=== PATIENT | male | born 1940 | race Caucasian/White ===

== ENCOUNTER → 2018-06-27 07:18 | Outpatient (CLI) | payer MEDICARE, SELFPAY ==
[2018-06-27 08:49] LABS: BUN 37 mg/dL (7-18); Creatinine, Serum 1.78 mg/dL (0.70-1.30); EST Glomerular Filtration Rate 40 mL/min (>60); Est Glom Filt Rate - Afr Amer 48 mL/min (>60)
== END ==
PROVIDERS: Family Provider Nurse Practitioner; PCP Nurse Practitioner
DX: I73.9 Peripheral vascular disease, unspecified (principal)
CPT/HCPCS: 36415; 82565; 84520

== ENCOUNTER 2018-07-30 04:35 | Emergency (ER) | payer MEDICARE, SELFPAY ==
[2018-07-30 04:36] VITALS: BP 176/106; PULSE 85; RESP 16; TEMP 36.4; O2SAT 95; BMI 19.3
--- NOTE | 2018-07-30 04:52 | ED.DCSUM_ITS ---
- ER Visit Summary Date of Service: 07/30/18 Chief Complaint: Allergic reaction History of Present Illness: The patient is a 78 M sudden left-sided tongue swelling 30 minutes prior to arrival. No dyspnea, no throat swelling. History of peanut allergy past 15 years similar presentation. States second time his tongue is swelling. States he ate Fritos 8 hours ago. Concerns there may have been peanut oil use. No chest tightness, no rash, no pruritus. Took 3 Benadryl tabs prior to arrival. Review patient's medication list bedside, he is on Enalapril. He states he is taking this for years. Physical Examination: General: Alert and oriented ?3, no acute distress, grumpy HEENT: Normocephalic, atraumatic. Moist mucosa membranes. Mild left-sided tongue swelling, no obstruction. Airway patent. Neck: supple, nontender. Cardiovascular: Regular rate and rhythm, no murmurs Respiratory: Normal breath sounds, symmetric, no distress Abdomen: Soft, nontender, nondistended Extremities: Nontender, no edema, pulses intact ?4 Neuro: no focal neurological deficits. Test Results: [] Emergency Department Course and Treatment: Patient presenting with slight angioedema of the tongue on left side. Due to his concerns of food allergy to peanuts and possible exposure, he was given Pepcid and Solu-Medrol. He took 3 Benadryl's prior to arrival. Monitor, 2 hours, states there is no progression, on reevaluation, there is slight improvement of swelling the left side of the tongue. There is no progression. Discussed with patient significant other, concerned this is likely JOSE ALBERTO induced angioedema. He will need to stop his Enalapril because PCP tomorrow for transition to another medication. He states he is been on 2 other medicines which cause side effects. All questions were answered. Treatment Plan: [] Disposition: Discharge Impression: Angioedema This note was generated with [employer] dictation software. It may contain incorrect words, spelling, and punctuation that were not noted in review of the chart prior to signing ED Disposition - Plan for ED Patient: Disposition: Home or Assisted Living Chief Complaint: Allergic Reaction Diagnosis: Angioedema Instructions: ED Angioedema Referrals: Rona Barnett [Primary Care Provider] - 1 Day Additional Instructions: Stop your enalapril. Call your physician to start a different blood pressure medication.
[2018-07-30] MEDS: MethylPREDNISolone 125 MG/2 ML Vial IV (04:53)
== END 2018-07-30 07:03 | disposition home or self-care (01) ==
PROVIDERS: Emergency Provider Emergency Medicine; Family Provider Nurse Practitioner; PCP Nurse Practitioner
DX: T78.3XXA Angioneurotic edema, initial encounter (principal); I49.3 Ventricular premature depolarization; I10 Essential (primary) hypertension; E78.00 Pure hypercholesterolemia, unspecified; Z79.82 Long term (current) use of aspirin; Z79.01 Long term (current) use of anticoagulants; Z79.899 Other long term (current) drug therapy; Z72.0 Tobacco use
CPT/HCPCS: 96374; 96375; 99284; A4216; J3490

== ENCOUNTER 2020-12-17 08:16 | Outpatient (RCR) | payer MEDICARE, SELFPAY | END 2020-12-17 23:59 | LOC: IMMUN 08:16 | PROVIDERS: PCP Nurse Practitioner; Visit Provider Family Medicine | DX: Z23 Encounter for immunization (principal) | CPT/HCPCS: 0011A; 0012A ==

== ENCOUNTER 2021-09-27 15:23 | Inpatient (IN) | payer MEDICARE, SELFPAY ==
[2021-09-27] VITALS (13 sets, daily range): BP systolic 120–153; BP diastolic 57–94; PULSE 63–88; RESP 16–19; TEMP 36.6–37.1; O2SAT 97–100; BMI 18.7; BMI 16.2
--- NOTE | 2021-09-27 15:43 | CT_ITS ---
STUDY: CT BRAIN WITHOUT CONTRAST REASON FOR EXAM: Male, 81 years old. Vertigo RADIATION DOSAGE (If Supplied By Facility): CTDIvol = ( 44.99 ) mGy, DLP = ( 812.98 ) mGycm TECHNIQUE: Transaxial CT imaging of the brain was performed without administration of intravenous contrast material. Individualized dose optimization techniques were used for this CT. COMPARISON: No relevant priors. FINDINGS: Normal soft tissue structures. Normal calvarium. Prominent ventricles and extra-axial spaces with atrophy. Normal white matter tracts of the cerebral hemispheres. Normal basal ganglia and thalami. Normal brainstem. Normal cerebellum. There is no intracranial hemorrhage. There are no findings of an acute ischemic infarction. Normal visualized paranasal sinuses. CT/Brain/Head without Contrast IMPRESSION: Normal unenhanced CT scan of the brain. Electronically Signed: Nick Roman DO at 16:50 EST Tel [phone], Service support ,
--- NOTE | 2021-09-27 15:43 | EKG12_ITS ---
Test Reason : Blood Pressure : / mmHG Vent. Rate : 077 BPM Atrial Rate : 077 BPM P-R Int : 140 ms QRS Dur : 150 ms QT Int : 428 ms P-R-T Axes : 000 -44 020 degrees QTc Int : 484 ms Normal sinus rhythm Left axis deviation Right bundle branch block Abnormal ECG Confirmed by FRANC EGAN, RAMESH ([id number]), terrazzo tile setter MILY AGUILAR ([id number]) on 09/29/2021 9:17:42 AM Referred By: EMILY Confirmed By:RAMESH BRUNER MD
--- NOTE | 2021-09-27 15:45 | EX.ED.DYSGE1 ---
HPI History of Present Illness Chief Complaint: Weakness Informant: patient and spouse/S.O. Onset/Context/Timing Onset: Weeks Narrative Narrative: Patient reports dizziness that he describes as things moving on and off over the past week. He also feels weak and gets sweaty when he ambulates a short distance. He thought this coincided with getting his flu shot and COVID-19 booster, but his symptoms have persisted. His outpatient primary care provider sent him for some testing which has not been completed yet. They were concerned about his kidney function and the dizziness. Nothing else seems to bring this on. Nothing else seems to make it worse. No other associated symptoms. [facility] Medical History (Updated 09/27/21 @ 16:[address] Benny Arroyo MD) HTN (hypertension) Hyperlipidemia Skin cancer Home Medications aspirin 81 mg PO DAILY 07/30/18 [History Last Taken Unknown] clopidogrel 75 mg PO DAILY 07/30/18 [History Last Taken Unknown] enalapril maleate [Vasotec] 20 mg PO BID 07/30/18 [History Last Taken Unknown] hydrochlorothiazide 25 mg PO DAILY 07/30/18 [History Last Taken Unknown] metoprolol tartrate 25 mg PO DAILY 07/30/18 [History Last Taken Unknown] multivitamin with folic acid [Thera] 1 tab PO DAILY 07/30/18 [History Last Taken Unknown] naproxen sodium [Aleve] 220 mg PO Q8H PRN PRN 07/30/18 [History Last Taken Unknown] niacinamide [Niacin] 1,000 mg PO DAILY 07/30/18 [History Last Taken Unknown] omega 6-cbh-aal-fish oil 2 tab PO DAILY 07/30/18 [History Last Taken Unknown] pravastatin 80 mg PO DAILY 07/30/18 [History Last Taken Unknown] amlodipine 10 mg PO DAILY 09/27/21 [History Last Taken Unknown] meloxicam 7.5 mg PO DAILY 09/27/21 [History Last Taken Unknown] Allergy/AdvReac Type Severity Reaction Status Date / Time enalapril Allergy Angioedema Verified 09/27/21 15:31 peanut Allergy Swelling Verified 09/27/21 15:31 Surgical History (Updated 09/27/21 @ 15:56 by Kimberley Palacio) History of prostatectomy Social History Smoking Status: Former smoker ROS ROS ED Constitutional Constitutional ED: Denies chills or fever(s) Eyes Eyes: Denies blurry vision or change in vision ENT ENT ED: Denies ear pain, rhinorrhea or sore throat Cardiovascular Cardiovascular: Denies chest pain, palpitations or racing heartbeat Respiratory/Chest Respiratory/Chest: Reports cough, dyspnea, dyspnea on exertion and sputum Gastrointestinal Gastrointestinal: Reports constipation; Denies abdominal pain, diarrhea, melena, nausea or vomiting Genitourinary Genitourinary ED: Denies dysuria or hematuria Musculoskeletal Musculoskeletal: Denies arthralgias or myalgias Integumentary Denies rash Neurologic Neurologic: Reports other Details: Vertigo ; Denies headache(s), paresthesias or weakness Psychiatric Psychiatric: Denies anxiety or depression Endocrine Endocrinology: Denies polydipsia or polyuria Allergic/Immunologic Allergic/Immunologic ED: Denies mouth swelling or urticaria EXAM Physical Exam Const Vital Signs: 09/27/21 15:23 09/27/21 15:54 09/27/21 16:02 Temperature 97.8 F Temperature Source Temporal Pulse Rate 84 Pulse Rate [Lying] 83 Pulse Rate [Sitting] 82 Pulse Rate [Standing] 88 Respiratory Rate 16 Respiratory Effort Normal Non-Labored Blood Pressure 127/94 H Blood Pressure [Lying] 145/57 H Blood Pressure [Sitting] 120/66 Blood Pressure [Standing] 127/58 H Blood Pressure Mean 105 Blood Pressure Mean [Lying] 86 Blood Pressure Mean [Sitting] 84 Blood Pressure Mean [Standing] 81 Pulse Ox 98 Oxygen Delivery Method Room Air Positive well nourished and well developed General Appearance ED: well developed HEENT Negative for trauma or tenderness Eyes PERRL and EOMs intact bilaterally Neck supple Chest Wall inspection of chest normal Resp normal respiratory effort and clear to auscultation bilaterally Cardio regular rate and regular rhythm GI normal to inspection, nondistended, normoactive bowel sounds, non-tender and non-distended Palpation: soft Extremity normal to inspection General Extremety ED: Negative for edema or tenderness General Extremity: Negative for edema Neuro oriented x3, CN's II-XII intact bilaterally and no sensory deficits noted Sensorium / Orientation: alert Sensory Exam: No sensory level loss detected Motor Exam: strength 5/5 throughout Psych mental status grossly normal Skin no rashes or lesions noted MDM MDM MDM Narrative Medical decision making narrative: EKG was interpreted by me and showed sinus rhythm at a rate of 77 with a right bundle branch block pattern. No sign of acute ischemia or infarction pattern. This was interpreted directly by me and contributed to the patient's care in the emergency department. Chest x-ray was unremarkable. This was interpreted by me and the radiologist. CT brain was unremarkable. White count 7.1. BUN and creatinine are elevated. Troponin is 16. Patient had a hemoglobin from about 3 years ago which was 14. I suspect he is having a GI bleed which is causing his vertigo and shortness of breath on exertion. Orthostatics were borderline he dropped about 20 points systolic. I added on Hemoccult test. His stool was completely black. He was treated with Protonix. Will check coags. Will type and screen and cross 1 unit red blood cells for transfusion. Patient is currently stable. He was discussed with the hospitalist and will be admitted to the PCU for further care. Impression #1 GI bleed Impression #2 anemia Impression #3 acute kidney injury Critical care time 35 minutes for GI bleed, review of results, consultation with other physicians, discussion with family. Lab Data Attestation: I reviewed the patient's lab results. Labs: Laboratory Results - last 24 hr 09/27/21 09/27/21 14:00 14:00 WBC 12.3 H RBC 1.96 L Hgb 7.1 L Hct 20.8 L MCV 106.1 H MCH 36.2 H MCHC 34.1 RDW Std Deviation 53.2 H RDW Coeff of Marya 14.4 Plt Count 232 MPV 9.6 Immature Gran % (Auto) 0.500 Neut % (Auto) 72.0 H Lymph % (Auto) 20.2 Haakon % (Auto) 6.7 Eos % (Auto) 0.3 Baso % (Auto) 0.3 Absolute Neuts (auto) 8.8 H Absolute Lymphs (auto) 2.48 Nucleated RBC % 0.2 Sodium 136 Potassium 3.3 L Chloride 98 Carbon Dioxide 26.0 Anion Gap 12 BUN 68 H Creatinine 1.96 H Estim Creat Clear Calc 23.72 Est GFR (MDRD) Af Amer 43 L Est GFR (MDRD) Non-Af 35 L BUN/Creatinine Ratio 34.7 H Glucose 120 H Calcium 9.4 Troponin I High Sens 16 Radiography Diagnostic Testing: Clinical Impression(s) from Imaging Studies Brain CT 09/27/21 15:43 IMPRESSION: Normal unenhanced CT scan of the brain. Electronically Signed: Nick Roman DO at 16:50 EST Tel [phone], Service support , Chest X-Ray 09/27/21 16:15 IMPRESSION: Normal x-ray examination of the chest. Electronically Signed: Nick Roman DO at 16:43 EST Tel [phone], Service support , Discharge Plan Triage Chief Complaint: Weakness ED Provider: Benny Arroyo Dx/Rx/DC Orders Prescriptions: No Action clopidogrel 75 MG tablet 75 mg PO DAILY RF: 0 pravastatin 80 MG tablet 80 mg PO DAILY RF: 0 metoprolol tartrate 25 MG tablet 25 mg PO DAILY RF: 0 enalapril maleate [Vasotec] 20 MG tablet 20 mg PO BID RF: 0 hydrochlorothiazide 25 MG tablet 25 mg PO DAILY RF: 0 niacinamide [Niacin (niacinamide)] 500 MG tablet 1,000 mg PO DAILY RF: 0 aspirin 81 MG tablet,chewable 81 mg PO DAILY RF: 0 multivitamin with folic acid [Thera] 1 TABLET tablet 1 tab PO DAILY RF: 0 omega 2-erq-hoc-fish oil 1 EACH capsule 2 tab PO DAILY RF: 0 naproxen sodium [Aleve] 220 MG tablet 220 mg PO Q8H PRN PRN (Reason: Pain) RF: 0 meloxicam 7.5 mg Tablet 7.5 mg PO DAILY RF: 0 amlodipine 10 mg tablet 10 mg PO DAILY RF: 0 Primary Care Provider: Rona Barnett NP Referrals: Rona Barnett NP, [employer] [Primary Care Provider] -
[2021-09-27 16:10] LABS: Absolute Lymphocyte Count 2.48 X10^3/uL (0.83-4.51); Absolute Neutrophil Count 8.8 X10^3/uL (2.0-7.7); Basophil# 0.04 X10^3/uL; Basophil% 0.3 % (0-1); Eosinophil# 0.04 X10^3/uL; Eosinophils% 0.3 % (0-5); Hematocrit 20.8 % (40-54); Hemoglobin 7.1 g/dL (13.0-16.5); Lymphocyte # 2.48 X10^3/ul (0.83-4.51); Lymphocyte % 20.2 % (19-41); Mean Corp Hgb Conc 34.1 g/dL (32-36); Mean Corpuscular Hgb 36.2 pg (27.0-32.0); Mean Corpuscular Volume 106.1 fL (80-94); Mean Platelet Vol. 9.6 fl (6.2-12.0); Monocyte# 0.82 X10^3/uL; Monocyte% 6.7 % (0-10); NRBC Flagged by Analyzer 0.2 % (0-5); Neutrophil # 8.84 X10^3/uL (2.7-7.7); Platelet Count 232 K/mm3 (150-450); RBC Distribution Width CV 14.4 % (11.6-14.6); RBC Distribution Width SD 53.2 fl (35.1-43.9); Red Blood Count 1.96 M/mm3 (4.6-6.2); White Blood Count 12.3 K/mm3 (4.4-11.0)
--- NOTE | 2021-09-27 16:15 | RAD_ITS ---
STUDY: X-RAY CHEST REASON FOR EXAM: Male, 81 years old. Dizzy TECHNIQUE: Frontal view COMPARISON: 02/10/2021. FINDINGS: The lungs are clear and expanded. There is no demonstrated pleural abnormality. Normal size heart. Normal mediastinum and cheli. Normal visualized pulmonary arteries. Calcified aortic arch and descending thoracic aorta. Degenerative changes of the thoracic spine. Normal visualized ribs, clavicles, and shoulders. There is no demonstrated abnormality of the visualized soft tissue structures of the upper abdomen. RAD/Chest 1 View (Portable) IMPRESSION: Normal x-ray examination of the chest. Electronically Signed: Nick Roman DO at 16:43 EST Tel [phone], Service support ,
[2021-09-27 16:45] LABS: Anion Gap 12 (5-15); BUN 68 mg/dL (7-18); BUN/Creat Ratio 34.7 RATIO (10-20); Calcium,Total 9.4 mg/dL (8.5-10.1); Chloride 98 mmol/L (98-107); Creatinine, Serum 1.96 mg/dL (0.70-1.30); EST Glomerular Filtration Rate 35 mL/min (>60); Est Glom Filt Rate - Afr Amer 43 mL/min (>60); Estimated Creatinine Clearance 23.72 ml/min; Glucose 120 mg/dL (74-106); Potassium 3.3 mmol/L (3.5-5.1); Sodium Level 136 mmol/L (136-145); Troponin-I HS 16 pg/mL (3.0-78.0)
--- NOTE | 2021-09-27 17:26 | HP.PCM.HOS_ITS ---
Documented by User: Pramod BLEVINS 09/27/21 17:53 HPI - General General Date of Admission: 09/27/21 HPI Narrative INCA PANTOJA is an 81-year-old male who presents to the ED at [facility] on 09/27/2021 with a chief complaint of progressively worsening shortness of breath. Patient reports that for the past 6 days he has been getting progressively shortness of breath with exertion. Patient reports that the shortness of breath does improve with rest. Patient also reports today that he did have 1 dark brown bowel movement. Patient denies seeing any blood in the toilet or blood on the toilet paper. Patient denies hematemesis, hematochezia, abdominal pain or N/V/D. Denies chest pain, palpitations, hemoptysis, sputum production, fever, chills. Vital signs obtained in the ED are temperature of 97.8 ?F, HR of 84, BP of 127/94, RR of 16 and patient is currently satting 98% on room air. CBC shows WBCs at 12.3, hemoglobin of 7.1 and platelets at 232. BMP demonstrates low potassium at 3.3 and an elevated creatinine at 1.96. Brain CT demonstrates normal and head CT of the brain. Chest x-ray does not show any acute cardiopulmonary pathology. Rapid Covid is negative. Hemoccult test was ordered in the ED as well as a type and cross for preparation for trans fusion of PRBCs. Patient also transfused IV PPI in the ED. Patient will be admitted for acute blood loss anemia in the setting of shortness of breath. [facility] Medical History (Updated 09/27/21 @ 17:40 by Pramod BLEVINS) HTN (hypertension) Hyperlipidemia Peripheral vascular disease Skin cancer Home Medications aspirin 81 mg PO DAILY 07/30/18 [History Last Taken Unknown] clopidogrel 75 mg PO DAILY 07/30/18 [History Last Taken Unknown] enalapril maleate [Vasotec] 20 mg PO BID 07/30/18 [History Last Taken Unknown] hydrochlorothiazide 25 mg PO DAILY 07/30/18 [History Last Taken Unknown] metoprolol tartrate 25 mg PO DAILY 07/30/18 [History Last Taken Unknown] multivitamin with folic acid [Thera] 1 tab PO DAILY 07/30/18 [History Last Taken Unknown] naproxen sodium [Aleve] 220 mg PO Q8H PRN PRN 07/30/18 [History Last Taken Unknown] niacinamide [Niacin] 1,000 mg PO DAILY 07/30/18 [History Last Taken Unknown] omega 1-rsa-uam-fish oil 2 tab PO DAILY 07/30/18 [History Last Taken Unknown] pravastatin 80 mg PO DAILY 07/30/18 [History Last Taken Unknown] amlodipine 10 mg PO DAILY 09/27/21 [History Last Taken Unknown] meloxicam 7.5 mg PO DAILY 09/27/21 [History Last Taken Unknown] Allergy/AdvReac Type Severity Reaction Status Date / Time enalapril Allergy Angioedema Verified 09/27/21 15:31 peanut Allergy Swelling Verified 09/27/21 15:31 Family History (Updated 09/27/21 @ 17:35 by Pramod BLEVINS) Father CVA (cerebral vascular accident) Hypertension Surgical History (Updated 09/27/21 @ 17:36 by Pramod BLEVINS) H/O radical prostatectomy H/O: knee surgery History of carpal tunnel surgery of left wrist History of prostatectomy Hx of vascular surgery Social History (Updated 09/27/21 @ 17:37 by Pramod BLEVINS) Smoking Status: Former smoker Tobacco: How many years used: 50 alcohol intake: former ROS Constitutional Constitutional: Denies anorexia, change in weight, chills, fatigue, fever(s), malaise, night sweats, weakness or other Eyes Eyes: Denies blurry vision, change in eye color, change in vision, discharge from eye(s), double vision, erythema, eye pain, loss of vision or other ENT HEENT: Denies abnormal hearing, dysphagia, ear pain, epistaxis, headache(s), hearing loss, nasal congestion, nasal discharge, post nasal drip, sinus pressure, sore throat or other Cardiovascular Cardiovascular: Reports dyspnea on exertion and lightheadedness; Denies chest pain, claudication, edema, orthopnea, palpitations, paroxysmal nocturnal dyspnea, rapid heart rate, syncope or other Respiratory/Chest Respiratory/Chest: Reports dyspnea and shortness of breath with exertion; Denies cough, excessive phlegm production, hemoptysis, productive cough, shortness of breath at rest, wheezing or other Gastrointestinal Gastrointestinal: Reports other Details: Melanotic stool ; Denies abdominal pain, coffee ground emesis, constipation, diarrhea, dyspepsia, hematemesis, hematochezia, loose stools, melena, nausea or vomiting Genitourinary Genitourinary: Denies burning urination, difficulty urinating, dysuria, hematuria, nocturia, urinary frequency, urinary hesitancy, urinary incontinence, urinary urgency or other Musculoskeletal Musculoskeletal: Denies arthralgias, back pain, joint pain, joint stiffness, joint swelling, myalgias, neck pain or other Neurologic Neurologic: Denies abnormal gait, abnormal speech, confusion, disequilibrium, dizziness, focal weakness, headache(s), numbness, paresthesias, seizure-like activity, seizures, syncope, tingling, tremor(s) or other Psychiatric Psychiatric: Denies anxiety, depression, homicidal ideation, suicidal ideation or other Endocrine Endocrinology: Denies change in body appearance, cold intolerance, excessive sweating, heat intolerance, polydipsia, polyuria or other Hematologic/Lymphatic Hematologic/Lymphatic: Denies anemia, easy bleeding, easy bruising, lymphadenopathy or other Allergic/Immunologic Allergic/Immunologic: Denies rhinitis, hives, eczemia, asthma or other Vital Signs Vital Signs Vital Signs: 09/27/21 15:23 09/27/21 15:54 09/27/21 16:02 Temperature 97.8 F Temperature Source Temporal Pulse Rate 84 Pulse Rate [Lying] 83 Pulse Rate [Sitting] 82 Pulse Rate [Standing] 88 Respiratory Rate 16 Respiratory Effort Normal Non-Labored Blood Pressure 127/94 H Blood Pressure [Lying] 145/57 H Blood Pressure [Sitting] 120/66 Blood Pressure [Standing] 127/58 H Blood Pressure Mean 105 Blood Pressure Mean [Lying] 86 Blood Pressure Mean [Sitting] 84 Blood Pressure Mean [Standing] 81 Pulse Ox 98 Oxygen Delivery Method Room Air 09/27/21 17:09 Temperature 98.7 F Temperature Source Oral Pulse Rate 76 Pulse Rate [Lying] Pulse Rate [Sitting] Pulse Rate [Standing] Respiratory Rate 19 H Respiratory Effort Blood Pressure 130/66 H Blood Pressure [Lying] Blood Pressure [Sitting] Blood Pressure [Standing] Blood Pressure Mean 87 Blood Pressure Mean [Lying] Blood Pressure Mean [Sitting] Blood Pressure Mean [Standing] Pulse Ox 99 Oxygen Delivery Method Nasal Cannula Weight Weight: 123 lb Body Mass Index (BMI) 18.7 Physical Exam Const alert and oriented x3 General Appearance: cooperative HEENT normocephalic, head/scalp atraumatic and hearing grossly normal bilaterally Eyes PERRL, EOMs intact bilaterally and conjunctivae normal Neck no lymphadenopathy, supple and no JVD Resp normal respiratory effort, no retractions, no use of accessory muscles and clear to auscultation bilaterally Cardio regular rate, regular rhythm, no murmurs and no JVD GI normal to inspection, nondistended, normoactive bowel sounds, soft to palpation and non-tender Extremity normal to inspection, full ROM and no clubbing, cyanosis or edema Peripheral Pulses: Yes pulses 2+ throughout Skin no rashes or lesions noted, no wounds, skin turgor normal and no jaundice Neuro CN's II-XII intact bilaterally Psych affect normal Results Lab / Micro Data Result Diagrams: 09/27/21 14:00 09/27/21 14:00 Labs: Laboratory Results - last 24 hr 09/27/21 14:00: WBC 12.3 H, RBC 1.96 L, Hgb 7.1 L, Hct 20.8 L, MCV 106.1 H, MCH 36.2 H, MCHC 34.1, RDW Std Deviation 53.2 H, RDW Coeff of Marya 14.4, Plt Count 232, MPV 9.6, Immature Gran % (Auto) 0.500, Neut % (Auto) 72.0 H, Lymph % (Auto) 20.2, [place] % (Auto) 6.7, Eos % (Auto) 0.3, Baso % (Auto) 0.3, Absolute Neuts (auto) 8.8 H, Absolute Lymphs (auto) 2.48, Nucleated RBC % 0.2 09/27/21 14:00: Sodium 136, Potassium 3.3 L, Chloride 98, Carbon Dioxide 26.0, Anion Gap 12, BUN 68 H, Creatinine 1.96 H, Estim Creat Clear Calc 23.72, Est GFR (MDRD) Af Amer 43 L, Est GFR (MDRD) Non-Af 35 L, BUN/Creatinine Ratio 34.7 H, Glucose 120 H, Calcium 9.4, Troponin I High Sens 16 09/27/21 16:00: Crossmatch See Detail Micro: Microbiology 09/27/21 14:00 Nasal Secretion SARS-CoV-2 Antigen (Rapid) - Final Radiology Impression Brain CT 09/27/21 15:43 IMPRESSION: Normal unenhanced CT scan of the brain. Electronically Signed: Nick Roman, DO at 16:50 EST Tel [phone], Service support , Chest X-Ray 09/27/21 16:15 IMPRESSION: Normal x-ray examination of the chest. Electronically Signed: Nick Roman, DO at 16:43 EST Tel [phone], Service support , Assessment & Plan Assessment/Plan (1) GI bleed: (2) Acute blood loss anemia: PLAN: Patient is an 81-year-old male who presents to the ED at [facility] on 09/27/2021 with a chief complaint of progressively worsening shortness of breath and passage of melanotic stool. Patient will be admitted for management and evaluation of lower GI bleed. 1) acute blood loss anemia secondary to suspected lower GI bleed Patient presents with a 6-day history of progressively worsening shortness of breath and the passage of melanotic stool today. Patient also endorses weakness and fatigue. Patient denies any bright red blood per rectum, blood on the toilet paper, hematemesis, hematochezia, abdominal pain or N/V/D. CBC obtained in the ED demonstrated a hemoglobin of 7.1. Hemoccult stool ordered/pending. Patient was initiated on IV PPI in the ED and was ordered 1 unit of PRBCs which is to be transfused. Plan; admit to [facility], CBC and BMP in a.m., continue to transfuse 1 unit of PRBCs, GI consult ordered, clear liquid diet ordered, hold home meloxicam and naproxen 2) hypokalemia Potassium currently 3.3. Continue to monitor BMP. 3) GOMEZ on CKD stage IIIb Creatinine currently 1.96, no baseline to compare to. Likely secondary to dehydration, will continue to monitor. 4) history of peripheral vascular disease Patient reports prior history of peripheral vascular disease and history of surgery with a vascular surgeon in [place]. Hold home aspirin and Plavix regimen. 5) HTN Stable, hold home amlodipine, Elanapril, hydrochlorothiazide and metoprolol. 6) hyperlipidemia Continue statin, hold home niacin. CODE STATUS: Full code Advance care planning: Patient's is patient's healthcare power of trademark attorney and is to make decisions for patient in the event that he cannot do so himself. DVT prophylaxis - SCDs Patient seen by Pramod De Los Santos PA-C, under the supervision of Dr. Fitzpatrick. Documented by User: Dr. Marv Fitzpatrick MD 09/27/21 18:15 [facility] - General General Date of Admission: 09/27/21 [facility] Medical History (Updated 09/27/21 @ 17:40 by Pramod BLEVINS) HTN (hypertension) Hyperlipidemia Peripheral vascular disease Skin cancer Home Medications aspirin 81 mg PO DAILY 07/30/18 [History Last Taken Unknown] clopidogrel 75 mg PO DAILY 07/30/18 [History Last Taken Unknown] enalapril maleate [Vasotec] 20 mg PO BID 07/30/18 [History Last Taken Unknown] hydrochlorothiazide 25 mg PO DAILY 07/30/18 [History Last Taken Unknown] metoprolol tartrate 25 mg PO DAILY 07/30/18 [History Last Taken Unknown] multivitamin with folic acid [Thera] 1 tab PO DAILY 07/30/18 [History Last Taken Unknown] naproxen sodium [Aleve] 220 mg PO Q8H PRN PRN 07/30/18 [History Last Taken Unknown] niacinamide [Niacin] 1,000 mg PO DAILY 07/30/18 [History Last Taken Unknown] omega 7-pwo-qdd-fish oil 2 tab PO DAILY 07/30/18 [History Last Taken Unknown] pravastatin 80 mg PO DAILY 07/30/18 [History Last Taken Unknown] amlodipine 10 mg PO DAILY 09/27/21 [History Last Taken Unknown] meloxicam 7.5 mg PO DAILY 09/27/21 [History Last Taken Unknown] Allergy/AdvReac Type Severity Reaction Status Date / Time enalapril Allergy Angioedema Verified 09/27/21 15:31 peanut Allergy Swelling Verified 09/27/21 15:31 Family History (Updated 09/27/21 @ 17:35 by Pramod BLEVINS) Father CVA (cerebral vascular accident) Hypertension Surgical History (Updated 09/27/21 @ 17:36 by Pramod BLEVINS) H/O radical prostatectomy H/O: knee surgery History of carpal tunnel surgery of left wrist History of prostatectomy Hx of vascular surgery Social History (Updated 09/27/21 @ 17:37 by Pramod BLEVINS) Smoking Status: Former smoker Tobacco: How many years used: 50 alcohol intake: former Results Lab / Micro Data Result Diagrams: 09/27/21 14:00 09/27/21 14:00 Charges/Coding Addendum Addendum: Dr. Fitzpatrick: I personally reviewed the chart and examined the patient, and agree with the above findings. 81-year-old male presents to the hospital with weakness as well as fatigue. He states that he has been feeling a little bit fatigued for the last several weeks, but has not noticed any dark stools until today. According to the he has not had a bowel movement in 3 to 4 days. Has never had a GI bleed before but his hemoglobin is down to 7.1. 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 We will transfuse him 1 unit and plan for either gastroenterology or general surgery to see him in the morning. We will can continue with the PPI and pravastatin. We will hold his blood pressure medications secondary to his bleeding, will also place him on a clear liquid diet in anticipation of scope tomorrow. Visit Charges Inpatient E&M: 00951 Init Hosp L3
[2021-09-27 17:30] LABS: International Normalized Ratio 1.1; Prothrombin Time (Protime)PT. 13.3 SECONDS (11.7-14.9)
--- NOTE | 2021-09-27 19:37 | NURSING ---
oxygen applied. Pt c/o sob. Ist unit of blood started
[2021-09-27 20:26] LABS: Bacteria 0 SEEN /hpf (None Seen); Mucous, Urine 0 SEEN /hpf (<or=2+); Red Blood Cells-Urine 0 SEEN /hpf (0-5); Squamous Epithelial Cells - UA 0 SEEN /hpf (0-5); White Blood Cells 0 SEEN /hpf (0-5)
[2021-09-27 20:29] LABS: Color, Urine Yellow (Yellow); Glucose, Dipstick Normal (Normal); Ketone-Dipstick Negative (Negative); Leukocyte Esterase-Dipstick Negative /ul (Negative); Nitrite-Dipstick Negative (Negative); Occult Blood-Urine Negative /ul (Negative); Protein-Dipstick Negative (Negative); Specific Gravity, Urine 1.015 (1.002-1.030); Urine Bilirubin Dipstick Negative (Negative); Urine Clarity Clear (Clear); Urine Urobilinogen Normal (Normal)
[2021-09-27] MEDS: Pravastatin 80 MG Tablet PO (22:11)
[2021-09-28] VITALS (12 sets, daily range): BP systolic 112–161; BP diastolic 53–64; PULSE 72–83; RESP 16–18; TEMP 36.4–37.7; O2SAT 92–96
[2021-09-28 07:02] LABS: Absolute Lymphocyte Count 1.89 X10^3/uL (0.83-4.51); Absolute Neutrophil Count 10.1 X10^3/uL (2.0-7.7); Basophil# 0.05 X10^3/uL; Basophil% 0.4 % (0-1); Eosinophil# 0.13 X10^3/uL; Lymphocyte # 1.89 X10^3/ul (0.83-4.51); Lymphocyte % 14.5 % (19-41); Mean Corpuscular Hgb 33.3 pg (27.0-32.0); Mean Corpuscular Volume 95.2 fL (80-94); Mean Platelet Vol. 9.9 fl (6.2-12.0); Monocyte# 0.77 X10^3/uL; Monocyte% 5.9 % (0-10); NRBC Flagged by Analyzer 0.2 % (0-5); Neutrophil # 10.11 X10^3/uL (2.7-7.7); Neutrophil % 77.7 % (47-70); POSITIVE MORPHOLOGY YES; Platelet Count 185 K/mm3 (150-450); RBC Distribution Width CV 21.7 % (11.6-14.6); RBC Distribution Width SD 70.5 fl (35.1-43.9)
[2021-09-28 07:04] LABS: Differential Indicated SCAN CRITERIA MET
[2021-09-28 07:26] LABS: Anion Gap 7 (5-15); BUN 52 mg/dL (7-18); BUN/Creat Ratio 40.3 RATIO (10-20); Calcium,Total 8.4 mg/dL (8.5-10.1); Chloride 102 mmol/L (98-107); Creatinine, Serum 1.29 mg/dL (0.70-1.30); EST Glomerular Filtration Rate 57 mL/min (>60); Est Glom Filt Rate - Afr Amer 69 mL/min (>60); Estimated Creatinine Clearance 30.47 ml/min; Glucose 93 mg/dL (74-106); Sodium Level 137 mmol/L (136-145)
[2021-09-28 07:56] LABS: Anisocytosis 2+; Differential Comment SCANNED; Polychromasia 1+
[2021-09-28] MEDS: 0.9% Saline Lock 10 ML Syringe IV ×2 (10:35→21:42)
--- NOTE | 2021-09-28 11:05 | CASEMGMT ---
ARASELI PLASCENCIA assessment: Face to Face with patient for initial transition planning/care coordination assessment. ARASELI PLASCENCIA introduced self and role at [facility], pt voices understanding and consents to assessment. Pt is sitting up in bed in no distress on room air. Pt is A/Ox4 and answers all questions appropriately. Pt's is at bedside during assessment. Care providers, pharmacy, and demographics verified. Presentation: Pt c/o weakness, dizziness, SOB, dark stools- Admitting dx: GI bleed PCP: [facility] Specialists: Pt states no current specialists [facility]erred [facility]acy: [facility] Insurance: [employer] Prescription Benefit: [employer] Living Will/HPOA: Pt has LW/HPOA and is aware that they are not on file at [facility]. Pt states his , Larissa Shea, is HPOA. LNOK: Larissa Shea, Living Arrangements: Pt states lives with in 2 story home and states no concerns at home. Pt is independent with ADL's. Transportation: Pt states drives self and states no transportation concerns. DME/HHC: Pt states no current DME or need for any DME. Pt states no hx of HHC or SNF in the past. Pt states no concerns with going home at time of discharge. Pt is retired. Pt states does not smoke cigarettes or drink ETOH. Pt states no further concerns/needs. CM to follow for any further discharge planning/needs. Advised pt to ask for CM if any further questions/concerns/needs arise, voices understanding. Pt Goal: Home Plan[place] ARASELI PLASCENCIA
--- NOTE | 2021-09-28 12:15 | CON.PCM.SX_ITS ---
Assessment & Plan Assessment/Plan (1) Acute blood loss anemia: PLAN: This is an 81-year-old male presenting with symptomatic anemia. He was transfused 1 unit PRBCs without an increase in his hemoglobin. Possible subjective complaint of melena yesterday. Patient is at risk for erosive disease given routine use of multiple NSAID medications and concurrent Plavix therapy for lower extremity stents. Additionally, he and his state that he routinely received screening colonoscopies in the last procedure was approxi mately 5 years ago notable for polyps only. I have discussed with patient and his spouse my recommendations for proceeding with a EGD today and a colonoscopy later on if needed. We also discussed the limitations of these exams being unable to visualize any processes within the majority of the small bowel. Lastly I did review with him the need to limit use of NSAID medications. Plan: ?N.p.o. for now ?EGD later today ?Agree with Protonix 40 mg IV twice daily ?Serial H&H ?Hold Plavix and NSAIDs HPI Consult Data Date of Consult: 09/28/21 HPI Narrative HPI Narrative: NICA PANTOJA, is a 81 M who tented to [facility] ER yesterday with primary complaints of shortness of breath x1 week. His shortness of breath was associated with some dizziness. The symptoms are, admittedly, intermittent and Mr. Pantoja states he had a good couple of days before Thanksgiving when symptoms became more intense. He denies any associated abdominal pain or weight loss. 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 He works part- time delivering parts for [employer] and relies on this medication to maintain his mobility. According to both him and his , he has been on this regimen for several years. He also takes Plavix for history of lower extremity stents. He experienced some constipation over the last week but then had a rather dark bowel movement yesterday. There was no tomasz blood but the stool was darker brown than usual. On intake through the ER patient was noted to be anemic with a hemoglobin of 7.1 mg/dL. He was transfused 1 unit PRBCs yesterday and repeat hemoglobin this morning was 7.0 mg/dL. A second unit is currently running with a third ordered. There was occult blood in the patient's stool sample. [facility] Medical History (Updated 09/27/21 @ 17:40 by Pramod BLEVINS) HTN (hypertension) Hyperlipidemia Peripheral vascular disease Skin cancer Home Medications aspirin 81 mg PO DAILY 07/30/18 [History Last Taken Unknown] clopidogrel 75 mg PO DAILY 07/30/18 [History Last Taken Unknown] enalapril maleate [Vasotec] 20 mg PO BID 07/30/18 [History Last Taken Unknown] hydrochlorothiazide 25 mg PO DAILY 07/30/18 [History Last Taken Unknown] metoprolol tartrate 25 mg PO DAILY 07/30/18 [History Last Taken Unknown] multivitamin with folic acid [Thera] 1 tab PO DAILY 07/30/18 [History Last Taken Unknown] naproxen sodium [Aleve] 220 mg PO Q8H PRN PRN 07/30/18 [History Last Taken Unknown] niacinamide [Niacin] 1,000 mg PO DAILY 07/30/18 [History Last Taken Unknown] omega 7-rxk-rch-fish oil 2 tab PO DAILY 07/30/18 [History Last Taken Unknown] pravastatin 80 mg PO DAILY 07/30/18 [History Last Taken Unknown] amlodipine 10 mg PO DAILY 09/27/21 [History Last Taken Unknown] meloxicam 7.5 mg PO DAILY 09/27/21 [History Last Taken Unknown] Allergy/AdvReac Type Severity Reaction Status Date / Time enalapril Allergy Angioedema Verified 09/27/21 15:31 peanut Allergy Swelling Verified 09/27/21 15:31 Family History (Updated 09/27/21 @ 17:35 by Pramod BLEVINS) Father CVA (cerebral vascular accident) Hypertension Surgical History (Updated 09/27/21 @ 17:36 by Pramod BLEVINS) H/O radical prostatectomy H/O: knee surgery History of carpal tunnel surgery of left wrist History of prostatectomy Hx of vascular surgery Social History (Updated 09/27/21 @ 17:37 by Pramod BLEVINS) Smoking Status: Former smoker Tobacco: How many years used: 50 alcohol intake: former Physical Exam Const alert, oriented x3 and no apparent distress Constitutional Narrative: Somewhat agitated but cooperative General Appearance: cooperative Resp normal respiratory effort Resp Narrative: Nasal cannula in place GI GI Narrative: Small supraumbilical incision now well-healed. Abdomen is nondistended. Soft, nontender to palpation x4 quadrants. However, with truncal flexion there is evidence of a incisional hernia (at patient's after mentioned incision site) that is freely reducible. Lab / Micro Data Result Diagrams: 09/28/21 06:36 09/28/21 06:36 Labs: Laboratory Results - last 24 hr 09/27/21 14:00: WBC 12.3 H, RBC 1.96 L, Hgb 7.1 L, Hct 20.8 L, MCV 106.1 H, MCH 36.2 H, MCHC 34.1, RDW Std Deviation 53.2 H, RDW Coeff of Marya 14.4, Plt Count 232, MPV 9.6, Immature Gran % (Auto) 0.500, Neut % (Auto) 72.0 H, Lymph % (Auto) 20.2, [place] % (Auto) 6.7, Eos % (Auto) 0.3, Baso % (Auto) 0.3, Absolute Neuts (auto) 8.8 H, Absolute Lymphs (auto) 2.48, Nucleated RBC % 0.2 09/27/21 14:00: Sodium 136, Potassium 3.3 L, Chloride 98, Carbon Dioxide 26.0, Anion Gap 12, BUN 68 H, Creatinine 1.96 H, Estim Creat Clear Calc 23.72, Est GFR (MDRD) Af Amer 43 L, Est GFR (MDRD) Non-Af 35 L, BUN/Creatinine Ratio 34.7 H, Glucose 120 H, Calcium 9.4, Troponin I High Sens 16 09/27/21 14:00: PT 13.3, INR 1.1, APTT 26.0 09/27/21 16:00: Blood Type AB NEGATIVE, Antibody Screen NEGATIVE, Crossmatch See Detail 09/27/21 16:00: Crossmatch See Detail 09/27/21 20:19: Urine Color Yellow, Urine Clarity Clear, Urine pH 5.0, Ur Specific Whitman 1.015, Urine Protein Negative, Urine Glucose (UA) Normal, Urine Ketones Negative, Urine Occult Blood Negative, Urine Nitrite Negative, Urine Bilirubin Negative, Urine Urobilinogen Normal, Ur Leukocyte Esterase Negative, Urine RBC 0 SEEN, Urine WBC 0 SEEN, Ur Squamous Epith Cells 0 SEEN, Urine Bacteria 0 SEEN, Urine Mucus 0 SEEN 09/28/21 06:36: WBC 13.0 H, RBC 2.10 L, Hgb 7.0 L, Hct 20.0 L, MCV 95.2 H D, MCH 33.3 H, MCHC 35.0, RDW Std Deviation 70.5 H, RDW Coeff of Marya 21.7 H, Plt Count 185, MPV 9.9, Immature Gran % (Auto) 0.500, Neut % (Auto) 77.7 H, Lymph % (Auto) 14.5 L, [place] % (Auto) 5.9, Eos % (Auto) 1.0, Baso % (Auto) 0.4, Absolute Neuts (auto) 10.1 H, Absolute Lymphs (auto) 1.89, Nucleated RBC % 0.2, Differential Comment SCANNED, Polychromasia 1+, Anisocytosis 2+ 09/28/21 06:36: Sodium 137, Potassium 3.0 L, Chloride 102, Carbon Dioxide 28.0, Anion Gap 7, BUN 52 H, Creatinine 1.29, Estim Creat Clear Calc 30.47, Est GFR (MDRD) Af Amer 69, Est GFR (MDRD) Non-Af 57 L, BUN/Creatinine Ratio 40.3 H, Glucose 93, Calcium 8.4 L Micro: Microbiology 09/27/21 17:27 Stool Stool Occult Blood (ASHLIE) - Final Occult Blood Positive 09/27/21 14:00 Nasal Secretion SARS-CoV-2 Antigen (Rapid) - Final Radiology Impression Brain CT 09/27/21 15:43 IMPRESSION: Normal unenhanced CT scan of the brain. Electronically Signed: Nick Roman DO at 16:50 EST Tel [phone], Service support , Chest X-Ray 09/27/21 16:15 IMPRESSION: Normal x-ray examination of the chest. Electronically Signed: Nick Roman DO at 16:43 EST Tel [phone], Service support , Charges/Coding Visit Charges Inpatient E&M: 35184 Init Hosp L2
--- NOTE | 2021-09-28 12:33 | PN.HOSP_ITS ---
Documented by User: Pramod BLEVINS 09/28/21 12:54 Subjective Subjective Patient is an 81-year-old male comfortably resting in bed, alert and orient x3. Patient denies development of any new symptoms overnight and does not appear in acute distress. Objective Data Objective Data Vital Signs: Vital Signs Temp Pulse Resp BP Pulse Ox 98.0 F 72 16 143/64 H 95 09/28/21 08:00 09/28/21 08:00 09/28/21 08:00 09/28/21 08:00 09/28/21 08:12 Oxygen Flow Rate (L/min) 3 Oxygen Delivery Method Nasal Cannula Weight: 104 lb Body Mass Index (BMI) 16.2 Intake & Output: Intake and Output for Last 24 Hours 09/26/21 09/27/21 09/28/21 23:59 23:59 23:59 Intake Total 975 / 975 230 / 230 Output Total 600 / 600 700 / 700 Balance 375 / 375 -470 / -470 Lab / Micro Data Result Diagrams: 09/28/21 16:50 09/28/21 06:36 Labs: Laboratory Results - last 24 hr 09/27/21 14:00: WBC 12.3 H, RBC 1.96 L, Hgb 7.1 L, Hct 20.8 L, MCV 106.1 H, MCH 36.2 H, MCHC 34.1, RDW Std Deviation 53.2 H, RDW Coeff of Marya 14.4, Plt Count 232, MPV 9.6, Immature Gran % (Auto) 0.500, Neut % (Auto) 72.0 H, Lymph % (Auto) 20.2, Carson % (Auto) 6.7, Eos % (Auto) 0.3, Baso % (Auto) 0.3, Absolute Neuts (auto) 8.8 H, Absolute Lymphs (auto) 2.48, Nucleated RBC % 0.2 09/27/21 14:00: Sodium 136, Potassium 3.3 L, Chloride 98, Carbon Dioxide 26.0, Anion Gap 12, BUN 68 H, Creatinine 1.96 H, Estim Creat Clear Calc 23.72, Est GFR (MDRD) Af Amer 43 L, Est GFR (MDRD) Non-Af 35 L, BUN/Creatinine Ratio 34.7 H, Glucose 120 H, Calcium 9.4, Troponin I High Sens 16 09/27/21 14:00: PT 13.3, INR 1.1, APTT 26.0 09/27/21 16:00: Blood Type AB NEGATIVE, Antibody Screen NEGATIVE, Crossmatch See Detail 09/27/21 16:00: Crossmatch See Detail 09/27/21 20:19: Urine Color Yellow, Urine Clarity Clear, Urine pH 5.0, Ur Specific [place] 1.015, Urine Protein Negative, Urine Glucose (UA) Normal, Urine Ketones Negative, Urine Occult Blood Negative, Urine Nitrite Negative, Urine Bilirubin Negative, Urine Urobilinogen Normal, Ur Leukocyte Esterase Negative, Urine RBC 0 SEEN, Urine WBC 0 SEEN, Ur Squamous Epith Cells 0 SEEN, Urine Bacteria 0 SEEN, Urine Mucus 0 SEEN 09/28/21 06:36: WBC 13.0 H, RBC 2.10 L, Hgb 7.0 L, Hct 20.0 L, MCV 95.2 H D, MCH 33.3 H, MCHC 35.0, RDW Std Deviation 70.5 H, RDW Coeff of Marya 21.7 H, Plt Count 185, MPV 9.9, Immature Gran % (Auto) 0.500, Neut % (Auto) 77.7 H, Lymph % (Auto) 14.5 L, Carson % (Auto) 5.9, Eos % (Auto) 1.0, Baso % (Auto) 0.4, Absolute Neuts (auto) 10.1 H, Absolute Lymphs (auto) 1.89, Nucleated RBC % 0.2, Differential Comment SCANNED, Polychromasia 1+, Anisocytosis 2+ 09/28/21 06:36: Sodium 137, Potassium 3.0 L, Chloride 102, Carbon Dioxide 28.0, Anion Gap 7, BUN 52 H, Creatinine 1.29, Estim Creat Clear Calc 30.47, Est GFR (MDRD) Af Amer 69, Est GFR (MDRD) Non-Af 57 L, BUN/Creatinine Ratio 40.3 H, Glucose 93, Calcium 8.4 L Micro: Microbiology 09/27/21 17:27 Stool Stool Occult Blood (ASHLIE) - Final Occult Blood Positive 09/27/21 14:00 Nasal Secretion SARS-CoV-2 Antigen (Rapid) - Final Radiography Diagnostic Testing: Radiology Impression Brain CT 09/27/21 15:43 IMPRESSION: Normal unenhanced CT scan of the brain. Electronically Signed: Nick Roman DO at 16:50 EST Tel [phone], Service support , Chest X-Ray 09/27/21 16:15 IMPRESSION: Normal x-ray examination of the chest. Electronically Signed: Nick Roman DO at 16:43 EST Tel [phone], Service support , Physical Exam Const alert, oriented x3 and no apparent distress HEENT head/scalp atraumatic and moist oral mucous membranes Head and Scalp: normocephalic Eyes PERRL, EOMs intact bilaterally and conjunctivae normal Neck no lymphadenopathy, supple and no JVD Resp normal respiratory effort, no retractions, no use of accessory muscles and clear to auscultation bilaterally Cardio regular rate, regular rhythm, no murmurs and no JVD GI normal to inspection, nondistended, normoactive bowel sounds, soft to palpation and non-tender Extremity normal to inspection, full ROM and no clubbing, cyanosis or edema Skin no rashes or lesions noted, no wounds and skin turgor normal Neuro CN's II-XII intact bilaterally Psych affect normal Assessment & Plan Assessment/Plan (1) Acute blood loss anemia: (2) GI bleed: PLAN: Day 1 Discharge planning: Current plan is for patient to discharge home, PT/OT eval ordered to assess for any therapy needs. 1) acute blood loss anemia secondary to suspected upper GI bleed Patient presented to the ED with a 6-day history of progressively worsening shortness of breath and passage of melanotic stool on day of admission. Hemoglobin from a.m. was 7.0 despite transfusion of 1 unit of PRBCs. Stool is Hemoccult positive. Plan is to continue IV PPI, transfuse 2 units of PRBCs, trend H&H, obtain general surgery consult for possible endoscopy, continue to hold home meloxicam and naproxen. 2) hypokalemia Potassium currently 3.0., IV repletion ordered, continue to monitor BMP. 3) GOMEZ on CKD stage IIIb Resolved, creatinine currently 1.29, continue to monitor. 4) history of peripheral vascular disease Patient reports prior history of peripheral vascular disease and history of surgery with a vascular surgeon in [place]. Hold home aspirin and Plavix regimen. 5) HTN Stable, hold home amlodipine, Elanapril, hydrochlorothiazide and metoprolol. 6) hyperlipidemia Continue statin, hold home niacin. DVT prophylaxis - SCDs Patient seen by Pramod De Los Santos PA-C, under the supervision of Dr. Og. Documented by User: Dr. Sandoval Og DO 09/28/21 21:10 Objective Data Lab / Micro Data Result Diagrams: 09/28/21 16:50 09/28/21 06:36 Charges/Coding Addendum Addendum: Patient was seen and examined today independently of Pramod De Los Santos, I received a phone call from general surgery (Dr. Viveros) and he stated patient had a large duodenal ulcer, he wanted the patient to remain n.p.o. at this time and receive Carafate 4 times daily as well as a PPI. On examination he appeared in good health and spirits. Vital signs as documented. Skin warm and dry and without overt rashes. Neck without JVD, neck was supple, trachea midline, thyroid was normal. Lungs clear bilaterally, normal air movement was noted. Heart exam notable for regular rhythm, normal sounds and absence of murmurs, rubs or gallops. Abdomen unremarkable and without evidence of organomegaly, masses, or abdominal aortic enlargement. Bowel sounds are present, abdomen is not distended. Extremities nonedematous, no cyanosis was noted, no clubbing was noted. Neuro: Cranial nerves II through XII are grossly intact, no focal motor deficits were noted, sensation to light touch and pinprick intact, motor exam 5/5 throughout. Psych: Patient is alert and oriented x3, he does not appear anxious or depressed, he does not appear agitated. Patient appears stable at this time, I have reviewed Pramod De Los Santos's progress note including his medical assessment and plan of care and with the above additions endorse it. Visit Charges Inpatient E&M: 28086 Subs Hosp L2
[2021-09-28] MEDS: Potassium Chloride 10mEq/100mL 10 MEQ/100 ML IV.SOLN. 100 MEQ IV BOLUS (14:16)
--- NOTE | 2021-09-28 14:50 | EGD_PTH ---
PATIENT: NICA PANTOJA LOC: [facility] U#:[id number] AGE/SX: 81/M ROOM: [facility] RE09/27/[address]: Dr. Sandoval Og DO : 1940 BED: 1 DIS: 09/30/2021 SPEC #: [id number] RECD: 09/28/21 16:49 STATUS: PATSY SWAN #: [id number] ANGIE: 09/28/21 14:[address]: Jorge Viveros DEPT: SURGICAL PATHOLOGY RECD BY: Latia Ambrose ENTERED: 09/29/21 09:52 SP TYPE: EGD BIOPSY OTHR DR: MD Dr. Sandoval Conrad DO Dr. Nicholas F Kotsonis, MD Mary Ciesa COLOR BUFFER-C Tissues: Duodenum, NOS Procedures: Surgery Specimen Level IV Comments: @ Ordering doctor for SUIV edited from to @ linda DODGE at 09/29/21 1413 @ Submitting doctor edited from to @ by ECHO at 09/29/21 1413 HEADER OPERATION: EGD ([facility] [place] PRE-OP DIAGNOSIS: Acute blood loss anemia TISSUE SUBMITTED: Duodenal ulcer biopsy MICROSCOPIC DIAGNOSIS Duodenal ulcer, biopsy: A fragment of duodenal mucosa with focal mild congestion and hemorrhage. TEDDY:makenna 09/30/2021 MICROSCOPIC DESCRIPTION Slides are reviewed. GROSS DESCRIPTION Received in fixative is one container labeled with the patient's name and designated duodenal ulcer biopsy. The specimen consists of one irregular fragment of light garcia soft tissue that measures 0.4 x 0.3 x 0.1 cm. The specimen is totally submitted in one cassette. / TEDDY:makenna 09/29/2021 TC:5 [facility]: [id number]
--- NOTE | 2021-09-28 16:53 | OP.EGD_ITS ---
Patient Name: Seferino Shea Procedure Date: 09/28/2021 4:07 PM Date of : 1940 Age: 81 Procedure: Upper GI endoscopy Indications: Acute post hemorrhagic anemia, Occult blood in stool, Suspected upper gastrointestinal bleeding Providers: Jorge Viveros MD Medicines: See the Anesthesia note for documentation of the administered medications, Monitored Anesthesia Care Patient Profile: Refer to note in patient chart for documentation of history and physical. Complications: No immediate complications. Estimated blood loss: Minimal. Procedure: Pre-Anesthesia Assessment: - The heart rate, respiratory rate, oxygen saturations, blood pressure, adequacy of pulmonary ventilation, and response to care were monitored throughout the procedure. - The anesthesia plan was to use moderate sedation/analgesia (conscious sedation). After obtaining informed consent, the endoscope was passed under direct vision. Throughout the procedure, the patient's blood pressure, pulse, and oxygen saturations were monitored continuously. The Endoscope was introduced through the mouth, and advanced to the second part of duodenum. The upper GI endoscopy was somewhat difficult due to narrowing. Successful completion of the procedure was aided by performing the maneuvers documented (below) in this report. The patient tolerated the procedure fairly well. Scope In: 4:17:46 PM Scope Out: 4:36:22 PM Total Procedure Duration Time 0 hours 18 minutes 36 seconds Findings: A single localized erosion without bleeding was found in the first portion of the duodenum. Biopsies were taken with a cold forceps for histology. Coagulation for hemostasis of bleeding caused by the procedure using bipolar probe was successful. Estimated blood loss was minimal. Localized moderate inflammation characterized by erythema was found in the gastric antrum. No biopsies or other specimens were collected for this exam. The Z-line was regular and was found 38 cm from the incisors. No biopsies or other specimens were collected for this exam. The [Site] was normal. A large Hill 4 hiatal hernia was present. Impression: - Duodenal erosion without bleeding. Biopsied. Treated with bipolar cautery. - Gastritis. No specimens collected. - Z-line regular, 38 cm from the incisors. No specimens collected. - Normal [Location]. - Large Hill 4 hiatal hernia. Recommendation: - Return [facility] care. - NPO today. - Use sucralfate suspension 1 gram PO QID today. - Await pathology results. - Repeat upper endoscopy in 4 weeks for surveillance based on pathology results. - Resume Plavix (clopidogrel) at prior dose in 2 days. Refer to referring physician for further adjustment of therapy. Procedure Code(s): --- Professional --- 35780, Esophagogastroduodenoscopy, flexible, transoral; with biopsy, single or multiple Diagnosis Code(s): --- Professional --- K26.9, Duodenal ulcer, unspecified as acute or chronic, without hemorrhage or perforation K29.70, Gastritis, unspecified, without bleeding K44.9, Diaphragmatic hernia without obstruction or gangrene D62, Acute posthemorrhagic anemia R19.5, Other fecal abnormalities CPT copyright 2017 [employer]. All rights reserved. The codes documented in this report are preliminary and upon as400 analyst review may be revised to meet current compliance requirements. Jorge Viveros MD 09/28/2021 4:52:34 PM This report has been signed electronically. Number of Addenda: 0 Note Initiated On: 09/28/2021 4:07 PM
--- NOTE | 2021-09-28 16:54 | OP.CCLET_ITS ---
09/28/2021 Rona Barnett, VICTORINO [address] [place] [place] [address] Re : Upper GI endoscopy procedure for Seferino Shea Dear Ms. Barnett This procedure was performed on Tuesday, September 28, 2021. My impressions and recommendations are as follows: Impressions : - Duodenal erosion without bleeding. Biopsied. Treated with bipolar cautery. - Gastritis. No specimens collected. - Z-line regular, 38 cm from the incisors. No specimens collected. - Normal [Location]. - Large Hill 4 hiatal hernia. Recommendations : - [facility] care. - NPO today. - Use sucralfate suspension 1 gram PO QID today. - Await pathology results. - Repeat upper endoscopy in 4 weeks for surveillance based on pathology results. - Resume Plavix (clopidogrel) at prior dose in 2 days. Refer to referring physician for further adjustment of therapy. My findings are described in the full procedure note, which is enclosed. If I can be of further assistance, please feel free to contact me at Doctor phone number(s): , Work: . Sincerely, Jorge Viveros MD 09/28/2021 4:52:34 PM This report has been signed electronically.
[2021-09-28 16:57] LABS: Hematocrit 24.7 % (40-54); Hemoglobin 8.4 g/dL (13.0-16.5)
[2021-09-28] MEDS: Potassium Chloride 10mEq/100mL 10 MEQ/100 ML IV.SOLN. 75 MEQ IV BOLUS (18:15)
[2021-09-28] MEDS: Acetaminophen 325 MG Tablet 650 MG PO (18:25)
[2021-09-28] MEDS: Sucralfate 1 GM Tablet PO (19:30)
[2021-09-28] MEDS: Pravastatin 80 MG Tablet PO (19:30)
[2021-09-28] MEDS: MELATONIN 3 MG TABLET PO (21:41)
[2021-09-28] MEDS: MELATONIN 10 MG TABLET 5 MG PO (23:05)
[2021-09-28] MEDS: traMADol 50 MG Tablet PO (23:29)
[2021-09-29] VITALS (7 sets, daily range): BP systolic 101–159; BP diastolic 45–91; PULSE 62–73; RESP 16–18; TEMP 36.5–37; O2SAT 93–96
[2021-09-29] MEDS: Acetaminophen 325 MG Tablet 650 MG PO ×2 (02:04→09:11)
[2021-09-29] MEDS: Sucralfate 1 GM Tablet PO ×3 (06:14→21:06)
[2021-09-29] MEDS: traMADol 50 MG Tablet PO (06:14)
[2021-09-29 07:04] LABS: Absolute Lymphocyte Count 1.38 X10^3/uL (0.83-4.51); Absolute Neutrophil Count 8.1 X10^3/uL (2.0-7.7); Basophil# 0.04 X10^3/uL; Basophil% 0.4 % (0-1); Eosinophil# 0.04 X10^3/uL; Eosinophils% 0.4 % (0-5); Hematocrit 26.6 % (40-54); Hemoglobin 9.3 g/dL (13.0-16.5); Lymphocyte # 1.38 X10^3/ul (0.83-4.51); Lymphocyte % 13.1 % (19-41); Mean Corpuscular Hgb 33.1 pg (27.0-32.0); Mean Corpuscular Volume 94.7 fL (80-94); Mean Platelet Vol. 9.3 fl (6.2-12.0); Monocyte# 0.92 X10^3/uL; Monocyte% 8.7 % (0-10); NRBC Flagged by Analyzer 0 % (0-5); Neutrophil # 8.14 X10^3/uL (2.7-7.7); Neutrophil % 77.1 % (47-70); POSITIVE MORPHOLOGY YES; Platelet Count 177 K/mm3 (150-450); RBC Distribution Width CV 20.5 % (11.6-14.6); RBC Distribution Width SD 66.5 fl (35.1-43.9); Red Blood Count 2.81 M/mm3 (4.6-6.2); White Blood Count 10.6 K/mm3 (4.4-11.0)
[2021-09-29 07:30] LABS: Differential Indicated SCAN CRITERIA MET
[2021-09-29 07:37] LABS: Anisocytosis 2+; Polychromasia RARE
[2021-09-29 07:43] LABS: Anion Gap 6 (5-15); BUN 31 mg/dL (7-18); BUN/Creat Ratio 30.7 RATIO (10-20); Calcium,Total 8.4 mg/dL (8.5-10.1); Chloride 105 mmol/L (98-107); Creatinine, Serum 1.01 mg/dL (0.70-1.30); EST Glomerular Filtration Rate 76 mL/min (>60); Est Glom Filt Rate - Afr Amer 91 mL/min (>60); Estimated Creatinine Clearance 46.03 ml/min; Glucose 93 mg/dL (74-106); Potassium 3.2 mmol/L (3.5-5.1); Sodium Level 139 mmol/L (136-145)
--- NOTE | 2021-09-29 08:06 | PCM.PN.SRG ---
Subjective Subjective Patient was seen and examined during am rounds. He is found sitting upright in bed complaining of knee pains. He expresses a strong thirst, but denies any abdominal pains. He has not experienced any bowel movements overnight. Objective Data Objective Data Vital Signs: Vital Signs Temp Pulse Resp BP Pulse Ox 98.6 F 73 17 159/61 H 93 09/29/21 02:07 09/29/21 02:07 09/29/21 02:07 09/29/21 02:07 09/29/21 02:07 Oxygen Flow Rate (L/min) 2 Oxygen Delivery Method Nasal Cannula Weight: 123 lb 0.005 oz Body Mass Index (BMI) 16.2 Intake & Output: Intake and Output for Last 24 Hours 09/27/21 09/28/21 09/29/21 23:59 23:59 23:59 Intake Total 975 / 975 1040 / 1040 Output Total 600 / 600 1150 / 1150 Balance 375 / 375 -110 / -110 Lab / Micro Data Result Diagrams: 09/29/21 06:46 09/29/21 06:46 Labs: Laboratory Results - last 24 hr 09/27/21 16:00: Crossmatch See Detail 09/27/21 16:00: Crossmatch See Detail 09/28/21 16:50: Hgb 8.4 L, Hct 24.7 L 09/29/21 06:46: WBC 10.6, RBC 2.81 L, Hgb 9.3 L, Hct 26.6 L, MCV 94.7 H, MCH 33.1 H, MCHC 35.0, RDW Std Deviation 66.5 H, RDW Coeff of Marya 20.5 H, Plt Count 177, MPV 9.3, Immature Gran % (Auto) 0.300, Neut % (Auto) 77.1 H, Lymph % (Auto) 13.1 L, [place] % (Auto) 8.7, Eos % (Auto) 0.4, Baso % (Auto) 0.4, Absolute Neuts (auto) 8.1 H, Absolute Lymphs (auto) 1.38, Nucleated RBC % 0, Polychromasia RARE, Anisocytosis 2+ 09/29/21 06:46: Sodium 139, Potassium 3.2 L, Chloride 105, Carbon Dioxide 28.0, Anion Gap 6, BUN 31 H, Creatinine 1.01, Estim Creat Clear Calc 46.03, Est GFR (MDRD) Af Amer 91, Est GFR (MDRD) Non-Af 76, BUN/Creatinine Ratio 30.7 H, Glucose 93, Calcium 8.4 L Micro: Microbiology 09/27/21 17:27 Stool Stool Occult Blood (ASHLIE) - Final Occult Blood Positive 09/27/21 14:00 Nasal Secretion SARS-CoV-2 Antigen (Rapid) - Final Physical Exam Const Constitutional Narrative: Mild distress due to knee pains GI GI Narrative: nondistended, soft, nontender to palpation Assessment & Plan Assessment/Plan (1) Duodenal ulcer due to nonsteroidal anti-inflammatory drug (NSAID): PLAN: Pt has a large ulcer in the first portion of the duodenum per EGD yesterday. Biopsy was obtained at ulcer edge but there were was no active bleeding aside from this biopsy site. Carafate started yesterday. Patient denies any ab discomfort or melena overnight. (2) GI bleed: PLAN: Pt w duodenal ulcer noted on EGD as above. Appropriate response to transfusion X2 PRBCs with Hgb> 9 this AM. Okay to begin diet with clears today. Continue BID PPI and carafate. Continue holding Plavix and NSAIDs. Continue serial H/H. Charges/Coding Visit Charges Inpatient E&M: 88072 Subs Hosp L2
[2021-09-29] MEDS: 0.9% Saline Lock 10 ML Syringe IV ×2 (09:11→21:10)
[2021-09-29] MEDS: amLODIPine 10 MG Tablet PO (09:13)
[2021-09-29] MEDS: Metoprolol Tartrate 25 MG Tablet PO (09:13)
[2021-09-29] MEDS: HYDROcodone Bitartrate/Apap 5/325 Tablet PO ×2 (10:20→18:22)
[2021-09-29 13:05] LABS: Hematocrit 26.7 % (40-54); Hemoglobin 9.2 g/dL (13.0-16.5)
--- NOTE | 2021-09-29 15:14 | CT_ITS ---
STUDY: CTA CHEST REASON FOR EXAM: Male, 81 years old. Hypoxia RADIATION DOSAGE (If Supplied By Facility): CTDIvol = ( 6.96 ) mGy, DLP = ( 175.22 ) mGycm TECHNIQUE: The examination was performed with the intravenous administration of IV 75mL Isovue-370. Post-processing of the angiographic images was performed, with multiplanar reformation and 3D reconstruction. Individualized dose optimization techniques were used for this CT. COMPARISON: None. FINDINGS: Normal enhancement of the main pulmonary artery and right and left pulmonary arteries. Normal enhancement of the bilateral peripheral pulmonary arteries. There is no demonstrated pulmonary embolism. There is atherosclerotic calcification of the aortic arch with tortuosity. There is no demonstrated aortic dissection. Normal heart and pericardium. There are calcifications of the coronary arteries. Normal mediastinum. Normal hilar regions. There is peribronchial thickening. The lungs are hyper expanded, with flattening of the hemidiaphragms. There are central emphysematous blebs in the bilateral lungs. Peribronchial consolidation of the right lower lobe. No cavitating process. Trace right pleural fluid. Normal chest wall structures. There are degenerative changes of thoracic spine. Normal visualized upper abdomen. CT/CTA Chest W/WO Contrast IMPRESSION: 1. No central or segmental pulmonary embolism. 2. Right lower lobe peribronchial pneumonia and/or atelectasis. 3. Trace right pleural fluid Electronically Signed: Jae Arreguin MD ([place]) at 16:03 EST , Service support ,
--- NOTE | 2021-09-29 15:54 | PCM.PN.HOSP ---
Documented by User: Pramod BLEVINS 09/29/21 16:02 Subjective Subjective Patient is an 81-year-old male resting in bed after EGD, alert and orient x3. Denies development of any symptoms overnight and reports improvement in his dizziness and weakness. Does not appear in acute distress. Objective Data Objective Data Vital Signs: Vital Signs Temp Pulse Resp BP Pulse Ox 98.1 F 62 18 101/45 L 96 09/29/21 14:03 09/29/21 14:03 09/29/21 14:03 09/29/21 14:03 09/29/21 14:03 Oxygen Flow Rate (L/min) 91 Oxygen Delivery Method Room Air Weight: 123 lb 0.005 oz Body Mass Index (BMI) 16.2 Intake & Output: Intake and Output for Last 24 Hours 09/27/21 09/28/21 09/29/21 23:59 23:59 23:59 Intake Total 975 / 975 1040 / 1040 110 / 110 Output Total 600 / 600 1150 / 1150 Balance 375 / 375 -110 / -110 110 / 110 Lab / Micro Data Result Diagrams: 09/29/21 12:55 09/29/21 06:46 Labs: Laboratory Results - last 24 hr 09/27/21 16:00: Crossmatch See Detail 09/28/21 16:50: Hgb 8.4 L, Hct 24.7 L 09/29/21 06:46: WBC 10.6, RBC 2.81 L, Hgb 9.3 L, Hct 26.6 L, MCV 94.7 H, MCH 33.1 H, MCHC 35.0, RDW Std Deviation 66.5 H, RDW Coeff of Marya 20.5 H, Plt Count 177, MPV 9.3, Immature Gran % (Auto) 0.300, Neut % (Auto) 77.1 H, Lymph % (Auto) 13.1 L, [place] % (Auto) 8.7, Eos % (Auto) 0.4, Baso % (Auto) 0.4, Absolute Neuts (auto) 8.1 H, Absolute Lymphs (auto) 1.38, Nucleated RBC % 0, Polychromasia RARE, Anisocytosis 2+ 09/29/21 06:46: Sodium 139, Potassium 3.2 L, Chloride 105, Carbon Dioxide 28.0, Anion Gap 6, BUN 31 H, Creatinine 1.01, Estim Creat Clear Calc 46.03, Est GFR (MDRD) Af Amer 91, Est GFR (MDRD) Non-Af 76, BUN/Creatinine Ratio 30.7 H, Glucose 93, Calcium 8.4 L 09/29/21 12:55: Hgb 9.2 L, Hct 26.7 L Micro: Microbiology 09/27/21 17:27 Stool Stool Occult Blood (ASHLIE) - Final Occult Blood Positive 09/27/21 14:00 Nasal Secretion SARS-CoV-2 Antigen (Rapid) - Final Physical Exam Const alert, oriented x3 and no apparent distress HEENT head/scalp atraumatic and moist oral mucous membranes Head and Scalp: normocephalic Eyes PERRL, EOMs intact bilaterally and conjunctivae normal Neck no lymphadenopathy, supple and no JVD Resp normal respiratory effort, no retractions, no use of accessory muscles and clear to auscultation bilaterally Resp Narrative: Variable oxygen saturations between 80% on room air and 95% on 2 L. Cardio regular rate, regular rhythm, no murmurs and no JVD GI normal to inspection, nondistended, normoactive bowel sounds, soft to palpation and non-tender Extremity normal to inspection, full ROM and no clubbing, cyanosis or edema Skin no rashes or lesions noted, no wounds and skin turgor normal Neuro CN's II-XII intact bilaterally Psych affect normal Assessment & Plan Assessment/Plan (1) GI bleed: (2) Acute blood loss anemia: PLAN: Day 2 Discharge planning: Current plan is for patient to discharge home, PT/OT eval ordered to assess for any therapy needs. 1) acute blood loss anemia secondary to duodenal ulcer Patient underwent EGD yesterday which revealed a large duodenal ulcer, biopsy was obtained although there is no active bleeding observed from site. Patient initiated on Carafate per GI. Patient's hemoglobin has maintained stable at 9 after transfusion of 2 units yesterday and 1 unit on admission. Continue PPI and Carafate, continue to hold Plavix and NSAIDs. Continue to trend CBC. 2) hypoxia Unclear etiology as patient is without any symptoms but his oxygen saturations remain variable between 80% on room air and 95% on 2 L. Patient is reluctant to wear oxygen as instructed and reports he does not want to return home on oxygen. Chest x-ray on admission was unremarkable for acute findings, review of chest x-ray from January showed interstitial fibrosis. CAT scan ordered to assess for PE, BMP ordered as well. 3) hypokalemia Potassium currently 3.2, 4) GOMEZ on CKD stage IIIb Resolved, creatinine currently 1.29, continue to monitor. 5) history of peripheral vascular disease Patient reports prior history of peripheral vascular disease and history of surgery with a vascular surgeon in [place]. Hold home aspirin and Plavix regimen. 6) HTN Stable, hold home amlodipine, Elanapril, hydrochlorothiazide and metoprolol. 7) hyperlipidemia Continue statin, hold home niacin. DVT prophylaxis - SCDs Patient seen by Pramod De Los Santos PA-C, under the supervision of Dr. Og. Documented by User: Dr. Sandoval Og, 09/29/21 20:30 Objective Data Lab / Micro Data Result Diagrams: 09/29/21 12:55 09/29/21 06:46 Charges/Coding Addendum Addendum: Patient was seen and examined independently of Pramod De Los Santos today, his hemoglobin today remains stable, CBC was repeated this afternoon and the hemoglobin remained stable from this morning. Patient however was hypoxic and required oxygen at 2 L even though he had no complaints of dyspnea. CTA of the chest was obtained which showed evidence of right lower lobe peribronchial pneumonia and/or atelectasis. It is my opinion that the patient shows no signs of pneumonia at this time and I believe this may be atelectasis. I placed the patient on Proventil aerosol treatments and will reevaluate the patient's need for oxygen tomorrow. On examination he appeared in good health and spirits. Vital signs as documented. Skin warm and dry and without overt rashes. Neck without JVD, neck was supple, trachea midline, thyroid was normal. Lungs clear bilaterally, normal air movement was noted. Heart exam notable for regular rhythm, normal sounds and absence of murmurs, rubs or gallops. Abdomen unremarkable and without evidence of organomegaly, masses, or abdominal aortic enlargement. Bowel sounds are present, abdomen is not distended. Extremities nonedematous, no cyanosis was noted, no clubbing was noted. Neuro: Cranial nerves II through XII are grossly intact, no focal motor deficits were noted, sensation to light touch and pinprick intact, motor exam 5/5 throughout. Psych: Patient is alert and oriented x3, he does not appear anxious or depressed, he does not appear agitated. I have reviewed Pramod De Los Santos's progress note including his medical assessment and plan of care and with the above additions endorse it. Visit Charges Inpatient E&M: 54418 Subs Hosp L2
[2021-09-29 16:31] LABS: BNP,B-Type NATRIURETIC PEPTIDE 243.1 pg/mL (0-100)
[2021-09-29] MEDS: Pravastatin 80 MG Tablet PO (21:06)
[2021-09-30] MEDS: HYDROcodone Bitartrate/Apap 5/325 Tablet PO ×3 (00:38→13:23)
[2021-09-30 03:05] VITALS: BP 136/62; PULSE 66; RESP 16; TEMP 36.6; O2SAT 94
[2021-09-30] MEDS: Sucralfate 1 GM Tablet PO ×2 (06:20→11:08)
[2021-09-30 07:17] VITALS: PULSE 78; RESP 18; O2SAT 95
[2021-09-30] MEDS: Albuterol 2.5 MG/3 ML VIAL.NEB. INHALATION ×2 (07:17→12:58)
[2021-09-30 07:27] LABS: Absolute Neutrophil Count 8.9 X10^3/uL (2.0-7.7); Basophil# 0.04 X10^3/uL; Basophil% 0.3 % (0-1); Eosinophil# 0.18 X10^3/uL; Eosinophils% 1.6 % (0-5); Hematocrit 27.4 % (40-54); Hemoglobin 9.3 g/dL (13.0-16.5); Mean Corp Hgb Conc 33.9 g/dL (32-36); Mean Corpuscular Hgb 32.7 pg (27.0-32.0); Mean Corpuscular Volume 96.5 fL (80-94); Mean Platelet Vol. 9.7 fl (6.2-12.0); Monocyte# 0.89 X10^3/uL; Monocyte% 7.7 % (0-10); NRBC Flagged by Analyzer 0 % (0-5); Neutrophil # 8.88 X10^3/uL (2.7-7.7); Neutrophil % 77.1 % (47-70); POSITIVE MORPHOLOGY YES; Platelet Count 203 K/mm3 (150-450); RBC Distribution Width CV 19.7 % (11.6-14.6); RBC Distribution Width SD 66.5 fl (35.1-43.9); Red Blood Count 2.84 M/mm3 (4.6-6.2); White Blood Count 11.5 K/mm3 (4.4-11.0)
[2021-09-30 07:36] LABS: Differential Indicated SCAN CRITERIA MET
[2021-09-30 07:47] LABS: Anion Gap 7 (5-15); BUN 21 mg/dL (7-18); BUN/Creat Ratio 22.2 RATIO (10-20); Calcium,Total 8.5 mg/dL (8.5-10.1); Chloride 101 mmol/L (98-107); Creatinine, Serum 0.94 mg/dL (0.70-1.30); EST Glomerular Filtration Rate 82 mL/min (>60); Est Glom Filt Rate - Afr Amer 99 mL/min (>60); Estimated Creatinine Clearance 49.46 ml/min; Glucose 86 mg/dL (74-106); Potassium 3.2 mmol/L (3.5-5.1); Sodium Level 136 mmol/L (136-145)
--- NOTE | 2021-09-30 07:56 | PN.SURG_ITS ---
Subjective Subjective Seen and examined during AM rounds. He is resting in bed and states that overall his pain control in his knee is improved, but states that the regimen he tried this morning was the best. He denies any abdominal pain whatsoever. He denies any difficulty with tolerating a diet advancement yesterday. He denies any bowel movements overnight. Objective Data Objective Data Vital Signs: Vital Signs Temp Pulse Resp BP Pulse Ox 97.9 F 66 16 136/62 H 94 09/30/21 03:05 09/30/21 03:05 09/30/21 03:05 09/30/21 03:05 09/30/21 03:05 Oxygen Flow Rate (L/min) 2 Oxygen Delivery Method Nasal Cannula Weight: 123 lb 0.005 oz Body Mass Index (BMI) 16.2 Intake & Output: Intake and Output for Last 24 Hours 09/28/21 09/29/21 09/30/21 23:59 23:59 23:59 Intake Total 1040 / 1040 220 / 280 60 / 60 Output Total 1150 / 1150 500 / 500 Balance -110 / -110 220 / 230 -440 / -440 Lab / Micro Data Result Diagrams: 09/30/21 06:48 09/30/21 06:48 Labs: Laboratory Results - last 24 hr 09/29/21 12:55: Hgb 9.2 L, Hct 26.7 L 09/29/21 12:55: B-Natriuretic Peptide 243.1 H 09/30/21 06:48: WBC 11.5 H, RBC 2.84 L, Hgb 9.3 L, Hct 27.4 L, MCV 96.5 H, MCH 32.7 H, MCHC 33.9, RDW Std Deviation 66.5 H, RDW Coeff of Marya 19.7 H, Plt Count 203, MPV 9.7, Immature Gran % (Auto) 0.300, Neut % (Auto) 77.1 H, Lymph % (Auto) 13.0 L, [place] % (Auto) 7.7, Eos % (Auto) 1.6, Baso % (Auto) 0.3, Absolute Neuts (auto) 8.9 H, Absolute Lymphs (auto) 1.50, Nucleated RBC % 0 09/30/21 06:48: Sodium 136, Potassium 3.2 L, Chloride 101, Carbon Dioxide 28.0, Anion Gap 7, BUN 21 H, Creatinine 0.94, Estim Creat Clear Calc 49.46, Est GFR (MDRD) Af Amer 99, Est GFR (MDRD) Non-Af 82, BUN/Creatinine Ratio 22.2 H, Glucose 86, Calcium 8.5 Micro: Microbiology 09/27/21 17:27 Stool Stool Occult Blood (ASHLIE) - Final Occult Blood Positive 09/27/21 14:00 Nasal Secretion SARS-CoV-2 Antigen (Rapid) - Final Radiography Diagnostic Testing: Radiology Impression Chest CTA 09/29/21 15:14 IMPRESSION: 1. No central or segmental pulmonary embolism. 2. Right lower lobe peribronchial pneumonia and/or atelectasis. 3. Trace right pleural fluid Electronically Signed: Jae Arreguin MD ([place]) at 16:03 EST , Service support , Physical Exam Const no apparent distress Resp normal respiratory effort Resp Narrative: a cannula remains in place GI GI Narrative: Nondistended, soft, nontender to palpation x4 quadrants Assessment & Plan Assessment/Plan (1) Duodenal ulcer due to nonsteroidal anti-inflammatory drug (NSAID): PLAN: Pt has a large ulcer in the first portion of the duodenum per EGD 09/28/2021. Biopsy was obtained at ulcer edge but there were was no active bleeding aside from this biopsy site. No path results yet. Carafate started. Patient, again, denies any ab discomfort or melena overnight. (2) GI bleed: PLAN: Pt w duodenal ulcer noted on EGD as above. Appropriate response to transfusion X2 PRBCs with Hgb> 9 and remains stable this AM. Tolerating regular diet without issue. -Reasonable to transition to p.o. PPI and continue carafate ?Continue holding Plavix and NSAIDs?could resume Plavix tomorrow 10/01/2021. ?Hospitalist service currently working on patient's bout of hypoxia, but from a surgical standpoint he could be eligible for discharge today. If he does discharge home, I would request outpatient follow-up in 3 weeks so that we could then schedule a repeat EGD to evaluate ulcer healing Charges/Coding Visit Charges Inpatient E&M: 53348 Subs Hosp L2
[2021-09-30 09:08] LABS: Anisocytosis 1+
[2021-09-30 09:10] VITALS: BP 134/60; PULSE 73; RESP 18; TEMP 36.3; O2SAT 96
[2021-09-30 09:15] VITALS: PULSE 78
[2021-09-30] MEDS: amLODIPine 10 MG Tablet PO (09:15)
[2021-09-30] MEDS: Metoprolol Tartrate 25 MG Tablet PO (09:15)
[2021-09-30] MEDS: Potassium Chloride Oral Tablet 20 MEQ 40 MEQ PO (09:16)
[2021-09-30 10:37] VITALS: O2SAT 86; O2SAT 96
--- NOTE | 2021-09-30 10:41 | CASEMGMT ---
Per Dr. Vila, pt with emphysematous changes on CT scan and has had hypoxia while admitted. Pt tested for home oxygen and qualifies for 2L continuous home oxygen. Pt states would like [facility] [place] for home oxygen per Dr. Vila and pt also requests [facility] at discharge. Referral faxed to [facility] [place] and call to [place] to notify of referral, voices understanding. Pt/ voice no further questions/concerns/needs. Mariela MARX CM
--- NOTE | 2021-09-30 11:36 | DCINST_ITS ---
Discharge Instructions Diet Discharge Diet: No restrictions Activity Discharge Activity: Return to Normal Activity Weight Bearing Status: Weight bearing as tolerated Dressing / Incision Call your doctor if you observe: Fever of 101 or Higher, Numbness or Tingling, Shortness of breath, Dizziness, Chest pain, Increased palpitations (irregular heartbeat) and Calf discomfort Follow Up Care Please Follow Up With: Primary care provider When: Within the next two weeks. Test Results: Test results from this visit will be discussed in further detail at your follow-up appointment, if applicable. Discharge Plan Admission Admit Date/Time: 09/27/21 17:02 Primary Reason for Your Visit: Shortness of breath w/ Anemia Attending Provider: Sandoval Og Primary Care Provider: Rona Barnett NP Consulting Providers: Jorge Viveros Discharge Orders/Prescriptions Prescriptions: New hydrocodone-acetaminophen [Vicodin HP] 10-300 mg tablet 1 tab PO Q6H PRN (Reason: pain) 7 Days Qty: 28 RF: 0 sucralfate [Carafate] 1 gram tablet 1 g PO BID Qty: 60 RF: 0 pantoprazole [Protonix] 40 mg tablet,delayed release (DR/EC) 40 mg PO DAILY Qty: 30 RF: 0 naloxone 4 mg/actuation spray,non-aerosol 4 mg intranasal Q3M PRN (Reason: opioid overdose) Qty: 2 RF: 0 Continued pravastatin 80 MG tablet 80 mg PO DAILY RF: 0 metoprolol tartrate 25 MG tablet 25 mg PO DAILY RF: 0 enalapril maleate [Vasotec] 20 MG tablet 20 mg PO BID RF: 0 hydrochlorothiazide 25 MG tablet 25 mg PO DAILY RF: 0 niacinamide [Niacin (niacinamide)] 500 MG tablet 1,000 mg PO DAILY RF: 0 multivitamin with folic acid [Thera] 1 TABLET tablet 1 tab PO DAILY RF: 0 omega 7-zny-wik-fish oil 1 EACH capsule 2 tab PO DAILY RF: 0 amlodipine 10 mg tablet 10 mg PO DAILY RF: 0 Held clopidogrel 75 MG tablet 75 mg PO DAILY RF: 0 Hold Instructions: Resume on 10/01/21. aspirin 81 MG tablet,chewable 81 mg PO DAILY RF: 0 Hold Instructions: Resume on 10/01/21. Discontinued naproxen sodium [Aleve] 220 MG tablet 220 mg PO Q8H PRN PRN (Reason: Pain) RF: 0 meloxicam 7.5 mg Tablet 7.5 mg PO DAILY RF: 0 Referrals / Follow Up: Jorge Viveros MD [STAFF PHYSICIAN] - Within 2 Weeks Rona Barnett NP, CERAMICS INSTRUCTOR-C [Primary Care Provider] - Within 2 Weeks Disposition Disposition (needs filled in before D/C Order can be placed): Home, Self Care
[2021-09-30 12:53] VITALS: PULSE 80; RESP 18
--- NOTE | 2021-09-30 14:40 | PCM.DC.SUM ---
Documented by User: Pramod BLEVINS 09/30/21 14:48 Providers Date of Admission: 09/27/21 Primary Care Physician: SHEILA Rivera Consultations 09/28/21 09:14 Consult: General Surgery Routine Consulting Provider: Jorge Viveros Reason for Consult: Suspected upper GI Bleed w/ significant anemia EMERGENT Consult: No MD Notified: Yes Date Notified: 09/28/21 Time Notified: 09:41 Method of Notification: Text Reason For Visit: GI BLEED Diagnosis Discharge Diagnosis (1) Duodenal ulcer due to nonsteroidal anti-inflammatory drug (NSAID): Status: Acute Code(s): K26.9 - Duodenal ulcer, unspecified as acute or chronic, without hemorrhage or perforation; T39.395A - Adverse effect of other nonsteroidal anti-inflammatory drugs [NSAID], initial encounter (2) GI bleed: Status: Acute Code(s): K92.2 - Gastrointestinal hemorrhage, unspecified Medications at Discharge Home Medications aspirin 81 mg PO DAILY 07/30/18 clopidogrel 75 mg PO DAILY 07/30/18 enalapril maleate [Vasotec] 20 mg PO BID 07/30/18 hydrochlorothiazide 25 mg PO DAILY 07/30/18 metoprolol tartrate 25 mg PO DAILY 07/30/18 multivitamin with folic acid [Thera] 1 tab PO DAILY 07/30/18 niacinamide [Niacin (niacinamide)] 1,000 mg PO DAILY 07/30/18 omega 1-wxn-sih-fish oil 2 tab PO DAILY 07/30/18 pravastatin 80 mg PO DAILY 07/30/18 amlodipine 10 mg PO DAILY 09/27/21 hydrocodone-acetaminophen 1 tab PO Q6H PRN 7 Days #28 tab 09/30/21 naloxone 4 mg INTRANASAL Q3M PRN #2 ea 09/30/21 pantoprazole [Protonix] 40 mg PO DAILY #30 tab 09/30/21 sucralfate [Carafate] 1 g PO BID #60 tab 09/30/21 Hospital Course Procedures EGD Summary of Care Provided Minutes Spent on Discharge: 35 Hospital Course: Patient is an 81-year-old male who was admitted to the hospital on 09/27/2021 with a chief complaint of progressively worsening shortness of breath secondary to acute blood loss anemia. Patient was seen by Dr. Viveros of general surgery who completed an EEG which revealed a large nonbleeding duodenal ulcer. Biopsy results were obtained and patient was sent back to the unit for initiation of Carafate and IV PPI. On admission, patient's hemoglobin was noted to be 7.0. Patient was ultimately transfused 3 units of PRBCs, after 1 unit was insufficient to raise patient's hemoglobin. After EEG and appropriate transfusion patient's hemoglobin was stable and symptoms significantly improved. Throughout course of admission, patient was noted to have hypoxia of unclear etiology. CAT scan was obtained did not demonstrate PE, but did demonstrate some possible atelectasis in the right lower lobe with trace right pleural fluid. Outside of shortness of breath on admission, which resolved, patient was without any respiratory symptoms throughout admission and was afebrile. Patient was not initiated on antibiotics, although he did qualify for home oxygen. Patient discharged on home oxygen, Carafate and pantoprazole. Patient is to follow-up with primary care provider and Dr. Viveros within the next 2 weeks. Patient seen by Pramod De Los Santos PA-C, under the supervision of Dr. Og. Physical Exam Narrative Patient is an 81-year-old male comfortably resting in bed, alert and orient x3. Patient reports improvement in his fatigue and shortness of breath from admission. Denies development of any new symptoms overnight. Does not appear in acute distress. Const alert, oriented x3 and no apparent distress HEENT normocephalic, head/scalp atraumatic and hearing grossly normal bilaterally Eyes PERRL, EOMs intact bilaterally and conjunctivae normal Neck no lymphadenopathy, supple and no JVD Resp normal respiratory effort, no retractions, no use of accessory muscles and clear to auscultation bilaterally Cardio regular rate, regular rhythm, no murmurs and no JVD GI normal to inspection, nondistended, normoactive bowel sounds, soft to palpation and non-tender Extremity normal to inspection, full ROM and no clubbing, cyanosis or edema Skin no rashes or lesions noted, no wounds and skin turgor normal Neuro CN's II-XII intact bilaterally Psych affect normal Weight / BMI Weight Weight: 123 lb 0.005 oz Body Mass Index (BMI) 16.2 ABG / Lab / Microbiology Data Result Diagrams: 09/30/21 06:48 09/30/21 06:48 Laboratory: Laboratory Results - last 24 hr 09/29/21 12:55: B-Natriuretic Peptide 243.1 H 09/30/21 06:48: WBC 11.5 H, RBC 2.84 L, Hgb 9.3 L, Hct 27.4 L, MCV 96.5 H, MCH 32.7 H, MCHC 33.9, RDW Std Deviation 66.5 H, RDW Coeff of Marya 19.7 H, Plt Count 203, MPV 9.7, Immature Gran % (Auto) 0.300, Neut % (Auto) 77.1 H, Lymph % (Auto) 13.0 L, [place] % (Auto) 7.7, Eos % (Auto) 1.6, Baso % (Auto) 0.3, Absolute Neuts (auto) 8.9 H, Absolute Lymphs (auto) 1.50, Nucleated RBC % 0, Anisocytosis 1+ 09/30/21 06:48: Sodium 136, Potassium 3.2 L, Chloride 101, Carbon Dioxide 28.0, Anion Gap 7, BUN 21 H, Creatinine 0.94, Estim Creat Clear Calc 49.46, Est GFR (MDRD) Af Amer 99, Est GFR (MDRD) Non-Af 82, BUN/Creatinine Ratio 22.2 H, Glucose 86, Calcium 8.5 Microbiology: Microbiology 09/27/21 17:27 Stool Stool Occult Blood (ASHLIE) - Final Occult Blood Positive 09/27/21 14:00 Nasal Secretion SARS-CoV-2 Antigen (Rapid) - Final Radiography Diagnostic Testing: Radiology Impression Chest CTA 09/29/21 15:14 IMPRESSION: 1. No central or segmental pulmonary embolism. 2. Right lower lobe peribronchial pneumonia and/or atelectasis. 3. Trace right pleural fluid Electronically Signed: Jae Arreguin MD (Brooks) at 16:03 EST , Service support , D/C Instructions Discharge Diet: No restrictions Weight Bearing Status: Weight bearing as tolerated Call your doctor if you observe: Fever of 101 or Higher, Numbness or Tingling, Shortness of breath, Dizziness, Chest pain, Increased palpitations (irregular heartbeat) and Calf discomfort Please Follow Up With: Primary care provider When: Within the next two weeks. Meaningful Use Info Meaningful Use Diagnoses (Choose all that apply): None applicable Discharge Plan Admission Admit Date/Time: 09/27/21 17:02 Primary Reason for Your Visit: Shortness of breath w/ Anemia Attending Provider: Sandoval Og Primary Care Provider: Rona Barnett NP Consulting Providers: Jorge Viveros Discharge Orders/Prescriptions Prescriptions: New sucralfate [Carafate] 1 gram tablet 1 g PO BID Qty: 60 RF: 0 pantoprazole [Protonix] 40 mg tablet,delayed release (DR/EC) 40 mg PO DAILY Qty: 30 RF: 0 naloxone 4 mg/actuation spray,non-aerosol 4 mg intranasal Q3M PRN (Reason: opioid overdose) Qty: 2 RF: 0 hydrocodone-acetaminophen 10-325 mg tablet 1 tab PO Q6H PRN (Reason: pain) 7 Days Qty: 28 RF: 0 Continued pravastatin 80 MG tablet 80 mg PO DAILY RF: 0 metoprolol tartrate 25 MG tablet 25 mg PO DAILY RF: 0 enalapril maleate [Vasotec] 20 MG tablet 20 mg PO BID RF: 0 hydrochlorothiazide 25 MG tablet 25 mg PO DAILY RF: 0 niacinamide [Niacin (niacinamide)] 500 MG tablet 1,000 mg PO DAILY RF: 0 multivitamin with folic acid [Thera] 1 TABLET tablet 1 tab PO DAILY RF: 0 omega 3-ywb-bkb-fish oil 1 EACH capsule 2 tab PO DAILY RF: 0 amlodipine 10 mg tablet 10 mg PO DAILY RF: 0 Held clopidogrel 75 MG tablet 75 mg PO DAILY RF: 0 Hold Instructions: Resume on 10/01/21. aspirin 81 MG tablet,chewable 81 mg PO DAILY RF: 0 Hold Instructions: Resume on 10/01/21. Discontinued naproxen sodium [Aleve] 220 MG tablet 220 mg PO Q8H PRN PRN (Reason: Pain) RF: 0 meloxicam 7.5 mg Tablet 7.5 mg PO DAILY RF: 0 Referrals / Follow Up: Jorge Viveros MD [STAFF PHYSICIAN] - 10/14/21 12:45 pm Rona Barnett NP, VICTORINO-C [Primary Care Provider] - Within 2 Weeks Disposition Disposition (needs filled in before D/C Order can be placed): Home, Self Care Documented by User: Dr. Sandoval gO DO 10/03/21 17:22 Providers Date of Admission: 09/27/21 Date of Discharge: 09/30/21 Reason For Visit: GI BLEED Medications at Discharge Home Medications aspirin 81 mg PO DAILY 07/30/18 clopidogrel 75 mg PO DAILY 07/30/18 enalapril maleate [Vasotec] 20 mg PO BID 07/30/18 hydrochlorothiazide 25 mg PO DAILY 07/30/18 metoprolol tartrate 25 mg PO DAILY 07/30/18 multivitamin with folic acid [Thera] 1 tab PO DAILY 07/30/18 niacinamide [Niacin (niacinamide)] 1,000 mg PO DAILY 07/30/18 omega 2-npi-usr-fish oil 2 tab PO DAILY 07/30/18 pravastatin 80 mg PO DAILY 07/30/18 amlodipine 10 mg PO DAILY 09/27/21 hydrocodone-acetaminophen 1 tab PO Q6H PRN 7 Days #28 tab 09/30/21 naloxone 4 mg INTRANASAL Q3M PRN #2 ea 09/30/21 pantoprazole [Protonix] 40 mg PO DAILY #30 tab 09/30/21 sucralfate [Carafate] 1 g PO BID #60 tab 09/30/21 ABG / Lab / Microbiology Data Result Diagrams: 09/30/21 06:48 09/30/21 06:48 Discharge Plan Admission Admit Date/Time: 09/27/21 17:02 Primary Reason for Your Visit: Shortness of breath w/ Anemia Attending Provider: Sandoval Og Primary Care Provider: Rona Barnett NP Consulting Providers: Jorge Viveros Discharge Orders/Prescriptions Prescriptions: New sucralfate [Carafate] 1 gram tablet 1 g PO BID Qty: 60 RF: 0 pantoprazole [Protonix] 40 mg tablet,delayed release (DR/EC) 40 mg PO DAILY Qty: 30 RF: 0 naloxone 4 mg/actuation spray,non-aerosol 4 mg intranasal Q3M PRN (Reason: opioid overdose) Qty: 2 RF: 0 hydrocodone-acetaminophen 10-325 mg tablet 1 tab PO Q6H PRN (Reason: pain) 7 Days Qty: 28 RF: 0 Continued pravastatin 80 MG tablet 80 mg PO DAILY RF: 0 metoprolol tartrate 25 MG tablet 25 mg PO DAILY RF: 0 enalapril maleate [Vasotec] 20 MG tablet 20 mg PO BID RF: 0 hydrochlorothiazide 25 MG tablet 25 mg PO DAILY RF: 0 niacinamide [Niacin (niacinamide)] 500 MG tablet 1,000 mg PO DAILY RF: 0 multivitamin with folic acid [Thera] 1 TABLET tablet 1 tab PO DAILY RF: 0 omega 1-xjd-aje-fish oil 1 EACH capsule 2 tab PO DAILY RF: 0 amlodipine 10 mg tablet 10 mg PO DAILY RF: 0 Held clopidogrel 75 MG tablet 75 mg PO DAILY RF: 0 Hold Instructions: Resume on 10/01/21. aspirin 81 MG tablet,chewable 81 mg PO DAILY RF: 0 Hold Instructions: Resume on 10/01/21. Discontinued naproxen sodium [Aleve] 220 MG tablet 220 mg PO Q8H PRN PRN (Reason: Pain) RF: 0 meloxicam 7.5 mg Tablet 7.5 mg PO DAILY RF: 0 Referrals / Follow Up: Jorge Viveros MD [STAFF PHYSICIAN] - 10/14/21 12:45 pm Rona Barnett NP, CYBER CR[employer] INVESTIGATOR-C [Primary Care Provider] - Within 2 Weeks Disposition Disposition (needs filled in before D/C Order can be placed): Home, Self Care Charges/Coding Addendum Addendum: Patient was seen and examined today independently of Pramod De Los Santos, his hemoglobin today was 9.3 which is stable. On examination he appeared in good health and spirits. Vital signs as documented. Skin warm and dry and without overt rashes. Neck without JVD, neck was supple, trachea midline, thyroid was normal. Lungs clear bilaterally, normal air movement was noted. Heart exam notable for regular rhythm, normal sounds and absence of murmurs, rubs or gallops. Abdomen unremarkable and without evidence of organomegaly, masses, or abdominal aortic enlargement. Bowel sounds are present, abdomen is not distended. Extremities nonedematous, no cyanosis was noted, no clubbing was noted. Neuro: Cranial nerves II through XII are grossly intact, no focal motor deficits were noted, sensation to light touch and pinprick intact, motor exam 5/5 throughout. Psych: Patient is alert and oriented x3, he does not appear anxious or depressed, he does not appear agitated. Patient appears stable for discharge at this time, he has been warned not to use any nonsteroidal anti-inflammatory agents such as ibuprofen, Aleve, or meloxicam. We have provided him some narcotics to use for his severe arthritis of his knees, I contacted his primary care provider Rona Barnett, she will follow up with the patient concerning his severe knee osteoarthritis, I also contacted radiation our who works with Dr. Emmanuel, Dr. Emmanuel will see the patient in his office within a week.
== END 2021-09-30 13:44 | disposition home or self-care (01) | DRG 378 ==
LOC: ED 17:07 → PCU 17:12
PROVIDERS: Physician Assistant; Surgery; Admitting Provider Family Medicine; Emergency Provider Emergency Medicine; PCP Nurse Practitioner; Visit Provider Internal Medicine
PROC: 0DJ08ZZ Inspection of Upper Intestinal Tract, Via Natural or Artificial Opening Endoscopic (ICD-10-PCS; CPT 43235; principal; 2021-09-28 14:45)
DX: K26.0 Acute duodenal ulcer with hemorrhage (principal); N17.9 Acute kidney failure, unspecified; D62 Acute posthemorrhagic anemia; T39.395A Adverse effect of other nonsteroidal anti-inflammatory drugs [NSAID], initial encounter; K29.70 Gastritis, unspecified, without bleeding; K44.9 Diaphragmatic hernia without obstruction or gangrene; I10 Essential (primary) hypertension; E78.5 Hyperlipidemia, unspecified; I73.9 Peripheral vascular disease, unspecified; E87.6 Hypokalemia; E86.0 Dehydration; I12.9 Hypertensive chronic kidney disease with stage 1 through stage 4 chronic kidney disease, or unspecified chronic kidney disease; N18.32 Chronic kidney disease, stage 3b; R09.02 Hypoxemia; M17.0 Bilateral primary osteoarthritis of knee; Z87.891 Personal history of nicotine dependence; Z79.899 Other long term (current) drug therapy; Z79.02 Long term (current) use of antithrombotics/antiplatelets; Z79.82 Long term (current) use of aspirin
CPT/HCPCS: 36415; 70450; 71045; 71275; 80048; 81001; 82274; 83880; 84484; 85014; 85018; 85025; 85610; 85730; 86850; 86900; 86901; 86920; 86922; 87426; 88305; 93005; 94640; 97162; 97166; 99285; 99406; J7040; J7050; P9016; Q9967; A4216; J3490

== ENCOUNTER → 2021-10-07 | Outpatient (CLI) | payer MEDICARE, SELFPAY ==
[2021-10-07 10:28] LABS: Hematocrit 30.9 % (40-54); Hemoglobin 9.7 g/dL (13.0-16.5); Mean Corp Hgb Conc 31.4 g/dL (32-36); Mean Corpuscular Hgb 31.3 pg (27.0-32.0); Mean Corpuscular Volume 99.7 fL (80-94); Mean Platelet Vol. 9.9 fl (6.2-12.0); Platelet Count 313 K/mm3 (150-450); RBC Distribution Width CV 16.7 % (11.6-14.6); RBC Distribution Width SD 61.1 fl (35.1-43.9); White Blood Count 9.7 K/mm3 (4.4-11.0)
[2021-10-07 10:48] LABS: ALB/GLOB Ratio 0.6 RATIO (0.9-2.4); AST(SGOT) 18 U/L (15-37); Alanine Aminotransfer ALT/SGPT 23 U/L (16-61); Albumin, Serum 2.5 g/dL (3.2-5.0); Alkaline Phosphatase 90 U/L (45-117); Anion Gap 10 (5-15); BUN 27 mg/dL (7-18); BUN/Creat Ratio 20.1 RATIO (10-20); Calcium,Total 9.4 mg/dL (8.5-10.1); Chloride 97 mmol/L (98-107); Creatinine, Serum 1.34 mg/dL (0.70-1.30); EST Glomerular Filtration Rate 55 mL/min (>60); Est Glom Filt Rate - Afr Amer 66 mL/min (>60); Globulin 4.2 g/dL (2.2-4.2); Glucose 88 mg/dL (74-106); Potassium 3.8 mmol/L (3.5-5.1); Protein, Total 6.7 g/dL (6.4-8.2); Sodium Level 140 mmol/L (136-145); Thyroid Stim Hormone (TSH) 1.07 uIU/mL (0.358-3.74)
== END | disposition home or self-care (01) ==
LOC: LABSPEC 10:12
PROVIDERS: PCP Nurse Practitioner; Visit Provider Nurse Practitioner
DX: I49.9 Cardiac arrhythmia, unspecified (principal); R94.4 Abnormal results of kidney function studies; D64.9 Anemia, unspecified
CPT/HCPCS: 80053; 84443; 85027

== ENCOUNTER → 2021-10-19 13:06 | Outpatient (CLI) | payer MEDICARE, SELFPAY ==
--- NOTE | 2021-10-19 13:07 | ECHOD_ITS ---
Reason For Study: dyspnea/SOB Procedure This was a 2D Doppler, Color Flow transthoracic echocardiogram. The study was technically difficult. Due to respiratory interference. Exam performed in department. Left Ventricle Normal LV size. Left ventricular systolic function is normal. The estimated ejection fraction is 55 %. Stage 1 diastolic dysfunction. No regional wall motion abnormalities noted. Right Ventricle Normal RV size. Normal systolic function. Atria Normal left atrium. Normal right atrium. Mitral Valve Normal mitral valve. Tricuspid Valve Normal tricuspid valve. Aortic Valve Trisinus/trileaflet aortic valve. Pulmonic Valve Normal pulmonic valve. Great Vessels Normal aortic root. The pulmonary artery is normal size. Normal inferior vena cava. Pericardium/Pleural No pericardial effusion. MMode/2D Measurements & Calculations LVIDd: 5.1 cm IVSd: 0.89 cm Ao root diam: 3.5 cm LVIDs: 2.9 cm LVPWd: 0.90 cm RVDd: 3.1 cm FS: 43.0 % LAV(MOD-bp): 42.6 ml LA A4 area: 16.0 cm2 LA dimension(2D): 3.0 cm LAV(MOD-bp) Indexed: 25.8 ml/m2 LAV(MOD-sp2): 39.3 ml LAV(MOD-sp4): 39.1 ml RA A4 area: 15.8 cm2 Time Measurements MV dec time: 0.28 sec Doppler Measurements & Calculations MV E max dennis: 69.7 cm/sec Lat Peak E' Dennis: 6.3 cm/sec Med Peak E' Dennis: 5.3 cm/sec MV A max dennis: 106.5 cm/sec E/E' lat: 11.0 E/E' med: 13.2 MV E/A: 0.65 Ao V2 max: 159.5 cm/sec LV V1 max: 92.1 cm/sec PA V2 max: 74.3 cm/sec Ao max P.2 mmHg LV V1 max P.4 mmHg ECHO/Echo Complete Interpretation Summary Normal LV size. Left ventricular systolic function is normal. The estimated ejection fraction is 55 %. Stage 1 diastolic dysfunction. Ordering Physician: Kyle Hoffmann Referring Physician: Rona Barnett Performed By: Isabel Gonzalez, AQUILESCS, RVT
== END ==
PROVIDERS: PCP Nurse Practitioner; Referring Provider Internal Medicine Cardiovascular Disease; Visit Provider Internal Medicine Cardiovascular Disease
DX: Z01.810 Encounter for preprocedural cardiovascular examination (principal)
CPT/HCPCS: 93306

== ENCOUNTER 2021-11-12 06:30 | Day surgery (SDC) | payer MEDICARE, SELFPAY ==
[2021-11-12] VITALS (7 sets, daily range): BP systolic 141–158; BP diastolic 66–83; PULSE 53–62; RESP 18; TEMP 35.8–36.9; O2SAT 95–99; BMI 19.6
--- NOTE | 2021-11-12 07:19 | PCM.HP.BLA ---
History and Physical Date of Admission: 11/12/21 Date of Service: 10/15/21 MR#:[id number]:[id number]: NICA PANTOJA [facility] #:[id number]:[id number] Provider:Jo Ann Conrad/Sex: 81/M [facility] Int[facility] Intake Visit Reasons: POST OP EGD 09/28 Chief Complaint: dizzyness , weakness Allergies enalapril Allergy (Verified 10/15/21 13:53) Angioedema peanut Allergy (Verified 10/15/21 13:53) Swelling Medications aspirin 81 mg PO DAILY 07/30/18 [History Confirmed 10/15/21] clopidogrel 75 mg PO DAILY 07/30/18 [History Confirmed 10/15/21] enalapril maleate [Vasotec] 20 mg PO BID 07/30/18 [History Confirmed 10/15/21] metoprolol tartrate 25 mg PO DAILY 07/30/18 [History Confirmed 10/15/21] multivitamin with folic acid [Thera] 1 tab PO DAILY 07/30/18 [History Confirmed 10/15/21] niacinamide [Niacin (niacinamide)] 1,000 mg PO DAILY 07/30/18 [History Confirmed 10/15/21] omega 0-hvt-ehd-fish oil 2 tab PO DAILY 07/30/18 [History Confirmed 10/15/21] pravastatin 80 mg PO DAILY 07/30/18 [History Confirmed 10/15/21] amlodipine 10 mg PO DAILY 09/27/21 [History Confirmed 10/15/21] hydrocodone-acetaminophen 1 tab PO Q6H PRN 7 Days #28 tab 09/30/21 [Rx Confirmed 10/15/21] naloxone 4 mg INTRANASAL Q3M PRN #2 ea 09/30/21 [Rx Confirmed 10/15/21] pantoprazole [Protonix] 40 mg PO DAILY #30 tab 09/30/21 [Rx Confirmed 10/15/21] sucralfate [Carafate] 1 g PO BID #60 tab 09/30/21 [Rx Confirmed 10/15/21] furosemide 40 mg tablet 40 mg PO DAILY #90 tab 10/07/21 [Rx Confirmed 10/15/21] Subjective Details: Mr. Pantoja is an 81-year-old male who presents for his first post hospital visit following a admission for GI bleed. On 09/28/2021 he underwent EGD with finding of a large duodenal ulcer in the duodenal bulb. Since that time he reports that he is experienced no further dark stools. He states that they are now medium/light brown. He denies any abdominal pain. He confirms that he is still taking the prescribed Carafate and Protonix. He had laboratories drawn on 10/07/2021 which showed stability in his hemoglobin at a value of 9.7 mg/dL. He does state that he still feels fatigue but his symptoms of dizziness have cleared to an estimated 75 to 80% of the way. Is now taking Tylenol alone for his knee pain and confirms that he has remained off the NSAIDs as directed. He is currently under work-up for possible knee replacement but without with cardiology and is due for an echocardiogram after they stated he was not optimized for surgery given a new oxygen requirement. Objective Details: General: Patient in no acute distress but wearing nasal cannula Abdomen: Nondistended, slender, epigastric hernia palpable but freely reducible. Soft and nontender to palpation in all 4 quadrants. Coding Level of Care Code Off vis,est,level 3 Diagnoses Duodenal ulcer K26.9 GI bleed due to NSAIDs K92.2; T39.395A Time Spent (min) 30 PFSH Medical History Arthritis Duodenal ulcer due to nonsteroidal anti-inflammatory drug (NSAID) (09/28/21) Essential hypertension Hyperlipidemia Multiple premature ventricular complexes Peripheral vascular disease Peripheral vascular occlusive disease Prostate cancer Right bundle branch block (RBBB) Skin cancer Tobacco abuse Surgical History H/O radical prostatectomy H/O: knee surgery History of carpal tunnel surgery of left wrist Hx of vascular surgery (2018) Family History Father CVA (cerebral vascular accident) Hypertension Social History Smoking Status: Former smoker Tobacco: How many years used: 50 alcohol intake: former Assessment and Plan (No Qualifiers) Assessment and Plan (1) Duodenal ulcer: Status: Acute Comment: 81-year-old male diagnosed with a large duodenal ulcer in the duodenal bulb on 09/28/2021 during EGD. Patient denies any further evidence of melena. Hemoglobin stable since admission. Confirms compliance with request to abstain from any NSAID medications. Still taking prescribed Carafate and Protonix. Will need to repeat endoscopy to follow-up evolution of the ulcer. Plan - Dr. Jorge Viveros MD: ?Plan for repeat EGD under local MAC as an outpatient mid October (2) GI bleed due to NSAIDs: Status: Acute Comment: Patient with recent hospitalization for GI bleed and acute blood loss anemia. Hemoglobin now stable. Patient abstaining from NSAID pain medications. Due for evaluation for possible injections during preoperative work-up for possible knee replacement. He is advised to continue Carafate and PPI as we await repeat endoscopy. Plan - Dr. Jorge Viveros MD: ?Continue avoidance of NSAID pain medications ?Continue PPI and Carafate ?Plan for repeat EGD under local MAC mid October I have re-examined the patient. There are no clinical changes since date of exam. Patient confirms that he has not had relapse of the dizziness that he experienced just prior to his admission. He states that he will still sometimes become woozy but not to the degree that he presented. Never in the course of his upper GI bleed did he experience abdominal pain and he denies any at present. Plan to proceed with repeat upper endoscopy to avail patient's known duodenal ulcer.
--- NOTE | 2021-11-12 07:30 | EGD_PTH ---
PATIENT: NICA PANTOJA LOC: [facility] U#:[id number] AGE/SX: 81/M ROOM: RE11/12/[address]: Dr. Jorge Viveros MD : 1940 BED: DIS: 11/12/2021 SPEC #: [id number] RECD: 11/12/21 09:14 STATUS: PATSY BENY #: [id number] ANGIE: 11/12/21 07:[address]: Jorge Viveros DEPT: SURGICAL PATHOLOGY RECD BY: Latia Ambrose ENTERED: 11/12/21 09:59 SP TYPE: EGD BIOPSY OT DR: Rona Barnett, STAND GRINDER-C Tissues: A - Duodenum, NOS B - Gastric mucous membrane Procedures: Surgery Specimen Level IV HEADER OPERATION: EGD ([facility] [place]) PRE-OP DIAGNOSIS: Duodenal ulcer, GI bleed due to NSAIDs TISSUE SUBMITTED: A ? Duodenum biopsy, B ? Antrum biopsy for H. pylori and histology MICROSCOPIC DIAGNOSIS A. Duodenum, biopsy: No pathologic change. B. Gastric antrum, biopsy: Mild chronic gastritis. See comment. TEDDY:makenna 11/13/2021 COMMENT B. The results of immunohistochemistry for Helicobacter pylori will be reported separately ([id number]). MICROSCOPIC DESCRIPTION Slides are reviewed. GROSS DESCRIPTION A - Received in fixative is one container labeled with the patient's name and designated duodenum biopsy. The specimen consists of multiple irregular fragments of light garcia soft tissue that in aggregate measure 0.5 x 0.3 x <0.1 cm. The specimen is totally submitted in one cassette. B - Received in fixative is one container labeled with the patient's name and designated antrum biopsy. The specimen consists of one irregular fragment of light garcia soft tissue that measures 0.3 x 0.2 x 0.1 cm. The specimen is totally submitted in one cassette. / AM:makenna 11/12/2021 TC:3 CPT: 58201 x2
--- NOTE | 2021-11-12 07:30 | IMM_PTH ---
PATIENT: NICA PANTOJA LOC: [facility] U#:[id number] AGE/SX: 81/M ROOM: RE11/12/[address]: Dr. Jorge Viveros MD : 1940 BED: DIS: 11/12/2021 SPEC #: [id number] RECD: 11/13/21 09:22 STATUS: PATSY BENY #: [id number] ANGIE: 11/12/21 07:[address]: Jorge Viveros DEPT: IMMUNOHISTOCHEMISTRY RECD BY: Zoey Mcpherson ENTERED: 11/13/21 09:23 SP TYPE: IMMUNO OTHR DR: Rona Barnett, AUXILIARY POWER EQUIPMENT OPERATOR-Hector Tissues: B - Stomach, NOS Procedures: H Pylori (initial) PHYSICIAN & INSTITUTION [place] [id number] SPECIMEN INFORMATION: Tissue Source: B ? Antrum biopsy Clinical Info: Duodenal ulcer, GI bleed due to NSAIDs Specimen Number: [id number] CPT code: 28787 METHODOLOGY: Deparaffinized sections of prefer/formalin-fixed tissue or PAP/DQ stained slides are incubated with monoclonal/polyclonal antibodies/oligonucleotide probes. Localization is made via biotin free immunoperoxidase method. Appropriate controls are performed and reacted as expected. Results on target cell population are indicated in the following table: RESULTS: ANTIBODY / CLONE RESULT Block B H Pylori (polyclonal) negative These tests were developed and their performance characteristics determined by [facility]. They may not have been cleared or approved by the U.S. Food and Drug Administration. The FDA has determined that such clearance or approval is not necessary. INTERPRETATION: B. Antrum biopsy: Negative for Helicobacter pylori organisms. AM:makenna 11/13/2021
--- NOTE | 2021-11-12 08:00 | OP.EGD_ITS ---
Patient Name: Seferino Shea Procedure Date: 11/12/2021 7:16 AM Date of : 1940 Age: 81 Procedure: Upper GI endoscopy Indications: Recent gastrointestinal bleeding, Acute duodenal ulcer Providers: Jorge Viveros MD Medicines: Monitored Anesthesia Care Patient Profile: Refer to note in patient chart for documentation of history and physical. Complications: No immediate complications. Estimated blood loss: Minimal. Procedure: Pre-Anesthesia Assessment: - The heart rate, respiratory rate, oxygen saturations, blood pressure, adequacy of pulmonary ventilation, and response to care were monitored throughout the procedure. After obtaining informed consent, the endoscope was passed under direct vision. Throughout the procedure, the patient's blood pressure, pulse, and oxygen saturations were monitored continuously. The gastroscope was introduced through the mouth, and advanced to the second part of duodenum. The upper GI endoscopy was accomplished without difficulty. The patient tolerated the procedure well. Scope In: 7:37:11 AM Scope Out: 7:50:01 AM Total Procedure Duration Time 0 hours 12 minutes 50 seconds Findings: Localized mild inflammation characterized by erythema was found in the first portion of the duodenum. Biopsies were taken with a cold forceps for histology. Localized mild inflammation characterized by erythema was found in the gastric antrum. Biopsies were taken with a cold forceps for histology. Biopsies were taken with a cold forceps for Helicobacter pylori testing. Estimated blood loss was minimal. The Z-line was regular and was found 35 cm from the incisors. No biopsies or other specimens were collected for this exam. Impression: - Duodenitis. Biopsied. - Gastritis. Biopsied. - Z-line regular, 35 cm from the incisors. No specimens collected. Recommendation: - Discharge patient to home (via wheelchair). - Resume previous diet today. - Use Protonix (pantoprazole) 40 mg PO daily today. - Continue present medications. Procedure Code(s): --- Professional --- 70195, Esophagogastroduodenoscopy, flexible, transoral; with biopsy, single or multiple Diagnosis Code(s): --- Professional --- K29.80, Duodenitis without bleeding K29.70, Gastritis, unspecified, without bleeding K92.2, Gastrointestinal hemorrhage, unspecified K26.3, Acute duodenal ulcer without hemorrhage or perforation CPT copyright 2017 [employer]. All rights reserved. The codes documented in this report are preliminary and upon clinical coder review may be revised to meet current compliance requirements. Jorge Viveros MD 11/12/2021 8:00:29 AM This report has been signed electronically. Number of Addenda: 0 Note Initiated On: 11/12/2021 7:16 AM
--- NOTE | 2021-11-12 08:01 | OP.CCLET_ITS ---
11/12/2021 Rona Barnett, VICTORINO [address] [place] [address] Re : Upper GI endoscopy procedure for Seferino Shea Dear Ms. Barnett This procedure was performed on October. My impressions and recommendations are as follows: Impressions : - Duodenitis. Biopsied. - Gastritis. Biopsied. - Z-line regular, 35 cm from the incisors. No specimens collected. Recommendations : - Discharge patient to home (via wheelchair). - Resume previous diet today. - Use Protonix (pantoprazole) 40 mg PO daily today. - Continue present medications. My findings are described in the full procedure note, which is enclosed. If I can be of further assistance, please feel free to contact me at Doctor phone number(s): , Work: . Sincerely, Jorge Viveros MD 11/12/2021 8:00:29 AM This report has been signed electronically.
== END 2021-11-12 23:59 | disposition home or self-care (01) ==
LOC: EN 06:32 → AC 06:34
PROVIDERS: PCP Nurse Practitioner; Referring Provider Nurse Practitioner; Visit Provider Surgery
PROC: 0DJ08ZZ Inspection of Upper Intestinal Tract, Via Natural or Artificial Opening Endoscopic (ICD-10-PCS; CPT 43235; principal; 2021-11-12 07:25)
DX: K26.3 Acute duodenal ulcer without hemorrhage or perforation (principal); I73.9 Peripheral vascular disease, unspecified; K29.70 Gastritis, unspecified, without bleeding; E78.5 Hyperlipidemia, unspecified; Z87.891 Personal history of nicotine dependence; K29.80 Duodenitis without bleeding; I10 Essential (primary) hypertension; M19.90 Unspecified osteoarthritis, unspecified site; Z85.828 Personal history of other malignant neoplasm of skin; Z85.46 Personal history of malignant neoplasm of prostate; Z79.899 Other long term (current) drug therapy; E78.00 Pure hypercholesterolemia, unspecified
CPT/HCPCS: 43239; 88305; 88342; J7120; J2405

== ENCOUNTER 2021-12-07 06:16 | Outpatient (CLI) | payer MEDICARE, SELFPAY ==
--- NOTE | 2021-12-07 10:03 | STRESSREP ---
Stress Test Report Pharmacologic myocardial perfusion stress test. 81-year-old man with a history of hypertension abnormal EKG for preop cardiac evaluation. Stress protocol: Resting EKG demonstrates normal sinus rhythm with premature ventricular complexes in a pattern of ventricular bigeminy. Heart rate of 73 bpm blood pressure is 158/64 mmHg. 0.4 mg of regadenoson was infused per usual protocol followed by rapid intravenous saline flush injection continuous EKG monitoring was performed. The maximum heart rate attained was 83 bpm which was 59% of max impact at heart rate the maximum workload was 1 metabolic equivalent. At rest there were no ST or T wave changes noted to suggest abnormal flow reserve occasional premature ventricular complexes were noted. The peak blood pressure was 158/64 mmHg. Myocardial perfusion protocol. 11.2 mCi of technetium 99m sestamibi was injected at rest. 0.4 mg of regadenoson was infused per usual protocol. At peak infusion 33.7 mCi of technetium 99m sestamibi was injected stress images were obtained stress and rest images were reconstructed and compared in the short axis vertical long and horizontal long axis. Gated images were also obtained. Perfusion SPECT analysis: Review of the stress images demonstrate normal uptake of tracer noted in all areas of the myocardium. The resting images similarly demonstrate normal uptake of tracer noted in all areas of the myocardium. No areas of reversibility are noted to suggest ischemia and no previous infarct is noted. Gated SPECT analysis: The gated ejection fraction is 57%. Conclusion: Normal pharmacologic myocardial perfusion stress test. Preserved ejection fraction.
== END 2021-12-07 23:59 | disposition home or self-care (01) ==
PROVIDERS: PCP Nurse Practitioner; Referring Provider Physician Assistant Medical; Visit Provider Physician Assistant Medical
DX: Z01.810 Encounter for preprocedural cardiovascular examination (principal)
CPT/HCPCS: 78452; 93017; A9500; A4216; J2785

== ENCOUNTER 2022-01-05 16:10 | Outpatient (CLI) | payer MEDICARE, SELFPAY ==
--- NOTE | 2022-01-05 16:26 | CT_ITS ---
STUDY: CT RIGHT LOWER EXTREMITY WITHOUT CONTRAST REASON FOR EXAM: Right knee osteoarthritis, right knee deformity, surgical planning. TECHNIQUE: Transaxial CT imaging of the lower extremity was performed. Coronal and sagittal images were reformatted. Individualized dose optimization techniques were used for this CT. COMPARISON: None. FINDINGS: Knee: There are small marginal osteophytes and a subchondral cyst of the posterior aspect of the medial tibial plateau (coronal reconstruction 31) with preservation of joint space of the medial femorotibial compartment. There are marginal osteophytes, joint space narrowing of the lateral femorotibial compartment with pressure erosion of the lateral tibial plateau (coronal reconstruction 24) and a prominent subchondral cyst of the posterior aspect of the lateral tibial plateau (coronal reconstruction 31). There are marginal osteophytes of the patellofemoral compartment without significant joint space narrowing. There is a small joint effusion. There is vascular calcification. Hip: There is preservation of joint space of the right hip. There is a small soft tissue calcification adjacent to the right greater trochanter (coronal reconstruction 51). Ankle: There is a small osteochondral lesion of the medial talar dome (coronal reconstructions 19). Normal posterior subtalar articulation. CT/Extremity Lower without Contra IMPRESSION: Right knee osteoarthritis. Electronically Signed: Josiah Berg MD at 14:52 EST ,
== END 2022-01-05 23:59 | disposition home or self-care (01) ==
LOC: CT 16:11
PROVIDERS: PCP Nurse Practitioner; Visit Provider Specialist
DX: M21.061 Valgus deformity, not elsewhere classified, right knee (principal)
CPT/HCPCS: 73700

== ENCOUNTER 2022-01-13 06:49 | Observation (INO) | payer MEDICARE, SELFPAY ==
--- NOTE | 2022-01-07 10:51 | EKG12_ITS ---
Test Reason : PRE OP Blood Pressure : / mmHG Vent. Rate : 071 BPM Atrial Rate : 071 BPM P-R Int : 144 ms QRS Dur : 146 ms QT Int : 428 ms P-R-T Axes : 025 -62 031 degrees QTc Int : 465 ms Sinus rhythm with occasional Premature ventricular complexes Left axis deviation Right bundle branch block Abnormal ECG Confirmed by FRANC EGAN, RAMESH ([id number]), social media editor MILY AGUILAR ([id number]) on 01/08/2022 7:53:08 AM Referred By: Ramirez Emmanuel Confirmed By:RAMESH BRUNER MD
[2022-01-07 11:37] LABS: Absolute Lymphocyte Count 1.74 X10^3/uL (0.83-4.51); Absolute Neutrophil Count 4.8 X10^3/uL (2.0-7.7); Basophil# 0.06 X10^3/uL; Basophil% 0.8 % (0-1); Eosinophil# 0.22 X10^3/uL; Eosinophils% 2.9 % (0-5); Hematocrit 43.2 % (40-54); Hemoglobin 14.1 g/dL (13.0-16.5); Lymphocyte # 1.74 X10^3/ul (0.83-4.51); Lymphocyte % 23.2 % (19-41); Mean Corp Hgb Conc 32.6 g/dL (32-36); Mean Corpuscular Hgb 32.9 pg (27.0-32.0); Mean Corpuscular Volume 100.9 fL (80-94); Mean Platelet Vol. 10.4 fl (6.2-12.0); Monocyte# 0.65 X10^3/uL; Monocyte% 8.7 % (0-10); NRBC Flagged by Analyzer 0 % (0-5); Neutrophil # 4.81 X10^3/uL (2.7-7.7); Neutrophil % 64.1 % (47-70); Platelet Count 205 K/mm3 (150-450); RBC Distribution Width CV 17.1 % (11.6-14.6); Red Blood Count 4.28 M/mm3 (4.6-6.2); White Blood Count 7.5 K/mm3 (4.4-11.0)
[2022-01-07 12:10] LABS: Albumin, Serum 3.7 g/dL (3.2-5.0); Anion Gap 5 (5-15); BUN 31 mg/dL (7-18); BUN/Creat Ratio 21.1 RATIO (10-20); Chloride 98 mmol/L (98-107); Creatinine, Serum 1.47 mg/dL (0.70-1.30); EST Glomerular Filtration Rate 49 mL/min (>60); Est Glom Filt Rate - Afr Amer 59 mL/min (>60); Glucose 112 mg/dL (74-106); Magnesium 2.1 mg/dL (1.6-2.6); Potassium 3.4 mmol/L (3.5-5.1); Sodium Level 135 mmol/L (136-145)
[2022-01-13] VITALS (13 sets, daily range): BP systolic 139–185; BP diastolic 61–99; PULSE 64–87; RESP 15–18; TEMP 36.6–37.3; O2SAT 79–99; BMI 20.1
--- NOTE | 2022-01-13 06:50 | RAD_ITS ---
STUDY: X-RAY - RIGHT KNEE REASON FOR EXAM: Male, 81 years old. New total knee arthroplasty. TECHNIQUE: 2 view(s) of the knee. COMPARISON: CT of the lower extremity dated 01/05/2022. FINDINGS: There is a 3 component total knee arthroplasty in anatomic position. There are expected post-operative findings. There are no complications. No other significant abnormality is identified. RAD/Knee 1 or 2 Views IMPRESSION: Total knee arthroplasty in anatomic alignment without complications. Electronically Signed: Juan Souza MD at 11:35 EDT ,
--- NOTE | 2022-01-13 06:59 | PCM.OPRPT ---
Report of Operation Date of Procedure: 01/13/22 Pre-Operative Diagnosis: Right knee primary osteoarthritis Post-Operative Diagnosis: Right knee primary osteoarthritis Surgery/Procedure Performed:: Right minimally invasive robotic total knee replacement Description of Surgical Findings:: Stable knee with good patella tracking Surgeon: Ramirez Emmanuel gambling box person: Krunal Cobb Type of Anesthesia: Spinal Anesthesiologist: Malik Bernard Special Medications: 2 g Ancef, 1 g TXA at incision, 1 g TXA closure, 10 mg Decadron, joint cocktail (5 mg Duramorph, 30 mL of 0.5% Ropivicaine, 1000 units of epinephrine, 30 mg of Toradol) Specimen's removed: Bony cuts Estimated Blood Loss (mL): 30 Fluids Replaced: 1000 ml Description of Procedure: Implants used: 1. [place] size 4 triathlon cruciate retaining distal femoral press-fit component 2. [place] size 4 press-fit tritanium tibial baseplate 3. Isabella X3 9 mm CS polyethylene 4. Isabella X3 32 mm asymmetric patella Brief history operative indications: 81-year-old m with history of right knee osteoarthritis with radiographic findings with loss of joint space, osteophyte formation and subchondral sclerosis. Failed conservative measures as mentioned in the H&P. Discussion of total knee arthroplasty as well as risk and benefits were discussed the patient including but not limited to blood loss, DVTs, PEs, neurovascular damage, general risk of anesthesia including loss of life, and stiffness or instability were discussed with patient. Patient demonstrated understanding and was able to sign informed consent. Procedure: On the date of procedure patient's right lower extremity was marked in the preoperative area. The patient was then taken back to the operating room where the patient was placed on the table in the supine position. All bony prominences were identified a well-padded. Anesthesia assumed control of the C-spine and airway and remained controlled throughout the remainder of the procedure. A tourniquet was placed on the right upper thigh and the leg was prepped in a sterile fashion. The surgeon then scrubbed at this time .Upon reentering the room right lower extremity was draped in a standard orthopedic fashion. A timeout was then called and everyone agreed upon the side, the site, the procedure to be performed, patient's identity and antibiotics given. Esmarch bandage was used to exsanguinate the extremity and the tourniquet was placed up to 250 mmHg with the knee in flexion. A midline skin incision was made and sharp dissection was taken down through skin subcutaneous tissue and fat. The standard medial parapatellar incision was made and the patella was subluxed laterally. An Appropriate deep MCL release was done and the fat pad was resected. Our attention was then directed to the patella. The patella was everted and a flat resection was made. The knee was then flexed up in 2 femoral pins were placed inside the incision and 2 tibial pins were placed outside the incision in the medial tibia bicortically. Once this was completed the 2 checkpoints in the femur and tibia were placed. Knee was then flexed up and the bony landmarks were registered. Once this was completed knee was taken through range of motion and manually stressed allowing us to a plan for an appropriate tibial cut. The robotic arm was brought into the field sterilely and checkpoint and saw were registered. Based on the patient's deformity the tibial cut was made neutral to the tibial axis. At this time the tensioner was then placed in the joint and ligament tension was checked at 90 degrees and full extension. Based on the patient's ligamentous tension appropriate adjustments were made to the operative plan and ligament releases were done. Once we were happy with our operative plan with balanced flexion and extension gaps our attention was directed to the femur. The robot was brought into the field sterilely and registered. Posterior condylar cuts, anterior chamfer cuts and anterior cuts were appropriately made for a size 4 femur. When these were completed the saws were switched out in the distal femoral and posterior chamfer cuts were made. Protecting the soft tissue throughout this time. A size 4 tibial base plate was selected. the knee was flexed to 90 degrees and the soft tissues and posterior osteophytes were removed from the joint. 40 cc of the periarticular injection was injected into the posterior medial corner of the joint. The appropriate trials were then placed on the femur and tibia. A trial polyethylene was trialed to ensure proper balancing and stability of the knee. The appropriate tibial internal rotation was then marked with a bovie. Our attention was then directed to the patella. The lug holes were drilled and the patella trial was placed. Patellar tracking was checked and deemed appropriate. Once we were happy lug holes were drilled for the femur and trial components were removed. the tibia was subluxed and pinned into place and the keel was punched and drilled appropriately. Final components were verified and opened, and cement was mixed in a vacuum. ponUp Simplex cement was used. The wound was copiously irrigated with normal saline. When the cement was ready the components were impacted into place starting with the tibia, femur and finally cementing the patella. The trial poly component was placed and the knee was placed in full extension. All excess cement was removed in the process. Once the cement had cured the tracking, alignment and balance were verified and a size 9 mm CS polyethylene component was placed. Once the final components were placed a 3-minute dilute Betadine lavage was performed followed by an Irrisept lavage was performed and the wound was copiously irrigated with normal saline solution and the periarticular injection was given. The wound was closed in a layer pedroza fashion using #1 vicryl interrupted sutures for the arthrotomy, 2-0 interrupted Vicryl suture for the subcuticular layer and bruce for final skin closure. A sterile compressive dressing was then placed. The patient was then awakened from anesthesia, transferred to the rdexter and transferred to the PACU for recovery. Post op plan DVT ppx: Xarelto for DVT prophylaxis as patient has contraindication to NSAIDs and aspirin due to previous stomach ulcerations patient is aware that we will Xarelto is less likely to cause stomach ulcerations it will still cause bleeding complications if he begins to bleed from his stomach, thigh high compression stockings Follow up: in office in 2 weeks for wound check PT: to start POD #0 at hospital, outpatient PT should be arranged. My physician research program assistant was a vital part of this case. He was important in appropriate retraction during the case, and protection of soft tissues during bony cuts. His intimate knowledge of the case and my steps aided in safe and expedient completion of the procedure as well as appropriate position of the leg during the case. He was also vital in assisting with closure under my direct supervision. Due to the complexity of this case robotic arm was used to assist in the surgery to improve accuracy and clinical outcomes. Complications No intraoperative complications Admit VTE Documentation VTE Present on Admission: No VTE Mechan Device Prophylaxis: SCD's and Thigh High GIBSON Hose VTE Pharm Prophylaxis ordered?: Yes
[2022-01-13] MEDS: Lactated Ringers 1,000 ML 125 ML IV ×2 (07:20→15:22)
[2022-01-13] MEDS: Acetaminophen 500 MG Tablet 1000 MG PO ×3 (07:21→21:27)
[2022-01-13] MEDS: Celecoxib 200 MG Capsule 400 MG PO (07:21)
[2022-01-13] MEDS: Gabapentin 600 MG Tablet PO (07:22)
[2022-01-13 07:41] LABS: Bedside Glucose 168 mg/dL (74-106)
[2022-01-13] MEDS: Cefazolin 2 GM in 0.9% Normal Saline 100 ML IV (08:45)
[2022-01-13] MEDS: TXA 1000mg in NS100 100ml (IVPB at Incision) 660 MG IV (08:55)
[2022-01-13] MEDS: TXA 1000mg in NS100 100ml (IVPB at Closure) 660 MG IV (09:55)
[2022-01-13] MEDS: Lactated Ringers 1,000 ML 999 ML IV (11:36)
[2022-01-13] MEDS: oxyCODONE 5 MG Tablet PO ×2 (13:49→17:53)
--- NOTE | 2022-01-13 16:40 | PCM.PN.HOSP ---
Documented by User: Jayla Mcdaniel NP, AIR INTERCEPT CONTROLLER SUPERVISOR-C 01/13/22 16:54 Subjective Subjective Patient seen and examined. Underwent right total knee replacement. Denies significant pain. Denies shortness of breath. Denies other symptoms or complaints. Hospitalist services consulted for medical management. Objective Data Objective Data Vital Signs: Vital Signs Temp Pulse Resp BP Pulse Ox 98.3 F 70 18 142/62 H 95 01/13/22 14:57 01/13/22 14:57 01/13/22 14:57 01/13/22 14:57 01/13/22 14:57 Oxygen Flow Rate (L/min) 4 Oxygen Delivery Method Nasal Cannula Weight: 132 lb 4.438 oz Body Mass Index (BMI) 20.1 Intake & Output: Intake and Output for Last 24 Hours 01/11/22 01/12/22 01/13/22 23:59 23:59 23:59 Intake Total 2191.83 / 2191.83 Balance 2191.83 / 2191.83 Lab / Micro Data Result Diagrams: 01/07/22 10:39 01/07/22 10:39 Labs: Laboratory Results - last 24 hr 01/13/22 06:54: POC Glucose 168 H Micro: Microbiology 01/07/22 10:39 Interface Orders Nasal Screen MRSA/MSSA - Final Radiography Diagnostic Testing: Radiology Impression Knee X-Ray 01/13/22 06:50 IMPRESSION: Total knee arthroplasty in anatomic alignment without complications. Electronically Signed: Juan Souza MD at 11:35 EDT Reading Location ID and State: [address] [place] [address] , Service support , Physical Exam Const alert, oriented x3 and no apparent distress Orientation / Consciousness: awake, oriented to person, oriented to place and oriented to time HEENT normocephalic and moist oral mucous membranes Eyes PERRL, EOMs intact bilaterally and conjunctivae normal Neck no lymphadenopathy Resp clear to auscultation bilaterally Auscultation: diminished lung sounds Cardio regular rate, regular rhythm and no murmurs Peripheral Pulses: pulses 2+ throughout GI normal to inspection, nondistended, normoactive bowel sounds, non-tender and non-distended Extremity normal to inspection Skin no rashes or lesions noted Lesions: no lesions Rashes: no rashes Trauma: no lacerations or abrasions Neuro CN's II-XII intact bilaterally, no focal motor deficits, no sensory deficits noted and deep tendon reflexes 2+ bilaterally Psych mental status grossly normal and affect normal Assessment & Plan Assessment/Plan (1) Arthritis: PLAN: 1. Right knee primary osteoarthritis status post right minimally invasive robotic total knee replacement- Management per orthopedic medicine. PT/OT. As needed pain regimen. 2. Chronic heart failure with preserved ejection fraction-No acute failure. Echocardiogram September 2021 with EF 55%, stage I diastolic dysfunction. 3. Hypertension-Continue amlodipine, HCTZ, metoprolol. 4. Hyperlipidemia-Continue statin. 5. Right bundle branch block- follows with cardiology. 6. History of prostate cancer 7. Chronic hypoxic respiratory failure secondary to COPD-Continue supplement oxygen to maintain O2 above 90%. As needed albuterol aerosol. 8. Chronic kidney disease stage IIIa- trend BMP. Recent labs at baseline. 9. Peripheral vascular disease- Follows with vascular surgery. Does not appear to be on antiplatelet. Continue statin. DVT prophylaxis- Xarelto This patient was seen by Jayla Mcdaniel NP-Hector under the supervision of Dr. Og. Time spent examining patient, reviewing data and subsequent management of care: 13 Minutes Documented by User: Dr. Sandoval Og DO 01/13/22 20:36 Objective Data Lab / Micro Data Result Diagrams: 01/07/22 10:39 01/07/22 10:39 Charges/Coding Addendum Addendum: Patient was seen and examined today independently of Jayla Mcdaniel, he underwent a right total knee replacement today due to osteoarthritis.Patient's medical problems include essential hypertension, history of congestive heart failure with preserved ejection fraction and hyperlipidemia. On examination he appeared in good health and spirits. Vital signs as documented. Skin warm and dry and without overt rashes. Neck without JVD, neck was supple, trachea midline, thyroid was normal. Lungs clear bilaterally, normal air movement was noted. Heart exam notable for regular rhythm, normal sounds and absence of murmurs, rubs or gallops. Abdomen unremarkable and without evidence of organomegaly, masses, or abdominal aortic enlargement. Bowel sounds are present, abdomen is not distended. Extremities nonedematous, no cyanosis was noted, no clubbing was noted. Neuro: Cranial nerves II through XII are grossly intact, no focal motor deficits were noted, sensation to light touch and pinprick intact, motor exam 5/5 throughout. Psych: Patient is alert and oriented x3, he does not appear anxious or depressed, he does not appear agitated. Impression: #1 essential hypertension-Patient is to remain on hydrochlorothiazide, amlodipine, and metoprolol 2.Chronic diastolic congestive heart failure-this appears stable at this time, Continue with metoprolol 3. Hyperlipidemia-patient is currently on a statin 4. History of cardiac [id number] is stable at this time, he is on metoprolol 5.Right knee osteoarthritis-postop day 0 right minimally invasive robotic total knee replacement, patient will be seen by PT and OT I have reviewed Jayla Mcdaniel's progress note including her medical assessment and plan of care and with the above additions endorse it. Total clinical time spent by myselfAddressing the patient's medical issues, reviewing the patient's medical record, and discussing his care with caregivers: 25 minutes Visit Charges Inpatient E&M: 23215 [facility] Hosp L3
[2022-01-13] MEDS: Cefazolin 1 GM/50 ML BAG IV (16:56)
[2022-01-13] MEDS: Ensure Surgery 237 ML LIQUID PO (16:57)
[2022-01-13 18:14] LABS: Hemoglobin A1c 5.4 % (3.8-5.6)
[2022-01-13] MEDS: Pravastatin 80 MG Tablet PO (21:27)
[2022-01-14] VITALS (10 sets, daily range): BP systolic 142–151; BP diastolic 57–69; PULSE 62–90; RESP 18; TEMP 36.7–37.1; O2SAT 86–98
[2022-01-14] MEDS: oxyCODONE 5 MG Tablet PO ×3 (01:16→16:04)
[2022-01-14] MEDS: Cefazolin 1 GM/50 ML BAG IV (01:17)
[2022-01-14] MEDS: Rivaroxaban 10 MG Tablet PO (06:24)
[2022-01-14] MEDS: Acetaminophen 500 MG Tablet 1000 MG PO ×2 (06:24→14:08)
[2022-01-14 06:34] LABS: Hematocrit 32.9 % (40-54); Hemoglobin 11.4 g/dL (13.0-16.5); Mean Corp Hgb Conc 34.7 g/dL (32-36); Mean Corpuscular Hgb 34.2 pg (27.0-32.0); Mean Corpuscular Volume 98.8 fL (80-94); Mean Platelet Vol. 9.6 fl (6.2-12.0); Platelet Count 153 K/mm3 (150-450); RBC Distribution Width CV 16.6 % (11.6-14.6); RBC Distribution Width SD 60.1 fl (35.1-43.9); Red Blood Count 3.33 M/mm3 (4.6-6.2)
[2022-01-14 06:59] LABS: Anion Gap 3 (5-15); BUN 31 mg/dL (7-18); BUN/Creat Ratio 27.4 RATIO (10-20); Calcium,Total 8.7 mg/dL (8.5-10.1); Chloride 103 mmol/L (98-107); Creatinine, Serum 1.13 mg/dL (0.70-1.30); EST Glomerular Filtration Rate 66 mL/min (>60); Est Glom Filt Rate - Afr Amer 80 mL/min (>60); Estimated Creatinine Clearance 44.25 ml/min; Glucose 99 mg/dL (74-106); Potassium 3.6 mmol/L (3.5-5.1); Sodium Level 138 mmol/L (136-145)
--- NOTE | 2022-01-14 07:44 | PCM.PN.HOSP ---
Subjective Subjective Follow-up on hypoxia/status post total right knee replacement: Patient was seen and examined. He is usually on 2 L of oxygen; was up on 6 L of oxygen last night. Patient attributes it to the nasal prongs maintained inversely and up against his nostril. Oxygen has been weaned down to 4 L at the time of being seen. He denied any new complaints. Objective Data Objective Data Vital Signs: Vital Signs Temp Pulse Resp BP Pulse Ox 98.8 F 62 18 151/69 H 94 01/14/22 05:40 01/14/22 05:40 01/14/22 05:40 01/14/22 05:40 01/14/22 05:40 Oxygen Flow Rate (L/min) 4 Oxygen Delivery Method Nasal Cannula Weight: 60 kg Body Mass Index (BMI) 20.1 Intake & Output: Intake and Output for Last 24 Hours 01/12/22 01/13/22 01/14/22 23:59 23:59 23:59 Intake Total 3361.00 / 3361.00 570.83 / 570.83 Output Total 900 / 900 Balance 3361.00 / 2961.00 -329.17 / -329.17 Lab / Micro Data Result Diagrams: 01/14/22 06:29 01/14/22 06:29 Labs: Laboratory Results - last 24 hr 01/07/22 10:39: Hemoglobin A1c 5.4 01/14/22 06:29: WBC 8.0, RBC 3.33 L, Hgb 11.4 L, Hct 32.9 L, MCV 98.8 H, MCH 34.2 H, MCHC 34.7, RDW Std Deviation 60.1 H, RDW Coeff of Marya 16.6 H, Plt Count 153, MPV 9.6 01/14/22 06:29: Sodium 138, Potassium 3.6, Chloride 103, Carbon Dioxide 32.0, Anion Gap 3 L, BUN 31 H, Creatinine 1.13, Estim Creat Clear Calc 44.25, Est GFR (MDRD) Af Amer 80, Est GFR (MDRD) Non-Af 66, BUN/Creatinine Ratio 27.4 H, Glucose 99, Calcium 8.7 Micro: Microbiology 01/07/22 10:39 Interface Orders Nasal Screen MRSA/MSSA - Final Radiography Diagnostic Testing: Radiology Impression Knee X-Ray 01/13/22 06:50 IMPRESSION: Total knee arthroplasty in anatomic alignment without complications. Electronically Signed: Juan Souza MD at 11:35 EDT Reading Location ID and State: [facility] / [place] , Service support , Physical Exam Narrative Physical exam: General: Alert, Oriented x3, Cooperative, No apparent distress, appears frail, on 4 L of oxygen HEENT: Atraumatic Oral: Moist Mucosa Neck: Supple Lungs: Diminished to auscultation especially at the bases Cardiovascular: HS I+II, regular, no murmurs Abdomen: Bowel Sounds Present, Soft, Non Tender Extremities: No edema,: Over the right knee, in bilateral GIBSON hoses Assessment & Plan Assessment/Plan (1) Arthritis: PLAN: 1. POD #1, right minimally invasive robotic total knee replacement for right knee primary osteoarthritis Pain is fairly controlled, continue scheduled Tylenol, oxycodone as needed Follow-up on orthopedics recommendations 2. Hypoxia, likely related to atelectasis, patient with chronic hypoxic respiratory failure from COPD Worsened from patient's previous baseline of 2 L of oxygen, currently on 4 L Encourage use of incentive spirometer, check oxygen on ambulation 3.Chronic heart failure with preserved ejection fraction, not in acute exacerbation Echocardiogram September 2021 shows EF 55%, stage I diastolic dysfunction. 4. Hypertension, controlled, amlodipine, HCTZ, metoprolol. 5. Rest of chronic medical conditions including Hyperlipidemia/history of prostate CA/CKD stage IIIa/PAD/GERD Continue on statin, Xarelto 6. DVT PPx- Xarelto Charges/Coding Visit Charges Inpatient E&M: 08418 Subs Hosp L2
[2022-01-14] MEDS: Famotidine 20 MG Tablet PO (09:13)
[2022-01-14] MEDS: Senna/Docusate Sodium 1 Tablet 2 TABLET PO (09:13)
[2022-01-14] MEDS: Ensure Surgery 237 ML LIQUID PO ×2 (09:13→11:53)
[2022-01-14] MEDS: hydroCHLOROthiazide 25 MG Tablet PO (09:13)
[2022-01-14] MEDS: Metoprolol Tartrate 25 MG Tablet PO (09:14)
[2022-01-14] MEDS: amLODIPine 10 MG Tablet PO (09:14)
[2022-01-14] MEDS: Cholecalciferol (VIT D3) 25 MCG TABLET (1,000 UNITS) PO (09:14)
[2022-01-14] MEDS: Pantoprazole Sodium 20 MG Tablet PO (09:14)
--- NOTE | 2022-01-14 09:44 | PN.ORTHO_ITS ---
Subjective Subjective The patient was sitting in bedside chair upon examination. Patient just finished physical therapy. States overall he did well. They did need to increase his oxygen to 6.5 L as he had a drop in O2 saturation. Patient denies any chest pain, shortness of breath, dizziness, lightheadedness, nausea or vomiting, or calf pain. Pain is controlled on medications. No adverse overnight events. Patient does require home oxygen in which he states he uses 2 L. He is followed by vehicle fuel systems converter but is unable to give me his name. Patient also has histories of bleeding ulcers. He has no longer allowed to take nonsteroidal anti-inflammatories. He has no previous history of DVT. We are utilizing Xarelto which we will use for 2 weeks postoperatively for DVT prophylaxis. Patient states he wishes to try to go home today. Overall he feels he is doing well. Objective Data Objective Data Vital Signs: Vital Signs Temp Pulse Resp BP Pulse Ox 98.1 F 90 18 142/66 H 93 01/14/22 09:08 01/14/22 09:14 01/14/22 09:08 01/14/22 09:14 01/14/22 09:08 Oxygen Flow Rate (L/min) 4 Oxygen Delivery Method Nasal Cannula Weight: 60 kg Body Mass Index (BMI) 20.1 Intake & Output: Intake and Output for Last 24 Hours 01/12/22 01/13/22 01/14/22 23:59 23:59 23:59 Intake Total 3361.00 / 3361.00 570.83 / 570.83 Output Total 900 / 900 Balance 3361.00 / 2961.00 -329.17 / -329.17 Lab / Micro Data Result Diagrams: 01/14/22 06:29 01/14/22 06:29 Labs: Laboratory Results - last 24 hr 01/07/22 10:39: Hemoglobin A1c 5.4 01/14/22 06:29: WBC 8.0, RBC 3.33 L, Hgb 11.4 L, Hct 32.9 L, MCV 98.8 H, MCH 34.2 H, MCHC 34.7, RDW Std Deviation 60.1 H, RDW Coeff of Marya 16.6 H, Plt Count 153, MPV 9.6 01/14/22 06:29: Sodium 138, Potassium 3.6, Chloride 103, Carbon Dioxide 32.0, Anion Gap 3 L, BUN 31 H, Creatinine 1.13, Estim Creat Clear Calc 44.25, Est GFR (MDRD) Af Amer 80, Est GFR (MDRD) Non-Af 66, BUN/Creatinine Ratio 27.4 H, Glucose 99, Calcium 8.7 Micro: Microbiology 01/07/22 10:39 Interface Orders Nasal Screen MRSA/MSSA - Final Radiography Diagnostic Testing: Radiology Impression Knee X-Ray 01/13/22 06:50 IMPRESSION: Total knee arthroplasty in anatomic alignment without complications. Electronically Signed: Juan Souza MD at 11:35 EDT , Physical Exam Narrative Vital signs stable and afebrile. Patient is able to plantarflex and dorsiflex actively. Sensation is intact to light touch to saphenous, sural, superficial and deep peroneal, and tibial distribution. Patient has trace drainage off the middle one third of the main dressing. Remaining dressing is clean dry and intact. There is some minimal drainage over the distal pin site. No drainage over proximal pin site. Laterally patient did have a skin tear with minimal drainage. Patient has GIBSON hose on bilateral legs but no SCDs as he just finished physical therapy. Negative Homans bilaterally, negative signs and symptoms of DVT. Const alert, oriented x3 and no apparent distress Assessment & Plan Assessment/Plan (1) Status post total right knee replacement: PLAN: 1. S/P right total knee arthroplasty POD #1 2. Continue Pain Medications: Tylenol and oxycodone 3. DVT Prophylaxis: Patient will require Xarelto for 2 weeks postoperatively for DVT prophylaxis. Patient denies any previous history of DVT. 4. PT/OT: Weightbearing as tolerated with walker 5. H & H: 11.4/32.9, asymptomatic. Postoperative anemia secondary to acute blood loss from surgery without any intra operative complications. 6. Encouraged Incentive Spirometry 7. Continue postoperative medical management per medicine: Patient has history of O2 use at home in which he uses 2 L. Patient is followed by vehicle fuel systems converter Dr. Garcia. I did discuss case with medicine and at this time chest x-ray will be ordered. Patient may need to have O2 modified for discharge but they are trying to wean him down postoperatively. He is currently on 4 L. Patient denies any chest pain or shortness of breath. 7. Disposition: Plan will be for possible discharge home as long as patient is medically cleared. Medicine is currently getting chest x-ray and will evaluate patient. Patient states overall his knee is doing well. Pain is been controlled on medications. I would recommend patient follow-up with vehicle fuel systems converter in 1 to 2 weeks postoperatively. Patient will follow-up per pos top instructions. He does have outpatient physical therapy to begin on January 18, 2022. Prescriptions will be E scribed to [facility] pharmacy. I will check with medicine later this afternoon with regards to patient's status on possible discharge today. I have reviewed the [place] Automated Rx Reporting System (OARRS) report for this patient for refill pattern and other prescriber involvement as part of the appropriate surveillance for the provision of acute and chronic controlled medications. The report was requested and reviewed on the date of this entry and was considered in the prescribing process.
--- NOTE | 2022-01-14 09:51 | RAD_ITS ---
STUDY: X-RAY CHEST REASON FOR EXAM: Male, 81 years old. SOb TECHNIQUE: AP COMPARISON: 09/27/2021 FINDINGS: Elevation of the right hemidiaphragm is new since 2020. No airspace consolidation. There is no demonstrated pleural abnormality. Normal size heart. Normal mediastinum and cheli. Normal visualized pulmonary arteries. There is atherosclerotic calcification of the aortic arch with tortuosity. There are diffuse degenerative changes of the visualized thoracic spine. Degenerative changes of the right shoulder. There is no demonstrated abnormality of the visualized soft tissue structures of the upper abdomen. RAD/Chest 1 View (Portable) IMPRESSION: 1. Elevated right hemidiaphragm, new. 2. No airspace consolidation. Electronically Signed: Jae Arreguin MD ([place]) at 10:21 EDT ,
--- NOTE | 2022-01-14 10:03 | DCINST_ITS ---
Discharge Instructions Diet Discharge Diet: No restrictions Activity Discharge Activity: May Not Drive (No driving for 6 weeks postoperatively and while taking narcotic pain medications.) May shower in (days): 1 (Please turn dressing away from water. Okay to get wet as long as dressing is intact to skin.) Ice area for (Minutes): 20 (Every 1-2 hours while awake. Please place barrier between the skin and ice pack.) Weight Bearing Status: Weight bearing as tolerated Keep extremity elevated above heart level: Operative Extremity Dressing / Incision Call your doctor if your incision/area has: Continuous Slow Oozing, Sudden Increased Bleeding, Increased Pain/ Swelling, Increased Redness and Foul Smelling Discharge Call your doctor if you observe: Fever of 101 or Higher, Coldness, Increased Pain, Numbness or Tingling, Change in Color, Shortness of breath, Chest pain, Calf discomfort and Uncontrolled pain Remove Dressing in: 4 days (Okay to remove dressing on January 18, 2022) Additional Dressing/Incision Instructions:: Follow [facility] Post-op Instructions. Once postoperative dressing has been removed only use gentle soap and water over the incision. Do not use any ointments, Neosporin, salves, alcohol pads over the incision for 6 weeks postoperatively. Do not submerge underwater for 6 weeks postoperatively. Continue with GIBSON hose/elastic stockings for 2 weeks postoperatively. May remove at nighttime but needs to be placed back on the leg during the day. Do NOT use alcohol with narcotic pain medication. Do NOT make important decisions while taking narcotic medication. If you have problems with taking your medication (rash, itching, nausea, etc.) call the office at once. Follow Up Care Test Results: Test results from this visit will be discussed in further detail at your follow-up appointment, if applicable. Discharge Plan Admission Admit Date/Time: 01/13/22 06:49 Attending Provider: Mireya Murillo Primary Care Provider: Rona Barnett NP Consulting Providers: Sandoval Og Discharge Orders/Prescriptions Prescriptions: New oxycodone 5 mg Tablet 5 - 10 mg PO Q4H PRN PRN (Reason: Pain Score 4-10) 5 Days Qty: 60 RF: 0 Xarelto 10 mg Tablet 10 mg PO DAILY@0600 11 Days Qty: 11 RF: 0 sennosides-docusate sodium [Stool Softener-Stimulant Laxat] 8.6-50 mg Tablet 2 tab PO BID Qty: 20 RF: 0 Continued pravastatin 80 MG tablet 80 mg PO DAILY RF: 0 metoprolol tartrate 25 MG tablet 25 mg PO DAILY RF: 0 niacinamide [Niacin (niacinamide)] 500 MG tablet 1,000 mg PO DAILY RF: 0 multivitamin with folic acid [Thera] 1 TABLET tablet 1 tab PO DAILY RF: 0 amlodipine 10 mg tablet 10 mg PO DAILY RF: 0 hydrochlorothiazide 25 mg Tablet 25 mg PO DAILY RF: 0 acetaminophen 650 mg Tablet 650 mg PO TID RF: 0 ergocalciferol (vitamin D2) 1,000 unit Capsule 1,000 unit PO DAILY RF: 0 pantoprazole [Protonix] 40 mg tablet,delayed release (DR/EC) 20 mg PO DAILY RF: 0 Other Ambulatory Orders: 12 Lead EKG (Routine) Location: None Selected Ordered By: Dr. Home Michelle Referrals / Follow Up: Jamel Garcia MD [STAFF PHYSICIAN] - (follow up 1-2 weeks post-op) Rona Barnett NP, MECHANICAL ENGINEERING INTERN-C [Primary Care Provider] - Krunal Cobb PA-C [PHYSICIAN FOOD OPERATIONS MANAGER] - 01/28/22 1:30 pm Disposition Disposition (needs filled in before D/C Order can be placed): Home, Self Care
--- NOTE | 2022-01-14 11:31 | CASEMGMT ---
ARASELI PLASCENCIA assessment: RN CM to room to meet with patient and who is at bedside for initial transition planning/care coordination assessment. ARASELI PLASCENCIA introduced self and role at [facility], pt voices understanding and consents to assessment. Pt is sitting up in chair in no distress on room air. Pt is A/Ox4 and answers all questions appropriately. Care providers, pharmacy, and demographics verified. PCP: Rona Barnett COLD STORAGE SUPERVISOR Specialists: Dr Emmanuel- ortho, Dr Garcia--pulmonology, Dr Hoffmann-cardiology Preferred Pharmacy: [facility] Retail Insurance: [employer] Prescription Benefit: [employer] Living Will/HPOA: Pt has LW/HPOA. , Larissa Shea, is HPOA. LNOK: Larissa Shea, Living Arrangements: Pt lives with in 2 story home w/2 steps to enter. Pt is independent with ADL's. assists w/washing feet. Pt's bedroom and full bath on 2nd floor. 1/2 bath on ground floor. Pt states plans to sleep on ground floor for a couple of days after returning home. does home mgmt tasks. Transportation: Pt states drives self and states no transportation concerns. also drives DME: Shower chair, RTS, walker, rollator, pulse ox, O2 @ 2l/m continuously through [employer]. Pt has portable tank in room to go home on @ d/c. Pt denies further DME needs. Pt and made aware amb pulse ox to be completed @ d/c to check to see if he is requiring more O2 than 2l/m. Pt currently on 4l/m O2. Pt states his nose is dry and feels like it's getting clogged and therefore O2 not as effective. Opal MARX, made aware. SNF/HHC: No hx of either. Plan is for OP therapy @ [facility]. Pt has 1st therapy appt scheduled for 01/18 @ 1:30 PM. Pt and aware. Pt/ state no concerns with going home at time of discharge. Pt is retired. Pt states does not smoke cigarettes or drink ETOH. Pt and state no further concerns/needs. CM to follow for any further discharge planning/needs. D/C plan: Home w/OP therapy @ [facility] LEES form explained re: Observation status for treatment of Rt total knee w/DEACON. Explained hospitalization will be paid per his insurance policy for Outpatient billing and condition will continue to be evaluated for Inpt necessity. Also let pt know that [facility] sends paper in the billing packet with their phone number if questions arise. Discussed Pharmacy section of LEES form and self administered medication guideline. Pt and verbalize understanding and do not have further questions. Form signed, copy made and placed in chart, and original given to pt and . Bao MESSINAN RN CM
[2022-01-14] MEDS: Furosemide 40 MG/4 ML Vial IV (16:04)
[2022-01-14] MEDS: 0.9% Saline Lock 10 ML Syringe IV (16:04)
--- NOTE | 2022-01-14 16:13 | CASEMGMT ---
Pt oxygen requirements have increased, script completed and faxed to [facility]. Spoke with hospitalist who would like an appt set up with pulm. TC to Dr. Garcia's office, pt has a breathing test on the and physician appt on the . Hospitalist ok with this timeframe, asking that pt is aware to come to ER or notify Dr. Garcia if pox <90%. RN CM in to pt room, spoke with pt and . He is aware of all of the above. He denies further questions. Pt has a pulse ox at home already.
== END 2022-01-14 17:27 | disposition home or self-care (01) ==
LOC: SDC 09:42 → MS3 09:42
PROVIDERS: Nurse Practitioner Family; Admitting Provider Specialist; PCP Nurse Practitioner; Referring Provider Specialist; Visit Provider Internal Medicine
PROC: 0SRC0JZ Replacement of Right Knee Joint with Synthetic Substitute, Open Approach (ICD-10-PCS; CPT 27447; principal; 2022-01-13 08:15)
DX: M17.11 Unilateral primary osteoarthritis, right knee (principal); J44.9 Chronic obstructive pulmonary disease, unspecified; I13.0 Hypertensive heart and chronic kidney disease with heart failure and stage 1 through stage 4 chronic kidney disease, or unspecified chronic kidney disease; I50.32 Chronic diastolic (congestive) heart failure; J96.11 Chronic respiratory failure with hypoxia; N18.31 Chronic kidney disease, stage 3a; R09.02 Hypoxemia; E78.5 Hyperlipidemia, unspecified; Z99.81 Dependence on supplemental oxygen; Z79.899 Other long term (current) drug therapy; Z87.891 Personal history of nicotine dependence
CPT/HCPCS: 27447; S2900; 01402; 64447; 36415; 71045; 73560; 80048; 82040; 82962; 83036; 83735; 85025; 85027; 87081; 93005; 96361; 96365; 96366; 96375; 97110; 97162; 97166; 97530; 97535; 99218; 99251; 99406; C1776; J7120; A4216; G0378; G0463; J1940; J2405; J3475

== ENCOUNTER 2022-01-21 12:10 | Inpatient (IN) | payer MEDICARE, SELFPAY ==
[2022-01-21] VITALS (14 sets, daily range): BP systolic 139–169; BP diastolic 6–73; PULSE 79–85; RESP 16–25; TEMP 36.7–37.7; O2SAT 88–96; BMI 19.6; BMI 21.4
--- NOTE | 2022-01-21 12:55 | EKG12_ITS ---
Test Reason : SOB Blood Pressure : / mmHG Vent. Rate : 080 BPM Atrial Rate : 080 BPM P-R Int : 142 ms QRS Dur : 156 ms QT Int : 434 ms P-R-T Axes : 000 -55 010 degrees QTc Int : 500 ms Normal sinus rhythm Left axis deviation Right bundle branch block Abnormal ECG Confirmed by FRANC EGAN, RAMESH ([id number]), features editor MILY AGUILAR ([id number]) on 01/25/2022 10:31:52 AM Referred By: ZINA Confirmed By:RAMESH BRUNER MD
[2022-01-21 13:08] LABS: Absolute Lymphocyte Count 0.77 X10^3/uL (0.83-4.51); Absolute Neutrophil Count 10.7 X10^3/uL (2.0-7.7); Basophil# 0.04 X10^3/uL; Basophil% 0.3 % (0-1); Hematocrit 27.6 % (40-54); Lymphocyte # 0.77 X10^3/ul (0.83-4.51); Lymphocyte % 5.9 % (19-41); Mean Corp Hgb Conc 36.2 g/dL (32-36); Mean Corpuscular Hgb 34.1 pg (27.0-32.0); Mean Corpuscular Volume 94.2 fL (80-94); Mean Platelet Vol. 9.6 fl (6.2-12.0); Monocyte# 1.37 X10^3/uL; Monocyte% 10.5 % (0-10); NRBC Flagged by Analyzer 0 % (0-5); Neutrophil # 10.71 X10^3/uL (2.7-7.7); Neutrophil % 82.5 % (47-70); Platelet Count 261 K/mm3 (150-450); RBC Distribution Width CV 15.1 % (11.6-14.6); RBC Distribution Width SD 51.9 fl (35.1-43.9); Red Blood Count 2.93 M/mm3 (4.6-6.2)
--- NOTE | 2022-01-21 13:12 | RAD_ITS ---
STUDY: X-RAY CHEST REASON FOR EXAM: Male, 81 years old. Chest pain TECHNIQUE: Single AP portable view of the chest. COMPARISON: Comparison is made with prior study dated 01/14/2022. FINDINGS: EKG electrodes are seen. There is elevation of the right hemidiaphragm with increased markings at the right lung base suggestive of atelectasis and/or early infiltrate. There is no demonstrated pleural abnormality. Normal size heart. Normal mediastinum and cheli. Normal visualized pulmonary arteries. There is atherosclerotic calcification of the aortic arch with tortuosity. There are diffuse degenerative changes of the visualized thoracic spine. There is degenerative osteoarthritis of the bilateral shoulders. There is no demonstrated abnormality of the visualized soft tissue structures of the upper abdomen. RAD/Chest 1 View (Portable) IMPRESSION: Elevation of the right hemidiaphragm with increased markings at the right lung base suggestive of right basilar atelectasis. Electronically Signed: Dandre Snell MD at 13:40 EDT ,
--- NOTE | 2022-01-21 13:12 | ED.VIS.DYS ---
HPI History of Present Illness Chief Complaint: Shortness of Breath Informant: patient, spouse/S.O. and family Onset/Context/Timing Onset: Days Timing: Intermittent Current Severity: Mild Maximum Severity: Mild Worsened by: Exertion Relieved by: Nothing Associated Symptoms Negative for cough, white sputum, yellow sputum or green sputum Chest Pain: Positive for None Narrative Narrative: 81-year-old male who presents primarily for generalized weakness. He also is having some worsening shortness of breath. Patient has a history of COPD is on 3 L of oxygen at home. 1 to 2 weeks ago had a right knee replacement. And has been on doxycycline for a wound infection. states he just more weak. Today reportedly he was at the orthopedic physician's office had a pulse ox in the 80s on 3 L of the same in the emergency department. Waisted had a fever today of 102. He denies any new cough. He denies any dysuria. He has been constipated since the surgery. He is currently on Xarelto postoperatively. He does have a history of anemia, skin cancer and peripheral vascular disease also. PE Risk Factors: Positive for Recent immobilization and Recent surgery; Negative for Cancer, OCP + Smoking + > 35, Prior DVT or PE and Recent travel Prior similar symptoms: Yes Recent Illness/Hospitalization: Yes [facility] Medical History Anemia Arthritis Cancer Cardiology follow-up encounter COPD (chronic obstructive pulmonary disease) Duodenal ulcer due to nonsteroidal anti-inflammatory drug (NSAID) (09/28/21) Easy bruising Essential hypertension High cholesterol History of echocardiogram History of GI bleed History of pain when walking History of ulceration Hx of basal cell carcinoma Hyperlipidemia Multiple premature ventricular complexes On home oxygen therapy On home oxygen therapy Peripheral vascular disease Peripheral vascular occlusive disease Prostate cancer Right bundle branch block (RBBB) Shortness of breath on exertion Skin cancer Syncope Tobacco abuse Walker as ambulation aid Wears dentures Home Medications metoprolol tartrate 25 mg PO DAILY 07/30/18 [History Last Taken 01/13/22 05:30] multivitamin with folic acid [Thera] 1 tab PO DAILY 07/30/18 [History Last Taken 01/12/22] niacinamide [Niacin (niacinamide)] 1,000 mg PO DAILY 07/30/18 [History Last Taken 01/12/22] pravastatin 80 mg PO DAILY 07/30/18 [History Last Taken Unknown] amlodipine 10 mg PO DAILY 09/27/21 [History Last Taken 01/13/22 05:30] hydrochlorothiazide 25 mg PO DAILY 11/09/21 [History Last Taken 01/12/22] acetaminophen 650 mg PO TID 01/06/22 [History Last Taken 01/12/22] ergocalciferol (vitamin D2) 1,000 unit PO DAILY 01/06/22 [History Last Taken 01/12/22] pantoprazole [Protonix] 20 mg PO DAILY 01/06/22 [History Last Taken 01/13/22 05:30] oxycodone 5 - 10 mg PO Q4H PRN PRN 5 Days #60 tab 01/14/22 [Rx Last Taken Unknown] rivaroxaban [Xarelto] 10 mg PO DAILY@0600 11 Days #11 tab 01/14/22 [Rx Last Taken Unknown] sennosides-docusate sodium [Stool Softener-Stimulant Laxat] 2 tab PO BID #20 tab 01/14/22 [Rx Last Taken Unknown] doxycycline monohydrate 100 mg PO BID 01/21/22 [History Last Taken Unknown] furosemide 01/21/22 [History Last Taken Unknown] morphine 15 mg PO BID PRN 01/21/22 [History Last Taken Unknown] potassium chloride meq 01/21/22 [History Last Taken Unknown] Allergy/AdvReac Type Severity Reaction Status Date / Time enalapril Allergy Angioedema Verified 01/21/22 12:11 peanut Allergy Swelling Verified 01/21/22 12:11 Family History Father CVA (cerebral vascular accident) Hypertension Surgical History H/O radical prostatectomy H/O: knee surgery History of carpal tunnel surgery of left wrist History of esophagogastroduodenoscopy (EGD) Hx of vascular surgery (2018) Social History Smoking Status: Former smoker Tobacco: How many years used: 50 alcohol intake: former ROS ROS ED ROS Narrative Fever. Generalized weakness. Review of Systems ROS Unobtainable: Denies due to encephalopathy Constitutional Constitutional ED: Reports fever(s) Eyes Eyes: Denies change in vision ENT ENT ED: Denies ear pain Cardiovascular Cardiovascular: Denies chest pain Respiratory/Chest Respiratory/Chest: Reports dyspnea Gastrointestinal Gastrointestinal: Reports constipation; Denies abdominal pain, diarrhea, nausea or vomiting Genitourinary Genitourinary ED: Denies dysuria Musculoskeletal Musculoskeletal: Denies myalgias Integumentary Denies rash Neurologic Neurologic: Denies headache(s) Psychiatric Psychiatric: Denies depression Endocrine Endocrinology: Denies polyuria Hematologic/Lymphatic Hematologic/Lymphatic: Denies easy bruising Allergic/Immunologic Allergic/Immunologic ED: Denies urticaria EXAM Physical Exam Narrative Exam Narrative: 81-year-old male no acute distress vital signs on room air the pulse ox is 88 on 4 L is 93%. Obviously hypoxic without oxygen. H EENT exam mild jammies memories. Is a large prior scalp surgery for skin cancer. Neck nontender no JVD no lymphadenopathy. Lungs coarse breath sounds bilaterally. No rales rhonchi. Only a few scattered wheezes. Heart regular rhythm rate about 80 no murmur. Abdomen soft nontender. Patient moving all 4 extremities. He is bandage on his right knee. Calves are nontender without edema or cords. Dorsi plantarflexion intact. Normal track helper strength. Neurologically is awake and alert with no focal motor deficits. Const Vital Signs: 01/21/22 12:11 01/21/22 12:47 01/21/22 12:48 Temperature 98.2 F 98.0 F Temperature Source Temporal Temporal Pulse Rate 85 81 Respiratory Rate 16 25 H Respiratory Effort Normal Respiratory Depth Normal Respiratory Pattern Irregular Blood Pressure 139/59 H 156/73 H Blood Pressure Mean 85 100 Pulse Ox 88 93 Oxygen Delivery Method Room Air Nasal Cannula Oxygen Flow Rate (L/min) 4 01/21/22 13:01 01/21/22 13:20 01/21/22 13:24 Temperature 98.2 F Temperature Source Oral Pulse Rate 81 81 Respiratory Rate 21 H 20 H Respiratory Effort Respiratory Depth Respiratory Pattern Blood Pressure 144/69 H Blood Pressure Mean 94 Pulse Ox 94 91 Oxygen Delivery Method Nasal Cannula Nasal Cannula Oxygen Flow Rate (L/min) 4 4 01/21/22 14:00 01/21/22 15:00 01/21/22 16:00 Temperature 98.8 F 99.9 F H 98.9 F Temperature Source Oral Oral Oral Pulse Rate 82 80 80 Respiratory Rate 16 23 H 17 Respiratory Effort Respiratory Depth Respiratory Pattern Blood Pressure 157/66 H 156/62 H 164/67 H Blood Pressure Mean 96 93 99 Pulse Ox 92 92 94 Oxygen Delivery Method Nasal Cannula Nasal Cannula Nasal Cannula Oxygen Flow Rate (L/min) 4 4 Positive well nourished and well developed; Negative for obese, cachectic, contractures or unkempt General Appearance ED: well developed and NAD; Negative for unkempt, cachectic or contractures Nutritional Appearance: Negative for cachectic or obese HEENT Reports dry mucous membranes; Denies moist mucous membranes Negative for atraumatic Mouth ED: Yes dry mucous membranes Mouth: dry mucous membranes Eyes PERRL and EOMs intact bilaterally General Eye ED: Negative for pale conjunctiva or scleral icterus Neck no lymphadenopathy, supple, no meningeal signs and no JVD General: Negative for tenderness Resp normal respiratory effort and No clear to auscultation bilaterally Auscultation: wheezes; Negative for rales or rhonchi Cardio regular rate, regular rhythm and no murmurs; Negative for S1 normal heart sound or S2 normal heart sound GI non-tender, non-distended and no masses Auscultation: normoactive bowel sounds Palpation: soft; Negative for tender, guarding or rebound tenderness present Back/Spine no CVA tenderness and normal to inspection General Back: Negative for CVA tenderness Extremity normal to inspection Extremity Narrative: Status post right knee surgery. Dressing on wound. Evaluated by orthopedics today. Currently on antibiotics for a wound infection. General Extremety ED: Negative for edema or tenderness General Extremity: Negative for edema Neuro oriented x3 Sensorium / Orientation: alert, oriented to person, oriented to place and oriented to time; Negative for orientation impaired, confused, lethargic or stuporous Psych mental status grossly normal Appearance: Negative for unkempt Attitude: No agitated Mood & Affect: Negative for depressed or tearful Thought Process: normal thought process Skin no wounds Lesions: no lesions Rashes: no rashes MDM MDM MDM Narrative Medical decision making narrative: 81-year-old male generalized weakness post knee surgery a week ago. History of COPD. Also fever. Through a work-up for generalized weakness and fever. Received a DuoNeb for some wheezing. He may need to be admitted for failure to thrive. Repeat exam unchanged patient doing fine at 4:40 PM. I went over all test results with him and family. He will need to be admitted for failure to thrive, dehydration, hypokalemia and fever of uncertain etiology. Disorders both oral and IV potassium. He was treated with a liter of normal saline. Lab Data Attestation: I reviewed the patient's lab results. Lab results narrative: CBC shows a white count of 13. H&H were 10 and 27.6. Electrolytes are sodium 129 potassium 2.8. Gap of 10. BUN of 51 creatinine 1.78. Lactic acid 1.5. Troponin is normal at 21. Urinalysis is negative. Labs: Laboratory Results - last 24 hr 01/21/22 01/21/22 01/21/22 12:55 12:55 12:55 WBC 13.0 H RBC 2.93 L Hgb 10.0 L Hct 27.6 L MCV 94.2 H MCH 34.1 H MCHC 36.2 H RDW Std Deviation 51.9 H RDW Coeff of Marya 15.1 H Plt Count 261 MPV 9.6 Immature Gran % (Auto) 0.800 Neut % (Auto) 82.5 H Lymph % (Auto) 5.9 L [place] % (Auto) 10.5 H Eos % (Auto) 0.0 Baso % (Auto) 0.3 Absolute Neuts (auto) 10.7 H Absolute Lymphs (auto) 0.77 L Nucleated RBC % 0 Sodium 129 L Potassium 2.8 L Chloride 86 L Carbon Dioxide 33.0 H Anion Gap 10 BUN 51 H Creatinine 1.78 H Estim Creat Clear Calc 28.24 Est GFR (MDRD) Af Amer 47 L Est GFR (MDRD) Non-Af 39 L BUN/Creatinine Ratio 28.7 H Glucose 119 H Lactic Acid 1.5 Calcium 10.1 Troponin I High Sens 21 Urine Color Urine Clarity Urine pH Ur Specific [place] Urine Protein Urine Glucose (UA) Urine Ketones Urine Occult Blood Urine Nitrite Urine Bilirubin Urine Urobilinogen Ur Leukocyte Esterase Urine RBC Urine WBC Ur Squamous Epith Cells Ur Transition Epith Cell Urine Bacteria Urine Mucus 01/21/22 15:50 WBC RBC Hgb Hct MCV MCH MCHC RDW Std Deviation RDW Coeff of Marya Plt Count MPV Immature Gran % (Auto) Neut % (Auto) Lymph % (Auto) [place] % (Auto) Eos % (Auto) Baso % (Auto) Absolute Neuts (auto) Absolute Lymphs (auto) Nucleated RBC % Sodium Potassium Chloride Carbon Dioxide Anion Gap BUN Creatinine Estim Creat Clear Calc Est GFR (MDRD) Af Amer Est GFR (MDRD) Non-Af BUN/Creatinine Ratio Glucose Lactic Acid Calcium Troponin I High Sens Urine Color Yellow Urine Clarity Sl. Cloudy Urine pH 6.0 Ur Specific [place] 1.010 Urine Protein 30 H Urine Glucose (UA) Normal Urine Ketones Negative Urine Occult Blood 25 H Urine Nitrite Negative Urine Bilirubin Negative Urine Urobilinogen Normal Ur Leukocyte Esterase Negative Urine RBC 0 SEEN Urine WBC 0 SEEN Ur Squamous Epith Cells 0-5 SEEN Ur Transition Epith Cell 0-5 SEEN Urine Bacteria 0 SEEN Urine Mucus 0 SEEN Chest x-ray, portable, single view interpreted by myself the radiologist shows chronic changes. Elevated right hemidiaphragm. Otherwise unremarkable. Radiography Diagnostic Testing: Clinical Impression(s) from Imaging Studies Chest X-Ray 01/21/22 13:12 IMPRESSION: Elevation of the right hemidiaphragm with increased markings at the right lung base suggestive of right basilar atelectasis. Electronically Signed: Dandre Snell MD at 13:40 EDT , Rhythm Strip Rhythm Strip: Sinus Rhythm Rate: 80 Ectopy: None EKG Initial EKG: Attestation: I personally reviewed and interpreted this EKG as follows: Interpretation: Sinus Rhythm and No Acute Injury Pattern Comments: Normal sinus rhythm rate 80 no acute signs of [place] or ischemia. Right bundle branch block. Discharge Plan Dx/Rx/DC Orders Clinical Impression: Adult failure to thrive syndrome, Acute dehydration, Acute kidney injury, Acute hypokalemia, Weakness Disposition Disposition: Acute Care Hospital [facility]
[2022-01-21 13:23] LABS: Anion Gap 10 (5-15); BUN 51 mg/dL (7-18); BUN/Creat Ratio 28.7 RATIO (10-20); Calcium,Total 10.1 mg/dL (8.5-10.1); Chloride 86 mmol/L (98-107); Creatinine, Serum 1.78 mg/dL (0.70-1.30); EST Glomerular Filtration Rate 39 mL/min (>60); Est Glom Filt Rate - Afr Amer 47 mL/min (>60); Estimated Creatinine Clearance 28.24 ml/min; Glucose 119 mg/dL (74-106); Potassium 2.8 mmol/L (3.5-5.1); Sodium Level 129 mmol/L (136-145); Troponin-I HS 21 pg/mL (3.0-78.0)
[2022-01-21] MEDS: Ipratropium/Albuterol Sulfate 3 ML AMPUL.NEB INHALATION (13:24)
[2022-01-21] MEDS: 0.9% Normal Saline 1,000 ML 999 ML IV (13:31)
[2022-01-21 13:55] LABS: Lactic Acid 1.5 mmol/L (0.4-1.9)
[2022-01-21] MEDS: oxyCODONE 5 MG Tablet PO (15:38)
[2022-01-21 15:57] LABS: Bacteria 0 SEEN /hpf (None Seen); Mucous, Urine 0 SEEN /hpf (<or=2+); Red Blood Cells-Urine 0 SEEN /hpf (0-5); White Blood Cells 0 SEEN /hpf (0-5)
[2022-01-21 16:05] LABS: Color, Urine Yellow (Yellow); Glucose, Dipstick Normal (Normal); Ketone-Dipstick Negative (Negative); Leukocyte Esterase-Dipstick Negative /ul (Negative); Nitrite-Dipstick Negative (Negative); Occult Blood-Urine 25 /ul (Negative); Protein-Dipstick 30 mg/dl (Negative); Urine Bilirubin Dipstick Negative (Negative); Urine Clarity Sl. Cloudy (Clear); Urine Urobilinogen Normal (Normal)
[2022-01-21 16:10] LABS: Squamous Epithelial Cells - UA 0-5 SEEN /hpf (0-5); Transitional Epithelial - Ur 0-5 SEEN /hpf (0-5)
[2022-01-21] MEDS: Potassium Chloride Oral Tablet 20 MEQ 40 MEQ PO ×2 (16:56→20:46)
--- NOTE | 2022-01-21 17:48 | CM.ED ---
RN CM Assessment Introduced role of RN CM to patient, patient Larissa and patient son Hunter at bedside.? Patient is alert, oriented and able?to participate in RN CM Assessment. ?Care providers, pharmacy, and demographics verified. Admit Dx: IP for hyponatremia, Tachycardia, and FTT Re-Admit: No Barriers/Issues: None PCP: PALEONTOLOGY TEACHER- Rona Barnett Specialists: Pulm- Estellailia, Cardio- Shun, Ortho- Lien Preferred Pharmacy: [facility], if closed then DDM, Chris Insurance: [facility] Rx Benefit:?Yes LNOK: Larissa Falb LW/HPOA: States has both and HPOA Larissa Falb. Aware not on file at [facility]. Living Arrangements:?Lives with in a 2SH, bedroom on 2nd fl with 14 steps. 2-3 steps to enter the home. ADL?s: Patient normally is independent with ambulation however was starting to need to use a walker d/t weakness and now having difficulty with walking at all. Baseline was Independent with ADLs Transportation: Both patient and drive but Larissa has been doing more of the driving lately. DME: 2WW, Rollator, Home O2 3lpm continuous, concentrator and portable tanks-full with [employer]. HHC: None SNF: None Goal: Would like to DC to TCU if in network with [facility] prior to returning home. DC PLAN: SNF, SW and RNCM to continue to follow for DC coordination needs. JOSE RAMON Greco
--- NOTE | 2022-01-21 17:53 | HP.PCM.HOS_ITS ---
Documented by User: Dr. Keely Pelletier MD 01/22/22 17:14 [facility] - General General Date of Admission: 01/21/22 [facility] Medical History Anemia Arthritis Cancer Cardiology follow-up encounter COPD (chronic obstructive pulmonary disease) Duodenal ulcer due to nonsteroidal anti-inflammatory drug (NSAID) (09/28/21) Easy bruising Essential hypertension High cholesterol History of echocardiogram History of GI bleed History of pain when walking History of ulceration Hx of basal cell carcinoma Hyperlipidemia Multiple premature ventricular complexes On home oxygen therapy On home oxygen therapy Peripheral vascular disease Peripheral vascular occlusive disease Prostate cancer Right bundle branch block (RBBB) Shortness of breath on exertion Skin cancer Syncope Tobacco abuse Walker as ambulation aid Wears dentures Home Medications metoprolol tartrate 25 mg PO DAILY 07/30/18 [History Last Taken 01/21/22] multivitamin with folic acid [Thera] 1 tab PO DAILY 07/30/18 [History Last Taken 01/20/22] niacinamide [Niacin (niacinamide)] 1,000 mg PO DAILY 07/30/18 [History Last Taken 01/20/22] pravastatin 80 mg PO DAILY 07/30/18 [History Last Taken 01/21/22] amlodipine 10 mg PO DAILY 09/27/21 [History Last Taken 01/21/22] hydrochlorothiazide 25 mg PO DAILY 11/09/21 [History Last Taken 01/21/22] acetaminophen 650 mg PO TID PRN PRN 01/06/22 [History Last Taken 01/12/22] ergocalciferol (vitamin D2) 1,000 unit PO DAILY 01/06/22 [History Last Taken 01/12/22] pantoprazole [Protonix] 20 mg PO DAILY 01/06/22 [History Last Taken 01/21/22] oxycodone 5 - 10 mg PO Q4H PRN PRN 5 Days #60 tab 01/14/22 [Rx Last Taken 01/21/22] rivaroxaban [Xarelto] 10 mg PO DAILY@0600 11 Days #11 tab 01/14/22 [Rx Last Taken 01/21/22] doxycycline monohydrate 100 mg PO BID 01/21/22 [History Last Taken 01/21/22] furosemide 20 mg PO DAILY 01/21/22 [History Last Taken 01/21/22] morphine 15 mg PO BID PRN 01/21/22 [History Last Taken Unknown] potassium chloride 10 meq PO DAILY 01/21/22 [History Last Taken 01/21/22] sennosides-docusate sodium [Stool Softener-Stimulant Laxat] 2 tab PO BID 01/21/22 [History Last Taken Unknown] umeclidinium-vilanterol [Anoro Ellipta] 1 inh INHALATION DAILY 01/21/22 [History Last Taken Unknown] Allergy/AdvReac Type Severity Reaction Status Date / Time enalapril Allergy Angioedema Verified 01/21/22 12:11 peanut Allergy Swelling Verified 01/21/22 12:11 Family History Father CVA (cerebral vascular accident) Hypertension Surgical History H/O radical prostatectomy H/O: knee surgery History of carpal tunnel surgery of left wrist History of esophagogastroduodenoscopy (EGD) Hx of vascular surgery (2018) Social History Smoking Status: Former smoker Tobacco: How many years used: 50 alcohol intake: former Results Lab / Micro Data Result Diagrams: 01/22/22 04:50 01/22/22 04:50 Charges/Coding Addendum Addendum: Patient seen by Jayla SOSA under my supervision Patient is an 81-year-old male with a past medical history as outlined was admitted through the ED on 01/21/2022 with a complaint of weakness. Patient had right knee replacement about a week ago and was discharged home. According to his and son, patient has been going downhill since then and has not been eating or drinking well. He has become progressively weaker and could barely move around. He went to see his orthopedic surgeon today for follow up and was referred to the ED o/a of failure to thrive. He had no active complaints and denied any fever, chills, chest pain, shortness of breath, nausea or vomiting. Review of systems was otherwise negative. Vitals in the ED were BP of 164/67, TN of 80, RR of 17 and temp of 98.9F with saturation of 94% on room air. CBC showed hemoglobin of 10 with WBC of 13 and platelets of 261. Chemistry showed sodium of 129 with potassium of 2.8 and bicarb of 33. Creatinine was 1.78 with a baseline of around 1.13 from 01/14/2022. Urinalysis was negative for any evidence of UTI. He has been admitted to be managed for debility and failure to thrive as well as hyponatremia and hypokalemia due to decreased intake. O/E: Const alert, oriented x3 and no apparent distress, frail General Appearance: cooperative HEENT normocephalic, head/scalp atraumatic, hearing grossly normal bilaterally and moist oral mucous membranes Eyes PERRL, EOMs intact bilaterally and conjunctivae normal Neck no lymphadenopathy, supple and no JVD Resp normal respiratory effort and clear to auscultation bilaterally Cardio regular rate, regular rhythm, S1 normal heart sound, S2 normal heart sound and no murmurs GI normal to inspection, nondistended, normoactive bowel sounds and soft to palpati on GI Narrative: abdominal dressing over surgical site Extremity right knee wrapped in SAMI bandage. in compression stockings Skin no rashes or lesions noted Neuro oriented x3, CN's II-XII intact bilaterally and moves all extremities Sensorium / Orientation: awake and alert Psych affect normal Assessment and plan #Acute hyponatremia * due to decreased intake. * likely a hypotonic hyponatremia * hydrate with IVF. Trend sodium * if sodium doesnt improve with hydration, then check serum osmolality and urine osmolality as well as urine sodium * #Hypokalemia: K is 2.8. Will replace and trend. #Debility due to adult failure to thrive * consult PT/OT * fall precautions * consult nutrition as patient is also frail and malnourished * #Recent right knee replacement * stable * PT/OT consult * fall precautions * on xarelto for dVT prophylaxis * #Hypertension: on metoprolol. hold HCTZ. #Hyperlipidemia: on statin #Chronic hypoxic respiratory failure due to COPD * on his baseline oxygen * breathing treatment with bronchodilators * titrate oxygen to maintain sats>90% * DVT prophylaxis: not indicated as he is on xarelto for DVT prophylaxis for right knee replacement Code status: full code * Patient counseled extensively about different types of CODE STATUS including full code, DNR CCA and DNR CCA. Patient elects to be full code for now, though he says if he isnt improving, he would like his family to revise his code status as needed. * Total twye-nc-hgvh time 17 minutes. Rest as per Jayla Mcdaniel TRANSPORTATION ANALYST-C's note which I have reviewed and reconciled. TOtal time i spent on the care of the patient:30 mins, with Jayla Mcdaniel TRANSPORTATION ANALYST- C spending 16 mins making a total of 46 mins Visit Charges Inpatient E&M: 43687 Init Hosp L3 Procedures Hospitalists Procedures: 53136 Advncd Care Plan 30 Min Documented by User: Jayla Mcdaniel NP, TRANSPORTATION ANALYST-C 01/21/22 18:10 HPI - General General Date of Admission: 01/21/22 HPI Narrative NICA PANTOJA, is a 81 M who presents to the emergency room due to progressive weakness. Patient underwent right total knee replacement 01/13/2022 due to right knee primary osteoarthritis. Son at bedside states he took patient to physical therapy on Tuesday and he did fairly well however over the past few days has significantly declined. Patient reports poor oral intake, generalized weakness and significant knee pain causing difficulty ambulation. He denies fever, chills. He does note a wound with redness and swelling of his right lateral knee. He denies shortness of breath. Denies chest pain. Denies other symptoms or complaints. He has a past medical history of chronic heart failure with preserved ejection fraction, hypertension, hyperlipidemia, right bundle branch block, history of prostate cancer, chronic approximate respiratory failure secondary to COPD, chronic kidney disease stage IIIa, peripheral vascular disease. [facility] Medical History Anemia Arthritis Cancer Cardiology follow-up encounter COPD (chronic obstructive pulmonary disease) Duodenal ulcer due to nonsteroidal anti-inflammatory drug (NSAID) (09/28/21) Easy bruising Essential hypertension High cholesterol History of echocardiogram History of GI bleed History of pain when walking History of ulceration Hx of basal cell carcinoma Hyperlipidemia Multiple premature ventricular complexes On home oxygen therapy On home oxygen therapy Peripheral vascular disease Peripheral vascular occlusive disease Prostate cancer Right bundle branch block (RBBB) Shortness of breath on exertion Skin cancer Syncope Tobacco abuse Walker as ambulation aid Wears dentures Home Medications metoprolol tartrate 25 mg PO DAILY 07/30/18 [History Last Taken 01/21/22] multivitamin with folic acid [Thera] 1 tab PO DAILY 07/30/18 [History Last Taken 01/20/22] niacinamide [Niacin (niacinamide)] 1,000 mg PO DAILY 07/30/18 [History Last Taken 01/20/22] pravastatin 80 mg PO DAILY 07/30/18 [History Last Taken 01/21/22] amlodipine 10 mg PO DAILY 09/27/21 [History Last Taken 01/21/22] hydrochlorothiazide 25 mg PO DAILY 11/09/21 [History Last Taken 01/21/22] acetaminophen 650 mg PO TID PRN PRN 01/06/22 [History Last Taken 01/12/22] ergocalciferol (vitamin D2) 1,000 unit PO DAILY 01/06/22 [History Last Taken 01/12/22] pantoprazole [Protonix] 20 mg PO DAILY 01/06/22 [History Last Taken 01/21/22] oxycodone 5 - 10 mg PO Q4H PRN PRN 5 Days #60 tab 01/14/22 [Rx Last Taken 01/21/22] rivaroxaban [Xarelto] 10 mg PO DAILY@0600 11 Days #11 tab 01/14/22 [Rx Last Taken 01/21/22] doxycycline monohydrate 100 mg PO BID 01/21/22 [History Last Taken 01/21/22] furosemide 20 mg PO DAILY 01/21/22 [History Last Taken 01/21/22] morphine 15 mg PO BID PRN 01/21/22 [History Last Taken Unknown] potassium chloride 10 meq PO DAILY 01/21/22 [History Last Taken 01/21/22] sennosides-docusate sodium [Stool Softener-Stimulant Laxat] 2 tab PO BID [History Last Taken Unknown] umeclidinium-vilanterol [Anoro Ellipta] 1 inh INHALATION DAILY 01/21/22 [History Last Taken Unknown] Allergy/AdvReac Type Severity Reaction Status Date / Time enalapril Allergy Angioedema Verified 01/21/22 12:11 peanut Allergy Swelling Verified 01/21/22 12:11 Family History Father CVA (cerebral vascular accident) Hypertension Surgical History H/O radical prostatectomy H/O: knee surgery History of carpal tunnel surgery of left wrist History of esophagogastroduodenoscopy (EGD) Hx of vascular surgery (2018) Social History Smoking Status: Former smoker Tobacco: How many years used: 50 alcohol intake: former ROS Constitutional Constitutional: Reports fatigue, weakness and other Details: Poor oral intake ; Denies change in weight, chills or fever(s) Cardiovascular Cardiovascular: Denies chest pain, edema, lightheadedness, palpitations or syncope Respiratory/Chest Respiratory/Chest: Denies cough, dyspnea, productive cough, shortness of breath at rest, shortness of breath with exertion or wheezing Gastrointestinal Gastrointestinal: Denies abdominal pain, constipation, diarrhea, nausea or vomiting Genitourinary Genitourinary: Denies burning urination, difficulty urinating, dysuria, hematuria, urinary frequency, urinary incontinence or urinary urgency Musculoskeletal Musculoskeletal: Reports other Details: Right knee pain ; Denies back pain, joint pain or muscle weakness Integumentary Integumentary: Reports other Details: Right knee postoperative wound ; Denies erythema, lesions, rash or wounds Neurologic Neurologic: Denies abnormal speech, confusion, dizziness, focal weakness, numbness, paresthesias, seizure-like activity or syncope Psychiatric Psychiatric: Denies anxiety or depression Hematologic/Lymphatic Hematologic/Lymphatic: Denies anemia, easy bleeding or easy bruising Allergic/Immunologic Allergic/Immunologic: Denies hives or asthma Vital Signs Vital Signs Vital Signs: 01/21/22 12:11 01/21/22 12:47 01/21/22 12:48 Temperature 98.2 F 98.0 F Temperature Source Temporal Temporal Pulse Rate 85 81 Respiratory Rate 16 25 H Respiratory Effort Normal Respiratory Depth Normal Respiratory Pattern Irregular Blood Pressure 139/59 H 156/73 H Blood Pressure Mean 85 100 Pulse Ox 88 93 Oxygen Delivery Method Room Air Nasal Cannula Oxygen Flow Rate (L/min) 4 01/21/22 13:01 01/21/22 13:20 01/21/22 13:24 Temperature 98.2 F Temperature Source Oral Pulse Rate 81 81 Respiratory Rate 21 H 20 H Respiratory Effort Respiratory Depth Respiratory Pattern Blood Pressure 144/69 H Blood Pressure Mean 94 Pulse Ox 94 91 Oxygen Delivery Method Nasal Cannula Nasal Cannula Oxygen Flow Rate (L/min) 4 4 01/21/22 14:00 01/21/22 15:00 01/21/22 16:00 Temperature 98.8 F 99.9 F H 98.9 F Temperature Source Oral Oral Oral Pulse Rate 82 80 80 Respiratory Rate 16 23 H 17 Respiratory Effort Respiratory Depth Respiratory Pattern Blood Pressure 157/66 H 156/62 H 164/67 H Blood Pressure Mean 96 93 99 Pulse Ox 92 92 94 Oxygen Delivery Method Nasal Cannula Nasal Cannula Nasal Cannula Oxygen Flow Rate (L/min) 4 4 Weight Weight: 133 lb Body Mass Index (BMI) 19.6 Physical Exam Const alert, oriented x3 and no apparent distress Orientation / Consciousness: awake, oriented to person, oriented to place and oriented to time HEENT normocephalic Mouth: dry mucous membranes Eyes PERRL, EOMs intact bilaterally and conjunctivae normal Neck no lymphadenopathy Resp Auscultation: wheezes and diminished lung sounds Cardio regular rate, regular rhythm and no murmurs Peripheral Pulses: pulses 2+ throughout GI normal to inspection, nondistended, normoactive bowel sounds, non-tender and non-distended Extremity normal to inspection Extremity Narrative: Right knee swelling compared to left. Right knee dressing intact and covered with Sami bandage and GIBSON hose. Not visualized at this time. Reported postoperative wound on the lateral aspect. Skin no rashes or lesions noted Lesions: no lesions Rashes: no rashes Trauma: no lacerations or abrasions Neuro CN's II-XII intact bilaterally, no focal motor deficits, no sensory deficits noted and deep tendon reflexes 2+ bilaterally Psych mental status grossly normal and affect normal Results Lab / Micro Data Result Diagrams: 01/22/22 04:50 01/22/22 04:50 Labs: Laboratory Results - last 24 hr 01/21/22 12:55: WBC 13.0 H, RBC 2.93 L, Hgb 10.0 L, Hct 27.6 L, MCV 94.2 H, MCH 34.1 H, MCHC 36.2 H, RDW Std Deviation 51.9 H, RDW Coeff of Marya 15.1 H, Plt Count 261, MPV 9.6, Immature Gran % (Auto) 0.800, Neut % (Auto) 82.5 H, Lymph % (Auto) 5.9 L, [place] % (Auto) 10.5 H, Eos % (Auto) 0.0, Baso % (Auto) 0.3, Absolute Neuts (auto) 10.7 H, Absolute Lymphs (auto) 0.77 L, Nucleated RBC % 0 01/21/22 12:55: Sodium 129 L, Potassium 2.8 L, Chloride 86 L, Carbon Dioxide 33.0 H, Anion Gap 10, BUN 51 H, Creatinine 1.78 H, Estim Creat Clear Calc 28.24, Est GFR (MDRD) Af Amer 47 L, Est GFR (MDRD) Non-Af 39 L, BUN/Creatinine Ratio 28.7 H, Glucose 119 H, Calcium 10.1, Troponin I High Sens 21 01/21/22 12:55: Lactic Acid 1.5 01/21/22 15:50: Urine Color Yellow, Urine Clarity Sl. Cloudy, Urine pH 6.0, Ur Specific Amo 1.010, Urine Protein 30 H, Urine Glucose (UA) Normal, Urine Ketones Negative, Urine Occult Blood 25 H, Urine Nitrite Negative, Urine Bilirubin Negative, Urine Urobilinogen Normal, Ur Leukocyte Esterase Negative, Urine RBC 0 SEEN, Urine WBC 0 SEEN, Ur Squamous Epith Cells 0-5 SEEN, Ur Transition Epith Cell 0-5 SEEN, Urine Bacteria 0 SEEN, Urine Mucus 0 SEEN Rhythm Strip Rhythm Strip: Sinus Rhythm Rate: 80 Ectopy: None Radiology Impression Chest X-Ray 01/21/22 13:12 IMPRESSION: Elevation of the right hemidiaphragm with increased markings at the right lung base suggestive of right basilar atelectasis. Electronically Signed: Dandre Snell MD at 13:40 EDT , Assessment & Plan Assessment/Plan (1) Acute kidney injury: (2) Acute hypokalemia: (3) Adult failure to thrive syndrome: PLAN: 1. Acute kidney injury on chronic kidney disease stage IIIa-IV fluids, hold diuretic regimen. Trend BMP. Clinically appears dehydrated. If no improvement with IV fluids, will obtain urine studies/renal ultrasound, etc. 2. Acute hypokalemia-replace per protocol, trend BMP. 3. Low-grade fever/leukocytosis-unclear etiology. Urinalysis and chest x-ray unremarkable. Blood cultures pending. Son states patient has had some drainage from right knee. Will obtain culture and complete wound assessment. 4. Debility/failure to thrive-recent right total knee replacement 01/13/22. PT/OT. As needed pain regimen. Case management consult for discharge planning. Will likely need rehab at discharge. 5. Chronic heart failure with preserved ejection fraction-No acute failure. Echocardiogram September 2021 with EF 55%, stage I diastolic dysfunction. Hold HCTZ. 6. Hypertension-Continue amlodipine, metoprolol. HCTZ held. 7. Hyperlipidemia-Continue statin. 8. Right bundle branch block- follows with cardiology. 9. History of prostate cancer 10. Chronic hypoxic respiratory failure secondary to COPD-Continue supplement oxygen to maintain O2 above 90%. As needed albuterol aerosol. 11. Peripheral vascular disease- Follows with vascular surgery. Does not appear to be on antiplatelet. Continue statin. DVT prophylaxis- Xarelto This patient was seen by SHEILA Kumari under the supervision of Dr. Pelletier. Time spent examining patient, reviewing data and subsequent management of care: 16 Minutes
[2022-01-21] MEDS: 0.9% Normal Saline 1,000 ML 100 ML IV (19:07)
[2022-01-21] MEDS: Acetaminophen 325 MG Tablet 650 MG PO (20:43)
[2022-01-21] MEDS: Doxycycline 100 MG CAPSULE PO (20:47)
[2022-01-22] VITALS (11 sets, daily range): BP systolic 145–155; BP diastolic 59–73; PULSE 70–86; RESP 16–18; TEMP 36.7–37.2; O2SAT 90–97
[2022-01-22] MEDS: 0.9% Normal Saline 1,000 ML 100 ML IV (04:15)
[2022-01-22 05:01] LABS: Absolute Lymphocyte Count 1.01 X10^3/uL (0.83-4.51); Absolute Neutrophil Count 8.4 X10^3/uL (2.0-7.7); Basophil# 0.03 X10^3/uL; Basophil% 0.3 % (0-1); Eosinophil# 0.03 X10^3/uL; Eosinophils% 0.3 % (0-5); Hematocrit 25.7 % (40-54); Lymphocyte # 1.01 X10^3/ul (0.83-4.51); Lymphocyte % 9.7 % (19-41); Mean Corpuscular Hgb 33.8 pg (27.0-32.0); Mean Corpuscular Volume 96.6 fL (80-94); Mean Platelet Vol. 9.5 fl (6.2-12.0); Monocyte# 0.94 X10^3/uL; NRBC Flagged by Analyzer 0 % (0-5); Neutrophil # 8.38 X10^3/uL (2.7-7.7); Neutrophil % 80.2 % (47-70); Platelet Count 233 K/mm3 (150-450); RBC Distribution Width CV 15.4 % (11.6-14.6); RBC Distribution Width SD 53.9 fl (35.1-43.9); Red Blood Count 2.66 M/mm3 (4.6-6.2); White Blood Count 10.4 K/mm3 (4.4-11.0)
[2022-01-22 05:25] LABS: Anion Gap 5 (5-15); BUN 41 mg/dL (7-18); BUN/Creat Ratio 34.2 RATIO (10-20); Calcium,Total 8.9 mg/dL (8.5-10.1); Chloride 94 mmol/L (98-107); EST Glomerular Filtration Rate 62 mL/min (>60); Est Glom Filt Rate - Afr Amer 75 mL/min (>60); Estimated Creatinine Clearance 45.83 ml/min; Glucose 100 mg/dL (74-106); Potassium 3.1 mmol/L (3.5-5.1); Sodium Level 132 mmol/L (136-145)
[2022-01-22] MEDS: Rivaroxaban 10 MG Tablet PO (06:40)
[2022-01-22] MEDS: Pantoprazole Sodium 20 MG Tablet PO (08:58)
[2022-01-22] MEDS: Pravastatin 80 MG Tablet PO (08:58)
[2022-01-22] MEDS: Metoprolol Tartrate 25 MG Tablet PO (08:58)
[2022-01-22] MEDS: Doxycycline 100 MG CAPSULE PO ×2 (08:58→21:51)
[2022-01-22] MEDS: amLODIPine 10 MG Tablet PO (08:58)
[2022-01-22] MEDS: Cholecalciferol (VIT D3) 25 MCG TABLET (1,000 UNITS) PO (08:58)
[2022-01-22] MEDS: Potassium Chloride Oral Tablet 20 MEQ 60 MEQ PO (09:02)
--- NOTE | 2022-01-22 11:34 | WOUNDNOTE ---
wound photo: right lateral knee
--- NOTE | 2022-01-22 11:35 | WOUNDNOTE ---
wound photo: right knee
--- NOTE | 2022-01-22 11:37 | PN.HOSP_ITS ---
Documented by User: Jayla Mcdaniel NP, OCEAN EXPORT ACCOUNT MANAGER-C 01/22/22 11:43 Subjective Subjective Patient seen and examined. Reports knee pain is better controlled. Denies fever, chills. Reports ongoing generalized weakness. Objective Data Objective Data Vital Signs: Vital Signs Temp Pulse Resp BP Pulse Ox 98.4 F 86 16 155/73 H 97 01/22/22 08:51 01/22/22 08:58 01/22/22 08:51 01/22/22 08:58 01/22/22 08:51 Oxygen Flow Rate (L/min) 2 Oxygen Delivery Method Nasal Cannula Weight: 145 lb 8.081 oz Body Mass Index (BMI) 21.4 Intake & Output: Intake and Output for Last 24 Hours 01/20/22 01/21/22 01/22/22 23:59 23:59 23:59 Intake Total 1480 / 1720 1393.33 / 1393.33 Output Total 300 / 300 Balance 1480 / 1720 1093.33 / 1093.33 Lab / Micro Data Result Diagrams: 01/22/22 04:50 01/22/22 04:50 Labs: Laboratory Results - last 24 hr 01/21/22 12:55: WBC 13.0 H, RBC 2.93 L, Hgb 10.0 L, Hct 27.6 L, MCV 94.2 H, MCH 34.1 H, MCHC 36.2 H, RDW Std Deviation 51.9 H, RDW Coeff of Marya 15.1 H, Plt Count 261, MPV 9.6, Immature Gran % (Auto) 0.800, Neut % (Auto) 82.5 H, Lymph % (Auto) 5.9 L, [place] % (Auto) 10.5 H, Eos % (Auto) 0.0, Baso % (Auto) 0.3, Absolute Neuts (auto) 10.7 H, Absolute Lymphs (auto) 0.77 L, Nucleated RBC % 0 01/21/22 12:55: Sodium 129 L, Potassium 2.8 L, Chloride 86 L, Carbon Dioxide 33.0 H, Anion Gap 10, BUN 51 H, Creatinine 1.78 H, Estim Creat Clear Calc 28.24, Est GFR (MDRD) Af Amer 47 L, Est GFR (MDRD) Non-Af 39 L, BUN/Creatinine Ratio 28.7 H, Glucose 119 H, Calcium 10.1, Troponin I High Sens 21 01/21/22 12:55: Lactic Acid 1.5 01/21/22 15:50: Urine Color Yellow, Urine Clarity Sl. Cloudy, Urine pH 6.0, Ur Specific St[place]ard 1.010, Urine Protein 30 H, Urine Glucose (UA) Normal, Urine Ketones Negative, Urine Occult Blood 25 H, Urine Nitrite Negative, Urine Bilirubin Negative, Urine Urobilinogen Normal, Ur Leukocyte Esterase Negative, Urine RBC 0 SEEN, Urine WBC 0 SEEN, Ur Squamous Epith Cells 0-5 SEEN, Ur Transition Epith Cell 0-5 SEEN, Urine Bacteria 0 SEEN, Urine Mucus 0 SEEN 01/22/22 04:50: WBC 10.4, RBC 2.66 L, Hgb 9.0 L, Hct 25.7 L, MCV 96.6 H, MCH 33.8 H, MCHC 35.0, RDW Std Deviation 53.9 H, RDW Coeff of Marya 15.4 H, Plt Count 233, MPV 9.5, Immature Gran % (Auto) 0.500, Neut % (Auto) 80.2 H, Lymph % (Auto) 9.7 L, [place] % (Auto) 9.0, Eos % (Auto) 0.3, Baso % (Auto) 0.3, Absolute Neuts (auto) 8.4 H, Absolute Lymphs (auto) 1.01, Nucleated RBC % 0 01/22/22 04:50: Sodium 132 L, Potassium 3.1 L, Chloride 94 L, Carbon Dioxide 33.0 H, Anion Gap 5, BUN 41 H, Creatinine 1.20, Estim Creat Clear Calc 45.83, Est GFR (MDRD) Af Amer 75, Est GFR (MDRD) Non-Af 62, BUN/Creatinine Ratio 34.2 H , Glucose 100, Calcium 8.9 Radiography Diagnostic Testing: Radiology Impression Chest X-Ray 01/21/22 13:12 IMPRESSION: Elevation of the right hemidiaphragm with increased markings at the right lung base suggestive of right basilar atelectasis. Electronically Signed: Dandre Snell MD at 13:40 EDT , Rhythm Strip Rhythm Strip: Sinus Rhythm Rate: 80 Ectopy: None Physical Exam Const alert, oriented x3 and no apparent distress Orientation / Consciousness: awake, oriented to person, oriented to place and oriented to time HEENT normocephalic and moist oral mucous membranes Eyes PERRL, EOMs intact bilaterally and conjunctivae normal Neck no lymphadenopathy Resp clear to auscultation bilaterally Auscultation: diminished lung sounds Cardio regular rate, regular rhythm and no murmurs Peripheral Pulses: pulses 2+ throughout GI normal to inspection, nondistended, normoactive bowel sounds, non-tender and non-distended Extremity normal to inspection Skin no rashes or lesions noted Lesions: no lesions Rashes: no rashes Trauma: no lacerations or abrasions Neuro CN's II-XII intact bilaterally, no focal motor deficits, no sensory deficits noted and deep tendon reflexes 2+ bilaterally Psych mental status grossly normal and affect normal Assessment & Plan Assessment/Plan (1) Acute kidney injury: (2) Acute dehydration: (3) Adult failure to thrive syndrome: PLAN: 1. Acute kidney injury on chronic kidney disease stage IIIa-IV fluids, hold diuretic regimen. Acute kidney injury resolved. Trend BMP. 2. Acute hypokalemia-replace per protocol, trend BMP. 3. Low-grade fever/leukocytosis-unclear etiology. Urinalysis and chest x-ray unremarkable. Blood cultures pending. Son states patient has had some drainage from right knee. Wound culture from right knee pending. Fever, leukocytosis resolved. 4. Debility/failure to thrive-recent right total knee replacement 01/13/22. PT/OT. As needed pain regimen. Case management consult for discharge planning. TCU at discharge pending acceptance. 5. Chronic heart failure with preserved ejection fraction-No acute failure. Echocardiogram September 2021 with EF 55%, stage I diastolic dysfunction. Hold HCTZ. 6. Hypertension-Continue amlodipine, metoprolol. HCTZ held. 7. Hyperlipidemia-Continue statin. 8. Right bundle branch block- follows with cardiology. 9. History of prostate cancer 10. Chronic hypoxic respiratory failure secondary to COPD-Continue supplement oxygen to maintain O2 above 90%. As needed albuterol aerosol. 11. Peripheral vascular disease- Follows with vascular surgery. Does not appear to be on antiplatelet. Continue statin. DVT prophylaxis- Xarelto This patient was seen by Jayla Mcdaniel NP-C under the supervision of Dr. Pelletier. Discharge planning: TCU pending acceptance Time spent examining patient, reviewing data and subsequent management of care: 13 Minutes Documented by User: Dr. Keely Pelletier MD 01/22/22 17:06 Objective Data Lab / Micro Data Result Diagrams: 01/22/22 04:50 01/22/22 04:50 Charges/Coding Addendum Addendum: Patient seen by Jayla JOLLYC under my supervision Patient seen and examined. He feels well and had no active complaints. He has got uneventful night and review of systems otherwise negative. His hyponatremia is improving and sodium today is 3.1. O/E: Const alert, oriented x3 and no apparent distress, frail General Appearance: cooperative HEENT normocephalic, head/scalp atraumatic, hearing grossly normal bilaterally and moist oral mucous membranes Eyes PERRL, EOMs intact bilaterally and conjunctivae normal Neck no lymphadenopathy, supple and no JVD Resp normal respiratory effort and clear to auscultation bilaterally Cardio regular rate, regular rhythm, S1 normal heart sound, S2 normal heart sound and no murmurs GI normal to inspection, nondistended, normoactive bowel sounds and soft to palpation GI Narrative: abdominal dressing over surgical site Extremity right knee wrapped in JOSE ALBERTO bandage. in compression stockings Skin no rashes or lesions noted Neuro oriented x3, CN's II-XII intact bilaterally and moves all extremities Sensorium / Orientation: awake and alert Psych affect normal Assessment and plan #Acute hyponatremia * due to decreased intake. * improving. Na today is 131. * continue gentle hydration with fluids and trend. * #Hypokalemia: K is up to 3.1 today. Continue replacing and trend' #Debility due to adult failure to thrive * PT/OT on board. fall precautions * nutrition consulted o/a of hyponatremia * #Recent right knee replacement * stable * PT/OT on board. Fall precautions * on xarelto for DVT prophylaxis #Hypertension: on metoprolol. hold HCTZ. #Hyperlipidemia: on statin #Chronic hypoxic respiratory failure due to COPD * on his baseline oxygen * breathing treatment with bronchodilators * titrate oxygen to maintain sats>90% * DVT prophylaxis: not indicated as he is on xarelto for DVT prophylaxis for right knee replacement Disposition: Awaiting placement. Rest as per Jayla Mcdaniel NP-see notes which I reviewed and endorsed. Total time i spent on patient's care today: 20 mins with Jayla Mcdaniel spending 13 mins, making a total of 33 mins Visit Charges Inpatient E&M: 58547 Subs Hosp L2
[2022-01-22 12:22] LABS: Magnesium 2.2 mg/dL (1.6-2.6)
[2022-01-22] MEDS: Ensure Clear 120 ML Liquid PO (12:28)
--- NOTE | 2022-01-22 12:56 | CASEMGMT ---
Addendum entered by Soila Galloway 01/22/22 15:27: Social Work SW met with pt and to discuss discharge plan. Options discussed and at this time both pt and are agreeable to transfer to TCU. [facility] TCU will have a bed available tomorrow if insurance auth is granted. Plan: TCU, pending insurance preauthorization BALBINA Anderson Original Note: Social Work SW received report that pt and would like placement in TCU. Phone call to [facility] who confirms they can accept pt on Tuesday. SW met with pt, had already left, and introduced self and role of SW. SW spoke with pt regarding TCU. Pt states he has not made a decision about this and needs to talk to his further but would prefer to return home. SW will return when comes back and discuss discharge plan. Isaak MORTENSEN
--- NOTE | 2022-01-22 15:13 | PN_ITS ---
Progress Note Following up on patient Seferino follow-up today he was seen in the office yesterday with redness around his incision felt to be related to underlying h emarthrosis and swelling however he had a wound over the lateral knee. More importantly he was showing signs of failure to thrive and his family was concerned about continuing to keep him at home. In addition he was having increased respiratory demand. He was brought to the emergency department was found to have significant dehydration. He seems to have been well rehydrated overnight his labs have improved across the board. The wound on the lateral knee was reexamined today it does look better however there appears to be an underlying hematoma in this area. Patient should remain on doxycycline. I talked the wound care nurse will continue to follow him. Patient does have plans to be transferred to the transitional care unit as soon as precertification is obtained. We will continue to follow the wound. Pictures will be posted weekly. He should follow-up in the office upon discharge for continued wound follow-up. His knee is moving well without significant pain. The incisional erythema is significantly improved at this time. Cultures were taken today superficially of the wound likely showing skin sissy which the doxycycline should appropriately treat for. Depending on cultures would consider addition of Keflex. SAJI [facility] Office:
--- NOTE | 2022-01-22 16:00 | CHAPLAIN ---
Type of Pastoral Visit _x__ Initial Visit ___ Follow-up Visit ___ On-call Visit ___ General Patient Visit ___ Spiritual Assessment ___ Family Conference ___ Bereavement ___ Rapid Response ___ Code Blue ___ Other (describe below) Pastoral Care Referral From _x__ Patient _x__ Family ___ Nurse ___ Physician ___ Chief Recordist ___ Pharmacists ___ Other (describe below) Sacrament/Intervention _x__ Active listening ___ Anointing ___ Roman Catholic ___ Bereavement ___ Communion _x__ Sagrario exploration ___ ___ Life review _x__ Prayer ___ Reconciliation ___ Sacrament of Sick _x__ Supportive presence ___ Wedding ___ Other (describe below) Pastoral Comments patient and family together in room; pt wants strength and help to make improvements; pt to go to TCU; pt open to receive future visits
--- NOTE | 2022-01-22 16:06 | CASEMGMT ---
Bee from [facility] called and approved patient for TCU. Green sheet will be on patient's chart. Plan: d/c to TCU under skilled level of care. Sherrell LUEVANO
[2022-01-23] VITALS (8 sets, daily range): BP systolic 142–151; BP diastolic 66–87; PULSE 61–95; RESP 16–18; TEMP 36.7–36.8; O2SAT 94–95
[2022-01-23] MEDS: Acetaminophen 325 MG Tablet 650 MG PO (03:23)
[2022-01-23] MEDS: Rivaroxaban 10 MG Tablet PO (06:29)
[2022-01-23 06:37] LABS: Absolute Lymphocyte Count 1.09 X10^3/uL (0.83-4.51); Absolute Neutrophil Count 9.8 X10^3/uL (2.0-7.7); Basophil# 0.03 X10^3/uL; Basophil% 0.3 % (0-1); Eosinophil# 0.03 X10^3/uL; Eosinophils% 0.3 % (0-5); Hematocrit 27.4 % (40-54); Hemoglobin 9.7 g/dL (13.0-16.5); Lymphocyte # 1.09 X10^3/ul (0.83-4.51); Lymphocyte % 9.2 % (19-41); Mean Corp Hgb Conc 35.4 g/dL (32-36); Mean Corpuscular Hgb 34.8 pg (27.0-32.0); Mean Corpuscular Volume 98.2 fL (80-94); Mean Platelet Vol. 10.4 fl (6.2-12.0); Monocyte# 0.85 X10^3/uL; Monocyte% 7.1 % (0-10); NRBC Flagged by Analyzer 0 % (0-5); Neutrophil # 9.81 X10^3/uL (2.7-7.7); Neutrophil % 82.4 % (47-70); Platelet Count 269 K/mm3 (150-450); RBC Distribution Width CV 15.2 % (11.6-14.6); RBC Distribution Width SD 55.4 fl (35.1-43.9); Red Blood Count 2.79 M/mm3 (4.6-6.2); White Blood Count 11.9 K/mm3 (4.4-11.0)
[2022-01-23 07:02] LABS: Anion Gap 7 (5-15); BUN 33 mg/dL (7-18); BUN/Creat Ratio 31.1 RATIO (10-20); Chloride 96 mmol/L (98-107); Creatinine, Serum 1.06 mg/dL (0.70-1.30); EST Glomerular Filtration Rate 71 mL/min (>60); Est Glom Filt Rate - Afr Amer 86 mL/min (>60); Estimated Creatinine Clearance 51.89 ml/min; Glucose 102 mg/dL (74-106); Potassium 3.5 mmol/L (3.5-5.1); Sodium Level 132 mmol/L (136-145)
--- NOTE | 2022-01-23 07:19 | PN.ORTHO_ITS ---
Subjective Subjective The patient was sitting in bedside chair upon examination. Patient denies any chest pain, dizziness, lightheadedness, nausea or vomiting, or calf pain. Pain is controlled on medications. No adverse overnight events. Patient currently is on 3 L of nasal oxygen. He does require daily oxygen needs at home. Patient does feel better from previously when seen earlier this week. We are watching his wound. Patient does have an underlying hematoma here he has been on doxycycline. Wound care nurses involved. Plan is for patient to go to the transitional care unit. Wound culture was obtained laterally which shows gram- positive cocci on Gram stain. Objective Data Objective Data Vital Signs: Vital Signs Temp Pulse Resp BP Pulse Ox 98.3 F 61 18 147/87 H 94 01/23/22 03:45 01/23/22 03:45 01/23/22 03:45 01/23/22 03:45 01/23/22 03:45 Oxygen Flow Rate (L/min) 3 Oxygen Delivery Method Nasal Cannula Weight: 66 kg Body Mass Index (BMI) 21.4 Intake & Output: Intake and Output for Last 24 Hours 01/21/22 01/22/22 01/23/22 23:59 23:59 23:59 Intake Total 1480 / 1720 3283.33 / 3283.33 100 / 100 Output Total 1050 / 1050 600 / 600 Balance 1480 / 1720 2233.33 / 2233.33 -500 / -500 Medical Nutrition Assessment Dietitian: Malnutrition Criteria Met Start: 01/22/22 14:01 Freq: Status: Active Protocol: Document 01/22/22 14:01 (Rec: 01/22/22 14:01 [id number]) Nutrition Malnutrition Evidence of Malnutrition Exists Yes Malnutrition (moderate): Acute Illness/Injury Evidenced By Suboptimal Energy Intake ( Moderate),Physical Changes ( Mild) Clinical Problem Acute Disease or Injury Related Malnutrition Etiology moderate, acute malnutrition r /t inadequate energy intake s/ p recent surgery Signs/Symptoms as evidenced by estimated PO intake meeting<75% of estimated energy needs x 1 week; Mild muscle wasting/fat loss noted per physical exam in upper extremities, clavicle , and temporal region, BMI 21. 5 Status Active Problem Recommendation Dietitian Recommendations/Changes will liberalize diet to regular given malnutrition and adjust ONS from Ensure Enlive to Ensure Clear per pt preference Lab / Micro Data Result Diagrams: 01/23/22 06:00 01/23/22 06:00 Labs: Laboratory Results - last 24 hr 01/22/22 04:50: Magnesium 2.2 01/23/22 06:00: WBC 11.9 H, RBC 2.79 L, Hgb 9.7 L, Hct 27.4 L, MCV 98.2 H, MCH 34.8 H, MCHC 35.4, RDW Std Deviation 55.4 H, RDW Coeff of Marya 15.2 H, Plt Count 269, MPV 10.4, Immature Gran % (Auto) 0.700, Neut % (Auto) 82.4 H, Lymph % (Auto) 9.2 L, [place] % (Auto) 7.1, Eos % (Auto) 0.3, Baso % (Auto) 0.3, Absolute Neuts (auto) 9.8 H, Absolute Lymphs (auto) 1.09, Nucleated RBC % 0 01/23/22 06:00: Sodium 132 L, Potassium 3.5, Chloride 96 L, Carbon Dioxide 29.0, Anion Gap 7, BUN 33 H, Creatinine 1.06, Estim Creat Clear Calc 51.89, Est GFR (MDRD) Af Amer 86, Est GFR (MDRD) Non-Af 71, BUN/Creatinine Ratio 31.1 H, Glucose 102, Calcium 9.0 Micro: Microbiology 01/22/22 10:30 Wound - Knee Gram Stain - Final Rhythm Strip Rhythm Strip: Sinus Rhythm Rate: 80 Ectopy: None Physical Exam Narrative Vital signs stable and afebrile. Patient currently with bandage over the right knee. SCDs and GIBSON hose are in pl navdeep Patient is able to plantarflex and dorsiflex actively. Sensation is intact to light touch to saphenous, sural, superficial and deep peroneal, and tibial distribution. Dressing was removed. Patient has dried blood laterally. No active drainage. Erythema has improved from earlier this week. Negative Homans bilaterally, negative signs and symptoms of DVT. Const alert, oriented x3 and no apparent distress Assessment & Plan Assessment/Plan (1) Adult failure to thrive syndrome: (2) Acute dehydration: (3) Status post total right knee replacement: PLAN: 1. S/P right total knee arthroplasty on January 13, 2022 2. Continue Pain Medications: Tylenol and oxycodone as needed for pain 3. DVT Prophylaxis: Patient will continue with his Xarelto for 2 weeks postoperatively from his total knee arthroplasty. Continue with the Xarelto until January 27, 2022. 4. PT/OT: Weightbearing as tolerated with walker 5. H & H: 9.7/27.4, asymptomatic. Postoperative anemia secondary to acute blood loss from surgery without any intra operative complications. 6. Encouraged Incentive Spirometry 7. Continue with antibiotics: Currently on doxycycline. Patient did have wound culture obtained over the lateral knee. Suspect likely skin sissy. Gram stain did reveal gram-positive cocci. Would continue with the doxycycline at this point. 8. Continue postoperative medical care per medicine 9. Disposition: Patient underwent right total knee arthroplasty on January 13, 2022. Patient was seen in our office in which she was showing signs of failure to thrive and the family was very concerned about continuing to take care of him at home. He was admitted into the hospital for dehydration and failure to thrive. Patient has seen improvements once admitted. Wound care nurses involve d following the right knee. Plan is for patient to be transferred to the transitional care unit once pre-CERT has been obtained. Patient should follow- up with [facility] once discharged. Plan to continue with the Xarelto until January 27, 2022. Anil can be removed on January 27, 2022. Continue with pictures weekly while in the transitional care unit with the wound nurse. We will continue to follow the wound while patient is on the floor. Please contact orthopedics with any concerns or questions.
[2022-01-23] MEDS: oxyCODONE 5 MG Tablet PO ×2 (08:49→16:49)
[2022-01-23] MEDS: Metoprolol Tartrate 25 MG Tablet PO (08:50)
[2022-01-23] MEDS: Doxycycline 100 MG CAPSULE PO (08:50)
[2022-01-23] MEDS: Pantoprazole Sodium 20 MG Tablet PO (08:50)
[2022-01-23] MEDS: Pravastatin 80 MG Tablet PO (08:50)
[2022-01-23] MEDS: Cholecalciferol (VIT D3) 25 MCG TABLET (1,000 UNITS) PO (08:50)
[2022-01-23] MEDS: amLODIPine 10 MG Tablet PO (08:50)
[2022-01-23] MEDS: Ensure Clear 120 ML Liquid PO (08:54)
--- NOTE | 2022-01-23 09:02 | PCM.TXEXTCAR ---
Documented by User: Jayla Mcdaniel NP, MARRIAGE COUNSELOR MINISTER-C 01/23/22 09:26 Diet 01/22/22 14:01 Diet: Regular - General Is pt able to select menu?: Yes Routine Orders/Code Status Enema Type: Fleetz Enema Frequency: Daily PRN Suppository Frequency: Daily PRN O2 Liters per Minute: 2-3 O2 Frequency: Continuous Keep PO Greater than or Equal to (%): 90 Routine Lab Work: - (Repeat CBC, BMP in 3 days then weekly) Code Status: Full Code Wound(s) rt knee: Wound Type: Surgical Incision Dressing Change: Dry Sterile Dressing right lateral knee: Wound Type: small open blister Dressing Change: Adaptic Suggestions for Active Care Change Position every (hours): 2 Times a day to sit in chair: 3 Therapies Weight Bearing: Full weight bearing Extremity Affected:: Right Lower (Total knee replacement 01/13/2022) Physical Therapy: Eval and Treat Occupational Therapy: Eval and Treat Problem/Diagnosis (1) Adult failure to thrive syndrome: Status: Acute (2) Acute dehydration: Status: Acute (3) Status post total right knee replacement: Status: Acute Allergies/Procedures Done in Hospital Allergies enalapril Allergy (Verified 01/21/22 12:11) Angioedema peanut Allergy (Verified 01/21/22 12:11) Swelling Procedures: None Type of Care/Length of Stay Estimated LOS: Convalescent Care Less Than 30 days Type of Care Needed: Skilled Rehab Potential: Fair Prognosis: Fair Additional Orders/Day of Discharge H&P will serve as current which was dated: 01/21/22 Day of Discharge: 01/23/22 Dietary and Speech Recommendations Dietitian Recommendations/Changes: will liberalize diet to regular given malnutrition and adjust ONS from Ensure Enlive to Ensure Clear per pt preference Discharge Plan Admission Admit Date/Time: 01/21/22 16:56 Primary Reason for Your Visit: GOMEZ, weakness Attending Provider: Keely Pelletier Primary Care Provider: Rona Barnett NP Instructions Additional Instructions / Restrictions: Continue Xarelto until January 27, 2022. Consult wound RN to follow at TCU for right lateral knee wound. Gently cleanse small blistered area to the right lateral knee daily with soap and water. pat dry. place Adaptic. place dry dressing over blister and surgical incisions and wrap with kerlix. apply JOSE ALBERTO wrap and GIBSON hose. change daily and prn. [place] can be removed January 27, 2022. Discharge Orders/Prescriptions Prescriptions: New Ensure Clear Liquid 120 ml PO 4X/DAY Qty: 0 RF: 0 Continued pravastatin 80 MG tablet 80 mg PO DAILY RF: 0 metoprolol tartrate 25 MG tablet 25 mg PO DAILY RF: 0 niacinamide [Niacin (niacinamide)] 500 MG tablet 1,000 mg PO DAILY RF: 0 multivitamin with folic acid [Thera] 1 TABLET tablet 1 tab PO DAILY RF: 0 amlodipine 10 mg tablet 10 mg PO DAILY RF: 0 acetaminophen 650 mg Tablet 650 mg PO TID PRN PRN (Reason: Pain) RF: 0 ergocalciferol (vitamin D2) 1,000 unit Capsule 1,000 unit PO DAILY RF: 0 pantoprazole [Protonix] 40 mg tablet,delayed release (DR/EC) 20 mg PO DAILY RF: 0 oxycodone 5 mg Tablet 5 - 10 mg PO Q4H PRN PRN (Reason: Pain Score 4-10) 5 Days Qty: 60 RF: 0 potassium chloride 10 mEq capsule, extended release 10 meq PO DAILY RF: 0 morphine 15 mg tablet extended release 15 mg PO BID PRN (Reason: Pain, Severe) RF: 0 Anoro Ellipta 62.5-25 mcg/actuation blister with device 1 inh INHALATION DAILY RF: 0 sennosides-docusate sodium [Stool Softener-Stimulant Laxat] 8.6-50 mg tablet 2 tab PO BID RF: 0 Xarelto 10 mg Tablet 10 mg PO DAILY@0600 11 Days Qty: 11 RF: 0 doxycycline monohydrate 100 mg capsule 100 mg PO BID Qty: 0 RF: 0 Held furosemide 40 mg tablet 20 mg PO DAILY RF: 0 Hold Instructions: Resume on 02/06/22. Follow up with PCP and repeat BMP prior to resuming. Discontinued hydrochlorothiazide 25 mg Tablet 25 mg PO DAILY RF: 0 Referrals / Follow Up: Ramirez Emmanuel MD [STAFF PHYSICIAN] - Within 2 Weeks Rona Barnett NP, MARRIAGE COUNSELOR MINISTER-C [Primary Care Provider] - In 1 Week Disposition Disposition (needs filled in before D/C Order can be placed): Long-Term Facility Documented by User: Dr. Keely Pelletier MD 01/23/22 16:43 Allergies/Procedures Done in Hospital Allergies enalapril Allergy (Verified 01/21/22 12:11) Angioedema peanut Allergy (Verified 01/21/22 12:11) Swelling Discharge Plan Admission Admit Date/Time: 01/21/22 16:56 Primary Reason for Your Visit: GOMEZ, weakness Attending Provider: Keely Pelletier Primary Care Provider: Rona Barnett NP Instructions Additional Instructions / Restrictions: Continue Xarelto until January 27, 2022. Consult wound RN to follow at TCU for right lateral knee wound. Gently cleanse small blistered area to the right lateral knee daily with soap and water. pat dry. place Adaptic. place dry dressing over blister and surgical incisions and wrap with kerlix. apply JOSE ALBERTO wrap and GIBSON hose. change daily and prn. Anil can be removed January 27, 2022. Discharge Orders/Prescriptions Prescriptions: New Ensure Clear Liquid 120 ml PO 4X/DAY Qty: 0 RF: 0 Continued pravastatin 80 MG tablet 80 mg PO DAILY RF: 0 metoprolol tartrate 25 MG tablet 25 mg PO DAILY RF: 0 niacinamide [Niacin (niacinamide)] 500 MG tablet 1,000 mg PO DAILY RF: 0 multivitamin with folic acid [Thera] 1 TABLET tablet 1 tab PO DAILY RF: 0 amlodipine 10 mg tablet 10 mg PO DAILY RF: 0 acetaminophen 650 mg Tablet 650 mg PO TID PRN PRN (Reason: Pain) RF: 0 ergocalciferol (vitamin D2) 1,000 unit Capsule 1,000 unit PO DAILY RF: 0 pantoprazole [Protonix] 40 mg tablet,delayed release (DR/EC) 20 mg PO DAILY RF: 0 oxycodone 5 mg Tablet 5 - 10 mg PO Q4H PRN PRN (Reason: Pain Score 4-10) 5 Days Qty: 60 RF: 0 potassium chloride 10 mEq capsule, extended release 10 meq PO DAILY RF: 0 morphine 15 mg tablet extended release 15 mg PO BID PRN (Reason: Pain, Severe) RF: 0 Anoro Ellipta 62.5-25 mcg/actuation blister with device 1 inh INHALATION DAILY RF: 0 sennosides-docusate sodium [Stool Softener-Stimulant Laxat] 8.6-50 mg tablet 2 tab PO BID RF: 0 Xarelto 10 mg Tablet 10 mg PO DAILY@0600 11 Days Qty: 11 RF: 0 doxycycline monohydrate 100 mg capsule 100 mg PO BID Qty: 0 RF: 0 Held furosemide 40 mg tablet 20 mg PO DAILY RF: 0 Hold Instructions: Resume on 02/06/22. Follow up with PCP and repeat BMP prior to resuming. Discontinued hydrochlorothiazide 25 mg Tablet 25 mg PO DAILY RF: 0 Referrals / Follow Up: Ramirez Emmanuel MD [STAFF PHYSICIAN] - Within 2 Weeks Rona Barnett NP, MARRIAGE COUNSELOR MINISTER-C [Primary Care Provider] - In 1 Week Disposition Disposition (needs filled in before D/C Order can be placed): Long-Term Facility
--- NOTE | 2022-01-23 09:27 | DS.PCM_ITS ---
Documented by User: Jayla Mcdaniel NP, [employer]ICE SUPERVISOR-C 01/23/22 09:32 Providers Date of Admission: 01/21/22 Date of Discharge: 01/23/22 Primary Care Physician: SHEILA Rivera Consultations 01/21/22 18:42 Consult: Onc/Wound/geographic information systems analyst Routine Comment: Reason for Consult:: right knee post op wound Reason For Visit: HYPONATREMIA,TACHYCARDIA,FAILURE TO THRIVE Diagnosis Discharge Diagnosis (1) Adult failure to thrive syndrome: Status: Acute Code(s): R62.7 - Adult failure to thrive (2) Acute dehydration: Status: Acute Code(s): E86.0 - Dehydration (3) Status post total right knee replacement: Status: Acute Code(s): Z96.651 - Presence of right artificial knee joint Medications at Discharge Home Medications metoprolol tartrate 25 mg PO DAILY 07/30/18 multivitamin with folic acid [Thera] 1 tab PO DAILY 07/30/18 niacinamide [Niacin (niacinamide)] 1,000 mg PO DAILY 07/30/18 pravastatin 80 mg PO DAILY 07/30/18 amlodipine 10 mg PO DAILY 09/27/21 acetaminophen 650 mg PO TID PRN PRN 01/06/22 ergocalciferol (vitamin D2) 1,000 unit PO DAILY 01/06/22 pantoprazole [Protonix] 20 mg PO DAILY 01/06/22 oxycodone 5 - 10 mg PO Q4H PRN PRN 5 Days #60 tab 01/14/22 Anoro Ellipta 1 inh INHALATION DAILY 01/21/22 furosemide 20 mg PO DAILY 01/21/22 morphine 15 mg PO BID PRN 01/21/22 potassium chloride 10 meq PO DAILY 01/21/22 sennosides-docusate sodium [Stool Softener-Stimulant Laxat] 2 tab PO BID 01/21/22 Xarelto 10 mg PO DAILY@0600 11 Days #11 tab 01/23/22 doxycycline monohydrate 100 mg PO BID #0 cap 01/23/22 food supplemt, lactose-reduced [Ensure Clear] 120 ml PO 4X/DAY #0 ml 01/23/22 Hospital Course Operations None Procedures None Summary of Care Provided Hospital Course: Patient is an 81-year-old male admitted 01/21/2022 due to weakness, debility. 1. Acute kidney injury on chronic kidney disease stage IIIa-IV fluids, hold diuretic regimen. Acute kidney injury resolved. Trend BMP at TCU. Lasix and HCTZ held at discharge. May resume Lasix if evidence of volume overload. Patient has normal EF and currently not taking in significant amounts of fluid. Follow-up with PCP in 1 week. 2. Acute hypokalemia-replaced per protocol, trend BMP. 3. Low-grade fever/leukocytosis-unclear etiology. Urinalysis and chest x-ray unremarkable. Blood cultures pending, no growth thus far. Wound culture from right knee with no growth. Fever, leukocytosis resolved. 4. Debility/failure to thrive-recent right total knee replacement 01/13/22. PT/OT. As needed pain regimen. TCU at discharge for rehab. Follow-up with orthopedic medicine in 2 weeks. Xarelto for DVT prophylaxis with stop date . Heth may be removed 01/27/2022 as well. Continue wound care consult at TCU. 5. Chronic heart failure with preserved ejection fraction-No acute failure. Echocardiogram September 2021 with EF 55%, stage I diastolic dysfunction. Continue to hold Lasix for 2 weeks. May resume pending repeat BMP and PCP follow-up. 6. Hypertension-Continue amlodipine, metoprolol. HCTZ discontinued. 7. Hyperlipidemia-Continue statin. 8. Right bundle branch block- follows with cardiology. 9. History of prostate cancer 10. Chronic hypoxic respiratory failure secondary to COPD-Continue supplement o xygen to maintain O2 above 90%. As needed albuterol aerosol. 11. Peripheral vascular disease- Follows with vascular surgery. Does not appear to be on antiplatelet. Continue statin. Physical Exam Const alert, oriented x3 and no apparent distress Orientation / Consciousness: awake, oriented to person, oriented to place and oriented to time HEENT normocephalic and moist oral mucous membranes Eyes PERRL, EOMs intact bilaterally and conjunctivae normal Neck no lymphadenopathy Resp clear to auscultation bilaterally Auscultation: diminished lung sounds Cardio regular rate, regular rhythm and no murmurs Peripheral Pulses: pulses 2+ throughout GI normal to inspection, nondistended, normoactive bowel sounds, non-tender and non-distended Extremity normal to inspection Skin Right lateral knee wound, appears stable. Postoperative bruce intact. Lesions: no lesions Rashes: no rashes Trauma: no lacerations or abrasions Neuro CN's II-XII intact bilaterally, no focal motor deficits, no sensory deficits noted and deep tendon reflexes 2+ bilaterally Psych mental status grossly normal and affect normal Patient seen and examined prior to discharge. Physical assessment as noted above. Patient is stable for discharge with follow up recommendations as noted above. This patient was seen by SHEILA Kumari under the supervision of Dr. Pelletier. Time spent examining patient, reviewing data and subsequent management of care: 16 Minutes Medical Records Data Medical Nutrition Assessment Dietitian: Malnutrition Criteria Met Start: 01/22/22 14:01 Freq: Status: Active Protocol: Document 01/22/22 14:01 (Rec: 01/22/22 14: [id number]) Nutrition Malnutrition Evidence of Malnutrition Exists Yes Malnutrition (moderate): Acute Illness/Injury Evidenced By Suboptimal Energy Intake ( Moderate),Physical Changes ( Mild) Clinical Problem Acute Disease or Injury Related Malnutrition Etiology moderate, acute malnutrition r /t inadequate energy intake s/ p recent surgery Signs/Symptoms as evidenced by estimated PO intake meeting<75% of estimated energy needs x 1 week; Mild muscle wasting/fat loss noted per physical exam in upper extremities, clavicle , and temporal region, BMI 21. 5 Status Active Problem Recommendation Dietitian Recommendations/Changes will liberalize diet to regular given malnutrition and adjust ONS from Ensure Enlive to Ensure Clear per pt preference Weight / BMI Weight Weight: 145 lb 8.081 oz Body Mass Index (BMI) 21.4 ABG / Lab / Microbiology Data Result Diagrams: 01/23/22 06:00 01/23/22 06:00 Laboratory: Laboratory Results - last 24 hr 01/22/22 04:50: Magnesium 2.2 01/23/22 06:00: WBC 11.9 H, RBC 2.79 L, Hgb 9.7 L, Hct 27.4 L, MCV 98.2 H, MCH 34.8 H, MCHC 35.4, RDW Std Deviation 55.4 H, RDW Coeff of Marya 15.2 H, Plt Count 269, MPV 10.4, Immature Gran % (Auto) 0.700, Neut % (Auto) 82.4 H, Lymph % (Auto) 9.2 L, Irion % (Auto) 7.1, Eos % (Auto) 0.3, Baso % (Auto) 0.3, Absolute Neuts (auto) 9.8 H, Absolute Lymphs (auto) 1.09, Nucleated RBC % 0 01/23/22 06:00: Sodium 132 L, Potassium 3.5, Chloride 96 L, Carbon Dioxide 29.0, Anion Gap 7, BUN 33 H, Creatinine 1.06, Estim Creat Clear Calc 51.89, Est GFR (MDRD) Af Amer 86, Est GFR (MDRD) Non-Af 71, BUN/Creatinine Ratio 31.1 H, Glucose 102, Calcium 9.0 Microbiology: Microbiology 01/22/22 10:30 Wound - Knee Gram Stain - Final 01/22/22 10:30 Wound - Knee Wound Culture - Preliminary No growth-Final to follow Meaningful Use Info Meaningful Use Diagnoses (Choose all that apply): None applicable Discharge Plan Admission Admit Date/Time: 01/21/22 16:56 Primary Reason for Your Visit: GOMEZ, weakness Attending Provider: Keely Pelletier Primary Care Provider: Rona Barnett NP Instructions Additional Instructions / Restrictions: Continue Xarelto until January 27, 2022. Consult wound RN to follow at TCU for right lateral knee wound. Gently cleanse small blistered area to the right lateral knee daily with soap and water. pat dry. place Adaptic. place dry dressing over blister and surgical incisions and wrap with kerlix. apply JOSE ALBERTO wrap and GIBSON hose. change daily and prn. Bruce can be removed January 27, 2022. Discharge Orders/Prescriptions Prescriptions: New Ensure Clear Liquid 120 ml PO 4X/DAY Qty: 0 RF: 0 Continued pravastatin 80 MG tablet 80 mg PO DAILY RF: 0 metoprolol tartrate 25 MG tablet 25 mg PO DAILY RF: 0 niacinamide [Niacin (niacinamide)] 500 MG tablet 1,000 mg PO DAILY RF: 0 multivitamin with folic acid [Thera] 1 TABLET tablet 1 tab PO DAILY RF: 0 amlodipine 10 mg tablet 10 mg PO DAILY RF: 0 acetaminophen 650 mg Tablet 650 mg PO TID PRN PRN (Reason: Pain) RF: 0 ergocalciferol (vitamin D2) 1,000 unit Capsule 1,000 unit PO DAILY RF: 0 pantoprazole [Protonix] 40 mg tablet,delayed release (DR/EC) 20 mg PO DAILY RF: 0 oxycodone 5 mg Tablet 5 - 10 mg PO Q4H PRN PRN (Reason: Pain Score 4-10) 5 Days Qty: 60 RF: 0 potassium chloride 10 mEq capsule, extended release 10 meq PO DAILY RF: 0 morphine 15 mg tablet extended release 15 mg PO BID PRN (Reason: Pain, Severe) RF: 0 Anoro Ellipta 62.5-25 mcg/actuation blister with device 1 inh INHALATION DAILY RF: 0 sennosides-docusate sodium [Stool Softener-Stimulant Laxat] 8.6-50 mg tablet 2 tab PO BID RF: 0 Xarelto 10 mg Tablet 10 mg PO DAILY@0600 11 Days Qty: 11 RF: 0 doxycycline monohydrate 100 mg capsule 100 mg PO BID Qty: 0 RF: 0 Held furosemide 40 mg tablet 20 mg PO DAILY RF: 0 Hold Instructions: Resume on 02/06/22. Follow up with PCP and repeat BMP prior to resuming. Discontinued hydrochlorothiazide 25 mg Tablet 25 mg PO DAILY RF: 0 Referrals / Follow Up: Ramirez Emmanuel MD [STAFF PHYSICIAN] - Within 2 Weeks Rona Barnett NP, [employer]ICE SUPERVISOR-C [Primary Care Provider] - In 1 Week Disposition Disposition (needs filled in before D/C Order can be placed): [facility] Facility Documented by User: Dr. Keely Pelletier MD 01/23/22 16:43 Providers Date of Admission: 01/21/22 Reason For Visit: HYPONATREMIA,TACHYCARDIA,FAILURE TO THRIVE Medications at Discharge Home Medications metoprolol tartrate 25 mg PO DAILY 07/30/18 multivitamin with folic acid [Thera] 1 tab PO DAILY 07/30/18 niacinamide [Niacin (niacinamide)] 1,000 mg PO DAILY 07/30/18 pravastatin 80 mg PO DAILY 07/30/18 amlodipine 10 mg PO DAILY 09/27/21 acetaminophen 650 mg PO TID PRN PRN 01/06/22 ergocalciferol (vitamin D2) 1,000 unit PO DAILY 01/06/22 pantoprazole [Protonix] 20 mg PO DAILY 01/06/22 oxycodone 5 - 10 mg PO Q4H PRN PRN 5 Days #60 tab 01/14/22 Anoro Ellipta 1 inh INHALATION DAILY 01/21/22 furosemide 20 mg PO DAILY 01/21/22 morphine 15 mg PO BID PRN 01/21/22 potassium chloride 10 meq PO DAILY 01/21/22 sennosides-docusate sodium [Stool Softener-Stimulant Laxat] 2 tab PO BID 01/21/22 Xarelto 10 mg PO DAILY@0600 11 Days #11 tab 01/23/22 doxycycline monohydrate 100 mg PO BID #0 cap 01/23/22 food supplemt, lactose-reduced [Ensure Clear] 120 ml PO 4X/DAY #0 ml 01/23/22 ABG / Lab / Microbiology Data Result Diagrams: 01/23/22 06:00 01/23/22 06:00 Discharge Plan Admission Admit Date/Time: 01/21/22 16:56 Primary Reason for Your Visit: GOMEZ, weakness Attending Provider: Keely Pelletier Primary Care Provider: Rona Barnett NP Instructions Additional Instructions / Restrictions: Continue Xarelto until January 27, 2022. Consult wound RN to follow at TCU for right lateral knee wound. Gently cleanse small blistered area to the right lateral knee daily with soap and water. pat dry. place Adaptic. place dry dressing over blister and surgical incisions and wrap with kerlix. apply JOSE ALBERTO wrap and GIBSON hose. change daily and prn. Heth can be removed January 27, 2022. Discharge Orders/Prescriptions Prescriptions: New Ensure Clear Liquid 120 ml PO 4X/DAY Qty: 0 RF: 0 Continued pravastatin 80 MG tablet 80 mg PO DAILY RF: 0 metoprolol tartrate 25 MG tablet 25 mg PO DAILY RF: 0 niacinamide [Niacin (niacinamide)] 500 MG tablet 1,000 mg PO DAILY RF: 0 multivitamin with folic acid [Thera] 1 TABLET tablet 1 tab PO DAILY RF: 0 amlodipine 10 mg tablet 10 mg PO DAILY RF: 0 acetaminophen 650 mg Tablet 650 mg PO TID PRN PRN (Reason: Pain) RF: 0 ergocalciferol (vitamin D2) 1,000 unit Capsule 1,000 unit PO DAILY RF: 0 pantoprazole [Protonix] 40 mg tablet,delayed release (DR/EC) 20 mg PO DAILY RF: 0 oxycodone 5 mg Tablet 5 - 10 mg PO Q4H PRN PRN (Reason: Pain Score 4-10) 5 Days Qty: 60 RF: 0 potassium chloride 10 mEq capsule, extended release 10 meq PO DAILY RF: 0 morphine 15 mg tablet extended release 15 mg PO BID PRN (Reason: Pain, Severe) RF: 0 Anoro Ellipta 62.5-25 mcg/actuation blister with device 1 inh INHALATION DAILY RF: 0 sennosides-docusate sodium [Stool Softener-Stimulant Laxat] 8.6-50 mg tablet 2 tab PO BID RF: 0 Xarelto 10 mg Tablet 10 mg PO DAILY@0600 11 Days Qty: 11 RF: 0 doxycycline monohydrate 100 mg capsule 100 mg PO BID Qty: 0 RF: 0 Held furosemide 40 mg tablet 20 mg PO DAILY RF: 0 Hold Instructions: Resume on 02/06/22. Follow up with PCP and repeat BMP prior to resuming. Discontinued hydrochlorothiazide 25 mg Tablet 25 mg PO DAILY RF: 0 Referrals / Follow Up: Ramirez Emmanuel MD [STAFF PHYSICIAN] - Within 2 Weeks Rona Barnett NP [employer] SUPERVISOR-C [Primary Care Provider] - In 1 Week Disposition Disposition (needs filled in before D/C Order can be placed): [facility] Facility Charges/Coding Addendum Addendum: Patient seen by Jayla SOSA under my supervision' Patient is an 81-year-old male with a past medical history as outlined was admitted through the ED on 01/21/2022 with a complaint of weakness. Patient had right knee replacement about a week ago and was discharged home. According to his and son, patient has been going downhill since then and has not been eating or drinking well. He has become progressively weaker and could barely move around. He went to see his orthopedic surgeon today for follow up and was referred to the ED o/a of failure to thrive. He had no active complaints and denied any fever, chills, chest pain, shortness of breath, nausea or vomiting. Review of systems was otherwise negative. Vitals in the ED were BP of 164/67, HI of 80, RR of 17 and temp of 98.9F with saturation of 94% on room air. CBC showed hemoglobin of 10 with WBC of 13 and platelets of 261. Chemistry showed sodium of 129 with potassium of 2.8 and bicarb of 33. Creatinine was 1.78 with a baseline of around 1.13 from 01/14/2022. Urinalysis was negative for any evidence of UTI. He was admitted to be managed for debility and failure to thrive as well as hyponatremia and hypokalemia due to decreased intake. He was hydrated with IV fluids and potassium was replaced. Orthopedics also reviewed patient on account of his recent knee surgery. He remained stable and was amenable to placement. He was discharged to a assisted facility on 01/23/2022. Patient was seen and examined prior to discharge. He had no active complaints and felt well. Review of systems otherwise negative. Labs and vitals reviewed. Medication reviewed and reconciled. O/E: Const alert, oriented x3 and no apparent distress, frail General Appearance: cooperative HEENT normocephalic, head/scalp atraumatic, hearing grossly normal bilaterally and moist oral mucous membranes Eyes PERRL, EOMs intact bilaterally and conjunctivae normal Neck no lymphadenopathy, supple and no JVD Resp normal respiratory effort and clear to auscultation bilaterally Cardio regular rate, regular rhythm, S1 normal heart sound, S2 normal heart sound and no murmurs GI normal to inspection, nondistended, normoactive bowel sounds and soft to palpation GI Narrative: abdominal dressing over surgical site Extremity right knee wrapped in JOSE ALBERTO bandage. in compression stockings Skin no rashes or lesions noted Neuro oriented x3, CN's II-XII intact bilaterally and moves all extremities Sensorium / Orientation: awake and alert Psych affect normal Plan is for discharge to assisted facility today. Rest as per Jayla Mcdaniel [employer] SERVICE SUPERVISOR-C's note, which I have reviewed and endorsed. total time I spent on discharge of the patient is 25 mins, with Jayla Mcdaniel spending 16 mins, making a total of 41mins. Visit Charges OBSV E&M: 28728 Observation care discharge
== END 2022-01-23 17:32 | disposition skilled nursing facility (03) | DRG 641 ==
LOC: ED 16:47 → PCU 17:37
PROVIDERS: Nurse Practitioner Family; Admitting Provider Student in an Organized Health Care Education/Training Program; Emergency Provider Emergency Medicine; PCP Nurse Practitioner; Visit Provider Student in an Organized Health Care Education/Training Program
DX: R62.7 Adult failure to thrive (principal); E46 Unspecified protein-calorie malnutrition; J96.11 Chronic respiratory failure with hypoxia; I13.0 Hypertensive heart and chronic kidney disease with heart failure and stage 1 through stage 4 chronic kidney disease, or unspecified chronic kidney disease; D62 Acute posthemorrhagic anemia; N17.9 Acute kidney failure, unspecified; I50.32 Chronic diastolic (congestive) heart failure; E87.1 Hypo-osmolality and hyponatremia; E86.0 Dehydration; I73.9 Peripheral vascular disease, unspecified; J44.9 Chronic obstructive pulmonary disease, unspecified; N18.31 Chronic kidney disease, stage 3a; E87.6 Hypokalemia; I45.10 Unspecified right bundle-branch block; E78.5 Hyperlipidemia, unspecified; Z87.891 Personal history of nicotine dependence; R53.81 Other malaise; Z79.01 Long term (current) use of anticoagulants; Z68.21 Body mass index [BMI] 21.0-21.9, adult; Z79.899 Other long term (current) drug therapy; Z99.81 Dependence on supplemental oxygen; Z96.651 Presence of right artificial knee joint
CPT/HCPCS: 36415; 71045; 80048; 81001; 83605; 83735; 84484; 85025; 87040; 87070; 87205; 87426; 93005; 94640; 97110; 97162; 97166; 97535; 99282; J7030; A4216

== ENCOUNTER 2022-01-23 19:42 | Inpatient (IN) | payer MEDICARE, SELFPAY ==
--- NOTE | 2022-01-23 19:50 | HP.PCM_ITS ---
HPI - General General Date of Admission: 01/23/22 HPI Narrative 01/21/2022 NICA PANTOJA, is a 81 Male who presents to [facility] Emergency Department with shortness of breath. Generalized weakness, worsening shortness of breath, history of copd (3 liters oxygen per nasal cannula at home). Recent right total knee arthroplasty, on Doxycycline for wound infection. More weak, pulsox 80% on 3 liters oxygen per nasal cannula. Fever 102, constipated since surgery. Duoneb given, normal saline given, potassium given for potassium 2.8. 01/21/2022 Admit Hospital. IV fluids for hyponatremia. PT/OT for debility. Hold HCTZ for hyponatremia, hypokalemia. 01/22/2022 Pain improved. Acute kidney injury resolved. Replete potassium per protocol. Fever, leukocytosis resolved. PT/OT for TCU. 01/22/2022 Dr. Emmanuel recommended continuing Doxycycline. Consider adding Keflex per culture results. 01/23/2022 Trend BMP on TCU. Lasix, HCTZ held. Blood cultures negative to date. Xarelto for DVT prophylaxis thru 01/27/2022. 01/23/2022 Admit to TCU with debility, here for rehabilitation, strengthening, prior to discharge home with . Staple removal 01/27/2022. [facility] Medical History (Updated 01/23/22 @ 19:[address] Yogesh Nance MD) Anemia Arthritis Cancer Cardiology follow-up encounter COPD (chronic obstructive pulmonary disease) Duodenal ulcer due to nonsteroidal anti-inflammatory drug (NSAID) (09/28/21) Easy bruising Essential hypertension High cholesterol History of echocardiogram History of GI bleed History of pain when walking History of ulceration Hx of basal cell carcinoma Hyperlipidemia Multiple premature ventricular complexes On home oxygen therapy On home oxygen therapy Peripheral vascular disease Peripheral vascular occlusive disease Prostate cancer Right bundle branch block (RBBB) Shortness of breath on exertion Skin cancer Syncope Tobacco abuse Walker as ambulation aid Wears dentures Home Medications metoprolol tartrate 25 mg PO DAILY 07/30/18 [History Last Taken 01/21/22] multivitamin with folic acid [Thera] 1 tab PO DAILY 07/30/18 [History Last Taken 01/20/22] niacinamide [Niacin (niacinamide)] 1,000 mg PO DAILY 07/30/18 [History Last Taken 01/20/22] pravastatin 80 mg PO DAILY 07/30/18 [History Last Taken 01/21/22] amlodipine 10 mg PO DAILY 09/27/21 [History Last Taken 01/21/22] acetaminophen 650 mg PO TID PRN PRN 01/06/22 [History Last Taken 01/12/22] ergocalciferol (vitamin D2) 1,000 unit PO DAILY 01/06/22 [History Last Taken 0 01/12/22] pantoprazole [Protonix] 20 mg PO DAILY 01/06/22 [History Last Taken 01/21/22] oxycodone 5 - 10 mg PO Q4H PRN PRN 5 Days #60 tab 01/14/22 [Rx Last Taken 01/21/22] Anoro Ellipta 1 inh INHALATION DAILY 01/21/22 [History Last Taken Unknown] furosemide 20 mg PO DAILY 01/21/22 [History Last Taken 01/21/22] morphine 15 mg PO BID PRN 01/21/22 [History Last Taken Unknown] potassium chloride 10 meq PO DAILY 01/21/22 [History Last Taken 01/21/22] sennosides-docusate sodium [Stool Softener-Stimulant Laxat] 2 tab PO BID 01/21/22 [History Last Taken Unknown] Xarelto 10 mg PO DAILY@0600 11 Days #11 tab 01/23/22 [Rx Last Taken 01/21/22] doxycycline monohydrate 100 mg PO BID #0 cap 01/23/22 [Rx Last Taken 01/21/22] food supplemt, lactose-reduced [Ensure Clear] 120 ml PO 4X/DAY #0 ml 01/23/22 [Rx Last Taken Unknown] Allergy/AdvReac Type Severity Reaction Status Date / Time enalapril Allergy Angioedema Verified 01/21/22 12:11 peanut Allergy Swelling Verified 01/21/22 12:11 Family History Father CVA (cerebral vascular accident) Hypertension Surgical History (Updated 01/23/22 @ 19:[address] Yogesh Nance MD) H/O radical prostatectomy H/O: knee surgery History of carpal tunnel surgery of left wrist History of esophagogastroduodenoscopy (EGD) History of total right knee replacement Hx of vascular surgery (2018) Social History Smoking Status: Former smoker Tobacco: How many years used: 50 alcohol intake: former ROS Constitutional Constitutional: Denies chills, fever(s) or weight gain ENT HEENT: Denies headache(s), nasal congestion or nasal discharge Cardiovascular Cardiovascular: Denies chest pain or palpitations Respiratory/Chest Respiratory/Chest: Denies cough, excessive phlegm production or shortness of breath with exertion Gastrointestinal Gastrointestinal: Denies abdominal pain, nausea or vomiting Genitourinary Genitourinary: Denies dysuria Musculoskeletal Musculoskeletal: Denies joint pain or joint swelling Integumentary Integumentary: Denies rash or wounds Neurologic Neurologic: Denies focal weakness, numbness or tingling Psychiatric Psychiatric: Denies anxiety, auditory hallucinations, depression, homicidal ideation or suicidal ideation Physical Exam Const alert General Appearance: cooperative HEENT normocephalic HEENT Narrative: Right ear missing. Eyes PERRL and EOMs intact bilaterally Neck supple, no JVD and no carotid bruits Resp normal respiratory effort, normal air movement and clear to auscultation bilaterally Cardio regular rate and regular rhythm GI normal to inspection, nondistended, normoactive bowel sounds, non-tender and non-distended Extremity normal capillary refill Extremity Narrative: Right knee dressed. General Extremity: Negative for edema Skin no rashes or lesions noted General Skin Exam: no breakdown Psych affect normal Appearance: appropriate Results Lab / Micro Data Result Diagrams: 01/24/22 07:20 01/24/22 07:20 Assessment & Plan Assessment/Plan (1) Debility: (2) Weakness: (3) Hypokalemia: (4) Hyponatremia: (5) Acute kidney injury: (6) Chronic obstructive pulmonary disease: (7) Anemia: (8) Peripheral vascular disease: (9) Hypertension: (10) Hyperlipidemia: (11) Vitamin D deficiency: (12) Gastroesophageal reflux disease: PLAN: 81 year old male with below past medical history hospitalized for weakness secondary to hyponatremia, hypokalemia, acute kidney injury, wound i nfection, admitted to TCU with debility, here for rehabilitation, strengthening, prior to discharge home with . * Debility - PT/OT. * Pain - Tylenol 1000mg q6h prn pain (1-5), Morphine 15mg bid prn pain (6-10). * Bowel - Miralax 17gm daily, Senna/colace 2 tablets bid, Dulcolax 10mg daliy prn. * Adult immunization - Administer pneumonia vaccine, flu vaccine, covid19 vacine as appropriate. * DVT prophylaxis - Xarelto 10mg daily thru 01/27/2022. * Nutrition - Ensure 120ml 4x/day, MVI daily. * Hyperlipidemia - Pravastatin 80mg qhs, Niacin 500mg daily. * Hypertension - Metoprolol 25mg daily, Amlodipine 10mg daily. * Vitamin D deficiency - D2 1000IU daily. * GERD - Pantoprazole 40mg daily. * Hypokalemia - KCL 10meq daily. * COPD - Anoro 1 puff daily, oxygen 3 liters per nasal cannula. * Right total knee incision infection - Doxycycline 100mg bid thru 01/25/2022.
[2022-01-23 20:37] VITALS: BP 164/73; PULSE 96; RESP 14; TEMP 36.6; O2SAT 92; BMI 20.3
[2022-01-23] MEDS: Pravastatin 80 MG Tablet PO (23:12)
[2022-01-23] MEDS: oxyCODONE 5 MG Tablet PO (23:12)
[2022-01-23] MEDS: Senna/Docusate Sodium 1 Tablet 2 TABLET PO (23:12)
[2022-01-23 23:20] VITALS: O2SAT 92
[2022-01-24] MEDS: oxyCODONE 5 MG Tablet PO ×2 (04:55→22:23)
[2022-01-24 04:56] VITALS: BP 146/58; PULSE 83
[2022-01-24] MEDS: amLODIPine 10 MG Tablet PO (04:56)
[2022-01-24] MEDS: Pantoprazole Sodium 40 MG Tablet PO (04:56)
[2022-01-24] MEDS: Metoprolol Tartrate 25 MG Tablet PO (04:56)
[2022-01-24] MEDS: Doxycycline 100 MG CAPSULE PO ×2 (04:56→18:49)
[2022-01-24] MEDS: Polyethylene Glycol 3350 17 GM PACKET PO (04:57)
[2022-01-24] MEDS: Cholecalciferol (VIT D3) 25 MCG TABLET (1,000 UNITS) PO (04:57)
[2022-01-24] MEDS: Rivaroxaban 10 MG Tablet PO (04:57)
[2022-01-24] MEDS: Senna/Docusate Sodium 1 Tablet 2 TABLET PO ×2 (04:58→18:49)
[2022-01-24] MEDS: Umeclidinium Brm/Vilanterol 62.5-25 mcg Inh 1 PUFF INHALATION (04:58)
[2022-01-24 07:11] VITALS: O2SAT 92
[2022-01-24 07:49] LABS: Absolute Lymphocyte Count 1.42 X10^3/uL (0.83-4.51); Absolute Neutrophil Count 8.4 X10^3/uL (2.0-7.7); Basophil# 0.04 X10^3/uL; Basophil% 0.4 % (0-1); Eosinophil# 0.05 X10^3/uL; Eosinophils% 0.5 % (0-5); Lymphocyte # 1.42 X10^3/ul (0.83-4.51); Lymphocyte % 13.3 % (19-41); Mean Corp Hgb Conc 34.6 g/dL (32-36); Mean Corpuscular Hgb 33.5 pg (27.0-32.0); Mean Corpuscular Volume 96.7 fL (80-94); Mean Platelet Vol. 9.9 fl (6.2-12.0); Monocyte# 0.76 X10^3/uL; Monocyte% 7.1 % (0-10); NRBC Flagged by Analyzer 0 % (0-5); Neutrophil # 8.37 X10^3/uL (2.7-7.7); Neutrophil % 78.2 % (47-70); Platelet Count 279 K/mm3 (150-450); RBC Distribution Width CV 15.3 % (11.6-14.6); Red Blood Count 2.69 M/mm3 (4.6-6.2); White Blood Count 10.7 K/mm3 (4.4-11.0)
[2022-01-24 08:09] LABS: Anion Gap 6 (5-15); BUN 37 mg/dL (7-18); BUN/Creat Ratio 30.6 RATIO (10-20); Calcium,Total 9.1 mg/dL (8.5-10.1); Chloride 98 mmol/L (98-107); Creatinine, Serum 1.21 mg/dL (0.70-1.30); EST Glomerular Filtration Rate 61 mL/min (>60); Est Glom Filt Rate - Afr Amer 74 mL/min (>60); Estimated Creatinine Clearance 40.61 ml/min; Glucose 105 mg/dL (74-106); Potassium 3.5 mmol/L (3.5-5.1); Sodium Level 133 mmol/L (136-145)
--- NOTE | 2022-01-24 08:18 | NURSING ---
Assessment questions not completed per this nurse due to decreased cognition- A&O x 1-2.
[2022-01-24] MEDS: Tuberculin,Purif.prot.deriv. 50 TU/ML Vial 0.1 ML ID (09:20)
--- NOTE | 2022-01-24 09:20 | NURSING ---
During a.m. med pass pt asked this nurse to hand him some clothes to change into. Pt refused help getting dressed at this time stating I do not need your help, I can do it myself.
[2022-01-24] MEDS: Potassium Chloride Oral Tablet 10 MEQ PO (09:21)
[2022-01-24] MEDS: Multivitamins,Ther W-Minerals Tablet 1 TABLET PO (09:21)
[2022-01-24 09:25] VITALS: O2SAT 92
[2022-01-24 11:14] VITALS: O2SAT 92
[2022-01-24 16:00] VITALS: BP 120/62; PULSE 83; RESP 18; TEMP 36.6; O2SAT 95
[2022-01-24] MEDS: Pravastatin 80 MG Tablet PO (22:23)
[2022-01-24 22:30] VITALS: O2SAT 92
[2022-01-25] VITALS (10 sets, daily range): BP systolic 147–156; BP diastolic 64–67; PULSE 70–73; RESP 16; TEMP 36.2; O2SAT 91–96
[2022-01-25] MEDS: Polyethylene Glycol 3350 17 GM PACKET PO (05:07)
[2022-01-25] MEDS: Senna/Docusate Sodium 1 Tablet 2 TABLET PO (05:07)
[2022-01-25] MEDS: Pantoprazole Sodium 40 MG Tablet PO (05:08)
[2022-01-25] MEDS: Doxycycline 100 MG CAPSULE PO ×2 (05:08→17:16)
[2022-01-25] MEDS: Cholecalciferol (VIT D3) 25 MCG TABLET (1,000 UNITS) PO (05:08)
[2022-01-25] MEDS: Umeclidinium Brm/Vilanterol 62.5-25 mcg Inh 1 PUFF INHALATION (05:08)
[2022-01-25] MEDS: Metoprolol Tartrate 25 MG Tablet PO (05:09)
[2022-01-25] MEDS: amLODIPine 10 MG Tablet PO (05:09)
[2022-01-25] MEDS: oxyCODONE 5 MG Tablet PO ×3 (05:13→21:39)
[2022-01-25] MEDS: Rivaroxaban 10 MG Tablet PO (05:13)
--- NOTE | 2022-01-25 05:19 | NURSING ---
Nasal cannula displaced from nostrils. Pt insists the cannula is in the right palce and declines to readjust. SpO2 94%. In no acute distress. Will continue to monitor.
[2022-01-25] MEDS: Potassium Chloride Oral Tablet 10 MEQ PO (08:49)
[2022-01-25] MEDS: Multivitamins,Ther W-Minerals Tablet 1 TABLET PO (08:49)
--- NOTE | 2022-01-25 09:00 | CPS ---
Was called to room d/t increased need of O2. Pt has been wearing 3lpm at home for about 3 months, he was on 10lpm w/nursing getting lower pulse-ox reading for which they increased O2 after pt's shower. Pt is in a chair, w/o SOB, SpO2 currently 96% on 10lpm so I decreased to 8lpm, waited 2 minutes, rechecked and SpO2=96%. Noticed an extra 7' O2 tubing was attached to 21' extension tubing so I took that out which leaves pt with about 26' of tubing which should reach the bathroom. SpO2 now 96% so I decreased O2 to 5lpm and added a humidifier. Pt's heart rhythm is irregular which it sounds like this is normal for him per notes and patients narrative which can make it hard to get an accurate pulse-ox. Talked w/nursing, Merlin, to update her on this patient's current O2 flow and pulse-ox reading.
--- NOTE | 2022-01-25 10:00 | CASEMGMT ---
Addendum entered by Sarah Franco 01/26/22 09:41: Family brought in advanced directives paperwork. HCPOA is then son. Copies placed on chart. Original Note: Social Work Received call from son. Son listed on face sheet as PTN. SW inquired about HCPOA. Son stated is primary, he is secondary. Asked son for to bring in those documents since they are not on file. Son agreed. Son inquired about insurance, LOS, therapy goals, DC goals; explained PLOF. Explained to son [place] [employer] insurance. Therapy evals to be submitted this date, then insurance will provide NRD. Explained updates, progress, dictating DC. Explained POC meeting to be scheduled this week with , himself, and IDT to better provide goals, progress and initial recommendations. Son satisfied with that timeframe. Son explained noticed pt being more confused since hospitalization/transfer to TCU. Pt is [place] and denies to get CABALLERO; is stubborn, and needs explanation when things are being completed and likes to know expectations. SW offered to explain expectations and goals during stay to pt. Son appreciative. Son stated pt was independent with ADLs at PLOF, is petite and cannot physically assist, but goal is to return home. Son expressed appreciation and SW to continue to follow. Sarah Franco, JESSICA BRANCHW
--- NOTE | 2022-01-25 10:47 | CASEMGMT ---
Social Work Met with patient to complete initial assessment. Introduced self and role. Dtr present in room. Pt gave permission to complete assessment with dtr in room. Pt confirms , son and dtr all to remain updated in DC plans. Discussed code status and MOLST form. Pt wishes to be DNR-CCA, no intubation. MOLST communicated to , placed in chart. Notified nursing of code status change. Explained [employer] insurance with NRD 01/25 and continued stay is not guaranteed with each review. Pt states the goal is to return home with at [facility]. He had no problem with stairs prior and was independent with ADLs. SW will continue to follow for DC planning. Sarah Franco, CIVIL ENGINEER RAILROAD CAR CHECKER
--- NOTE | 2022-01-25 11:42 | ST ---
Addendum entered and electronically signed by Nyasia Trejo M.A., [facility]-WATER OPERATOR 01/25/22 11:53: Later, pt's daughter came and found WATER OPERATOR and explained that she doesn't have any concerns for pt's cognition now although admits he was confused when he first arrived to TCU. Original Note: Patient referred to speech therapy with concern for patients decreased cognition. Pt was agitated during ST evaluation attempt yesterday 01/24/22 with plan to re-assess this date. Entered pt's room with pt's daughter present. Introduced self and role of WATER OPERATOR in addition to inquiring about any changes in cognition pt was aware of. Pt raised voice and talked over WATER OPERATOR's education stated I already refused you people yesterday. Who sent you? Educated that order went through Dr. Nance who is the physician for this unit. Pt states I don't know Dr. Nance. He's not my doctor. Explained that pt may not have actually met Goyo Jimenez as he typically doesn't round. Pt then stated I met Dr. Nance this morning but he's not my doctor. I have 5 physicians (with pt holding up four fingers). Attempted further education regarding reasons why someone may benefit from skilled ST intervention. Pt continued to accuse WATER OPERATOR of telling him he has a problem and refused further ST eval/treatment. Daughter who was present, laughed and did not provide WATER OPERATOR with any additional information or concerns.
--- NOTE | 2022-01-25 15:14 | PCM.PN.RX ---
Progress Note - Pharmacy Subjective: TCU ADMISSION Objective: Allergies enalapril Allergy (Verified 01/21/22 12:11) Angioedema peanut Allergy (Verified 01/21/22 12:11) Swelling Current Medications Generic Name Dose Route Start Last Admin Trade Name Freq PRN Reason Stop Dose Admin Acetaminophen 1,000 mg 01/23/22 20:04 Acetaminophen 500 Mg Tablet PO Q6H PRN PRN Pain Score 1-10 Amlodipine Besylate 10 mg 01/24/22 06:00 01/25/22 05:09 Amlodipine 10 Mg Tablet PO 10 mg DAILY ANASTASIYA Administration Bisacodyl 10 mg 01/23/22 20:04 Bisacodyl 5 Mg Tablet PO DAILY PRN CONSTIPATION Cholecalciferol 25 mcg 01/24/22 06:00 01/25/22 05:08 Cholecalciferol (Vit D3) 25 Mcg Tablet (1,000 Units) PO 25 mcg DAILY ANASTASIYA Administration Doxycycline Monohydrate 100 mg 01/24/22 06:00 01/25/22 05:08 Doxycycline 100 Mg Capsule PO 01/25/22 23:59 100 mg BID ANASTASIYA Administration Metoprolol Tartrate 25 mg 01/24/22 06:00 01/25/22 05:09 Metoprolol Tartrate 25 Mg Tablet PO 25 mg DAILY ANASTASIYA Administration Morphine Sulfate 10 mg 01/23/22 21:40 Morphine (Oral Solution) 10mg/0.5ml Syringe PO BID PRN PRN Pain Score 6-10 Multivitamins/Minerals 1 tablet 01/24/22 08:00 01/25/22 08:49 Multivitamins,Ther W-Minerals Tablet PO 1 tablet BREAKFAST ANASTASIYA Administration Niacin 1,000 mg 01/23/22 22:00 01/24/22 22:23 Niacin Sa 1,000 Mg Tablet PO 1,000 mg QHS ANASTASIYA Administration Oxycodone HCl 5 mg 01/23/22 21:29 01/25/22 05:13 Oxycodone 5 Mg Tablet PO 5 mg Q4H PRN PRN Administration Pain Score 4-10 Pantoprazole Sodium 40 mg 01/24/22 06:00 01/25/22 05:08 Pantoprazole Sodium 40 Mg Tablet PO 40 mg DAILY ANASTASIYA Administration Polyethylene Glycol 17 gm 01/24/22 06:00 01/25/22 05:07 Polyethylene Glycol 3350 17 Gm Packet PO 17 gm DAILY ANASTASIYA Administration Potassium Chloride 10 meq 01/24/22 08:00 01/25/22 08:49 Potassium Chloride Oral Tablet 10 Meq PO 10 meq DAILYCM ANASTASIYA Administration Pravastatin Sodium 80 mg 01/23/22 22:00 01/24/22 22:23 Pravastatin 80 Mg Tablet PO 80 mg QHS ANASTASIYA Administration Rivaroxaban 10 mg 01/24/22 06:00 01/25/22 05:13 Rivaroxaban 10 Mg Tablet PO 01/27/22 23:59 10 mg DAILY ANASTASIYA Administration Senna/Docusate Sodium 2 tablet 01/23/22 20:15 01/25/22 05:07 Senna/Docusate Sodium 1 Tablet PO 2 tablet BID ANASTASIYA Administration Sodium Chloride 10 - 40 ml 01/24/22 03:49 0.9% Saline Lock 10 Ml Syringe IV UD PRN SALINE FLUSH Tuberculin PPD 0.1 ml 01/31/22 10:00 Tuberculin,Purif.Prot.Deriv. 50 Tu/Ml Vial ID 01/31/22 10:01 X1 ONE Problem List (Last Reviewed 01/23/22 @ 19:[address] Yogesh Nance MD) Gastroesophageal reflux disease (Acute) Vitamin D deficiency (Acute) Hyperlipidemia (Acute) Hypertension (Chronic) Peripheral vascular disease (Acute) Anemia (Acute) Chronic obstructive pulmonary disease (Chronic) Acute kidney injury (Acute) Hyponatremia (Acute) Hypokalemia (Acute) Weakness (Acute) Debility (Acute) Vital Signs Temp Pulse Resp BP Pulse Ox 97.2 F L 73 16 147/64 H 94 01/25/22 14:29 01/25/22 14:29 01/25/22 14:29 01/25/22 14:29 01/25/22 14:29 Oxygen Flow Rate (L/min) 3 Oxygen Delivery Method Nasal Cannula Weight: 58.967 kg Body Mass Index (BMI) 20.3 Sodium 133 mmol/L (136-145) L 01/24/22 07:20 Potassium 3.5 mmol/L (3.5-5.1) 01/24/22 07:20 Chloride 98 mmol/L (98-107) 01/24/22 07:20 Carbon Dioxide 29.0 mmol/L (21.0-32.0) 01/24/22 07:20 Anion Gap 6 (5-15) 01/24/22 07:20 BUN 37 mg/dL (7-18) H 01/24/22 07:20 Creatinine 1.21 mg/dL (0.70-1.30) 01/24/22 07:20 Est GFR (MDRD) Af Amer 74 mL/min (>60) 01/24/22 07:20 Est GFR (MDRD) Non-Af 61 mL/min (>60) 01/24/22 07:20 BUN/Creatinine Ratio 30.6 RATIO (10-20) H 01/24/22 07:20 Glucose 105 mg/dL (74-106) 01/24/22 07:20 Assessment/Plan: 1. Pain: Tylenol 1000mg PO Q6h PRN Pain 1-10, Oxycodone 5mg PO Q4h PRN Pain 4-5, Roxanol 10mg PO BID PRN Pain 6-10. Please continue to monitor LFT, S/S increased/decreased pain, PRN medication usage, oversedation. - The patient has used 3 doses oxycodone in the past 24hrs, 0 doses of Roxanol, and no doses of PRN Tylenol. 2. Infection of right knee incision: Doxycycline 100mg PO BID thru 01/25/22. Blood cultures from hospitalization did not grow any bacterial species per chart review. Please continue to monitor for resolution of infection, N/V/D. 3. DVT Prophylaxis Post-Op: Xarelto 10mg PO Daily thru 01/27/22. Please continue to monitor for S/S bleeding/bruising, H/H, S/S blood clot formation. 4. HTN: Lopressor 25mg PO Daily, Norvasc 10mg PO Daily. Please continue to monitor BP (last 147/64), pulse (last 94 BPM), S/S dizziness, swelling of the extremities, flushing/sweating. 5. HLD/ Hypertriglyceridemia: Pravastatin 80mg PO QHS, Niacin 500mg PO Daily. Please continue to monitor lipid panel annually or sooner if clinically indicated. Of note, the patient does not have a lipid panel on file per EMR chart review. If appropriate, consider getting baseline lipid panel, thank you. 6. GERD: Protonix 40mg PO Daily. Please continue to monitor for GERD exacerbations. May also encourage non-pharmacologic treatments to help minimize GERD flare-ups. 7. Hypokalemia: KCl 10mEq PO Daily. Please continue to monitor potassium levels (last K 3.5 on 01/24), stomach upset, nausea/vomiting. 8. General Wellness: Cholecalciferol 25mcg PO daily, MVI with minerals 1 tab PO Daily. Please continue to monitor. Psychotropic Medications: None Unnecessary Medications: None Bowel Regimen: Miralax 17g PO daily, Senna/Docusate 2 tab PO BID, Dulcolax 10mg PO Daily PRN. Please continue to monitor for increased/decreased constipation and/or diarrhea. -The patient has taken all scheduled doses and has required 0 PRN medication doses. Date of Note:: 01/25/22
--- NOTE | 2022-01-25 17:01 | CHAPLAIN ---
Type of Pastoral Visit _x__ Initial Visit ___ Follow-up Visit ___ On-call Visit ___ General Patient Visit ___ Spiritual Assessment ___ Family Conference ___ Bereavement ___ Rapid Response ___ Code Blue ___ Other (describe below) Pastoral Care Referral From _x__ Patient _x__ Family ___ Nurse ___ Physician ___ Canned Food Reconditioning Inspector ___ Health Information Administrator ___ Other (describe below) Sacrament/Intervention _x__ Active listening ___ Anointing ___ Restorationist ___ Bereavement ___ Communion ___ Sagrario exploration ___ _x__ Life review _x__ Prayer ___ Reconciliation ___ Sacrament of Sick _x__ Supportive presence ___ Wedding ___ Other (describe below) Pastoral Comments patient and spouse were met when pt was in PCU; pt shows some frustration at being slow to regain strength and to be in rehab situation; but as conversation continues the pt is more open and talkative about his life and 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
[2022-01-25] MEDS: Pravastatin 80 MG Tablet PO (21:31)
[2022-01-25] MEDS: Acetaminophen 500 MG Tablet 1000 MG PO (21:39)
[2022-01-25] MEDS: morphine (oral solution) 10MG/0.5ML Syringe 10 MG PO (23:59)
[2022-01-26] MEDS: amLODIPine 10 MG Tablet PO (06:51)
[2022-01-26] MEDS: Pantoprazole Sodium 40 MG Tablet PO (06:51)
[2022-01-26] MEDS: Umeclidinium Brm/Vilanterol 62.5-25 mcg Inh 1 PUFF INHALATION (06:51)
[2022-01-26] MEDS: Cholecalciferol (VIT D3) 25 MCG TABLET (1,000 UNITS) PO (06:51)
[2022-01-26 06:52] VITALS: BP 137/56; PULSE 75
[2022-01-26] MEDS: Rivaroxaban 10 MG Tablet PO (06:52)
[2022-01-26] MEDS: Senna/Docusate Sodium 1 Tablet 2 TABLET PO (06:52)
[2022-01-26] MEDS: Metoprolol Tartrate 25 MG Tablet PO (06:52)
[2022-01-26] MEDS: Polyethylene Glycol 3350 17 GM PACKET PO (06:52)
[2022-01-26] MEDS: Potassium Chloride Oral Tablet 10 MEQ PO (08:14)
[2022-01-26] MEDS: Multivitamins,Ther W-Minerals Tablet 1 TABLET PO (08:14)
[2022-01-26 09:35] VITALS: PULSE 72; RESP 18; O2SAT 96
--- NOTE | 2022-01-26 10:11 | NURSING ---
PT RIGHT KNEE/SIDE OF KNEE CLEANED AND DRESSING CHANGED TO KNEE / RIGHT SIDE OF KNEE . KNEE HAS REDNESS AND WARM WITH MODERATE DRAINAGE,30 FATOU IN TACK. MAYORGA 4 FATOU IN TACK AND RED LINE,HAD RN LOOK AT IT. ABOVE KNEE 4 FATOU IN TACK. PT TOLERATED WELL.
[2022-01-26 11:32] VITALS: O2SAT 96
[2022-01-26 14:00] VITALS: O2SAT 96
[2022-01-26 14:16] VITALS: BP 165/68; PULSE 64; RESP 18; TEMP 37; O2SAT 96
[2022-01-26] MEDS: Cephalexin 500 MG Capsule PO (18:11)
[2022-01-26] MEDS: Smz/Tmp Ds Tablet 1 TABLET PO (18:11)
[2022-01-26] MEDS: Pravastatin 80 MG Tablet PO (22:42)
[2022-01-27] MEDS: Acetaminophen 500 MG Tablet 1000 MG PO ×3 (00:45→20:10)
[2022-01-27] MEDS: oxyCODONE 5 MG Tablet PO ×2 (00:45→20:09)
[2022-01-27] MEDS: Polyethylene Glycol 3350 17 GM PACKET PO (06:26)
[2022-01-27 06:27] VITALS: BP 129/72; PULSE 74
[2022-01-27] MEDS: amLODIPine 10 MG Tablet PO (06:27)
[2022-01-27] MEDS: Cephalexin 500 MG Capsule PO (06:27)
[2022-01-27] MEDS: Senna/Docusate Sodium 1 Tablet 2 TABLET PO ×2 (06:27→17:37)
[2022-01-27] MEDS: Pantoprazole Sodium 40 MG Tablet PO (06:27)
[2022-01-27] MEDS: Metoprolol Tartrate 25 MG Tablet PO (06:27)
[2022-01-27] MEDS: Cholecalciferol (VIT D3) 25 MCG TABLET (1,000 UNITS) PO (06:28)
[2022-01-27] MEDS: Rivaroxaban 10 MG Tablet PO (06:28)
[2022-01-27] MEDS: Umeclidinium Brm/Vilanterol 62.5-25 mcg Inh 1 PUFF INHALATION (06:30)
[2022-01-27] MEDS: Potassium Chloride Oral Tablet 10 MEQ PO (07:55)
[2022-01-27] MEDS: Multivitamins,Ther W-Minerals Tablet 1 TABLET PO (07:55)
--- NOTE | 2022-01-27 09:33 | PCA ---
Patient did not want to get washed up on 01/26 by AM staff. He said he was waiting for his to do it
--- NOTE | 2022-01-27 09:54 | CASEMGMT ---
Social Work IDT met with patient, , son and dtr for care plan meeting. Discussed patient's progress in PT/OT and nursing. Pt refused ST. Explained [employer] insurance with NRD 01/29 and continued stay is not guaranteed. The goal is for pt to return home with at [facility]. Pt must be independent to return as cannot physically assist. pt also has 14 steps to get to bed/bath with one handrail. SW to continue to follow for DC planning. Sarah Franco, ABSORPTION AND ADSORPTION ENGINEER VISUAL MERCHANDISE MANAGER
--- NOTE | 2022-01-27 10:08 | WOUNDNOTE ---
wound photo: right lateral knee
--- NOTE | 2022-01-27 10:09 | WOUNDNOTE ---
wound photo: right knee
[2022-01-27 15:05] VITALS: O2SAT 96
[2022-01-27 15:29] VITALS: BP 139/70; PULSE 72; RESP 16; TEMP 36.7; O2SAT 97
[2022-01-27] MEDS: Pravastatin 80 MG Tablet PO (20:08)
[2022-01-27] MEDS: morphine (oral solution) 10MG/0.5ML Syringe 10 MG PO (22:28)
[2022-01-28] MEDS: Umeclidinium Brm/Vilanterol 62.5-25 mcg Inh 1 PUFF INHALATION (06:01)
[2022-01-28] MEDS: Polyethylene Glycol 3350 17 GM PACKET PO (06:01)
[2022-01-28 06:02] VITALS: BP 164/77; PULSE 71
[2022-01-28] MEDS: Pantoprazole Sodium 40 MG Tablet PO (06:02)
[2022-01-28] MEDS: amLODIPine 10 MG Tablet PO (06:02)
[2022-01-28] MEDS: Metoprolol Tartrate 25 MG Tablet PO (06:02)
[2022-01-28] MEDS: Cholecalciferol (VIT D3) 25 MCG TABLET (1,000 UNITS) PO (06:02)
[2022-01-28] MEDS: Senna/Docusate Sodium 1 Tablet 2 TABLET PO (06:02)
[2022-01-28 06:46] VITALS: O2SAT 97
[2022-01-28] MEDS: Multivitamins,Ther W-Minerals Tablet 1 TABLET PO (07:51)
[2022-01-28] MEDS: Potassium Chloride Oral Tablet 10 MEQ PO (07:51)
--- NOTE | 2022-01-28 10:57 | NURSING ---
28 bruce removed from right knee today. Pt tolerated well, area is scabbed over, no active drainage and is well approximated.
[2022-01-28 16:00] VITALS: BP 143/71; PULSE 72; RESP 16; TEMP 36.7; O2SAT 95
[2022-01-28] MEDS: Acetaminophen 500 MG Tablet 1000 MG PO (16:46)
--- NOTE | 2022-01-28 16:49 | NURSING ---
Pt and complaining that pt is having diarrhea. Dr. Nance updated and N.O. to decrease senna to 1 tab BID. Stool softners held this evening
[2022-01-28] MEDS: Pravastatin 80 MG Tablet PO (20:47)
[2022-01-28] MEDS: morphine (oral solution) 10MG/0.5ML Syringe 10 MG PO (22:47)
[2022-01-29] MEDS: Umeclidinium Brm/Vilanterol 62.5-25 mcg Inh 1 PUFF INHALATION (06:46)
[2022-01-29] MEDS: amLODIPine 10 MG Tablet PO (06:47)
[2022-01-29] MEDS: Pantoprazole Sodium 40 MG Tablet PO (06:47)
[2022-01-29] MEDS: Cholecalciferol (VIT D3) 25 MCG TABLET (1,000 UNITS) PO (06:47)
[2022-01-29 06:49] VITALS: BP 150/62; PULSE 72
[2022-01-29] MEDS: Metoprolol Tartrate 25 MG Tablet PO (06:49)
[2022-01-29 07:04] VITALS: O2SAT 94
[2022-01-29] MEDS: Multivitamins,Ther W-Minerals Tablet 1 TABLET PO (08:51)
[2022-01-29] MEDS: Potassium Chloride Oral Tablet 10 MEQ PO (08:51)
--- NOTE | 2022-01-29 14:16 | CASEMGMT ---
Social Work BIMS and PHQ-9 completed for MDS assessment. Updated pt insurance NRD 02/05 and may issue DC date. Left message with son updating of NRD 02/05 and may issue DC date; offered therapy family training to ensure pt will be safe to return home, or SW to assist with alternative DC plans. Sarah Franco, PROPERTY ASSISTANT SUPERVISOR BINDERY
--- NOTE | 2022-01-29 14:26 | MDS.RN ---
Completed MDS pain interview for OLEG 01/30/22
[2022-01-29 14:34] VITALS: BP 158/52; PULSE 68; RESP 16; TEMP 37; O2SAT 95
[2022-01-29 19:54] VITALS: PULSE 69; RESP 16; O2SAT 98
[2022-01-29] MEDS: Pravastatin 80 MG Tablet PO (20:22)
[2022-01-29] MEDS: oxyCODONE 5 MG Tablet PO (20:22)
[2022-01-29] MEDS: morphine (oral solution) 10MG/0.5ML Syringe 10 MG PO (22:58)
[2022-01-30 06:21] VITALS: BP 158/64; PULSE 65
[2022-01-30] MEDS: Umeclidinium Brm/Vilanterol 62.5-25 mcg Inh 1 PUFF INHALATION (06:21)
[2022-01-30] MEDS: Metoprolol Tartrate 25 MG Tablet PO (06:21)
[2022-01-30] MEDS: Pantoprazole Sodium 40 MG Tablet PO (06:21)
[2022-01-30] MEDS: Cholecalciferol (VIT D3) 25 MCG TABLET (1,000 UNITS) PO (06:21)
[2022-01-30] MEDS: amLODIPine 10 MG Tablet PO (06:21)
[2022-01-30] MEDS: Potassium Chloride Oral Tablet 10 MEQ PO (08:57)
[2022-01-30] MEDS: Multivitamins,Ther W-Minerals Tablet 1 TABLET PO (08:58)
[2022-01-30 14:12] VITALS: BP 143/56; PULSE 71; RESP 18; TEMP 36.3; O2SAT 97
[2022-01-30] MEDS: oxyCODONE 5 MG Tablet PO (18:13)
[2022-01-30] MEDS: Pravastatin 80 MG Tablet PO (21:24)
[2022-01-30] MEDS: morphine (oral solution) 10MG/0.5ML Syringe 10 MG PO (21:31)
[2022-01-31] MEDS: Cholecalciferol (VIT D3) 25 MCG TABLET (1,000 UNITS) PO (06:18)
[2022-01-31 06:19] VITALS: PULSE 67
[2022-01-31] MEDS: Pantoprazole Sodium 40 MG Tablet PO (06:19)
[2022-01-31] MEDS: amLODIPine 10 MG Tablet PO (06:19)
[2022-01-31] MEDS: Metoprolol Tartrate 25 MG Tablet PO (06:19)
[2022-01-31] MEDS: Umeclidinium Brm/Vilanterol 62.5-25 mcg Inh 1 PUFF INHALATION (06:22)
[2022-01-31 06:47] LABS: Absolute Lymphocyte Count 1.74 X10^3/uL (0.83-4.51); Absolute Neutrophil Count 5.6 X10^3/uL (2.0-7.7); Basophil# 0.04 X10^3/uL; Basophil% 0.5 % (0-1); Eosinophil# 0.15 X10^3/uL; Eosinophils% 1.8 % (0-5); Hemoglobin 8.4 g/dL (13.0-16.5); Lymphocyte # 1.74 X10^3/ul (0.83-4.51); Lymphocyte % 21.1 % (19-41); Mean Corp Hgb Conc 32.3 g/dL (32-36); Mean Corpuscular Hgb 32.8 pg (27.0-32.0); Mean Corpuscular Volume 101.6 fL (80-94); Mean Platelet Vol. 10.3 fl (6.2-12.0); Monocyte# 0.73 X10^3/uL; Monocyte% 8.8 % (0-10); NRBC Flagged by Analyzer 0 % (0-5); Neutrophil # 5.58 X10^3/uL (2.7-7.7); Neutrophil % 67.6 % (47-70); Platelet Count 292 K/mm3 (150-450); RBC Distribution Width CV 15.4 % (11.6-14.6); RBC Distribution Width SD 57.5 fl (35.1-43.9); Red Blood Count 2.56 M/mm3 (4.6-6.2); White Blood Count 8.3 K/mm3 (4.4-11.0)
[2022-01-31 07:14] LABS: Anion Gap 4 (5-15); BUN 21 mg/dL (7-18); BUN/Creat Ratio 20.4 RATIO (10-20); Calcium,Total 8.8 mg/dL (8.5-10.1); Chloride 108 mmol/L (98-107); Creatinine, Serum 1.03 mg/dL (0.70-1.30); EST Glomerular Filtration Rate 74 mL/min (>60); Est Glom Filt Rate - Afr Amer 89 mL/min (>60); Estimated Creatinine Clearance 47.63 ml/min; Glucose 111 mg/dL (74-106); Potassium 3.8 mmol/L (3.5-5.1); Sodium Level 138 mmol/L (136-145)
[2022-01-31] MEDS: Multivitamins,Ther W-Minerals Tablet 1 TABLET PO (08:23)
[2022-01-31] MEDS: Potassium Chloride Oral Tablet 10 MEQ PO (08:23)
[2022-01-31] MEDS: Tuberculin,Purif.prot.deriv. 50 TU/ML Vial 0.1 ML ID (12:36)
[2022-01-31 12:43] VITALS: PULSE 67; RESP 18; O2SAT 93
[2022-01-31] MEDS: oxyCODONE 5 MG Tablet PO (12:54)
[2022-01-31] MEDS: Iron Polysaccharide Complex 150 MG CAPSULE PO (13:02)
[2022-01-31 14:28] VITALS: BP 129/58; PULSE 68; RESP 18; TEMP 36.3; O2SAT 95
[2022-01-31] MEDS: morphine (oral solution) 10MG/0.5ML Syringe 10 MG PO (20:11)
[2022-01-31] MEDS: Pravastatin 80 MG Tablet PO (20:43)
[2022-02-01] MEDS: oxyCODONE 5 MG Tablet PO ×3 (00:35→20:53)
[2022-02-01 05:56] VITALS: PULSE 68
[2022-02-01] MEDS: Metoprolol Tartrate 25 MG Tablet PO (05:56)
[2022-02-01] MEDS: Umeclidinium Brm/Vilanterol 62.5-25 mcg Inh 1 PUFF INHALATION (05:56)
[2022-02-01] MEDS: amLODIPine 10 MG Tablet PO (05:57)
[2022-02-01] MEDS: Pantoprazole Sodium 40 MG Tablet PO (05:57)
[2022-02-01] MEDS: Cholecalciferol (VIT D3) 25 MCG TABLET (1,000 UNITS) PO (05:57)
[2022-02-01] MEDS: Iron Polysaccharide Complex 150 MG CAPSULE PO (09:15)
[2022-02-01] MEDS: Potassium Chloride Oral Tablet 10 MEQ PO (09:15)
[2022-02-01] MEDS: Multivitamins,Ther W-Minerals Tablet 1 TABLET PO (09:15)
[2022-02-01] MEDS: Acetaminophen 500 MG Tablet 1000 MG PO (09:16)
[2022-02-01 15:07] VITALS: BP 140/59; PULSE 63; RESP 16; TEMP 36.3; O2SAT 95
[2022-02-01 20:19] VITALS: PULSE 86; RESP 16; O2SAT 95
[2022-02-01] MEDS: Pravastatin 80 MG Tablet PO (20:53)
[2022-02-01] MEDS: morphine (oral solution) 10MG/0.5ML Syringe 10 MG PO (23:53)
[2022-02-02 06:12] VITALS: BP 148/58; PULSE 71
[2022-02-02] MEDS: Cholecalciferol (VIT D3) 25 MCG TABLET (1,000 UNITS) PO (06:12)
[2022-02-02] MEDS: Pantoprazole Sodium 40 MG Tablet PO (06:12)
[2022-02-02] MEDS: Metoprolol Tartrate 25 MG Tablet PO (06:12)
[2022-02-02] MEDS: Umeclidinium Brm/Vilanterol 62.5-25 mcg Inh 1 PUFF INHALATION (06:12)
[2022-02-02] MEDS: amLODIPine 10 MG Tablet PO (06:12)
[2022-02-02] MEDS: Multivitamins,Ther W-Minerals Tablet 1 TABLET PO (08:21)
[2022-02-02] MEDS: Iron Polysaccharide Complex 150 MG CAPSULE PO (08:21)
[2022-02-02] MEDS: Potassium Chloride Oral Tablet 10 MEQ PO (08:21)
[2022-02-02 09:35] VITALS: O2SAT 95
[2022-02-02 16:00] VITALS: BP 148/62; PULSE 83; RESP 18; TEMP 36.5; O2SAT 96
[2022-02-02] MEDS: oxyCODONE 5 MG Tablet PO (20:38)
[2022-02-02] MEDS: Pravastatin 80 MG Tablet PO (20:38)
[2022-02-02] MEDS: morphine (oral solution) 10MG/0.5ML Syringe 10 MG PO (23:51)
[2022-02-03 06:30] VITALS: BP 150/69; PULSE 75
[2022-02-03] MEDS: amLODIPine 10 MG Tablet PO (06:30)
[2022-02-03] MEDS: Pantoprazole Sodium 40 MG Tablet PO (06:30)
[2022-02-03] MEDS: Cholecalciferol (VIT D3) 25 MCG TABLET (1,000 UNITS) PO (06:30)
[2022-02-03] MEDS: Umeclidinium Brm/Vilanterol 62.5-25 mcg Inh 1 PUFF INHALATION (06:30)
[2022-02-03] MEDS: Metoprolol Tartrate 25 MG Tablet PO (06:30)
[2022-02-03] MEDS: Potassium Chloride Oral Tablet 10 MEQ PO (08:52)
[2022-02-03] MEDS: Iron Polysaccharide Complex 150 MG CAPSULE PO (08:52)
[2022-02-03] MEDS: Multivitamins,Ther W-Minerals Tablet 1 TABLET PO (08:52)
--- NOTE | 2022-02-03 12:06 | CASEMGMT ---
Social Work Met with patient and per request to DC home. IDT agreeable to DC 02/05. Pt and agreeable. Pt requesting outpatient PT at [facility]. can transport. No DME needs. Plan: DC home with 02/05, [facility] PT Sarah Franco, HEAVY EQUIPMENT SUPERVISOR WIRELESS ENGINEER
[2022-02-03] MEDS: oxyCODONE 5 MG Tablet PO ×2 (14:30→22:41)
[2022-02-03 15:43] VITALS: BP 150/75; PULSE 84; RESP 20; TEMP 36; O2SAT 90
[2022-02-03] MEDS: morphine (oral solution) 10MG/0.5ML Syringe 10 MG PO (16:28)
[2022-02-03] MEDS: Pravastatin 80 MG Tablet PO (19:44)
--- NOTE | 2022-02-03 20:46 | PCM.DC.SUM ---
Providers Date of Admission: 01/23/22 Primary Care Physician: SHEILA Rivera Reason For Visit: HYPONTREMIA, TACHACARDYIA, FAILURE TO THRIVE Diagnosis Discharge Diagnosis (1) Debility: Status: Acute Code(s): R53.81 - Other malaise (2) Weakness: Status: Acute Code(s): R53.1 - Weakness (3) Hypokalemia: Status: Acute Code(s): E87.6 - Hypokalemia (4) Hyponatremia: Status: Acute Code(s): E87.1 - Hypo-osmolality and hyponatremia (5) Acute kidney injury: Status: Acute Code(s): N17.9 - Acute kidney failure, unspecified (6) Chronic obstructive pulmonary disease: Status: Chronic Code(s): J44.9 - Chronic obstructive pulmonary disease, unspecified (7) Anemia: Status: Acute Code(s): D64.9 - Anemia, unspecified (8) Peripheral vascular disease: Status: Acute Code(s): I73.9 - Peripheral vascular disease, unspecified (9) Hypertension: Status: Chronic Code(s): I10 - Essential (primary) hypertension (10) Hyperlipidemia: Status: Acute Code(s): E78.5 - Hyperlipidemia, unspecified (11) Vitamin D deficiency: Status: Acute Code(s): E55.9 - Vitamin D deficiency, unspecified (12) Gastroesophageal reflux disease: Status: Acute Code(s): K21.9 - Gastro-esophageal reflux disease without esophagitis Medications at Discharge Home Medications Multivitamins,Ther W-Minerals [Multivitamin With Minerals (BKC)] 1 tab PO BREAKFAST #0 02/03/22 acetaminophen 1,000 mg PO Q6H PRN PRN #0 tab 02/03/22 amlodipine 10 mg PO DAILY #0 tab 02/03/22 cholecalciferol (vitamin D3) 25 mcg PO DAILY #0 tab 02/03/22 metoprolol tartrate 25 mg PO DAILY #0 tab 02/03/22 morphine concentrate 10 mg PO BID PRN PRN #0 ea 02/03/22 niacin 1,000 mg PO QHS #0 tab 02/03/22 oxycodone 5 mg PO Q4H PRN PRN 7 Days #42 tab 02/03/22 pantoprazole 40 mg PO DAILY 30 Days #30 tab 02/03/22 polysaccharide iron complex [Ferrex 150] 150 mg PO DAILYCM 30 Days #30 cap 02/03/22 potassium chloride 10 meq PO DAILYCM #0 tab 02/03/22 pravastatin 80 mg PO QHS #0 tab 02/03/22 umeclidinium-vilanterol [Anoro Ellipta] 1 ea INHALATION DAILY #0 ea 02/03/22 Hospital Course Operations None Procedures None Summary of Care Provided Minutes Spent on Discharge: 35 Hospital Course: 81 year old male with below past medical history hospitalized for weakness secondary to hyponatremia, hypokalemia, acute kidney injury, wound infection, admitted to TCU with debility, here for rehabilitation, strengthening, prior to discharge home with . Discharge home with 02/05/2022, [facility]. Physical Exam Const alert General Appearance: cooperative HEENT normocephalic Eyes PERRL and EOMs intact bilaterally Neck supple, no JVD and no carotid bruits Resp normal respiratory effort, normal air movement and clear to auscultation bilaterally Cardio regular rate and regular rhythm GI normal to inspection, nondistended, normoactive bowel sounds, non-tender and non-distended Extremity normal capillary refill General Extremity: Negative for edema Skin no rashes or lesions noted General Skin Exam: no breakdown Psych affect normal Appearance: appropriate Weight / BMI Weight Weight: 57.323 kg Body Mass Index (BMI) 20.3 ABG / Lab / Microbiology Data Result Diagrams: 01/31/22 06:22 01/31/22 06:22 Microbiology: Microbiology 01/29/22 09:55 Nasal Secretion SARS-CoV-2 Antigen (Rapid) - Final 01/26/22 18:20 Wound - Knee Gram Stain - Final 01/26/22 18:20 Wound - Knee Wound Culture - Final No growth aerobically. 01/24/22 13:30 Nasal Secretion SARS-CoV-2 Antigen (Rapid) - Final D/C Instructions Discharge Diet: No restrictions Discharge Activity: Return to Normal Activity, May Shower and Use Walker Weight Bearing Status: Weight bearing as tolerated Call your doctor if you observe: Fever of 101 or Higher, Inability to urinate, Inability to have a bowel movement, Shortness of breath, Dizziness, Fainting spells, Swelling in the ankles, Chest pain and Uncontrolled pain Additional Instructions: Discharge home with 02/05/2022, [facility] PT. Meaningful Use Info Meaningful Use Diagnoses (Choose all that apply): None applicable Discharge Plan Admission Admit Date/Time: 01/23/22 19:42 Primary Reason for Your Visit: Debility. Attending Provider: Yogesh Nance Chi Primary Care Provider: Rona Barnett NP Instructions Additional Instructions / Restrictions: Discharge home with 02/05/2022, [facility] PT. Discharge Orders/Prescriptions Prescriptions: New acetaminophen 500 mg Tablet 1,000 mg PO Q6H PRN PRN (Reason: Pain Score 1-10) Qty: 0 RF: 0 amlodipine 10 mg Tablet 10 mg PO DAILY Qty: 0 RF: 0 cholecalciferol (vitamin D3) 25 mcg (1,000 unit) Tablet 25 mcg PO DAILY Qty: 0 RF: 0 polysaccharide iron complex [Ferrex 150] 150 mg iron Capsule 150 mg PO DAILYCM 30 Days Qty: 30 RF: 0 metoprolol tartrate 25 mg Tablet 25 mg PO DAILY Qty: 0 RF: 0 morphine concentrate 10 mg/0.5 mL Syringe 10 mg PO BID PRN PRN (Reason: Pain Score 6-10) Qty: 0 RF: 0 niacin 1,000 mg Tablet Extended Release 1,000 mg PO QHS Qty: 0 RF: 0 Multivitamins,Ther W-Minerals [Multivitamin With Minerals (Bkc)] 1 tab PO BREAKFAST Qty: 0 RF: 0 pravastatin 80 mg Tablet 80 mg PO QHS Qty: 0 RF: 0 pantoprazole 40 mg Tablet,Delayed Release (Dr/Ec) 40 mg PO DAILY 30 Days Qty: 30 RF: 0 oxycodone 5 mg Tablet 5 mg PO Q4H PRN PRN (Reason: pain 4-5) 7 Days Qty: 42 RF: 0 potassium chloride 10 mEq Tablet,Er Particles/Crystals 10 meq PO DAILYCM Qty: 0 RF: 0 Anoro Ellipta 62.5-25 mcg/actuation Blister With Device 1 ea inhalation DAILY Qty: 0 RF: 0 Discontinued pravastatin 80 MG tablet 80 mg PO DAILY RF: 0 metoprolol tartrate 25 MG tablet 25 mg PO DAILY RF: 0 niacinamide [Niacin (niacinamide)] 500 MG tablet 1,000 mg PO DAILY RF: 0 multivitamin with folic acid [Thera] 1 TABLET tablet 1 tab PO DAILY RF: 0 amlodipine 10 mg tablet 10 mg PO DAILY RF: 0 acetaminophen 650 mg Tablet 650 mg PO TID PRN PRN (Reason: Pain) RF: 0 ergocalciferol (vitamin D2) 1,000 unit Capsule 1,000 unit PO DAILY RF: 0 pantoprazole [Protonix] 40 mg tablet,delayed release (DR/EC) 20 mg PO DAILY RF: 0 oxycodone 5 mg Tablet 5 - 10 mg PO Q4H PRN PRN (Reason: Pain Score 4-10) 5 Days Qty: 60 RF: 0 furosemide 40 mg tablet 20 mg PO DAILY RF: 0 Hold Instructions: Resume on 02/06/22. Follow up with PCP and repeat BMP prior to resuming. potassium chloride 10 mEq capsule, extended release 10 meq PO DAILY RF: 0 morphine 15 mg tablet extended release 15 mg PO BID PRN (Reason: Pain, Severe) RF: 0 Anoro Ellipta 62.5-25 mcg/actuation blister with device 1 inh INHALATION DAILY RF: 0 sennosides-docusate sodium [Stool Softener-Stimulant Laxat] 8.6-50 mg tablet 2 tab PO BID RF: 0 Ensure Clear Liquid 120 ml PO 4X/DAY Qty: 0 RF: 0 Xarelto 10 mg Tablet 10 mg PO DAILY@0600 11 Days Qty: 11 RF: 0 doxycycline monohydrate 100 mg capsule 100 mg PO BID Qty: 0 RF: 0 Referrals / Follow Up: Yogesh Nance Chi, MD [COURTESY STAFF PHYSICIAN] - Within 1 Week Disposition Disposition (needs filled in before D/C Order can be placed): Home, Self Care
[2022-02-03] MEDS: Acetaminophen 500 MG Tablet 1000 MG PO (22:42)
[2022-02-04 06:25] VITALS: BP 158/64; PULSE 70
[2022-02-04] MEDS: Pantoprazole Sodium 40 MG Tablet PO (06:25)
[2022-02-04] MEDS: Umeclidinium Brm/Vilanterol 62.5-25 mcg Inh 1 PUFF INHALATION (06:25)
[2022-02-04] MEDS: Metoprolol Tartrate 25 MG Tablet PO (06:25)
[2022-02-04] MEDS: amLODIPine 10 MG Tablet PO (06:25)
[2022-02-04] MEDS: Cholecalciferol (VIT D3) 25 MCG TABLET (1,000 UNITS) PO (06:25)
[2022-02-04] MEDS: Polyethylene Glycol 3350 17 GM PACKET PO (06:29)
[2022-02-04 07:02] VITALS: O2SAT 96
[2022-02-04] MEDS: Potassium Chloride Oral Tablet 10 MEQ PO (07:34)
[2022-02-04] MEDS: Iron Polysaccharide Complex 150 MG CAPSULE PO (07:34)
[2022-02-04] MEDS: Multivitamins,Ther W-Minerals Tablet 1 TABLET PO (07:34)
--- NOTE | 2022-02-04 10:36 | CASEMGMT ---
Social Work BIMS and PHQ-9 completed for MDS assessment. Sarah Franco, RAILROAD SIGNAL AND SWITCH OPERATOR OIL LEASE BROKER
[2022-02-04 13:51] VITALS: BP 125/60; PULSE 68; RESP 16; TEMP 36.6; O2SAT 96
--- NOTE | 2022-02-04 15:46 | MDS.RN ---
Information for the mds was obtained from review of the clinical record, interview of resident, staff, and direct observation of resident's care.
--- NOTE | 2022-02-04 15:47 | MDS.RN ---
Pain interview for OLEG 02/05/22 completed.
[2022-02-04] MEDS: Pravastatin 80 MG Tablet PO (20:52)
[2022-02-04] MEDS: oxyCODONE 5 MG Tablet PO (20:53)
[2022-02-04] MEDS: Acetaminophen 500 MG Tablet 1000 MG PO (20:53)
[2022-02-05] MEDS: morphine (oral solution) 10MG/0.5ML Syringe 10 MG PO (01:45)
[2022-02-05] MEDS: Umeclidinium Brm/Vilanterol 62.5-25 mcg Inh 1 PUFF INHALATION (06:40)
[2022-02-05 06:41] VITALS: BP 146/60; PULSE 68
[2022-02-05] MEDS: amLODIPine 10 MG Tablet PO (06:41)
[2022-02-05] MEDS: Polyethylene Glycol 3350 17 GM PACKET PO (06:41)
[2022-02-05] MEDS: Pantoprazole Sodium 40 MG Tablet PO (06:41)
[2022-02-05] MEDS: Metoprolol Tartrate 25 MG Tablet PO (06:41)
[2022-02-05] MEDS: Acetaminophen 500 MG Tablet 1000 MG PO (06:41)
[2022-02-05] MEDS: Cholecalciferol (VIT D3) 25 MCG TABLET (1,000 UNITS) PO (06:41)
[2022-02-05] MEDS: oxyCODONE 5 MG Tablet PO (06:42)
[2022-02-05 07:15] VITALS: O2SAT 93
[2022-02-05] MEDS: Multivitamins,Ther W-Minerals Tablet 1 TABLET PO (08:02)
[2022-02-05] MEDS: Potassium Chloride Oral Tablet 10 MEQ PO (08:03)
[2022-02-05] MEDS: Iron Polysaccharide Complex 150 MG CAPSULE PO (08:03)
[2022-02-05 09:50] VITALS: PULSE 75; RESP 18; O2SAT 96
[2022-02-05 10:07] VITALS: BP 146/90; PULSE 64; RESP 18; TEMP 36.4; O2SAT 96
== END 2022-02-05 11:00 | disposition home or self-care (01) | DRG 949 ==
PROVIDERS: Admitting Provider Family Medicine Geriatric Medicine; PCP Nurse Practitioner; Visit Provider Family Medicine Geriatric Medicine
DX: T84.53XD Infection and inflammatory reaction due to internal right knee prosthesis, subsequent encounter (principal); E87.1 Hypo-osmolality and hyponatremia; Z99.81 Dependence on supplemental oxygen; J44.9 Chronic obstructive pulmonary disease, unspecified; I73.9 Peripheral vascular disease, unspecified; E78.5 Hyperlipidemia, unspecified; E55.9 Vitamin D deficiency, unspecified; I10 Essential (primary) hypertension; K21.9 Gastro-esophageal reflux disease without esophagitis; E87.6 Hypokalemia; Z79.01 Long term (current) use of anticoagulants; Z87.891 Personal history of nicotine dependence; Y83.1 Surgical operation with implant of artificial internal device as the cause of abnormal reaction of the patient, or of later complication, without mention of misadventure at the time of the procedure; Z79.899 Other long term (current) drug therapy
CPT/HCPCS: 36415; 80048; 85025; 87070; 87205; 87426; 87811; 92523; 97110; 97116; 97161; 97166; 97530; 97535; 97802

== ENCOUNTER 2022-02-11 15:22 | Inpatient (IN) | payer MEDICARE, SELFPAY ==
[2022-02-11 15:16] VITALS: BMI 19.3
[2022-02-11 15:37] VITALS: BP 172/64; PULSE 65; RESP 18; TEMP 36.9; O2SAT 100
[2022-02-11] MEDS: Lactated Ringers 1,000 ML 90 ML IV (17:05)
--- NOTE | 2022-02-11 17:14 | PCM.PN.HOSP ---
Subjective Subjective 81-year-old male presents to the hospital with an infected right knee after surgery. He presented to his surgeon's office and he thought that there is a sinus track he developed a blister after removing the tape for the bandage which seems to got infected and created a sinus tract into the joint. Plan for surgery tomorrow. Patient refuses SNF placement at the end of this day Objective Data Objective Data Vital Signs: Vital Signs Temp Pulse Resp BP Pulse Ox 98.4 F 65 18 172/64 H 100 02/11/22 15:37 02/11/22 15:37 02/11/22 15:37 02/11/22 15:37 02/11/22 15:37 Oxygen Flow Rate (L/min) 3 Oxygen Delivery Method Room Air Weight: 123 lb 11.2 oz Body Mass Index (BMI) 19.3 Physical Exam Const alert, oriented x3 and no apparent distress General Appearance: cooperative HEENT normocephalic and moist oral mucous membranes Eyes PERRL, EOMs intact bilaterally and conjunctivae normal Neck supple and no JVD Resp normal respiratory effort, no retractions, no use of accessory muscles and clear to auscultation bilaterally Auscultation: Negative for crackles, rales, rhonchi or wheezes Cardio regular rate, regular rhythm, S1 normal heart sound, S2 normal heart sound and no murmurs GI soft to palpation, non-tender and non-distended; Negative for hepatosplenomegaly Extremity Extremity Narrative: Right knee is currently wrapped slightly tender Skin no rashes or lesions noted Neuro no focal motor deficits and no sensory deficits noted Psych affect normal Appearance: appropriate Assessment & Plan Assessment/Plan (1) Infection of right knee: PLAN: 1. Right knee infection in the setting of recent knee replacement on same side ?Consult ID for antibiotic regimen ?Continue with OR planned for tomorrow for washout and obtain cultures ?Pain management per primary ?PT/OT ?Gentle IV fluid hydration 2. HTN/HLD/chronic diastolic CHF/right bundle branch block/PVD ?Blood pressures are stable ?Continue with his home medications ?Continue with his statin, he does not appear to be on antiplatelet but he does follow with vascular surgery 3. Chronic hypoxic respiratory failure secondary to COPD ?He maintained his oxygen at home on 3 L nasal cannula which we will continue here DVT: SCDs Charges/Coding Visit Charges Inpatient E&M: 74396 Subs Hosp L2
[2022-02-11] MEDS: oxyCODONE 5 MG Tablet PO ×2 (17:52→22:52)
[2022-02-11] MEDS: Acetaminophen 500 MG Tablet 1000 MG PO (17:52)
[2022-02-11 17:53] VITALS: BP 144/73; PULSE 68; RESP 18; TEMP 36.6; O2SAT 95
[2022-02-11] MEDS: Ipratropium/Albuterol Sulfate 3 ML AMPUL.NEB INHALATION (19:03)
[2022-02-11 19:05] VITALS: PULSE 63; RESP 16; O2SAT 98
[2022-02-11] MEDS: morphine (oral solution) 10MG/0.5ML Syringe 10 MG PO (19:05)
[2022-02-11 20:10] VITALS: BP 157/62; PULSE 64; RESP 18; TEMP 36.9; O2SAT 97
[2022-02-11] MEDS: Pravastatin 80 MG Tablet PO (21:30)
[2022-02-11] MEDS: Cefdinir 300 MG Capsule PO (21:30)
[2022-02-12] VITALS (16 sets, daily range): BP systolic 132–172; BP diastolic 52–85; PULSE 60–89; RESP 16–18; TEMP 36.8–37.4; O2SAT 95–100; BMI 19.3
[2022-02-12] MEDS: Acetaminophen 500 MG Tablet 1000 MG PO (02:22)
[2022-02-12] MEDS: Lactated Ringers 1,000 ML 90 ML IV ×2 (04:03→17:20)
[2022-02-12 05:46] LABS: Absolute Lymphocyte Count 2.46 X10^3/uL (0.83-4.51); Absolute Neutrophil Count 4.4 X10^3/uL (2.0-7.7); Basophil# 0.06 X10^3/uL; Basophil% 0.8 % (0-1); Eosinophil# 0.35 X10^3/uL; Eosinophils% 4.5 % (0-5); Hematocrit 28.8 % (40-54); Hemoglobin 9.3 g/dL (13.0-16.5); Lymphocyte # 2.46 X10^3/ul (0.83-4.51); Lymphocyte % 31.3 % (19-41); Mean Corp Hgb Conc 32.3 g/dL (32-36); Mean Corpuscular Hgb 32.9 pg (27.0-32.0); Mean Corpuscular Volume 101.8 fL (80-94); Mean Platelet Vol. 9.2 fl (6.2-12.0); Monocyte# 0.55 X10^3/uL; NRBC Flagged by Analyzer 0 % (0-5); Neutrophil # 4.42 X10^3/uL (2.7-7.7); Neutrophil % 56.1 % (47-70); Platelet Count 264 K/mm3 (150-450); RBC Distribution Width CV 15.9 % (11.6-14.6); RBC Distribution Width SD 59.1 fl (35.1-43.9); Red Blood Count 2.83 M/mm3 (4.6-6.2); White Blood Count 7.9 K/mm3 (4.4-11.0)
[2022-02-12 06:10] LABS: Anion Gap 3 (5-15); BUN 21 mg/dL (7-18); BUN/Creat Ratio 22.3 RATIO (10-20); Calcium,Total 8.7 mg/dL (8.5-10.1); Chloride 105 mmol/L (98-107); Creatinine, Serum 0.94 mg/dL (0.70-1.30); EST Glomerular Filtration Rate 82 mL/min (>60); Est Glom Filt Rate - Afr Amer 99 mL/min (>60); Estimated Creatinine Clearance 49.74 ml/min; Glucose 92 mg/dL (74-106); Potassium 3.6 mmol/L (3.5-5.1); Sodium Level 137 mmol/L (136-145)
[2022-02-12] MEDS: Ipratropium/Albuterol Sulfate 3 ML AMPUL.NEB INHALATION ×4 (06:50→18:57)
[2022-02-12] MEDS: oxyCODONE 5 MG Tablet PO (07:40)
[2022-02-12] MEDS: Cholecalciferol (VIT D3) 25 MCG TABLET (1,000 UNITS) PO (07:41)
[2022-02-12] MEDS: Pantoprazole Sodium 40 MG Tablet PO (07:41)
[2022-02-12] MEDS: Cefdinir 300 MG Capsule PO (07:41)
[2022-02-12] MEDS: Metoprolol Tartrate 25 MG Tablet PO (07:41)
[2022-02-12] MEDS: Iron Polysaccharide Complex 150 MG CAPSULE PO (07:41)
[2022-02-12] MEDS: amLODIPine 10 MG Tablet PO (07:41)
[2022-02-12] MEDS: Multivitamins,Ther W-Minerals Tablet 1 TABLET PO (07:41)
--- NOTE | 2022-02-12 09:50 | PN.HOSP_ITS ---
Subjective Subjective Patient states he is having continued right knee pain despite just having medications for pain. He has no other complaints or concerns at this time. He was told he is going to the OR this afternoon at 230 unless the schedule gets bumped up. Objective Data Objective Data Vital Signs: Vital Signs Temp Pulse Resp BP Pulse Ox 98.7 F 76 16 154/78 H 95 02/12/22 09:07 02/12/22 09:07 02/12/22 09:07 02/12/22 09:07 02/12/22 09:07 Oxygen Flow Rate (L/min) 3 Oxygen Delivery Method Nasal Cannula Weight: 56.109 kg Body Mass Index (BMI) 19.3 Intake & Output: Intake and Output for Last 24 Hours 02/10/22 02/11/22 02/12/22 23:59 23:59 23:59 Intake Total 300 / 300 987 / 987 Balance 300 / 300 987 / 987 Lab / Micro Data Result Diagrams: 02/12/22 05:15 02/12/22 05:15 Labs: Laboratory Results - last 24 hr 02/12/22 05:15: WBC 7.9, RBC 2.83 L, Hgb 9.3 L, Hct 28.8 L, MCV 101.8 H, MCH 32.9 H, MCHC 32.3, RDW Std Deviation 59.1 H, RDW Coeff of Marya 15.9 H, Plt Count 264, MPV 9.2, Immature Gran % (Auto) 0.300, Neut % (Auto) 56.1, Lymph % (Auto) 31.3, Mobile % (Auto) 7.0, Eos % (Auto) 4.5, Baso % (Auto) 0.8, Absolute Neuts (auto) 4.4, Absolute Lymphs (auto) 2.46, Nucleated RBC % 0 02/12/22 05:15: Sodium 137, Potassium 3.6, Chloride 105, Carbon Dioxide 29.0, Anion Gap 3 L, BUN 21 H, Creatinine 0.94, Estim Creat Clear Calc 49.74, Est GFR (MDRD) Af Amer 99, Est GFR (MDRD) Non-Af 82, BUN/Creatinine Ratio 22.3 H, Glucose 92, Calcium 8.7 Physical Exam Const alert, oriented x3 and no apparent distress Constitutional Narrative: Thin older white male lying in bed, appears nontoxic, currently on 3 L of oxygen which is his baseline, appears frustrated Exam Limitations: no limitations Nutritional Appearance: thin HEENT head/scalp atraumatic and moist oral mucous membranes HEENT Narrative: Dentures in place, Mallampati 2, no thrush Head and Scalp: normocephalic Resp normal respiratory effort, no retractions, no use of accessory muscles and clear to auscultation bilaterally Resp Narrative: Diffusely diminished but clear Auscultation: Negative for crackles, rales, rhonchi or wheezes Cardio regular rate, regular rhythm, S1 normal heart sound, S2 normal heart sound, no murmurs, no rub, no gallops, no clicks and no JVD GI normal to inspection, nondistended, normoactive bowel sounds, soft to palpation, non-tender and non-distended GI Narrative: Scaphoid abdomen Extremity no clubbing, cyanosis or edema Extremity Narrative: Right knee with dressing in place, appears somewhat swollen, tenderness to palpation Peripheral Pulses: Yes pulses 2+ throughout Neuro oriented x3, moves all extremities and no focal motor deficits Neuro Narrative: Decreased movement of right lower extremity secondary to pain at the knee joint but no focal deficits Sensorium / Orientation: awake and alert Speech: speech normal Psych Psych Narrative: Patient seems somewhat agitated Assessment & Plan Assessment/Plan (1) Infection of right knee: (2) Anemia: PLAN: Right knee infection status post TKA on 01/13/2022 -Sinus tract developed from superficial wound -OR today for washout and to obtain cultures -ID consulted for antibiotics -Continue Ancef for now -Continue pain medication and management per primary service -Would recommend bowel regimen and will start as needed Dulcolax -Gentle hydration while n.p.o. -PT/OT -Patient is currently refusing placement at discharge and wants to go home Chronic hypoxic respiratory failure secondary to COPD -Patient is on 3 L of nasal cannula at home -Currently remains on 3 L without any signs of respiratory issues -Continue scheduled DuoNebs -Continue home inhalers Anemia -Continue iron -This appears to be acute as his hemoglobin prior to surgery was normal -Current hemoglobin is stable -Continue to monitor -CBC in a.m. GERD -Continue Protonix CKD stage IIIa -Serum creatinine is stable -Continue to monitor Chronic diastolic heart failure-HFpEF -Patient is currently compensated with no signs of decompensation -Echocardiogram done in 2020 that showed an EF of 55% with stage I wells tolic dysfunction -Patient has been on Lasix previously but this has been held since last hospitalization -Continue to monitor Hyperlipidemia -Continue statin Hypertension -Continue metoprolol -Continue amlodipine Chronic right bundle branch block -No current issues -Suspect related to pulmonary disease History of prostate cancer -No acute issues PVD -Continue statin -Patient follows with vascular surgery -Patient is not on any antiplatelet therapy at baseline DVT prophylaxis -Management per primary service Charges/Coding Visit Charges Inpatient E&M: 73975 Subs Hosp L2
--- NOTE | 2022-02-12 11:25 | CASEMGMT ---
ARASELI PLASCENCIA Readmit note: Prior admissions: Admitted 01/13 for rt total knee surgery. Discharged home w/OP therapy @ [facility] on 01/14. Pt returned to [facility] 01/21 and admitted w/hyponatremia, tachycardia, and FTT. Discharged to TCU 01/23. Pt discharged home from TCU on 02/05. Current admission: Admitted from home 02/11 w/right knee draining sinus. Pt to go to OR today for irrigation rt knee. ARASELI PLASCENCIA to room to meet w/pt, , and son who are @ bedside. Anticipate pt will need 6 weeks IV atb's @ discharge. Discussed discharge planning. Pt, , and son all state wish for pt to discharge to TCU @ discharge. Soila MOLINA, made aware. Bao MESSINAN ARASELI CM
--- NOTE | 2022-02-12 11:40 | CASEMGMT ---
Social Work Update from RNCM that pt would like to go to TCU at discharge. SW placed call to Mirta in TCU and referral made. TCU will be able to accept pt. Pt will need precert prior to discharge. Precert cannot be started at this time as surgery is scheduled for later today. TRACY attempted to inform pt and family that TCU can accept, however pt is not out of the room to surgery. Plan: TCU, post surgery and once precert obtained BALBINA Anderson
--- NOTE | 2022-02-12 12:07 | NURSING ---
pt in surgery
--- NOTE | 2022-02-12 12:30 | KNEE_PTH ---
PATIENT: NICA PANTOJA LOC: MS3 U#:[id number] AGE/SX: 81/M ROOM: [facility] RE02/11/[address]: Dr. Ramirez Emmanuel MD : 1940 BED: 1 DIS: 02/15/2022 SPEC #: [id number] RECD: 02/15/22 07:41 STATUS: PATSY REQ #: [id number] ANGIE: 02/12/22 12:[address]: Ramirez Emmanuel DEPT: SURGICAL PATHOLOGY RECD BY: Latia Ambrose ENTERED: 02/15/22 08:56 SP TYPE: TOTAL KNEE OTHR DR: MD Dr. Joanne Rogel MD Dr. David Kittoe, MD Daniel Manz, MD Dr. Eric Jopperi, DO MD Dr. Rafa Lara MD Dr. James Mooney, MD Dr. Justin Morton, MD Dr. Jonathan Vogt, DO Dr. Sandoval Méndez Dr., MD Dr. Marv Kuhn Dr., MD Dr. Prakash Chand, MD Dr. Paul Nielsen, MD Dr. Ryan Burkholder, MD Dr. Robert Leininger, MD Danielle Knoble, VICTORINO-Hector Mcdaniel, SHEILA Barnett, VICTORINO-GEN Hagen PA Tissues: Knee, NOS Procedures: Surgery Specimen Level III HEADER OPERATION: Total knee poly exchange I & D, sinus tract excision PRE-OP DIAGNOSIS: Periprosthetic joint infection TISSUE SUBMITTED: Right knee sinus tract MICROSCOPIC DIAGNOSIS Right knee sinus tract, excision: Focal ulceration, acute and chronic inflammation and reactive changes. Jamie 02/17/2022 MICROSCOPIC DESCRIPTION Slides are reviewed. GROSS DESCRIPTION Received in fixative is one container labeled with the patient's name and designated right knee sinus tract. The specimen consists of a piece of garcia-white skin ellipse with central defect measuring 3 x 1.5 x 0.3 cm. The central defect measures 1.5 x 1 cm. The specimen is serially sectioned and submitted entirely in one cassette. / TEDDY:makenna 02/15/2022 TC:2 CPT: 11066
--- NOTE | 2022-02-12 13:16 | PCM.CONS.GEN ---
Assessment & Plan Assessment/Plan (1) Infection of right knee: PLAN: S/p R TKR 01/13/[address] Emmanuel. Cxs 01/22 were neg but GPR seen on gram stain, 01/26 also neg. Has been on omnicef recently. Going to OR today for I&D. Will cover with vanc and ceftriaxone empirically post op. Will follow, thank you. Covid vaccinated and booster x1. HPI Consult Data Date of Consult: 02/12/22 HPI Narrative HPI Narrative: NICA PANTOJA, is a 81 M who presented with R knee drainage s/p 01/13 total knee replacement by Dr. Emmanuel. Post op course complicated by weakness, failure to thrive, admitted here 01/21 then to TCU. Given doxycycline for wound infection. Continued to have lack of healing, some small amount of pain/swelling. No fever or chills. Saw PCP, given cefdinir which he took for past 4 days. Now admitted and going to OR for I&D. Full ROS performed and neg except as noted above. [facility] Medical History Anemia Arthritis Cancer Cardiology follow-up encounter COPD (chronic obstructive pulmonary disease) Duodenal ulcer due to nonsteroidal anti-inflammatory drug (NSAID) (09/28/21) Easy bruising Essential hypertension High cholesterol History of echocardiogram History of GI bleed History of pain when walking History of ulceration Hx of basal cell carcinoma Hyperlipidemia Multiple premature ventricular complexes On home oxygen therapy On home oxygen therapy Peripheral vascular disease Peripheral vascular occlusive disease Prostate cancer Right bundle branch block (RBBB) Shortness of breath on exertion Skin cancer Syncope Tobacco abuse Walker as ambulation aid Wears dentures Home Medications acetaminophen 1,000 mg PO Q6H PRN PRN #0 tab 02/03/22 [Rx Last Taken 02/11/22] morphine concentrate 10 mg PO BID PRN PRN #0 ea 02/03/22 [Rx Last Taken Unknown] oxycodone 5 mg PO Q4H PRN PRN 7 Days #42 tab 02/03/22 [Rx Last Taken 02/11/22] Multivitamins,Ther W-Minerals [Multivitamin With Minerals (BKC)] 1 tab PO BREAKFAST 02/11/22 [History Last Taken 02/11/22] amlodipine 10 mg PO DAILY 02/11/22 [History Last Taken 02/10/22] cefdinir 300 mg PO BID 02/11/22 [History Last Taken 02/11/22] cholecalciferol (vitamin D3) 25 mcg PO DAILY 02/11/22 [History Last Taken 02/11/22] metoprolol tartrate 25 mg PO DAILY 02/11/22 [History Last Taken 02/11/22] pantoprazole 40 mg PO DAILY 02/11/22 [History Last Taken 02/11/22] polysaccharide iron complex [Ferrex 150] 150 mg PO DAILYCM 02/11/22 [History Last Taken 02/11/22] pravastatin 80 mg PO QHS 02/11/22 [History Last Taken 02/11/22] umeclidinium-vilanterol [Anoro Ellipta] 1 ea INHALATION DAILY 02/11/22 [History Last Taken 02/10/22] Allergy/AdvReac Type Severity Reaction Status Date / Time enalapril Allergy Angioedema Verified 01/21/22 12:11 peanut Allergy Swelling Verified 01/21/22 12:11 Family History Father CVA (cerebral vascular accident) Hypertension Surgical History H/O radical prostatectomy H/O: knee surgery History of carpal tunnel surgery of left wrist History of esophagogastroduodenoscopy (EGD) History of total right knee replacement Hx of vascular surgery (2018) Status post total right knee replacement Social History Smoking Status: Former smoker Tobacco: How many years used: 50 alcohol intake: former Physical Exam Const alert, oriented x3 and no apparent distress General Appearance: cooperative Exam Limitations: no limitations HEENT normocephalic and head/scalp atraumatic Eyes PERRL and EOMs intact bilaterally Neck supple and No nodes Resp clear to auscultation bilaterally Auscultation: diminished lung sounds Cardio regular rate and regular rhythm GI soft to palpation, non-tender and non-distended Extremity General Extremity: edema Skin Skin Narrative: R knee wrapped Neuro CN's II-XII intact bilaterally Lab / Micro Data Result Diagrams: 02/12/22 05:15 02/12/22 05:15 Labs: Laboratory Results - last 24 hr 02/12/22 05:15: WBC 7.9, RBC 2.83 L, Hgb 9.3 L, Hct 28.8 L, MCV 101.8 H, MCH 32.9 H, MCHC 32.3, RDW Std Deviation 59.1 H, RDW Coeff of Marya 15.9 H, Plt Count 264, MPV 9.2, Immature Gran % (Auto) 0.300, Neut % (Auto) 56.1, Lymph % (Auto) 31.3, Parmer % (Auto) 7.0, Eos % (Auto) 4.5, Baso % (Auto) 0.8, Absolute Neuts (auto) 4.4, Absolute Lymphs (auto) 2.46, Nucleated RBC % 0 02/12/22 05:15: Sodium 137, Potassium 3.6, Chloride 105, Carbon Dioxide 29.0, Anion Gap 3 L, BUN 21 H, Creatinine 0.94, Estim Creat Clear Calc 49.74, Est GFR (MDRD) Af Amer 99, Est GFR (MDRD) Non-Af 82, BUN/Creatinine Ratio 22.3 H, Glucose 92, Calcium 8.7
[2022-02-12] MEDS: Cefazolin 2 GM in 0.9% Normal Saline 100 ML IV (14:05)
--- NOTE | 2022-02-12 14:55 | CASEMGMT ---
Social Work Pt in surgery. Phone call to pt and updated that TCU is able to accept pt as long as insurance approves stay. appreciative of information. BALBINA Anderson
--- NOTE | 2022-02-12 14:59 | RAD_ITS ---
EXAM: XR RIGHT KNEE, 1 OR 2 VIEWS : 1940 CLINICAL INDICATION: post op -- AP and Lateral xray of operative knee in PACU TECHNIQUE: Frontal and/or lateral views of the right knee. This report was created using [employer] report generation technology. COMPARISON: 01/13/2022 FINDINGS: BONES/JOINTS: There is a total knee prosthesis in anatomic alignment. No acute fracture. Preservation of the joint space. No sclerotic or destructive changes observed. SOFT TISSUES: See below. TUBES, LINES AND DEVICES: There is a surgical drain in the overlying soft tissues. There is gas in the soft tissues. RAD/Knee 1 or 2 Views IMPRESSION: Total knee prosthesis in anatomic alignment. There is no acute osseous abnormality. at 1614 Reported and signed by: Florencio Shipley MD Electronically Signed: Florencio Shipley MD at 16:13 EDT ,
--- NOTE | 2022-02-12 15:00 | OP.PCM_ITS ---
Report of Operation Date of Procedure: 02/12/22 Surgery/Procedure Performed:: 1. Irrigation debridement of right total knee re placement with polyethylene exchange 2. Complete synovectomy right knee 3. Sinus tract excision 15 mm x 15 mm right lateral knee 4. Complex wound closure of lateral wound and anterior incision anterior incision was 14 cm requiring retention sutures lateral wound was 4 cm x 2 cm requiring dermal allograft Surgeon: Ramirez Emmanuel Estimated Blood Loss (mL): 200 Fluids Replaced: 500 Grafts/Implants Used: Isabella X3 polyethylene 10 mm CS size 4 Admit VTE Documentation VTE Present on Admission: No VTE Mechan Device Prophylaxis: SCD's and Thigh High GIBSON Hose VTE Pharm Prophylaxis ordered?: Yes
[2022-02-12] MEDS: Morphine 2 MG/ML Syringe IV ×3 (16:29→20:42)
[2022-02-12] MEDS: morphine (oral solution) 10MG/0.5ML Syringe 10 MG PO (16:50)
[2022-02-12] MEDS: Ensure Surgery 237 ML LIQUID PO (17:20)
[2022-02-12] MEDS: Ketorolac 15 MG/ML Vial IV (18:00)
--- NOTE | 2022-02-12 19:14 | PCM.RX.CS ---
Consult Pharmacy has been consulted to manage selected antiobiotic: Vancomycin Type of Consult: New start Suspected Infection: Other Labs: Sodium 137 mmol/L (136-145) 02/12/22 05:15 Potassium 3.6 mmol/L (3.5-5.1) 02/12/22 05:15 Chloride 105 mmol/L (98-107) 02/12/22 05:15 Carbon Dioxide 29.0 mmol/L (21.0-32.0) 02/12/22 05:15 Anion Gap 3 (5-15) L 02/12/22 05:15 BUN 21 mg/dL (7-18) H 02/12/22 05:15 Creatinine 0.94 mg/dL (0.70-1.30) 02/12/22 05:15 Est GFR (MDRD) Af Amer 99 mL/min (>60) 02/12/22 05:15 Est GFR (MDRD) Non-Af 82 mL/min (>60) 02/12/22 05:15 BUN/Creatinine Ratio 22.3 RATIO (10-20) H 02/12/22 05:15 Glucose 92 mg/dL (74-106) 02/12/22 05:15 Goal Trough: 15-20 mcg/mL Pharmacy Plan for Drug Dosing: NEW START IV VANCOMYCIN Consulting Physician: Padilla Indication: Infected Joint Goal Trough: 15-20 SrCr: 0.94 CrCl: 50mls/min Comments: pt received a 1500mg loading dose 02/12/22 at 1718 Vancomcyin Dose: based on pts weight and renal function, recommend an intial dose of 500mg q12h to start 02/13/22 at 0600. trough before the 4th total dose Pending Level: 02/14/22 at 0530 Pharmacy Service will continue to monitor and adjust dosing as required. Follow-Up Labs: Trough Vancomycin - 02/14/22 at 0530
[2022-02-12] MEDS: Pravastatin 80 MG Tablet PO (20:50)
[2022-02-12] MEDS: Senna/Docusate Sodium 1 Tablet 2 TABLET PO (20:50)
[2022-02-13] VITALS (8 sets, daily range): BP systolic 153–164; BP diastolic 59–72; PULSE 72–75; RESP 15–18; TEMP 36.6–37.5; O2SAT 93–97
[2022-02-13] MEDS: Acetaminophen 500 MG Tablet 1000 MG PO ×3 (01:02→22:34)
[2022-02-13] MEDS: oxyCODONE 5 MG Tablet PO ×3 (01:02→22:34)
[2022-02-13 05:39] LABS: Absolute Lymphocyte Count 1.26 X10^3/uL (0.83-4.51); Basophil# 0.04 X10^3/uL; Basophil% 0.6 % (0-1); Eosinophil# 0.15 X10^3/uL; Eosinophils% 2.1 % (0-5); Hemoglobin 8.6 g/dL (13.0-16.5); Lymphocyte # 1.26 X10^3/ul (0.83-4.51); Mean Corp Hgb Conc 33.1 g/dL (32-36); Mean Corpuscular Hgb 32.8 pg (27.0-32.0); Mean Corpuscular Volume 99.2 fL (80-94); Mean Platelet Vol. 9.4 fl (6.2-12.0); Monocyte# 0.52 X10^3/uL; Monocyte% 7.4 % (0-10); NRBC Flagged by Analyzer 0 % (0-5); Neutrophil # 5.01 X10^3/uL (2.7-7.7); Neutrophil % 71.5 % (47-70); Platelet Count 237 K/mm3 (150-450); RBC Distribution Width CV 15.9 % (11.6-14.6); RBC Distribution Width SD 57.8 fl (35.1-43.9); Red Blood Count 2.62 M/mm3 (4.6-6.2)
[2022-02-13] MEDS: Vancomycin IV 500 MG/100 ML BAG 100 MG IV ×2 (05:41→17:44)
[2022-02-13] MEDS: Lactated Ringers 1,000 ML 90 ML IV (05:41)
[2022-02-13] MEDS: Rivaroxaban 10 MG Tablet PO (05:53)
[2022-02-13 05:57] LABS: Anion Gap 7 (5-15); BUN 14 mg/dL (7-18); BUN/Creat Ratio 16.1 RATIO (10-20); Calcium,Total 8.5 mg/dL (8.5-10.1); Chloride 103 mmol/L (98-107); Creatinine, Serum 0.87 mg/dL (0.70-1.30); EST Glomerular Filtration Rate 90 mL/min (>60); Est Glom Filt Rate - Afr Amer 108 mL/min (>60); Estimated Creatinine Clearance 53.74 ml/min; Glucose 101 mg/dL (74-106); Potassium 3.5 mmol/L (3.5-5.1); Sodium Level 137 mmol/L (136-145)
[2022-02-13] MEDS: Ipratropium/Albuterol Sulfate 3 ML AMPUL.NEB INHALATION ×3 (06:58→19:05)
--- NOTE | 2022-02-13 08:10 | PN.ORTHO_ITS ---
Subjective Subjective The patient was sitting in bed upon examination. Patient denies any chest pain, shortness of breath, dizziness, lightheadedness, nausea or vomiting, or calf pain. Pain is controlled on medications. No adverse overnight events. Patient states his pain is much better today. Nursing states patient was messing with the Hemovac drain. There has been approximately 110 cc of output from the drain. Infectious disease is currently involved. Patient has been placed on ceftriaxone and vancomycin. He is also utilizing a knee immobilizer and will avoid range of motion protecting patient's skin. Objective Data Objective Data Vital Signs: Vital Signs Temp Pulse Resp BP Pulse Ox 97.8 F 75 16 157/72 H 93 02/13/22 08:06 02/13/22 08:06 02/13/22 08:06 02/13/22 08:06 02/13/22 08:06 Oxygen Flow Rate (L/min) 3 Oxygen Delivery Method Nasal Cannula Weight: 56.1 kg Body Mass Index (BMI) 19.3 Intake & Output: Intake and Output for Last 24 Hours 02/11/22 02/12/22 02/13/22 23:59 23:59 23:59 Intake Total 300 / 300 2733 / 2733 1024.0 / 1024.0 Output Total 1235 / 1235 Balance 300 / 300 2733 / 2163 -211.0 / -211.0 Medical Nutrition Assessment Dietitian: Malnutrition Criteria Met Start: 02/12/22 16: 05 Freq: Status: Active Protocol: Document 02/12/22 16:05 RMA (Rec: 02/12/22 16:05 RMA [id number]) Nutrition Malnutrition Evidence of Malnutrition Exists Yes Malnutrition (severe): Acute Illness/Injury Evidenced By Suboptimal Energy Intake ( Severe),Weight Loss (Severe) Clinical Problem Acute Disease or Injury Related Malnutrition Etiology Severe protein-calorie malnutrition in the context of acute illness related to inadequate oral intake Signs/Symptoms as evidenced by 5-6% wt loss x past 1 month and PO meeting less than 50% estimated nutrition needs x 1 month Status Active Problem Recommendation Dietitian Recommendations/Changes Recommend advance diet post-op as medically able to Regular/ no added salt. Continue ensure surgery as ordered. Will add 240 ml ensure clear BID w/ lunch and dinner; will adjust as diet advanced from clear liquids. Lab / Micro Data Result Diagrams: 02/13/22 05:16 02/13/22 05:16 Labs: Laboratory Results - last 24 hr 02/13/22 05:16: WBC 7.0, RBC 2.62 L, Hgb 8.6 L, Hct 26.0 L, MCV 99.2 H, MCH 32.8 H, MCHC 33.1, RDW Std Deviation 57.8 H, RDW Coeff of Marya 15.9 H, Plt Count 237, MPV 9.4, Immature Gran % (Auto) 0.400, Neut % (Auto) 71.5 H, Lymph % (Auto) 18.0 L, Tompkins % (Auto) 7.4, Eos % (Auto) 2.1, Baso % (Auto) 0.6, Absolute Neuts (auto) 5.0, Absolute Lymphs (auto) 1.26, Nucleated RBC % 0 02/13/22 05:16: Sodium 137, Potassium 3.5, Chloride 103, Carbon Dioxide 27.0, Anion Gap 7, BUN 14, Creatinine 0.87, Estim Creat Clear Calc 53.74, Est GFR (MDRD) Af Amer 108, Est GFR (MDRD) Non-Af 90, BUN/Creatinine Ratio 16.1, Glucose 101, Calcium 8.5 Radiography Diagnostic Testing: Radiology Impression Knee X-Ray 02/12/22 14:59 IMPRESSION: Total knee prosthesis in anatomic alignment. There is no acute osseous abnormality. at 1614 Reported and signed by: Florencio Shipely MD Electronically Signed: Florencio Shipley MD at 16:13 EDT , Physical Exam Narrative Vital signs stable and afebrile. SCDs and GIBSON hose in place bilaterally Knee immobilizer in place. This was loosened and there was no breakthrough drainage on the dressing. Hemovac drain in place: Trace amount in canister. There is been 110 cc output. Patient is able to plantarflex and dorsiflex actively. Sensation is intact to light touch to saphenous, sural, superficial and deep p eroneal, and tibial distribution. Negative Homans bilaterally, negative signs and symptoms of DVT. Const alert, oriented x3 and no apparent distress Assessment & Plan Assessment/Plan (1) Infection of right knee: PLAN: 1. S/P irrigation debridement right total knee replacement with polyethylene exchange, complete synovectomy, excision of sinus tract, and complex wound closure of lateral wound and anterior incision POD #1 2. Continue Pain Medications: Tylenol and oxycodone 3. DVT Prophylaxis: Patient will utilize Xarelto for DVT prophylaxis as he has had previous ulcerations in the stomach and unable to take aspirin 4. PT/OT: Continue with the knee immobilizer for the right knee and no flexion range of motion for the next 2 weeks postoperatively. Patient is weightbearing as tolerated with knee immobilizer in place 5. H & H: 8.6/26.0, asymptomatic. Postoperative anemia secondary to acute blood loss from surgery without any intra operative complications. 6. Continue postoperative medical management per medicine 7. Continue consultation with infectious disease: Patient has been placed on ceftriaxone and vancomycin while following cultures. Cultures are currently pending. 8. Continue Hemovac drain: There was approximately 110 cc of output. We will continue to monitor. 9. Encouraged Incentive Spirometry 10. Disposition: We will continue to follow patient's cultures. Currently on above antibiotics. Appreciate input from infectious disease. We will continue with the Hemovac drain at this time. Reassess tomorrow. Continue with physical therapy but we do not want any range of motion of the right knee secondary to patient's skin and closure. Continue with the knee immobilizer and can weight- bear as tolerated with the knee immobilizer in place with walker. I have reviewed the [place] Automated Rx Reporting System (OARRS) report for this patient for refill pattern and other prescriber involvement as part of the appropriate surveillance for the provision of acute and chronic controlled medications. The report was requested and reviewed on the date of this entry and was considered in the prescribing process.
[2022-02-13] MEDS: Iron Polysaccharide Complex 150 MG CAPSULE PO (08:25)
[2022-02-13] MEDS: morphine (oral solution) 10MG/0.5ML Syringe 10 MG PO ×2 (08:25→20:34)
[2022-02-13] MEDS: Multivitamins,Ther W-Minerals Tablet 1 TABLET PO (08:25)
[2022-02-13] MEDS: Ensure Surgery 237 ML LIQUID PO ×2 (08:25→12:30)
[2022-02-13] MEDS: Morphine 4 MG/ML Syringe IV (11:28)
[2022-02-13] MEDS: Metoprolol Tartrate 25 MG Tablet PO (11:29)
[2022-02-13] MEDS: Bisacodyl 5 MG Tablet PO (11:29)
[2022-02-13] MEDS: Pantoprazole Sodium 40 MG Tablet PO (11:30)
[2022-02-13] MEDS: Senna/Docusate Sodium 1 Tablet 2 TABLET PO (11:30)
[2022-02-13] MEDS: amLODIPine 10 MG Tablet PO (11:30)
[2022-02-13] MEDS: Cholecalciferol (VIT D3) 25 MCG TABLET (1,000 UNITS) PO (11:31)
--- NOTE | 2022-02-13 11:53 | PCM.PN.HOSP ---
Subjective Subjective Patient states he is feeling much better today than last evening or yesterday morning. Tolerating p.o. diet without any issue. States pain is overall well controlled. No respiratory issues at this time. Objective Data Objective Data Vital Signs: Vital Signs Temp Pulse Resp BP Pulse Ox 97.8 F 75 16 157/72 H 93 02/13/22 08:06 02/13/22 11:29 02/13/22 08:06 02/13/22 08:06 02/13/22 08:06 Oxygen Flow Rate (L/min) 2 Oxygen Delivery Method Nasal Cannula Weight: 56.1 kg Body Mass Index (BMI) 19.3 Intake & Output: Intake and Output for Last 24 Hours 02/11/22 02/12/22 02/13/22 23:59 23:59 23:59 Intake Total 300 / 300 2733 / 2733 1157.5 / 1157.5 Output Total 1235 / 1235 Balance 300 / 300 2733 / 2163 -77.5 / -77.5 Medical Nutrition Assessment Dietitian: Malnutrition Criteria Met Start: 02/12/22 16:05 Freq: Status: Active Protocol: Document 02/12/22 16:05 RMA (Rec: 02/12/22 16:05 RMA [id number]) Nutrition Malnutrition Evidence of Malnutrition Exists Yes Malnutrition (severe): Acute Illness/Injury Evidenced By Suboptimal Energy Intake ( Severe),Weight Loss (Severe) Clinical Problem Acute Disease or Injury Related Malnutrition Etiology Severe protein-calorie malnutrition in the context of acute illness related to inadequate oral intake Signs/Symptoms as evidenced by 5-6% wt loss x past 1 month and PO meeting less than 50% estimated nutrition needs x 1 month Status Active Problem Recommendation Dietitian Recommendations/Changes Recommend advance diet post-op as medically able to Regular/ no added salt. Continue ensure surgery as ordered. Will add 240 ml ensure clear BID w/ lunch and dinner; will adjust as diet advanced from clear liquids. Lab / Micro Data Result Diagrams: 02/13/22 05:16 02/13/22 05:16 Labs: Laboratory Results - last 24 hr 02/13/22 05:16: WBC 7.0, RBC 2.62 L, Hgb 8.6 L, Hct 26.0 L, MCV 99.2 H, MCH 32.8 H, MCHC 33.1, RDW Std Deviation 57.8 H, RDW Coeff of Marya 15.9 H, Plt Count 237, MPV 9.4, Immature Gran % (Auto) 0.400, Neut % (Auto) 71.5 H, Lymph % (Auto) 18.0 L, Bulloch % (Auto) 7.4, Eos % (Auto) 2.1, Baso % (Auto) 0.6, Absolute Neuts (auto) 5.0, Absolute Lymphs (auto) 1.26, Nucleated RBC % 0 02/13/22 05:16: Sodium 137, Potassium 3.5, Chloride 103, Carbon Dioxide 27.0, Anion Gap 7, BUN 14, Creatinine 0.87, Estim Creat Clear Calc 53.74, Est GFR (MDRD) Af Amer 108, Est GFR (MDRD) Non-Af 90, BUN/Creatinine Ratio 16.1, Glucose 101, Calcium 8.5 Micro: Microbiology 02/12/22 Unknown Tissue - Knee Gram Stain - Final 02/12/22 Unknown Tissue - Knee Wound Culture - Preliminary No growth-Final to follow 02/12/22 Unknown Tissue - Knee Gram Stain - Final 02/12/22 Unknown Tissue - Knee Wound Culture - Preliminary No growth-Final to follow 02/12/22 Unknown Tissue - Knee Gram Stain - Final 02/12/22 Unknown Tissue - Knee Wound Culture - Preliminary No growth-Final to follow Radiography Diagnostic Testing: Radiology Impression Knee X-Ray 02/12/22 14:59 IMPRESSION: Total knee prosthesis in anatomic alignment. There is no acute osseous abnormality. at 1614 Reported and signed by: Florencio Shipley MD Electronically Signed: Florencio Shipley MD at 16:13 EDT , Physical Exam Const alert, oriented x3 and no apparent distress Constitutional Narrative: Thin older white male sitting up in bed eating breakfast and watching television, appears nontoxic, currently on 3 L of oxygen which is his baseline, less frustrated and happier today General Appearance: cooperative Exam Limitations: no limitations Nutritional Appearance: thin HEENT normocephalic, head/scalp atraumatic and moist oral mucous membranes HEENT Narrative: Mallampati 2, dentures in place, no thrush Head and Scalp: normocephalic Resp normal respiratory effort, no retractions, no use of accessory muscles and clear to auscultation bilaterally Resp Narrative: Diffusely diminished but clear Auscultation: Negative for crackles, rales, rhonchi or wheezes Cardio regular rate, regular rhythm, S1 normal heart sound, S2 normal heart sound, no murmurs, no rub, no gallops, no clicks and no JVD GI normal to inspection, nondistended, normoactive bowel sounds, soft to palpation, non-tender and non-distended; Negative for hepatosplenomegaly GI Narrative: Scaphoid abdomen Extremity Extremity Narrative: Right knee with dressing in place/knee immobilizer/polar ice/GIBSON hose, trace right lower extremity edema, no cyanosis or clubbing Peripheral Pulses: Yes pulses 2+ throughout Neuro oriented x3, moves all extremities and no focal motor deficits Neuro Narrative: Decreased movement of right lower extremity secondary to pain and immobilization at the knee joint but no focal deficits Sensorium / Orientation: awake and alert Speech: speech normal Psych affect normal Appearance: appropriate Assessment & Plan Assessment/Plan (1) Infection of right knee: (2) Anemia: PLAN: Right knee infection status post TKA on 01/13/2022 -Sinus tract developed from superficial wound -OR 02/12/2022 for washout and cultures -Cultures pending -ID following -Continue ceftriaxone and vancomycin per ID recommendations -Continue pain medication and management per primary service -Would recommend bowel regimen and will start as needed Dulcolax -Gentle hydration while n.p.o. -PT/OT -Current plan is for TCU at discharge given the fact the patient needs continued rehab and long-term antibiotics via IV Chronic hypoxic respiratory failure secondary to COPD -Patient is on 3 L of nasal cannula at home -Currently remains on 3 L without any signs of respiratory issues -Continue scheduled DuoNebs -Continue home inhalers Anemia -Continue iron -This appears to be acute as his hemoglobin prior to surgery was normal -Current hemoglobin is stable -Continue to monitor -CBC in a.m. GERD -Continue Protonix CKD stage IIIa -Serum creatinine is stable -Continue to monitor -Current serum creatinine is 0.87 with an estimated GFR of 90 -Discontinue IV fluids -Is possible that his previous CKD diagnosis was driven by his chronic Lasix use and he is no longer on Lasix chronically Chronic diastolic heart failure-HFpEF -Patient is currently compensated with no signs of decompensation -Echocardiogram done in 2020 that showed an EF of 55% with stage I diastolic dysfunction -Patient has been on Lasix previously but this has been held since last hospitalization -Continue to monitor -Discontinue IV fluids Hyperlipidemia -Continue statin Hypertension -Continue metoprolol -Continue amlodipine Chronic right bundle branch block -No current issues -Suspect related to pulmonary disease History of prostate cancer -No acute issues PVD -Continue statin -Patient follows with vascular surgery -Patient is not on any antiplatelet therapy at baseline DVT prophylaxis -Management per primary service Charges/Coding Visit Charges Inpatient E&M: 54004 Subs Hosp L2
[2022-02-13] MEDS: Pravastatin 80 MG Tablet PO (20:34)
[2022-02-14] VITALS (10 sets, daily range): BP systolic 155–164; BP diastolic 64–82; PULSE 68–82; RESP 14–19; TEMP 36.8–37.7; O2SAT 93–94
[2022-02-14 05:56] LABS: Hematocrit 25.1 % (40-54); Hemoglobin 8.2 g/dL (13.0-16.5); Mean Corp Hgb Conc 32.7 g/dL (32-36); Mean Corpuscular Hgb 32.8 pg (27.0-32.0); Mean Corpuscular Volume 100.4 fL (80-94); Platelet Count 213 K/mm3 (150-450); RBC Distribution Width SD 59.5 fl (35.1-43.9); White Blood Count 7.4 K/mm3 (4.4-11.0)
[2022-02-14] MEDS: Vancomycin IV 500 MG/100 ML BAG 100 MG IV ×2 (06:30→17:48)
[2022-02-14 06:32] LABS: Anion Gap 7 (5-15); BUN 17 mg/dL (7-18); BUN/Creat Ratio 18.2 RATIO (10-20); Calcium,Total 8.7 mg/dL (8.5-10.1); Chloride 104 mmol/L (98-107); Creatinine, Serum 0.94 mg/dL (0.70-1.30); EST Glomerular Filtration Rate 82 mL/min (>60); Est Glom Filt Rate - Afr Amer 100 mL/min (>60); Estimated Creatinine Clearance 49.73 ml/min; Glucose 100 mg/dL (74-106); Potassium 3.5 mmol/L (3.5-5.1); Sodium Level 138 mmol/L (136-145); Vancomycin, Trough Level 14.8 ug/mL (5.0-15.0)
[2022-02-14] MEDS: Rivaroxaban 10 MG Tablet PO (06:32)
--- NOTE | 2022-02-14 06:40 | PHA.PHARE_ITS ---
Consult Pharmacy has been consulted to manage selected antiobiotic: Vancomycin Type of Consult: Follow-up Suspected Infection: Skin/Soft tissue Prior Doses of Antibiotics Received/Current Regimen: Medications Vancomycin HCl () 500 mg in 100 mls @ 100 mls/hr IV Q12H ANASTASIYA Last Admin: 02/14/22 06:30 Dose: 100 mls/hr Documented by: Labs: Sodium 138 mmol/L (136-145) 02/14/22 05:30 Potassium 3.5 mmol/L (3.5-5.1) 02/14/22 05:30 Chloride 104 mmol/L (98-107) 02/14/22 05:30 Carbon Dioxide 27.0 mmol/L (21.0-32.0) 02/14/22 05:30 Anion Gap 7 (5-15) 02/14/22 05:30 BUN 17 mg/dL (7-18) 02/14/22 05:30 Creatinine 0.94 mg/dL (0.70-1.30) 02/14/22 05:30 Est GFR (MDRD) Af Amer 100 mL/min (>60) 02/14/22 05:30 Est GFR (MDRD) Non-Af 82 mL/min (>60) 02/14/22 05:30 BUN/Creatinine Ratio 18.2 RATIO (10-20) 02/14/22 05:30 Glucose 100 mg/dL (74-106) 02/14/22 05:30 Vancomycin Trough 14.8 ug/mL (5.0-15.0) 02/14/22 05:30 Microbiology: Microbiology 02/12/22 Unknown Tissue - Knee Gram Stain - Final 02/12/22 Unknown Tissue - Knee Wound Culture - Preliminary No growth-Final to follow 02/12/22 Unknown Tissue - Knee Gram Stain - Final 02/12/22 Unknown Tissue - Knee Wound Culture - Preliminary No growth-Final to follow 02/12/22 Unknown Tissue - Knee Gram Stain - Final 02/12/22 Unknown Tissue - Knee Wound Culture - Preliminary No growth-Final to follow Weight used for dosin.1 kg Estimated Creatinine Clearance: 49.7 Goal Trough: 15-20 mcg/mL Pharmacy Plan for Drug Dosing: Vancomycin trough level of 14.8 was just slightly below the target range of 15- 20. There was a mild increase in SCr, so we will continue the same dosing and re-draw a trough in 2 days. Pharmacy Service will continue to monitor and adjust dosing as required. Follow-Up Labs: Trough Vancomycin Labs to be done on [date and time ordered]: 02/16/22 @8188
[2022-02-14] MEDS: Ipratropium/Albuterol Sulfate 3 ML AMPUL.NEB INHALATION ×3 (07:15→19:55)
[2022-02-14] MEDS: hydrALAZINE 25 MG Tablet PO ×3 (09:13→21:32)
[2022-02-14] MEDS: Iron Polysaccharide Complex 150 MG CAPSULE PO (09:14)
[2022-02-14] MEDS: Multivitamins,Ther W-Minerals Tablet 1 TABLET PO (09:14)
--- NOTE | 2022-02-14 10:11 | PN.HOSP_ITS ---
Subjective Subjective Patient has no complaints this morning. Indicates his pain is well controlled. Anxious for discharge soon. Objective Data Objective Data Vital Signs: Vital Signs Temp Pulse Resp BP Pulse Ox 98.3 F 77 16 155/64 H 93 02/14/22 08:14 02/14/22 09:13 02/14/22 08:14 02/14/22 08:14 02/14/22 08:14 Oxygen Flow Rate (L/min) 3 Oxygen Delivery Method Nasal Cannula Weight: 56.1 kg Body Mass Index (BMI) 19.3 Intake & Output: Intake and Output for Last 24 Hours 02/12/22 02/13/22 02/14/22 23:59 23:59 23:59 Intake Total 2733 / 2733 1307.5 / 1307.5 Output Total 1305 / 1575 670 / 670 Balance 2733 / 2163 2.5 / -267.5 -670 / -670 Medical Nutrition Assessment Dietitian: Malnutrition Criteria Met Start: 02/12/22 16:05 Freq: Status: Active Protocol: Document 02/12/22 16:05 RMA (Rec: 02/12/22 16:05 RMA [id number]) Nutrition Malnutrition Evidence of Malnutrition Exists Yes Malnutrition (severe): Acute Illness/Injury Evidenced By Suboptimal Energy Intake ( Severe),Weight Loss (Severe) Clinical Problem Acute Disease or Injury Related Malnutrition Etiology Severe protein-calorie malnutrition in the context of acute illness related to inadequate oral intake Signs/Symptoms as evidenced by 5-6% wt loss x past 1 month and PO meeting less than 50% estimated nutrition needs x 1 month Status Active Problem Recommendation Dietitian Recommendations/Changes Recommend advance diet post-op as medically able to Regular/ no added salt. Continue ensure surgery as ordered. Will add 240 ml ensure clear BID w/ lunch and dinner; will adjust as diet advanced from clear liquids. Lab / Micro Data Result Diagrams: 02/14/22 05:30 02/14/22 05:30 Labs: Laboratory Results - last 24 hr 02/14/22 05:30: WBC 7.4, RBC 2.50 L, Hgb 8.2 L, Hct 25.1 L, MCV 100.4 H, MCH 32.8 H, MCHC 32.7, RDW Std Deviation 59.5 H, RDW Coeff of Marya 16.0 H, Plt Count 213, MPV 9.0 02/14/22 05:30: Vancomycin Trough 14.8 02/14/22 05:30: Sodium 138, Potassium 3.5, Chloride 104, Carbon Dioxide 27.0, Anion Gap 7, BUN 17, Creatinine 0.94, Estim Creat Clear Calc 49.73, Est GFR (MDRD) Af Amer 100, Est GFR (MDRD) Non-Af 82, BUN/Creatinine Ratio 18.2, Glucose 100, Calcium 8.7 Micro: Microbiology 02/12/22 Unknown Tissue - Knee Gram Stain - Final 02/12/22 Unknown Tissue - Knee Wound Culture - Preliminary No growth-Final to follow 02/12/22 Unknown Tissue - Knee Gram Stain - Final 02/12/22 Unknown Tissue - Knee Wound Culture - Preliminary No growth-Final to follow 02/12/22 Unknown Tissue - Knee Gram Stain - Final 02/12/22 Unknown Tissue - Knee Wound Culture - Preliminary No growth-Final to follow Physical Exam Const alert, oriented x3 and no apparent distress Constitutional Narrative: Thin older white male sitting up in bed eating breakfast and watching television, appears nontoxic, remains on his baseline of 3 L of oxygen General Appearance: cooperative Exam Limitations: no limitations Nutritional Appearance: thin HEENT normocephalic, head/scalp atraumatic and moist oral mucous membranes HEENT Narrative: Mallampati is 2, dentures in place, no thrush Head and Scalp: normocephalic Resp normal respiratory effort, no retractions, no use of accessory muscles and clear to auscultation bilaterally Resp Narrative: Diffusely diminished but clear Auscultation: Negative for crackles, rales, rhonchi or wheezes Cardio regular rate, regular rhythm, S1 normal heart sound, S2 normal heart sound, no murmurs, no rub, no gallops, no clicks and no JVD GI normal to inspection, nondistended, normoactive bowel sounds, soft to palpation, non-tender and non-distended; Negative for hepatosplenomegaly GI Narrative: Scaphoid abdomen Extremity no clubbing, cyanosis or edema Extremity Narrative: Right knee with dressing in place/knee immobilizer/polar ice/GIBSON hose, trace right lower extremity edema, no cyanosis or clubbing Peripheral Pulses: Yes pulses 2+ throughout Neuro oriented x3, moves all extremities and no focal motor deficits Neuro Narrative: Decreased movement of right lower extremity secondary to pain and immobilization at the knee joint but no focal deficits Sensorium / Orientation: awake and alert Speech: speech normal Psych Appearance: appropriate Assessment & Plan Assessment/Plan (1) Infection of right knee: (2) Anemia: PLAN: Right knee infection status post TKA on 01/13/2022 -Sinus tract developed from superficial wound -OR 02/12/2022 for washout and cultures -Cultures all remain pending -ID following -Continue ceftriaxone and vancomycin per ID recommendations -Patient may need PICC placement prior to discharge -Continue pain medication and management per primary service -Would recommend bowel regimen and will start as needed Dulcolax -Gentle hydration while n.p.o. -PT/OT -Current plan is for TCU at discharge given the fact the patient needs continued rehab and long-term antibiotics via IV Chronic hypoxic respiratory failure secondary to COPD -Patient is on 3 L of nasal cannula at home -Currently remains on 3 L without any signs of respiratory issues -Continue scheduled DuoNebs -Continue home inhalers Anemia -Continue iron -This appears to be acute as his hemoglobin prior to surgery was normal -Current hemoglobin is stable -Continue to monitor -CBC in a.m. GERD -Continue Protonix CKD stage IIIa -Serum creatinine is stable -Continue to monitor -Current serum creatinine is 0.87 with an estimated GFR of 90 -Discontinue IV fluids -Is possible that his previous CKD diagnosis was driven by his chronic Lasix use and he is no longer on Lasix chronically Chronic diastolic heart failure-HFpEF -Patient is currently compensated with no signs of decompensation -Echocardiogram done in 2020 that showed an EF of 55% with stage I wells tolic dysfunction -Patient has been on Lasix previously but this has been held since last hospitalization -Continue to monitor -Discontinue IV fluids Hyperlipidemia -Continue statin Hypertension -Continue metoprolol -Continue amlodipine -Blood pressures remain elevated with systolics predominantly in the 150s and diastolics in the 90s -Pain seems to be better controlled therefore we will go ahead and add hydralazine 25 mg 3 times daily -Patient indicates to me that his blood pressures never really been controlled Chronic right bundle branch block -No current issues -Suspect related to pulmonary disease History of prostate cancer -No acute issues PVD -Continue statin -Patient follows with vascular surgery -Patient is not on any antiplatelet therapy at baseline DVT prophylaxis -Management per primary service Charges/Coding Visit Charges Inpatient E&M: 14805 Subs Hosp L2
[2022-02-14] MEDS: Pantoprazole Sodium 40 MG Tablet PO (10:23)
[2022-02-14] MEDS: Cholecalciferol (VIT D3) 25 MCG TABLET (1,000 UNITS) PO (10:23)
[2022-02-14] MEDS: morphine (oral solution) 10MG/0.5ML Syringe 10 MG PO ×2 (10:23→21:32)
[2022-02-14] MEDS: Senna/Docusate Sodium 1 Tablet 2 TABLET PO (10:23)
[2022-02-14] MEDS: Bisacodyl 5 MG Tablet PO (10:23)
[2022-02-14] MEDS: Metoprolol Tartrate 25 MG Tablet PO (10:23)
[2022-02-14] MEDS: amLODIPine 10 MG Tablet PO (10:23)
--- NOTE | 2022-02-14 13:20 | PN.ORTHO_ITS ---
Subjective Subjective Patient is doing well overall. No acute events overnight. No chest pain or shortness of breath. 70 cc of fluid through the drain overnight. Patient was placed on morphine 10 mg IR twice daily which is helped with his pain. Cultures currently show no growth to date. Objective Data Objective Data Vital Signs: Vital Signs Temp Pulse Resp BP Pulse Ox 98.3 F 82 19 H 155/64 H 93 02/14/22 08:14 02/14/22 13:19 02/14/22 13:19 02/14/22 08:14 02/14/22 08:14 Oxygen Flow Rate (L/min) 3 Oxygen Delivery Method Nasal Cannula Weight: 123 lb 10.869 oz Body Mass Index (BMI) 19.3 Intake & Output: Intake and Output for Last 24 Hours 02/12/22 02/13/22 02/14/22 23:59 23:59 23:59 Intake Total 2733 / 2733 1307.5 / 1307.5 150 / 150 Output Total 1305 / 1575 670 / 670 Balance 2733 / 2163 2.5 / -267.5 -520 / -520 Medical Nutrition Assessment Dietitian: Malnutrition Criteria Met Start: 02/12/22 16:05 Freq: Status: Active Protocol: Document 02/12/22 16:05 RMA (Rec: 02/12/22 16:05 RMA [id number]) Nutrition Malnutrition Evidence of Malnutrition Exists Yes Malnutrition (severe): Acute Illness/Injury Evidenced By Suboptimal Energy Intake ( Severe),Weight Loss (Severe) Clinical Problem Acute Disease or Injury Related Malnutrition Etiology Severe protein-calorie malnutrition in the context of acute illness related to inadequate oral intake Signs/Symptoms as evidenced by 5-6% wt loss x past 1 month and PO meeting less than 50% estimated nutrition needs x 1 month Status Active Problem Recommendation Dietitian Recommendations/Changes Recommend advance diet post-op as medically able to Regular/ no added salt. Continue ensure surgery as ordered. Will add 240 ml ensure clear BID w/ lunch and dinner; will adjust as diet advanced from clear liquids. Lab / Micro Data Result Diagrams: 02/14/22 05:30 02/14/22 05:30 Labs: Laboratory Results - last 24 hr 02/14/22 05:30: WBC 7.4, RBC 2.50 L, Hgb 8.2 L, Hct 25.1 L, MCV 100.4 H, MCH 32.8 H, MCHC 32.7, RDW Std Deviation 59.5 H, RDW Coeff of Marya 16.0 H, Plt Count 213, MPV 9.0 02/14/22 05:30: Vancomycin Trough 14.8 02/14/22 05:30: Sodium 138, Potassium 3.5, Chloride 104, Carbon Dioxide 27.0, Anion Gap 7, BUN 17, Creatinine 0.94, Estim Creat Clear Calc 49.73, Est GFR (MDRD) Af Amer 100, Est GFR (MDRD) Non-Af 82, BUN/Creatinine Ratio 18.2, Glucose 100, Calcium 8.7 Micro: Microbiology 02/12/22 Unknown Tissue - Knee Gram Stain - Final 02/12/22 Unknown Tissue - Knee Wound Culture - Preliminary No growth-Final to follow 02/12/22 Unknown Tissue - Knee Gram Stain - Final 02/12/22 Unknown Tissue - Knee Wound Culture - Preliminary No growth-Final to follow 02/12/22 Unknown Tissue - Knee Gram Stain - Final 02/12/22 Unknown Tissue - Knee Wound Culture - Preliminary No growth-Final to follow Physical Exam Const alert and oriented x3 General Appearance: cooperative, comfortable and well kempt Extremity Extremity Narrative: Right lower extremity: Incision is clean dry and intact Sensations intact to light touch saphenous, sural, superficial peroneal, deep peroneal, and tibial distributions Motors intact EHL, DF, PF calves are soft and supple Small lateral wound with overlying graft shows appropriate natural skin edges. Graft skin edges are still well approximated well aligned with darkening around the edges. No drainage from this area. Assessment & Plan Assessment/Plan (1) Infection of right knee: PLAN: 1. S/P irrigation debridement right total knee replacement with polyethylene exchange, complete synovectomy, excision of sinus tract, and complex wound closure of lateral wound and anterior incision POD #2 2. Continue Pain Medications: Tylenol and oxycodone With morphine IR 3. DVT Prophylaxis: Patient will utilize Xarelto for DVT prophylaxis as he has had previous ulcerations in the stomach and unable to take aspirin 4. PT/OT: Continue with the knee immobilizer for the right knee and no flexion range of motion for the next 2 weeks postoperatively Minimum. Range of motion will be guided by healing of the lateral wound graft. Patient is weightbearing as tolerated with knee immobilizer in place 5. Hb: 8.2, asymptomatic. Postoperative anemia secondary to acute blood loss from surgery without any intra operative complications. 6. Continue postoperative medical management per medicine 7. Continue consultation with infectious disease: Patient has been placed on ceftriaxone and vancomycin while following cultures. Cultures are currently pending. PICC line ordered 8. Continue Hemovac drain: There was approximately 70 on overnight shift cc of output. We will continue to monitor. Due to area of graft laterally and wanting to reduce pressure may continue Hemovac drain even if patient goes to transitional care unit.Because the patient is on Xarelto for DVT prophylaxis risk for hemarthrosis is elevated. 9. Encouraged Incentive Spirometry 10. Disposition: We will continue to follow patient's cultures. Currently on above antibiotics. Appreciate input from infectious disease. We will continue with the Hemovac drain at this time. Reassess tomorrow. Continue with physical therapy but we do not want any range of motion of the right knee secondary to patient's skin and closure. Continue with the knee immobilizer and can weight- bear as tolerated with the knee immobilizer in place with walker. SA[facility] Office:
[2022-02-14] MEDS: oxyCODONE 5 MG Tablet PO ×2 (14:09→19:31)
[2022-02-14] MEDS: Acetaminophen 500 MG Tablet 1000 MG PO (19:31)
[2022-02-14] MEDS: Pravastatin 80 MG Tablet PO (21:32)
[2022-02-15] VITALS (10 sets, daily range): BP systolic 133–160; BP diastolic 65–74; PULSE 61–77; RESP 16–20; TEMP 37.1–37.3; O2SAT 94–97
[2022-02-15 05:18] LABS: Hematocrit 26.6 % (40-54); Hemoglobin 8.4 g/dL (13.0-16.5); Mean Corp Hgb Conc 31.6 g/dL (32-36); Mean Corpuscular Hgb 32.8 pg (27.0-32.0); Mean Corpuscular Volume 103.9 fL (80-94); Mean Platelet Vol. 9.8 fl (6.2-12.0); Platelet Count 225 K/mm3 (150-450); RBC Distribution Width CV 16.3 % (11.6-14.6); RBC Distribution Width SD 61.9 fl (35.1-43.9); Red Blood Count 2.56 M/mm3 (4.6-6.2); White Blood Count 7.1 K/mm3 (4.4-11.0)
[2022-02-15] MEDS: Rivaroxaban 10 MG Tablet PO (05:58)
[2022-02-15] MEDS: hydrALAZINE 25 MG Tablet PO ×2 (05:58→13:10)
[2022-02-15] MEDS: Vancomycin IV 500 MG/100 ML BAG 100 MG IV (05:58)
[2022-02-15] MEDS: Ipratropium/Albuterol Sulfate 3 ML AMPUL.NEB INHALATION ×2 (06:38→13:14)
--- NOTE | 2022-02-15 07:34 | PCM.PN.ORT ---
Subjective Subjective Patient is doing well. No acute events overnight. No chest pain or shortness of breath. Remains on 3 L of oxygen. Cultures continue to have no growth. Objective Data Objective Data Vital Signs: Vital Signs Temp Pulse Resp BP Pulse Ox 99.1 F 61 16 160/65 H 96 02/15/22 02:44 02/15/22 06:38 02/15/22 06:38 02/15/22 05:58 02/15/22 06:38 Oxygen Flow Rate (L/min) 3 Oxygen Delivery Method Nasal Cannula Weight: 123 lb 10.869 oz Body Mass Index (BMI) 19.3 Intake & Output: Intake and Output for Last 24 Hours 02/13/22 02/14/22 02/15/22 23:59 23:59 23:59 Intake Total 1307.5 / 1307.5 250 / 450 200 / 200 Output Total 1305 / 1575 670 / 680 210 / 210 Balance 2.5 / -267.5 -420 / -230 -10 / -10 Medical Nutrition Assessment Dietitian: Malnutrition Criteria Met Start: 02/12/22 16:05 Freq: Status: Active Protocol: Document 02/12/22 16:05 RMA (Rec: 02/12/22 16:05 RMA [id number]) Nutrition Malnutrition Evidence of Malnutrition Exists Yes Malnutrition (severe): Acute Illness/Injury Evidenced By Suboptimal Energy Intake ( Severe),Weight Loss (Severe) Clinical Problem Acute Disease or Injury Related Malnutrition Etiology Severe protein-calorie malnutrition in the context of acute illness related to inadequate oral intake Signs/Symptoms as evidenced by 5-6% wt loss x past 1 month and PO meeting less than 50% estimated nutrition needs x 1 month Status Active Problem Recommendation Dietitian Recommendations/Changes Recommend advance diet post-op as medically able to Regular/ no added salt. Continue ensure surgery as ordered. Will add 240 ml ensure clear BID w/ lunch and dinner; will adjust as diet advanced from clear liquids. Lab / Micro Data Result Diagrams: 02/15/22 04:42 02/14/22 05:30 Labs: Laboratory Results - last 24 hr 02/15/22 04:42: WBC 7.1, RBC 2.56 L, Hgb 8.4 L, Hct 26.6 L, MCV 103.9 H, MCH 32.8 H, MCHC 31.6 L, RDW Std Deviation 61.9 H, RDW Coeff of Marya 16.3 H, Plt Count 225, MPV 9.8 Micro: Microbiology 02/12/22 Unknown Tissue - Knee Gram Stain - Final 02/12/22 Unknown Tissue - Knee Wound Culture - Preliminary No growth-Final to follow 02/12/22 Unknown Tissue - Knee Gram Stain - Final 02/12/22 Unknown Tissue - Knee Wound Culture - Preliminary No growth-Final to follow 02/12/22 Unknown Tissue - Knee Gram Stain - Final 02/12/22 Unknown Tissue - Knee Wound Culture - Preliminary No growth-Final to follow Physical Exam Const alert and oriented x3 Resp normal respiratory effort Extremity Extremity Narrative: Left lower extremity: Dressing is clean dry and intact Sensations intact to light touch saphenous, sural, superficial peroneal, deep peroneal, and tibial distributions Motors intact EHL, DF, PF calves are soft and supple Drain with minimal output serosanguineous drainage in tubing. Assessment & Plan Assessment/Plan (1) Infection of right knee: PLAN: 1. S/P irrigation debridement right total knee replacement with polyethylene exchange, complete synovectomy, excision of sinus tract, and complex wound closure of lateral wound and anterior incision POD #3 2. Continue Pain Medications: Tylenol and oxycodone With morphine IR 3. DVT Prophylaxis: Patient will utilize Xarelto for DVT prophylaxis as he has had previous ulcerations in the stomach and unable to take aspirin. Patient not currently wearing stockings as he had heel pressure yesterday and they were removed. Leg is wrapped with an Sami bandage for compression. No SCDs on right leg due to knee immobilizer. 4. PT/OT: Continue with the knee immobilizer for the right knee and no flexion range of motion for the next 2 weeks postoperatively Minimum. Range of motion will be guided by healing of the lateral wound graft. Patient is weightbearing as tolerated with knee immobilizer in place 5. Hb: 8.2, asymptomatic. Postoperative anemia secondary to acute blood loss from surgery without any intra operative complications. 6. Continue postoperative medical management per medicine 7. Continue consultation with infectious disease: Patient has been placed on ceftriaxone and vancomycin while following cultures. Cultures are currently pending. PICC line ordered 8. Continue Hemovac drain: There was approximately 10 cc on overnight shift cc of output. We will continue to monitor. Due to area of graft laterally and wanting to reduce pressure may continue Hemovac drain even if patient goes to transitional care unit.Because the patient is on Xarelto for DVT prophylaxis risk for hemarthrosis is elevated. Plan will be to discontinue Hemovac drain after 2 straight shifts of less than 5 cc of output or 5 days postoperatively. 9. Encouraged Incentive Spirometry 10. Disposition: We will continue to follow patient's cultures. Currently on above antibiotics. Appreciate input from infectious disease. We will continue with the Hemovac drain at this time, drainage is slowly dissipating. Continue with physical therapy but we do not want any range of motion of the right knee secondary to patient's skin and closure, it is imperative to reduce tension and friction on the skin. Continue with the knee immobilizer and can weight-bear as tolerated with the knee immobilizer in place with walker. Plan will be to get the PICC line placed and transition to transitional care unit today where his current needs can be met. [facility] Office:
--- NOTE | 2022-02-15 07:36 | PN.HOSP_ITS ---
Subjective Subjective No fever or chills. Patient has drain in right knee. On 3 L of oxygen. The patient had irrigation and debridement of right total knee replacement with polyethylene exchange, complete synovectomy, excision of sinus tract and complex wound closure with drain. Objective Data Objective Data Vital Signs: Vital Signs Temp Pulse Resp BP Pulse Ox 99.1 F 61 16 160/65 H 96 02/15/22 02:44 02/15/22 06:38 02/15/22 06:38 02/15/22 05:58 02/15/22 06:38 Oxygen Flow Rate (L/min) 3 Oxygen Delivery Method Nasal Cannula Weight: 123 lb 10.869 oz Body Mass Index (BMI) 19.3 Intake & Output: Intake and Output for Last 24 Hours 02/13/22 02/14/22 02/15/22 23:59 23:59 23:59 Intake Total 1307.5 / 1307.5 250 / 450 200 / 200 Output Total 1305 / 1575 670 / 680 210 / 210 Balance 2.5 / -267.5 -420 / -230 -10 / -10 Medical Nutrition Assessment Dietitian: Malnutrition Criteria Met Start: 02/12/22 16:05 Freq: Status: Active Protocol: Document 02/12/22 16:05 RMA (Rec: 02/12/22 16:05 RMA [id number]) Nutrition Malnutrition Evidence of Malnutrition Exists Yes Malnutrition (severe): Acute Illness/Injury Evidenced By Suboptimal Energy Intake ( Severe),Weight Loss (Severe) Clinical Problem Acute Disease or Injury Related Malnutrition Etiology Severe protein-calorie malnutrition in the context of acute illness related to inadequate oral intake Signs/Symptoms as evidenced by 5-6% wt loss x past 1 month and PO meeting less than 50% estimated nutrition needs x 1 month Status Active Problem Recommendation Dietitian Recommendations/Changes Recommend advance diet post-op as medically able to Regular/ no added salt. Continue ensure surgery as ordered. Will add 240 ml ensure clear BID w/ lunch and dinner; will adjust as diet advanced from clear liquids. Lab / Micro Data Result Diagrams: 02/15/22 04:42 02/14/22 05:30 Labs: Laboratory Results - last 24 hr 02/15/22 04:42: WBC 7.1, RBC 2.56 L, Hgb 8.4 L, Hct 26.6 L, MCV 103.9 H, MCH 32.8 H, MCHC 31.6 L, RDW Std Deviation 61.9 H, RDW Coeff of Marya 16.3 H, Plt Count 225, MPV 9.8 Micro: Microbiology 02/12/22 Unknown Tissue - Knee Gram Stain - Final 02/12/22 Unknown Tissue - Knee Wound Culture - Preliminary No growth-Final to follow 02/12/22 Unknown Tissue - Knee Gram Stain - Final 02/12/22 Unknown Tissue - Knee Wound Culture - Preliminary No growth-Final to follow 02/12/22 Unknown Tissue - Knee Gram Stain - Final 02/12/22 Unknown Tissue - Knee Wound Culture - Preliminary No growth-Final to follow Physical Exam Narrative General: Alert, Oriented x3, Cooperative HEENT: Atraumatic, PERRLA, EOMI, Normocephalic Oral: No Gingival or Mucosal Lesions/ Ulcerations Neck: Supple, No JVD, Negative Carotid Bruits Lungs: Air entry diminished in bilateral lung bases. Mild hypoxia. Cardiovascular: Regular rate, Regular Rhythm, Normal S1, Normal S2, No murmurs Abdomen: Bowel Sounds Present, Soft, Non Tender, Non-Distended : No renal angle tenderness. No suprapubic tenderness. Extremities: No edema, Capillary Refill Less than 3 Seconds Skin: No rashes, No breakdown Musculoskeletal: Right knee has Sami wrap bandage. Minimal output in drain. ROM restricted at right knee. Neurological: Cranial nerves II-XII grossly intact, DTR 2+/4 and Symmetrical, Neuro grossly intact Psych/Mental Status: Normal Affect, Appropriate Assessment & Plan Assessment/Plan (1) Infection of right knee: (2) Anemia: PLAN: 1. Right knee infection with sinus tract status post TKA on 01/13/2022. Patient had irrigation and debridement with polyethylene exchange and complete synovectomy, sinus tract excision with complex wound closure requiring retention sutures and dermal graft on 02/12/2022. ID is following. On antibiotic as per ID recommendations ceftriaxone and vancomycin. Patient is going to get PICC line plan for discharge to TCU. Tissue culture from 02/12 did not show organism. 2. Chronic hypoxic respiratory failure secondary to COPD on baseline 3 L of oxygen. Scheduled DuoNeb. Acute anemia due to blood loss: Hemoglobin prior to surgery was normal. Iron replacement and vitamin C anemia -Continue iron supplement with vitamin C. Monitor CBC GERD -Continue Protonix CKD stage IIIa: Creatinine is normal, estimated creatinine clearance 49 mL/min -Most likely due to chronic Lasix use and he is no longer on Lasix chronically Chronic diastolic heart failure-HFpEF. No acute signs of decompensation /exacerbation. -Echocardiogram done in 2020 that showed an EF of 55% with stage I diastolic dysfunction Hyperlipidemia -Continue statin Hypertension -Continue metoprolol and amlodipine. Blood pressure was controlled and currently in acceptable range - Chronic right bundle branch block -No current issues -Suspect related to pulmonary disease History of prostate cancer -No acute issues PVD -Continue statin -Patient follows with vascular surgery -Patient is not on any antiplatelet therapy at baseline DVT prophylaxis -Management per primary service Charges/Coding Visit Charges Inpatient E&M: 90701 Subs Hosp L2
--- NOTE | 2022-02-15 07:40 | DCINST_ITS ---
Discharge Instructions Diet Discharge Diet: No restrictions Activity Discharge Activity: May Not Drive May shower in (days): 10 (spong baths until wound healed and dry) May resume sexual activity in: 6-8 weeks Ice area for (Minutes): 20 (every hour while awake.) Weight Bearing Status: Weight bearing as tolerated Keep extremity elevated above heart level: Operative Extremity Additional Activity Instructions:: Wear elastic stockings for 2 weeks after your surgery. Okay to substitute Sami bandage compression for stockings Dressing / Incision Call your doctor if your incision/area has: Continuous Slow Oozing, Sudden Increased Bleeding, Increased Pain/ Swelling, Increased Redness and Foul Smelling Discharge Call your doctor if you observe: Fever of 101 or Higher, Coldness, Increased Pain, Numbness or Tingling, Change in Color, Calf discomfort and Uncontrolled pain Change Dressing in: 2 days (and daily as needed.) Additional Dressing/Incision Instructions:: Wound care nurse has been consulted. She will follow in transitional care unit. Currently using Xeroform dressing changes every other day. Drain to be removed after 2 straight shifts of 5 or less cc of fluid or on postoperative day 5 (02/17/2022). When drain is removed replaced with pressure dressing. Follow Up Care Please Follow Up With: Ramirez Emmanuel MD When: 2 weeks post op Test Results: Test results from this visit will be discussed in further detail at your follow-up appointment, if applicable. Discharge Plan Admission Admit Date/Time: 02/11/22 15:22 Attending Provider: Ramirez Emmanuel Primary Care Provider: Rona Barnett NP Consulting Providers: Mireya Murillo ; Joanne Marie ; Seferino Mohan ; Benny Machuca ; Malik Vega ; Sidney Aden ; Rafa Langford ; Brown Salas ; Anupam Valenzuela ; Harry Wilson ; Gloria Esquivel ; Sandoval Og ; Keely Pelletier ; Marv Fitzpatrick ; Darell Fam ; Asa Quinn ; Bruce Hewitt ; Dariana Vela ; Jayla Mcdaniel NP ; Pramod De Los Santos ; Merced Lamar ; Jamel Causey Discharge Orders/Prescriptions Prescriptions: No Action acetaminophen 500 mg Tablet 1,000 mg PO Q6H PRN PRN (Reason: Pain Score 1-10) Qty: 0 RF: 0 morphine concentrate 10 mg/0.5 mL Syringe 10 mg PO BID PRN PRN (Reason: Pain Score 6-10) Qty: 0 RF: 0 oxycodone 5 mg Tablet 5 mg PO Q4H PRN PRN (Reason: pain 4-5) 7 Days Qty: 42 RF: 0 cefdinir 300 mg capsule 300 mg PO BID RF: 0 polysaccharide iron complex [Ferrex 150] 150 mg iron capsule 150 mg PO DAILYCM RF: 0 pravastatin 80 mg tablet 80 mg PO QHS RF: 0 amlodipine 10 mg tablet 10 mg PO DAILY RF: 0 pantoprazole 40 mg tablet,delayed release (DR/EC) 40 mg PO DAILY RF: 0 metoprolol tartrate 25 mg tablet 25 mg PO DAILY RF: 0 cholecalciferol (vitamin D3) 25 mcg (1,000 unit) tablet 25 mcg PO DAILY RF: 0 Anoro Ellipta 62.5-25 mcg/actuation blister with device 1 ea inhalation DAILY RF: 0 Multivitamins,Ther W-Minerals [Multivitamin With Minerals (BKC)] 1 tab PO BREAKFAST RF: 0 Referrals / Follow Up: Rona Barnett LIVESTOCK YARD ATTENDANT, LIVESTOCK YARD ATTENDANT-C [Primary Care Provider] -
[2022-02-15] MEDS: Cholecalciferol (VIT D3) 25 MCG TABLET (1,000 UNITS) PO (07:59)
[2022-02-15] MEDS: Pantoprazole Sodium 40 MG Tablet PO (07:59)
[2022-02-15] MEDS: Metoprolol Tartrate 25 MG Tablet PO (08:00)
[2022-02-15] MEDS: Multivitamins,Ther W-Minerals Tablet 1 TABLET PO (08:00)
[2022-02-15] MEDS: Iron Polysaccharide Complex 150 MG CAPSULE PO (08:02)
[2022-02-15] MEDS: amLODIPine 10 MG Tablet PO (08:02)
--- NOTE | 2022-02-15 08:57 | WOUNDNOTE ---
wound photo: right knee
--- NOTE | 2022-02-15 08:57 | WOUNDNOTE ---
wound photo: right lateral knee
--- NOTE | 2022-02-15 08:58 | WOUNDNOTE ---
wound photo: right anterior ankle/lower leg
--- NOTE | 2022-02-15 10:19 | CASEMGMT ---
Social Work Note SW placed a call to Joleen with TCU, confirmed TCU can accept pt once pre-cert is obtained. TRACY placed a call to Bee at [facility] and provided referral. Plan: TCU pending pre-cert Corinne LOPEZ, MIXER OPERATOR [employer]PER [employer]
--- NOTE | 2022-02-15 10:55 | CASEMGMT ---
Addendum entered by Corinne Hagen 02/15/22 13:05: TRACY updated on IV antibiotics for pt. TRACY placed a call to Joleen with TCU and updated her on IV antibiotics and that pt was approved for TCU. TCU can accept pt today. SW updated physician. SW in to speak with pt. TRACY introduced self and role at [facility]. TRACY updated pt that pre-cert for TCU has been obtained and pt will discharge there today. TRACY asked pt if this worker could call his to update and pt gave permission. TRACY placed a call to pt's Larissa and updated her on approval and discharge to TCU. Larissa states understanding. RN updated. Plan: TCU skilled today Original Note: Social Work Note SW received call from Bee at [facility] stating pt was approved to go to TCU. Corinne Hagen [employer], RN OR LPN
[2022-02-15] MEDS: morphine (oral solution) 10MG/0.5ML Syringe 10 MG PO (11:06)
--- NOTE | 2022-02-15 12:41 | PCM.TXEXTCAR ---
Diet 02/13/22 04:52 Diet: Regular - General Food consistency:: Regular Liquid Consistency:: Regular/Thin Type of Dietary Supplement:: Ensure Enlive Is pt able to select menu?: Yes Diet Comments: 240 ml vanilla ensure enlive BID w/ breakfast and dinner Wound(s) right knee: Wound Type: Surgical Incision Dressing Change: xeroform gauze right lateral knee: Wound Type: small graft site over old blistered area Dressing Change: xeroform gauze right anterior ankle/lower leg: Wound Type: Pressure Injury Dressing Change: Dry Sterile Dressing Therapies Weight Bearing: Weight bearing as tolerated (With knee immobilizer in place and with walker) Physical Therapy: Eval and Treat (Continue with the knee immobilizer for the right knee and no flexion range of motion for the next 2 weeks postoperatively. Range of motion will be guided by healing of the lateral wound graft. Patient is weightbearing as tolerated with knee immobilizer in place) Occupational Therapy: Eval and Treat Problem/Diagnosis (1) Infection of right knee: Status: Acute (2) Anemia: Status: Acute Allergies/Procedures Done in Hospital Allergies enalapril Allergy (Verified 01/21/22 12:11) Angioedema peanut Allergy (Verified 01/21/22 12:11) Swelling Procedures: PICC line placement and - (Irrigation and debridement right total knee replacement with polyethylene exchange, completing synovectomy, sinus track excision, and complex wound closure on February 12, 2022) Type of Care/Length of Stay Estimated LOS: Convalescent Care Less Than 30 days Type of Care Needed: Skilled Rehab Potential: Good Prognosis: Good Additional Orders/Day of Discharge Additional Orders: Hemovac drain to be removed after 2 straight shifts of 5 cc or less or on postoperative day #5 (02/17/22). When drain removed replaced with pressure dressing. Day of Discharge: 02/15/22 Dietary and Speech Recommendations Dietitian Recommendations/Changes: Continue regular diet as ordered; will add 240 ml vanilla ensure enlive BID w/ breakfast and dinner and d/c ensure clear as previously ordered on clear liquid diet. Follow Up Care Please Follow Up With: Ramirez Emmanuel MD Discharge Plan Admission Admit Date/Time: 02/11/22 15:22 Attending Provider: Ramirez Emmanuel Primary Care Provider: Rona Barnett NP Consulting Providers: Mireya Murillo ; Joanne Marietoe,Seferino ; Benny Machuca ; Malik Vega ; Sidney Aden ; Rafa Langford ; Brown Salas ; Anupam Valenzuela ; Harry Wilson ; Gloria Esquivel ; Sandoval Og ; Keely Pelletier ; Marv Fitzpatrick ; Darell Fam ; Asa Quinn ; Bruce Hewitt ; Dariana Vela ; Jayla Mcdaniel NP ; Pramod De Los Santos ; Merced Lamar ; Jamel Causey Discharge Orders/Prescriptions Prescriptions: New bisacodyl 5 mg Tablet,Delayed Release (Dr/Ec) 5 mg PO DAILY Qty: 0 RF: 0 Ensure Surgery 0.08-1.4 gram-kcal/mL Liquid 237 ml PO TIDCM Qty: 0 RF: 0 Xarelto 10 mg Tablet 10 mg PO DAILY@0600 Qty: 14 RF: 0 sennosides-docusate sodium [Stool Softener-Stimulant Laxat] 8.6-50 mg Tablet 2 tab PO BID Qty: 0 RF: 0 vancomycin in dextrose 5 % 500 mg/100 mL Piggyback 500 mg IV Q12H Qty: 0 RF: 0 morphine [MS Contin] 15 mg tablet extended release 15 mg PO Q12H 5 Days Qty: 10 RF: 0 ceftriaxone 2 gram recon soln 2 g IV DAILY 39 Days Qty: 39 RF: 0 Continued acetaminophen 500 mg Tablet 1,000 mg PO Q6H PRN PRN (Reason: Pain Score 1-10) Qty: 0 RF: 0 polysaccharide iron complex [Ferrex 150] 150 mg iron capsule 150 mg PO DAILYCM RF: 0 pravastatin 80 mg tablet 80 mg PO QHS RF: 0 amlodipine 10 mg tablet 10 mg PO DAILY RF: 0 pantoprazole 40 mg tablet,delayed release (DR/EC) 40 mg PO DAILY RF: 0 metoprolol tartrate 25 mg tablet 25 mg PO DAILY RF: 0 cholecalciferol (vitamin D3) 25 mcg (1,000 unit) tablet 25 mcg PO DAILY RF: 0 Anoro Ellipta 62.5-25 mcg/actuation blister with device 1 ea inhalation DAILY RF: 0 oxycodone 5 mg Tablet 5 mg PO Q4H PRN PRN (Reason: pain 4-5) 7 Days Qty: 42 RF: 0 Discontinued morphine concentrate 10 mg/0.5 mL Syringe 10 mg PO BID PRN PRN (Reason: Pain Score 6-10) Qty: 0 RF: 0 cefdinir 300 mg capsule 300 mg PO BID RF: 0 Multivitamins,Ther W-Minerals [Multivitamin With Minerals (BKC)] 1 tab PO BREAKFAST RF: 0 Referrals / Follow Up: Ramirez Emmanuel MD [STAFF PHYSICIAN] - (follow up in 2 weeks with xrays and incision check.) Rona Barnett NP, TRADES HELPER-C [Primary Care Provider] - Disposition Discharge Orders: Discharge Patient (Routine); Ordered 02/15/22 Ordered By: Dr. Ramirez Emmanuel
--- NOTE | 2022-02-15 12:49 | PCM.PN.ID ---
Physical Exam Narrative Feeling ok, no fever, no n/v/d. Picc this AM. Knee pain controlled. Const alert and no apparent distress General Appearance: cooperative Resp normal air movement and clear to auscultation bilaterally Cardio regular rate and regular rhythm GI soft to palpation, non-tender and non-distended Extremity no clubbing, cyanosis or edema Skin no rashes or lesions noted ID ID: Route of nutrition/ use of supplements: [] Nutritional Intake: [] IV Site: [] Uriarte Catheter: [] Assessment & Plan Assessment/Plan (1) Infection of right knee: PLAN: S/p R TKR 01/13/[address] Emmanuel. Cxs 01/22 were neg but GPR seen on gram stain, 01/26 also neg. Has been on omnicef recently. Take to for I&D 01/12 with poly exchange. Picc in place, ok for d/c on 6 weeks iv vanc/ceftriaxone. Requested micro lab hold surg cxs for 14 days. ID followup in 2 weeks. D/w case resource manager. Will follow. Covid vaccinated and booster x1.
--- NOTE | 2022-02-15 14:25 | PHA.DC.MR ---
Pharmacy Service has performed discharge medication reconciliation for this patient. The patient's discharge medication list was reviewed for discrepancies and discrepancies were resolved. Home Medications acetaminophen 1,000 mg PO Q6H PRN PRN #0 tab 02/03/22 Anoro Ellipta 1 ea INHALATION DAILY 02/11/22 amlodipine 10 mg PO DAILY 02/11/22 cholecalciferol (vitamin D3) 25 mcg PO DAILY 02/11/22 metoprolol tartrate 25 mg PO DAILY 02/11/22 pantoprazole 40 mg PO DAILY 02/11/22 polysaccharide iron complex [Ferrex 150] 150 mg PO DAILYCM 02/11/22 pravastatin 80 mg PO QHS 02/11/22 bisacodyl 5 mg PO DAILY #0 tab 02/15/22 ceftriaxone 2 g IV DAILY 39 Days #39 ea 02/15/22 morphine [MS Contin] 15 mg PO Q12H 5 Days #10 tab 02/15/22 nut.tx.comp. immune systm,reg [Ensure Surgery] 237 ml PO TIDCM #0 ml 02/15/22 oxycodone 5 mg PO Q4H PRN PRN 7 Days #42 tab 02/15/22 rivaroxaban [Xarelto] 10 mg PO DAILY@0600 #14 tab 02/15/22 sennosides-docusate sodium [Stool Softener-Stimulant Laxat] 2 tab PO BID #0 tab 02/15/22 vancomycin in dextrose 5 % 500 mg IV Q12H #0 ml 02/15/22
--- NOTE | 2022-02-15 15:24 | NURSING ---
Report given to Rona in TCU. All questions and concerns answered. Patient going to room 21
--- NOTE | 2022-02-17 20:07 | PCM.DC.SUM ---
Providers Date of Admission: 02/11/22 Primary Care Physician: SHEILA Rivera Consultations 02/11/22 15:15 Consult: Hospitalist Routine Consulting Provider: Chris Duran Reason for Consult: Medical management EMERGENT Consult: No MD Notified: Yes Date Notified: 02/11/22 Time Notified: 15:29 Method of Notification: Text 02/11/22 15:57 Consult: Infectious Disease Routine Consulting Provider: Jamel Causey Reason for Consult: Rt knee infection EMERGENT Consult: No Notified: Yes Date Notified: 02/11/22 Time Notified: 16:15 Method of Notification: Text Reason For Visit: RT KNEE DRAINING SINUS Diagnosis Discharge Diagnosis (1) Infection of right knee: Status: Acute Code(s): M00.9 - Pyogenic arthritis, unspecified Medications at Discharge Home Medications acetaminophen 1,000 mg PO Q6H PRN PRN #0 tab 02/03/22 Anoro Ellipta 1 ea INHALATION DAILY 02/11/22 amlodipine 10 mg PO DAILY 02/11/22 cholecalciferol (vitamin D3) 25 mcg PO DAILY 02/11/22 metoprolol tartrate 25 mg PO DAILY 02/11/22 pantoprazole 40 mg PO DAILY 02/11/22 polysaccharide iron complex [Ferrex 150] 150 mg PO DAILYCM 02/11/22 pravastatin 80 mg PO QHS 02/11/22 bisacodyl 5 mg PO DAILY 02/15/22 ceftriaxone 2 g IV DAILY 02/15/22 morphine [MS Contin] 15 mg PO Q12H 02/15/22 nut.tx.comp. immune systm,reg [Ensure Surgery] 237 ml PO TIDCM 02/15/22 oxycodone 5 mg PO Q4H PRN PRN 7 Days #42 tab 02/15/22 rivaroxaban [Xarelto] 10 mg PO DAILY@0600 02/15/22 sennosides-docusate sodium [Stool Softener-Stimulant Laxat] 2 tab PO BID 02/15/22 vancomycin in dextrose 5 % 500 mg IV Q12H 02/15/22 Hospital Course Operations total knee replacement Procedures PICC line placement Summary of Care Provided Hospital Course: 81-year-old male admitted to the hospital on February 11, 2022 for draining sinus of his total knee replacement. He was taken to the operating room the following day. Upon admission medicine and infectious disease was consulted. Patient was taken to the hospital on February 12 for irrigation debridement and polyethylene exchange. Patient was given a drain at that time. The drain was left upon discharge in order to allow for drainage from the joint. Instructions were given for drain removal. Wound was checked on postoperative day 2. After following cultures patient was eventually ready for discharge on ceftriaxone and vancomycin. He was discharged home with home health care. He did well postoperatively without any significant complications. A PICC line was placed prior to discharge Weight / BMI Weight Weight: 123 lb 10.869 oz Body Mass Index (BMI) 19.3 ABG / Lab / Microbiology Data Result Diagrams: 02/15/22 04:42 02/14/22 05:30 Microbiology: Microbiology 02/12/22 Unknown Tissue - Knee Gram Stain - Final 02/12/22 Unknown Tissue - Knee Wound Culture - Preliminary Gram positive gustavo 02/12/22 Unknown Tissue - Knee Anaerobic Culture - Preliminary No growth in 48 hours. 02/15/22 13:00 Nasal Secretion SARS-CoV-2 Antigen (Rapid) - Final 02/12/22 Unknown Tissue - Knee Gram Stain - Final 02/12/22 Unknown Tissue - Knee Wound Culture - Preliminary No growth-Final to follow 02/12/22 Unknown Tissue - Knee Anaerobic Culture - Preliminary No growth in 48 hours. 02/12/22 Unknown Tissue - Knee Gram Stain - Final 02/12/22 Unknown Tissue - Knee Wound Culture - Preliminary No growth-Final to follow 02/12/22 Unknown Tissue - Knee Anaerobic Culture - Preliminary No growth in 48 hours. D/C Instructions Discharge Diet: No restrictions May shower in (days): 10 (spong baths until wound healed and dry) May resume sexual activity in: 6-8 weeks Ice area for (Minutes): 20 (every hour while awake.) Weight Bearing Status: Weight bearing as tolerated Keep extremity elevated above heart level: Operative Extremity Additional Activity Instructions: Wear elastic stockings for 2 weeks after your surgery. Okay to substitute Sami bandage compression for stockings Call your doctor if your incision/area has: Continuous Slow Oozing, Sudden Increased Bleeding, Increased Pain/ Swelling, Increased Redness and Foul Smelling Discharge Call your doctor if you observe: Fever of 101 or Higher, Coldness, Increased Pain, Numbness or Tingling, Change in Color, Calf discomfort and Uncontrolled pain Additional Dressing/Incision Instructions: Wound care nurse has been consulted. She will follow in transitional care unit. Currently using Xeroform dressing changes every other day. Drain to be removed after 2 straight shifts of 5 or less cc of fluid or on postoperative day 5 (02/17/2022). When drain is removed replaced with pressure dressing. Please Follow Up With: Ramirez Emmanuel MD When: 2 weeks post op Meaningful Use Info Meaningful Use Diagnoses (Choose all that apply): None applicable Discharge Plan Admission Admit Date/Time: 02/11/22 15:22 Attending Provider: Ramirez Emmanuel Primary Care Provider: Rona Barnett NP Consulting Providers: Mireya Murillo ; Joanne Marie ; Seferino Mohan ; Benny Machuca ; Malik Vega ; Sidney Aden ; Rafa Langford ; Brown Salas ; Anupam Valenzuela ; Harry Wilson ; Gloria Esquivel ; Sandoval Og ; Keely Pelletier ; Marv Fitzpatrick ; Darell Fam ; Asa Quinn ; Bruce Hewitt ; Dariana Vela ; Jayla Mcdaniel REAL ESTATE SALES MANAGER ; Pramod De Los Santos ; Merced Lamar ; Jamel Causey Discharge Orders/Prescriptions Prescriptions: Continued acetaminophen 500 mg Tablet 1,000 mg PO Q6H PRN PRN (Reason: Pain Score 1-10) Qty: 0 RF: 0 polysaccharide iron complex [Ferrex 150] 150 mg iron capsule 150 mg PO DAILYCM RF: 0 pravastatin 80 mg tablet 80 mg PO QHS RF: 0 amlodipine 10 mg tablet 10 mg PO DAILY RF: 0 pantoprazole 40 mg tablet,delayed release (DR/EC) 40 mg PO DAILY RF: 0 metoprolol tartrate 25 mg tablet 25 mg PO DAILY RF: 0 cholecalciferol (vitamin D3) 25 mcg (1,000 unit) tablet 25 mcg PO DAILY RF: 0 Anoro Ellipta 62.5-25 mcg/actuation blister with device 1 ea inhalation DAILY RF: 0 oxycodone 5 mg Tablet 5 mg PO Q4H PRN PRN (Reason: pain 4-5) 7 Days Qty: 42 RF: 0 Discontinued morphine concentrate 10 mg/0.5 mL Syringe 10 mg PO BID PRN PRN (Reason: Pain Score 6-10) Qty: 0 RF: 0 cefdinir 300 mg capsule 300 mg PO BID RF: 0 Multivitamins,Ther W-Minerals [Multivitamin With Minerals (BKC)] 1 tab PO BREAKFAST RF: 0 No Action ceftriaxone 2 gram recon soln 2 g IV DAILY RF: 0 sennosides-docusate sodium [Stool Softener-Stimulant Laxat] 8.6-50 mg tablet 2 tab PO BID RF: 0 morphine [MS Contin] 15 mg tablet extended release 15 mg PO Q12H RF: 0 bisacodyl 5 mg tablet,delayed release (DR/EC) 5 mg PO DAILY RF: 0 vancomycin in dextrose 5 % 500 mg/100 mL piggyback 500 mg IV Q12H RF: 0 Ensure Surgery 0.08-1.4 gram-kcal/mL liquid 237 ml PO TIDCM RF: 0 Xarelto 10 mg tablet 10 mg PO DAILY@0600 RF: 0 Referrals / Follow Up: Ramirez Emmanuel MD [STAFF PHYSICIAN] - (follow up in 2 weeks with xrays and incision check.) Rona Barnett NP, REAL ESTATE SALES MANAGER-C [Primary Care Provider] - Disposition Disposition (needs filled in before D/C Order can be placed): [facility] Acute Care
== END 2022-02-15 15:38 | DRG 463 ==
PROVIDERS: Anesthesiology; Internal Medicine; Internal Medicine Infectious Disease; Admitting Provider Specialist; PCP Nurse Practitioner; Visit Provider Specialist
PROC: 0HRKXK3 Replacement of Right Lower Leg Skin with Nonautologous Tissue Substitute, Full Thickness, External Approach (ICD-10-PCS; CPT 27301; principal; 2022-02-12 12:10)
DX: T84.53XA Infection and inflammatory reaction due to internal right knee prosthesis, initial encounter (principal); E43 Unspecified severe protein-calorie malnutrition; I13.0 Hypertensive heart and chronic kidney disease with heart failure and stage 1 through stage 4 chronic kidney disease, or unspecified chronic kidney disease; M00.9 Pyogenic arthritis, unspecified; D62 Acute posthemorrhagic anemia; J96.11 Chronic respiratory failure with hypoxia; I50.32 Chronic diastolic (congestive) heart failure; Z99.81 Dependence on supplemental oxygen; I73.9 Peripheral vascular disease, unspecified; J44.9 Chronic obstructive pulmonary disease, unspecified; N18.31 Chronic kidney disease, stage 3a; I45.10 Unspecified right bundle-branch block; E78.5 Hyperlipidemia, unspecified; K21.9 Gastro-esophageal reflux disease without esophagitis; Z87.891 Personal history of nicotine dependence; Z79.899 Other long term (current) drug therapy; Z79.01 Long term (current) use of anticoagulants
CPT/HCPCS: 36415; 36569; 73560; 80048; 80202; 85025; 85027; 87015; 87070; 87075; 87077; 87102; 87116; 87176; 87205; 87206; 88304; 88305; 88311; 94640; 97110; 97162; 97165; 97530; 97535; 97802; 99251; C1776; J7040; J7120; G0463; J0696

== ENCOUNTER 2022-02-15 15:45 | Inpatient (IN) | payer MEDICARE, SELFPAY ==
[2022-02-15 15:55] VITALS: BP 157/61; PULSE 72; PULSE 97; RESP 16; RESP 18; TEMP 37.3; O2SAT 93; O2SAT 97
--- NOTE | 2022-02-15 16:27 | NURSING ---
pt arrived to TCU with blood under PICC line CHG dressing. Will change dressing.
--- NOTE | 2022-02-15 16:47 | PCM.RX.CS ---
Consult Pharmacy has been consulted to manage selected antiobiotic: Vancomycin Type of Consult: Follow-up Suspected Infection: Skin/Soft tissue Prior Doses of Antibiotics Received/Current Regimen: Has been on 500mg iv q12h. Weight used for dosin.1 kg Estimated Creatinine Clearance: ~50ml/min Goal Trough: 15-20 mcg/mL Pharmacy Plan for Drug Dosing: Trough level ordered for 02.16.22 in AM. Will continue 500mg iv q12h that patient was receiving on MS3 for now. Last trough was 14.8 on 02.14.22. Pharmacy Service will continue to monitor and adjust dosing as required. Follow-Up Labs: Trough Vancomycin - 02.16.22 @0535 before 0600 dose
[2022-02-15] MEDS: morphine SR 15 MG Tablet PO (17:02)
[2022-02-15] MEDS: Vancomycin IV 500 MG/100 ML BAG 100 MG IV (18:03)
[2022-02-15] MEDS: 0.9% Saline Lock 10 ML Syringe IV (18:05)
--- NOTE | 2022-02-15 19:22 | HP.PCM_ITS ---
HPI - General General Date of Admission: 02/15/22 HPI Narrative 02/12/2022 NICA PANTOJA, is a 81 Male who presents recent right total knee arthroplasty, right lateral knee wound draining, concerning for infection right total knee prosthesis. Dr. Emmanuel considered irrigation and debridement versus revision knee replacement surgery. 02/12/2022 Dr. Emmanuel performed irrigation and debridement of right total knee replacement with polyethylene exchange, complete synovectomy right knee, sinus t ract excision 15mm x 15mm, right lateral knee complex wound closure lateral wound. 02/12/2022 Dr. Causey recommended Vancomycin, Ceftriaxone empirically post op. 02/13/2022 Feeling better, tolerating oral diet, pain well controlled. Cultures pending. [facility]. Oxygen 3 liters per nasal cannula, chronic home oxygen 3 liters. Stop IV fluids, renal function stable. Lasix stopped. 02/14/2022 Anxious on discharge. PICC for terminologist intravenous antibiotics. TCU for rehabilitation, residential IV antibiotics. 02/15/2022 Right knee drain in place. PICC line placed right upper extremity. 02/15/2022 Dr. Causey recommended Vancomycin, Ceftriaxone IV x 6 weeks. 02/15/2022 Admit to TCU with debility, here for rehabilitation, strengthening, intravenous antibiotics, prior to discharge home with . [facility] Medical History Anemia Arthritis Cancer Cardiology follow-up encounter COPD (chronic obstructive pulmonary disease) Duodenal ulcer due to nonsteroidal anti-inflammatory drug (NSAID) (09/28/21) Easy bruising Essential hypertension High cholesterol History of echocardiogram History of GI bleed History of pain when walking History of ulceration Hx of basal cell carcinoma Hyperlipidemia Multiple premature ventricular complexes On home oxygen therapy On home oxygen therapy Peripheral vascular disease Peripheral vascular occlusive disease Prostate cancer Right bundle branch block (RBBB) Shortness of breath on exertion Skin cancer Syncope Tobacco abuse Walker as ambulation aid Wears dentures Home Medications acetaminophen 1,000 mg PO Q6H PRN PRN #0 tab 02/03/22 [Rx Last Taken 02/11/22] Anoro Ellipta 1 ea INHALATION DAILY 02/11/22 [History Last Taken 02/10/22] amlodipine 10 mg PO DAILY 02/11/22 [History Last Taken 02/10/22] cholecalciferol (vitamin D3) 25 mcg PO DAILY 02/11/22 [History Last Taken 02/11/22] metoprolol tartrate 25 mg PO DAILY 02/11/22 [History Last Taken 02/11/22] pantoprazole 40 mg PO DAILY 02/11/22 [History Last Taken 02/11/22] polysaccharide iron complex [Ferrex 150] 150 mg PO DAILYCM 02/11/22 [History Last Taken 02/11/22] pravastatin 80 mg PO QHS 02/11/22 [History Last Taken 02/11/22] bisacodyl 5 mg PO DAILY 02/15/22 [History Last Taken Unknown] ceftriaxone 2 g IV DAILY 02/15/22 [History Last Taken Unknown] morphine [MS Contin] 15 mg PO Q12H 02/15/22 [History Last Taken Unknown] nut.tx.comp. immune systm,reg [Ensure Surgery] 237 ml PO TIDCM 02/15/22 [History Last Taken Unknown] oxycodone 5 mg PO Q4H PRN PRN 7 Days #42 tab 02/15/22 [Rx Last Taken Unknown] rivaroxaban [Xarelto] 10 mg PO DAILY@0600 02/15/22 [History Last Taken Unknown] sennosides-docusate sodium [Stool Softener-Stimulant Laxat] 2 tab PO BID 02/15/22 [History Last Taken Unknown] vancomycin in dextrose 5 % 500 mg IV Q12H 02/15/22 [History Last Taken Unknown] Allergy/AdvReac Type Severity Reaction Status Date / Time enalapril Allergy Angioedema Verified 01/21/22 12:11 peanut Allergy Swelling Verified 01/21/22 12:11 Family History Father CVA (cerebral vascular accident) Hypertension Surgical History H/O radical prostatectomy H/O: knee surgery History of carpal tunnel surgery of left wrist History of esophagogastroduodenoscopy (EGD) History of total right knee replacement Hx of vascular surgery (2018) Status post total right knee replacement Social History (Updated 02/15/22 @ 19:[address] Yogesh Nance MD) household members: spouse Smoking Status: Former smoker Tobacco: How many years used: 50 alcohol intake: former ROS Constitutional Constitutional: Denies chills, fever(s) or weight gain ENT HEENT: Denies headache(s), nasal congestion or nasal discharge Cardiovascular Cardiovascular: Denies chest pain or palpitations Respiratory/Chest Respiratory/Chest: Denies cough, excessive phlegm production or shortness of breath with exertion Gastrointestinal Gastrointestinal: Denies abdominal pain, nausea or vomiting Genitourinary Genitourinary: Denies dysuria Musculoskeletal Musculoskeletal: Denies joint pain or joint swelling Integumentary Integumentary: Denies rash or wounds Neurologic Neurologic: Denies focal weakness, numbness or tingling Psychiatric Psychiatric: Denies anxiety, auditory hallucinations, depression, homicidal ideation or suicidal ideation Vital Signs Vital Signs Vital Signs: 02/15/22 15:55 Temperature 99.1 F Temperature Source Temporal Pulse Rate 97 Pulse Rhythm Regular Pulse Strength Normal (2+) Respiratory Rate 18 Respiratory Effort Normal Non-Labored Respiratory Depth Normal Respiratory Pattern Normal Blood Pressure 157/61 H Blood Pressure Mean 93 Blood Pressure Source Monitor Blood Pressure Position Supine Blood Pressure Location Right Arm Pulse Ox 97 Oxygen Delivery Method Nasal Cannula Oxygen Flow Rate (L/min) 3 Weight Weight: 57.72 kg Body Mass Index (BMI) 20.0 Physical Exam Const alert General Appearance: cooperative HEENT normocephalic Eyes PERRL and EOMs intact bilaterally Neck supple, no JVD and no carotid bruits Resp normal respiratory effort, normal air movement and clear to auscultation bilaterally Cardio regular rate and regular rhythm GI normal to inspection, nondistended, normoactive bowel sounds, non-tender and non-distended Extremity normal capillary refill Extremity Narrative: Right lower extremity splint, right knee drain. Right upper extremity PICC line. General Extremity: Negative for edema Skin no rashes or lesions noted General Skin Exam: no breakdown Psych affect normal Appearance: appropriate Assessment & Plan Assessment/Plan (1) Debility: (2) Infection of prosthetic right knee joint: (3) Hypertension: (4) Hyperlipidemia: (5) Hypokalemia: (6) Gastroesophageal reflux disease: (7) Vitamin D deficiency: (8) Chronic obstructive pulmonary disease: PLAN: 81 year old male with below past medical history hospitalized for infection right prosthetic knee, underwent irrigation/debridement, polyethylene exchange 02/12/[address] Emmanuel, admitted to TCU with debility, here for rehabilitation, strengthening, intravenous antibiotics, prior to discharge home with . * Debility - PT/OT. * Pain - Tylenol 1000mg q6h prn pain (1-5), Oxycodone 10mg q4h prn pain (6-10), MS Contin 15mg q12h. * Bowel - Miralax 17gm daily, senna/colace 2 tablets bid, Dulcolax 10mg daily prn. * Adult immunization - Administer pneumonia vaccine, flu vaccine, covid19 vaccine. * DVT prophylaxis - Xarelto 10mg daily thru 03/01/2022. * Hypertension - Metoprolol 25mg daily, Amlodipine 10mg daily. * Right prosthetic knee infection - Ceftriaxone 2gm iv q24h, Vancomycin 500mg iv q12h thru 03/26/2022, Consult Dr. Causey. * Vitamin D deficiency - D3 25mcg daily. * Iron deficiency anemia - Ferrex 150mg daily. * GERD - Pantoprazole 40mg daily. * Hyperlipidemia - Pravastatin 80mg qhs. * COPD - Anoro 1 puff daily, oxygen 3 liters per nasal cannula.
[2022-02-15] MEDS: Pravastatin 80 MG Tablet PO (20:53)
[2022-02-15] MEDS: oxyCODONE 5 MG Tablet 10 MG PO (21:00)
[2022-02-16] MEDS: oxyCODONE 5 MG Tablet 10 MG PO ×2 (01:05→15:31)
[2022-02-16 05:41] LABS: Absolute Lymphocyte Count 2.25 X10^3/uL (0.83-4.51); Absolute Neutrophil Count 5.1 X10^3/uL (2.0-7.7); Basophil# 0.06 X10^3/uL; Basophil% 0.7 % (0-1); Eosinophil# 0.51 X10^3/uL; Eosinophils% 5.9 % (0-5); Hematocrit 27.9 % (40-54); Hemoglobin 9.1 g/dL (13.0-16.5); Lymphocyte # 2.25 X10^3/ul (0.83-4.51); Lymphocyte % 25.9 % (19-41); Mean Corp Hgb Conc 32.6 g/dL (32-36); Mean Corpuscular Hgb 33.7 pg (27.0-32.0); Mean Corpuscular Volume 103.3 fL (80-94); Monocyte# 0.71 X10^3/uL; Monocyte% 8.2 % (0-10); NRBC Flagged by Analyzer 0 % (0-5); Neutrophil # 5.12 X10^3/uL (2.7-7.7); Platelet Count 218 K/mm3 (150-450); RBC Distribution Width CV 16.5 % (11.6-14.6); RBC Distribution Width SD 62.4 fl (35.1-43.9); White Blood Count 8.7 K/mm3 (4.4-11.0)
[2022-02-16 06:29] LABS: Anion Gap 8 (5-15); BUN 25 mg/dL (7-18); BUN/Creat Ratio 21.6 RATIO (10-20); Calcium,Total 9.1 mg/dL (8.5-10.1); Chloride 101 mmol/L (98-107); Creatinine, Serum 1.16 mg/dL (0.70-1.30); EST Glomerular Filtration Rate 64 mL/min (>60); Est Glom Filt Rate - Afr Amer 78 mL/min (>60); Estimated Creatinine Clearance 41.47 ml/min; Glucose 99 mg/dL (74-106); Potassium 3.8 mmol/L (3.5-5.1); Sodium Level 136 mmol/L (136-145)
[2022-02-16 06:31] LABS: Vancomycin, Trough Level 15.3 ug/mL (5.0-15.0)
--- NOTE | 2022-02-16 06:37 | PCM.RX.CS ---
Consult Pharmacy has been consulted to manage selected antiobiotic: Vancomycin Type of Consult: Follow-up Suspected Infection: Skin/Soft tissue Prior Doses of Antibiotics Received/Current Regimen: Medications Vancomycin HCl () 500 mg in 100 mls @ 100 mls/hr IV Q12H ANASTASIYA Last Admin: 02/15/22 19:17 Dose: Infused Documented by: Labs: Sodium 136 mmol/L (136-145) 02/16/22 05:27 Potassium 3.8 mmol/L (3.5-5.1) 02/16/22 05:27 Chloride 101 mmol/L (98-107) 02/16/22 05:27 Carbon Dioxide 27.0 mmol/L (21.0-32.0) 02/16/22 05:27 Anion Gap 8 (5-15) 02/16/22 05:27 BUN 25 mg/dL (7-18) H 02/16/22 05:27 Creatinine 1.16 mg/dL (0.70-1.30) 02/16/22 05:27 Est GFR (MDRD) Af Amer 78 mL/min (>60) 02/16/22 05:27 Est GFR (MDRD) Non-Af 64 mL/min (>60) 02/16/22 05:27 BUN/Creatinine Ratio 21.6 RATIO (10-20) H 02/16/22 05:27 Glucose 99 mg/dL (74-106) 02/16/22 05:27 Vancomycin Trough 15.3 ug/mL (5.0-15.0) H 02/16/22 05:27 Weight used for dosin.7 kg Estimated Creatinine Clearance: 41 Goal Trough: 15-20 mcg/mL Pharmacy Plan for Drug Dosing: Vancomycin trough level of 15.3 was within the target range of 15-20. Will continue same dosing and redraw trough 02/18/22. Pharmacy Service will continue to monitor and adjust dosing as required. Follow-Up Labs: Trough Vancomycin Labs to be done on [date and time ordered]: 02/18/22 @[id number]
[2022-02-16] MEDS: Vancomycin IV 500 MG/100 ML BAG 100 MG IV ×2 (06:42→17:52)
[2022-02-16] MEDS: Senna/Docusate Sodium 1 Tablet 2 TABLET PO (06:43)
[2022-02-16 06:44] VITALS: BP 146/64; PULSE 69
[2022-02-16] MEDS: amLODIPine 10 MG Tablet PO (06:44)
[2022-02-16] MEDS: Rivaroxaban 10 MG Tablet PO (06:44)
[2022-02-16] MEDS: Metoprolol Tartrate 25 MG Tablet PO (06:44)
[2022-02-16] MEDS: Pantoprazole Sodium 40 MG Tablet PO (06:44)
[2022-02-16] MEDS: Cholecalciferol (VIT D3) 25 MCG TABLET (1,000 UNITS) PO (06:44)
[2022-02-16] MEDS: morphine SR 15 MG Tablet PO ×2 (06:44→17:52)
[2022-02-16] MEDS: Umeclidinium Brm/Vilanterol 62.5-25 mcg Inh 1 PUFF INHALATION (06:45)
[2022-02-16] MEDS: Polyethylene Glycol 3350 17 GM PACKET PO (06:45)
--- NOTE | 2022-02-16 07:35 | NURSING ---
Called into patients room, stated he was moving in bed and the drain came out from his knee. Contacted Dr. Emmanuel and was told it was fine. Instructed to remove the stitch and place DSD over it. Replaced Sami wrap and leg immobilizer. Patient tolerated well.
[2022-02-16] MEDS: Iron Polysaccharide Complex 150 MG CAPSULE PO (08:11)
--- NOTE | 2022-02-16 08:37 | PCM.PN.RX ---
Progress Note - Pharmacy Subjective: TCU Admission Objective: Allergies enalapril Allergy (Verified 01/21/22 12:11) Angioedema peanut Allergy (Verified 01/21/22 12:11) Swelling Current Medications Generic Name Dose Route Start Last Admin Trade Name Freq PRN Reason Stop Dose Admin Acetaminophen 1,000 mg 02/15/22 19:41 Acetaminophen 500 Mg Tablet PO Q6H PRN PRN Pain Score 1-5 Amlodipine Besylate 10 mg 02/16/22 06:00 02/16/22 06:44 Amlodipine 10 Mg Tablet PO 10 mg DAILY ANASTASIYA Administration Bisacodyl 10 mg 02/15/22 19:41 Bisacodyl 5 Mg Tablet PO DAILY PRN Constipation Cholecalciferol 25 mcg 02/16/22 06:00 02/16/22 06:44 Cholecalciferol (Vit D3) 25 Mcg Tablet (1,000 Units) PO 25 mcg DAILY ANASTASIYA Administration Heparin Sodium (Beef Lung) 50 units 02/15/22 16:28 Heparin Pf Lock 10 Units/Ml 50 Units/5 Ml Syringe IV UD PRN PICC Line Heparin Flush Ceftriaxone Sodium 2 gm/ 50 mls @ 100 mls/hr 02/16/22 10:00 Sodium Chloride IV 03/26/22 11:00 Q24 ANASTASIYA Sodium Chloride 250 mls @ 15 mls/hr 02/15/22 16:28 02/15/22 18:05 IV 15 mls/hr .[id number] PRN Administration Saline Flush Sodium Chloride 250 mls @ 15 mls/hr 02/15/22 16:28 IV .[id number] PRN Additional IVPB Infusion Vancomycin HCl 500 mg in 100 mls @ 100 mls/hr 02/15/22 18:00 02/16/22 07:42 IV Infused Q12H ANASTASIYA Infusion Metoprolol Tartrate 25 mg 02/16/22 06:00 02/16/22 06:44 Metoprolol Tartrate 25 Mg Tablet PO 25 mg DAILY ANASTASIYA Administration Morphine Sulfate 15 mg 02/15/22 18:00 02/16/22 06:44 Morphine Sr 15 Mg Tablet PO 15 mg Q12 ANASTASIYA Administration Oxycodone HCl 10 mg 02/15/22 19:41 02/16/22 01:05 Oxycodone 5 Mg Tablet PO 10 mg Q4H PRN PRN Administration Pain Score 6-10 Pantoprazole Sodium 40 mg 02/16/22 06:00 02/16/22 06:44 Pantoprazole Sodium 40 Mg Tablet PO 40 mg DAILY ANASTASIYA Administration Polyethylene Glycol 17 gm 02/16/22 06:00 02/16/22 06:45 Polyethylene Glycol 3350 17 Gm Packet PO 17 gm DAILY ANASTASIYA Administration Polysaccharide Iron Complex 150 mg 02/16/22 08:00 02/16/22 08:11 Iron Polysaccharide Complex 150 Mg Capsule PO 150 mg DAILYCM ANASTASIYA Administration Pravastatin Sodium 80 mg 02/15/22 22:00 02/15/22 20:53 Pravastatin 80 Mg Tablet PO 80 mg QHS ANASTASIYA Administration Rivaroxaban 10 mg 02/16/22 06:00 02/16/22 06:44 Rivaroxaban 10 Mg Tablet PO 03/01/22 06:01 10 mg 0600 ANASTASIYA Administration Senna/Docusate Sodium 2 tablet 02/15/22 18:00 02/16/22 06:43 Senna/Docusate Sodium 1 Tablet PO 2 tablet BID ANASTASIYA Administration Sodium Chloride 10 - 40 ml 02/15/22 16:28 02/15/22 18:05 0.9% Saline Lock 10 Ml Syringe IV 20 ml UD PRN Administration Open End PICC Flush Sodium Chloride 10 - 40 ml 02/15/22 16:28 0.9 % Nacl (Sterile) Posiflush 10 Ml IV UD PRN Port access or dressing change Tuberculin PPD 0.1 ml 02/16/22 10:00 Tuberculin,Purif.Prot.Deriv. 50 Tu/Ml Vial ID 02/16/22 10:01 X1 ONE Tuberculin PPD 0.1 ml 02/23/22 10:00 Tuberculin,Purif.Prot.Deriv. 50 Tu/Ml Vial ID 02/23/22 10:01 X1 ONE Problem List (Last Reviewed 02/15/22 @ 19:[address] Yogesh Nance MD) Chronic obstructive pulmonary disease (Chronic) Vitamin D deficiency (Acute) Gastroesophageal reflux disease (Acute) Hypokalemia (Acute) Hyperlipidemia (Acute) Hypertension (Chronic) Infection of prosthetic right knee joint (Acute) Debility (Acute) Vital Signs Temp Pulse Resp BP Pulse Ox 99.1 F 69 18 146/64 H 97 02/15/22 15:55 02/16/22 06:44 02/15/22 15:55 02/16/22 06:44 02/15/22 15:55 Oxygen Flow Rate (L/min) 3 Oxygen Delivery Method Nasal Cannula Weight: 57.72 kg Body Mass Index (BMI) 20.0 Sodium 136 mmol/L (136-145) 02/16/22 05:27 Potassium 3.8 mmol/L (3.5-5.1) 02/16/22 05:27 Chloride 101 mmol/L (98-107) 02/16/22 05:27 Carbon Dioxide 27.0 mmol/L (21.0-32.0) 02/16/22 05:27 Anion Gap 8 (5-15) 02/16/22 05:27 BUN 25 mg/dL (7-18) H 02/16/22 05:27 Creatinine 1.16 mg/dL (0.70-1.30) 02/16/22 05:27 Est GFR (MDRD) Af Amer 78 mL/min (>60) 02/16/22 05:27 Est GFR (MDRD) Non-Af 64 mL/min (>60) 02/16/22 05:27 BUN/Creatinine Ratio 21.6 RATIO (10-20) H 02/16/22 05:27 Glucose 99 mg/dL (74-106) 02/16/22 05:27 Vancomycin Trough 15.3 ug/mL (5.0-15.0) H 02/16/22 05:27 Assessment/Plan: 1. Pain: acetaminophen 1000mg PO Q6H PRN pain 1-5, oxycodone 10mg PO Q4H PRN pain 6-10 and morphine SR 15mg PO BID. Please continue to monitor for increased pain, PRN usage, constipation and respiratory depression. 2. DVT prophylaxis: rivaroxaban 10mg PO daily thru 03/01/22. Please continue to monitor for S/S of bleeding/DVT and hemoglobin (last 9.1g/dL). *3. Right prosthetic knee infection: ceftriaxone 2gm IV Q24H thru 03/26/22 and vancomycin 500mg IV Q12H. Please consider adding stop date to vancomycin order. Thanks. Please continue to monitor for S/S of infection, renal function and diarrhea. 4. Hypertension: metoprolol tartrate 25mg PO daily and amlodipine 10mg PO daily. Please continue to monitor BP (last 146/64), HR (last 69) and for swelling. 5. Iron deficiency anemia: Ferrex 150mg PO DAILYCM. Please continue to monitor hemoglobin (last 9.1g/dL), constipation and dark stools. 6. GERD: pantoprazole 40mg PO daily. Please continue to monitor for S/S of GERD and diarrhea. *7. Hyperlipidemia: pravastatin 80mg PO QHS. Please consider ordering a lipid panel if clinically appropriate. Resident does not have a level in the chart. Thanks. Please continue to monitor for muscle pain. 8. COPD: Anoro Ellipta 1puff daily. Please continue to monitor for S/S of COPD and HR. *9. Vitamin D deficiency: cholecalciferol 25mcg PO daily. Please consider ordering a vitamin D level if clinically appropriate. Resident does not have a level in the chart. Thanks. Psychotropic Medications: None Unnecessary Medications: None Bowel Regimen: Miralax 17gm PO daily, senna/docusate 2T PO BID and bisacodyl 10mg PO daily PRN constipation. Please continue to monitor for constipation and PRN usage. Date of Note:: 02/16/22
[2022-02-16] MEDS: 0.9% Saline Lock 10 ML Syringe IV ×2 (09:52→17:55)
--- NOTE | 2022-02-16 09:52 | CASEMGMT ---
Social Work Met with patient for initial assessment. Pt remembered this worker from previous TCU stay. No changes to code status or MOLST form - DNR-CCA, no intubation. Explained [employer] insurance and continued stay is not guaranteed with each review. The goal is for pt to remain in TCU throughout duration of IV ATB, stop date 03/26, and return home at [facility]. Pt reports until infection got bad, he was functioning well at home. He states he was walking to and from his garage about 175 ft round trip with the FWW and O2, and was doing well. SW to continue to follow for DC planning. Sarah Franco, IT SYSTEMS ADMINISTRATOR INPATIENT SERVICES RN
--- NOTE | 2022-02-16 10:04 | PCM.PN.ID ---
Physical Exam Narrative Feeling ok, no fever, no n/v/d. Const alert and no apparent distress General Appearance: cooperative Resp normal air movement and clear to auscultation bilaterally Cardio regular rate and regular rhythm GI soft to palpation, non-tender and non-distended Skin no rashes or lesions noted ID ID: Route of nutrition/ use of supplements: [] Nutritional Intake: [] IV Site: [] Uriarte Catheter: [] Assessment & Plan Assessment/Plan (1) Infection of prosthetic right knee joint: PLAN: S/p R TKR 01/13/[address] Emmanuel. Cxs 01/22 were neg but GPC seen on gram stain, 01/26 also neg. Has been on omnicef recently. Take to for I&D 01/12 with poly exchange. Picc in place, on 6 weeks iv vanc/ceftriaxone. Requested micro lab hold surg cxs for 14 days. ID followup in 2 weeks. Will follow.
[2022-02-16] MEDS: Tuberculin,Purif.prot.deriv. 50 TU/ML Vial 0.1 ML ID (12:01)
[2022-02-16 13:18] VITALS: BP 151/68; PULSE 70; RESP 18; TEMP 36.9; O2SAT 94
[2022-02-16] MEDS: Pravastatin 80 MG Tablet PO (20:13)
[2022-02-17] MEDS: Vancomycin IV 500 MG/100 ML BAG 100 MG IV ×2 (06:15→17:59)
[2022-02-17] MEDS: Umeclidinium Brm/Vilanterol 62.5-25 mcg Inh 1 PUFF INHALATION (06:15)
[2022-02-17] MEDS: morphine SR 15 MG Tablet PO ×2 (06:16→17:55)
[2022-02-17 06:17] VITALS: BP 171/67; PULSE 78
[2022-02-17] MEDS: amLODIPine 10 MG Tablet PO (06:17)
[2022-02-17] MEDS: Cholecalciferol (VIT D3) 25 MCG TABLET (1,000 UNITS) PO (06:17)
[2022-02-17] MEDS: Senna/Docusate Sodium 1 Tablet 2 TABLET PO (06:17)
[2022-02-17] MEDS: Rivaroxaban 10 MG Tablet PO (06:17)
[2022-02-17] MEDS: Pantoprazole Sodium 40 MG Tablet PO (06:17)
[2022-02-17] MEDS: Metoprolol Tartrate 25 MG Tablet PO (06:17)
[2022-02-17] MEDS: 0.9% Saline Lock 10 ML Syringe IV ×2 (06:23→17:57)
[2022-02-17 09:03] VITALS: O2SAT 95
[2022-02-17] MEDS: Iron Polysaccharide Complex 150 MG CAPSULE PO (09:03)
--- NOTE | 2022-02-17 10:56 | WOUNDNOTE ---
wound photo: right knee
--- NOTE | 2022-02-17 10:57 | WOUNDNOTE ---
wound photo: right lateral knee
--- NOTE | 2022-02-17 10:57 | WOUNDNOTE ---
wound photo: right anterior ankle
--- NOTE | 2022-02-17 10:58 | WOUNDNOTE ---
wound photo: right lateral lower leg/ankle
[2022-02-17] MEDS: oxyCODONE 5 MG Tablet 10 MG PO ×2 (14:54→21:08)
[2022-02-17 15:31] VITALS: BP 147/60; PULSE 76; RESP 14; TEMP 36.9; O2SAT 97
[2022-02-17] MEDS: Pravastatin 80 MG Tablet PO (21:08)
[2022-02-18] MEDS: morphine SR 15 MG Tablet PO ×2 (05:05→17:23)
[2022-02-18] MEDS: Umeclidinium Brm/Vilanterol 62.5-25 mcg Inh 1 PUFF INHALATION (05:07)
[2022-02-18] MEDS: Polyethylene Glycol 3350 17 GM PACKET PO (05:08)
[2022-02-18 05:11] VITALS: BP 152/59; PULSE 88
[2022-02-18] MEDS: Senna/Docusate Sodium 1 Tablet 2 TABLET PO (05:11)
[2022-02-18] MEDS: Cholecalciferol (VIT D3) 25 MCG TABLET (1,000 UNITS) PO (05:11)
[2022-02-18] MEDS: Pantoprazole Sodium 40 MG Tablet PO (05:11)
[2022-02-18] MEDS: Metoprolol Tartrate 25 MG Tablet PO (05:11)
[2022-02-18] MEDS: amLODIPine 10 MG Tablet PO (05:11)
[2022-02-18] MEDS: Rivaroxaban 10 MG Tablet PO (05:12)
[2022-02-18] MEDS: 0.9% Saline Lock 10 ML Syringe IV ×3 (05:14→18:39)
[2022-02-18] MEDS: Vancomycin IV 500 MG/100 ML BAG 100 MG IV ×2 (05:14→18:39)
[2022-02-18] MEDS: Iron Polysaccharide Complex 150 MG CAPSULE PO (07:43)
[2022-02-18 09:05] VITALS: O2SAT 97
[2022-02-18] MEDS: Acetaminophen 500 MG Tablet 1000 MG PO (12:37)
[2022-02-18] MEDS: oxyCODONE 5 MG Tablet 10 MG PO (14:16)
[2022-02-18 14:41] VITALS: BP 100/61; PULSE 88; RESP 16; TEMP 36.8; O2SAT 90
[2022-02-18 18:26] LABS: Vancomycin, Trough Level 13.8 ug/mL (5.0-15.0)
--- NOTE | 2022-02-18 18:35 | PCM.RX.CS ---
Consult Pharmacy has been consulted to manage selected antiobiotic: Vancomycin Type of Consult: Follow-up Prior Doses of Antibiotics Received/Current Regimen: Medications Vancomycin HCl () 500 mg in 100 mls @ 100 mls/hr IV Q12H ANASTASIYA Last Admin: 02/18/22 06:30 Dose: Infused Documented by: Labs: Sodium 136 mmol/L (136-145) 02/16/22 05:27 Potassium 3.8 mmol/L (3.5-5.1) 02/16/22 05:27 Chloride 101 mmol/L (98-107) 02/16/22 05:27 Carbon Dioxide 27.0 mmol/L (21.0-32.0) 02/16/22 05:27 Anion Gap 8 (5-15) 02/16/22 05:27 BUN 25 mg/dL (7-18) H 02/16/22 05:27 Creatinine 1.16 mg/dL (0.70-1.30) 02/16/22 05:27 Est GFR (MDRD) Af Amer 78 mL/min (>60) 02/16/22 05:27 Est GFR (MDRD) Non-Af 64 mL/min (>60) 02/16/22 05:27 BUN/Creatinine Ratio 21.6 RATIO (10-20) H 02/16/22 05:27 Glucose 99 mg/dL (74-106) 02/16/22 05:27 Vancomycin Trough 13.8 ug/mL (5.0-15.0) 02/18/22 17:05 Weight used for dosin kg Goal Trough: 15-20 mcg/mL Pharmacy Plan for Drug Dosing: Trough below goal. Increase to 750mg IV q12h and recheck in 48 hours. Pharmacy Service will continue to monitor and adjust dosing as required. Follow-Up Labs: Trough Vancomycin - 02/20 @ 1730
[2022-02-18] MEDS: Pravastatin 80 MG Tablet PO (20:29)
[2022-02-18 20:31] VITALS: O2SAT 94
[2022-02-19] MEDS: morphine SR 15 MG Tablet PO ×2 (05:21→17:22)
[2022-02-19] MEDS: Polyethylene Glycol 3350 17 GM PACKET PO (05:21)
[2022-02-19 05:22] VITALS: BP 129/85; PULSE 87
[2022-02-19] MEDS: Metoprolol Tartrate 25 MG Tablet PO (05:22)
[2022-02-19] MEDS: Rivaroxaban 10 MG Tablet PO (05:22)
[2022-02-19] MEDS: Cholecalciferol (VIT D3) 25 MCG TABLET (1,000 UNITS) PO (05:22)
[2022-02-19] MEDS: Senna/Docusate Sodium 1 Tablet 2 TABLET PO ×2 (05:22→17:22)
[2022-02-19] MEDS: Pantoprazole Sodium 40 MG Tablet PO (05:22)
[2022-02-19] MEDS: amLODIPine 10 MG Tablet PO (05:22)
[2022-02-19] MEDS: 0.9% Saline Lock 10 ML Syringe IV ×4 (05:25→20:23)
[2022-02-19] MEDS: Umeclidinium Brm/Vilanterol 62.5-25 mcg Inh 1 PUFF INHALATION (05:26)
[2022-02-19] MEDS: Iron Polysaccharide Complex 150 MG CAPSULE PO (07:39)
[2022-02-19] MEDS: oxyCODONE 5 MG Tablet 10 MG PO ×2 (13:58→20:29)
[2022-02-19 15:30] VITALS: BP 105/72; PULSE 82; RESP 19; TEMP 36.1; O2SAT 93
[2022-02-19] MEDS: Pravastatin 80 MG Tablet PO (20:27)
--- NOTE | 2022-02-19 21:58 | NURSING ---
Patient observed elevating bed to unsafe level, patient gently approached, educated on unsafe bed height level and request to lower bed, patient allows bed to be lowered, becomes agitated AEB raising voice, furrowed brow, loudly stating Damn it, I'm tired of telling you guys about this, I'm going to start ignoring what the hell you say. Patient presents as alert and oriented to person/place/time, able to voice needs. Encouraged to maintain bed a safe level, educated of importance of safety to prevent falls/injury, pt. states yea, whatever, I'm not going anywhere. Space provided, bed locked, at safe height level, call light in reach.
[2022-02-20] MEDS: 0.9% Saline Lock 10 ML Syringe IV ×2 (05:32→10:29)
[2022-02-20] MEDS: Umeclidinium Brm/Vilanterol 62.5-25 mcg Inh 1 PUFF INHALATION (05:39)
[2022-02-20 05:40] VITALS: BP 148/58; PULSE 80
[2022-02-20] MEDS: Metoprolol Tartrate 25 MG Tablet PO (05:40)
[2022-02-20] MEDS: Senna/Docusate Sodium 1 Tablet 2 TABLET PO ×2 (05:40→18:31)
[2022-02-20] MEDS: Cholecalciferol (VIT D3) 25 MCG TABLET (1,000 UNITS) PO (05:40)
[2022-02-20] MEDS: Pantoprazole Sodium 40 MG Tablet PO (05:40)
[2022-02-20] MEDS: amLODIPine 10 MG Tablet PO (05:40)
[2022-02-20] MEDS: Polyethylene Glycol 3350 17 GM PACKET PO (05:41)
[2022-02-20] MEDS: morphine SR 15 MG Tablet PO ×2 (05:41→18:31)
[2022-02-20] MEDS: Rivaroxaban 10 MG Tablet PO (05:50)
[2022-02-20 07:27] VITALS: O2SAT 94
[2022-02-20] MEDS: Iron Polysaccharide Complex 150 MG CAPSULE PO (08:37)
[2022-02-20 15:09] VITALS: BP 167/68; PULSE 82; RESP 21; TEMP 36.2; O2SAT 97
[2022-02-20] MEDS: oxyCODONE 5 MG Tablet 10 MG PO ×2 (15:44→20:52)
[2022-02-20 18:19] LABS: Vancomycin, Trough Level 18.8 ug/mL (5.0-15.0)
--- NOTE | 2022-02-20 18:28 | NURSING ---
Pharmacist sherlyn Akers to hang vancomycin
--- NOTE | 2022-02-20 18:44 | PCM.RX.CS ---
Consult Pharmacy has been consulted to manage selected antiobiotic: Vancomycin Type of Consult: Follow-up Suspected Infection: Skin/Soft tissue Prior Doses of Antibiotics Received/Current Regimen: Currently on 750mg iv q12h. Labs: Sodium 136 mmol/L (136-145) 02/16/22 05:27 Potassium 3.8 mmol/L (3.5-5.1) 02/16/22 05:27 Chloride 101 mmol/L (98-107) 02/16/22 05:27 Carbon Dioxide 27.0 mmol/L (21.0-32.0) 02/16/22 05:27 Anion Gap 8 (5-15) 02/16/22 05:27 BUN 25 mg/dL (7-18) H 02/16/22 05:27 Creatinine 1.16 mg/dL (0.70-1.30) 02/16/22 05:27 Est GFR (MDRD) Af Amer 78 mL/min (>60) 02/16/22 05:27 Est GFR (MDRD) Non-Af 64 mL/min (>60) 02/16/22 05:27 BUN/Creatinine Ratio 21.6 RATIO (10-20) H 02/16/22 05:27 Glucose 99 mg/dL (74-106) 02/16/22 05:27 Vancomycin Trough 18.8 ug/mL (5.0-15.0) H 02/20/22 17:29 Weight used for dosin.7 kg Estimated Creatinine Clearance: 41ml/min Goal Trough: 15-20 mcg/mL Pharmacy Plan for Drug Dosing: Today's trough was 18.8 and in goal range of 15-20mcg/ml. Renal status unchanged. Continue same dose with another trough in 2 days per protocol. Pharmacy Service will continue to monitor and adjust dosing as required. Follow-Up Labs: Trough Vancomycin - 4.25.22 @0530 before 0600 dose
[2022-02-20] MEDS: Pravastatin 80 MG Tablet PO (20:26)
[2022-02-20 22:51] VITALS: PULSE 84; RESP 14; O2SAT 92
[2022-02-21] MEDS: Umeclidinium Brm/Vilanterol 62.5-25 mcg Inh 1 PUFF INHALATION (06:11)
[2022-02-21] MEDS: Polyethylene Glycol 3350 17 GM PACKET PO (06:12)
[2022-02-21] MEDS: amLODIPine 10 MG Tablet PO (06:12)
[2022-02-21] MEDS: Cholecalciferol (VIT D3) 25 MCG TABLET (1,000 UNITS) PO (06:12)
[2022-02-21] MEDS: morphine SR 15 MG Tablet PO ×2 (06:12→17:34)
[2022-02-21 06:13] VITALS: BP 175/71; PULSE 95
[2022-02-21] MEDS: Pantoprazole Sodium 40 MG Tablet PO (06:13)
[2022-02-21] MEDS: Rivaroxaban 10 MG Tablet PO (06:13)
[2022-02-21] MEDS: Metoprolol Tartrate 25 MG Tablet PO (06:13)
[2022-02-21] MEDS: Senna/Docusate Sodium 1 Tablet 2 TABLET PO ×2 (06:13→17:34)
[2022-02-21 06:46] VITALS: O2SAT 94
[2022-02-21] MEDS: Iron Polysaccharide Complex 150 MG CAPSULE PO (09:22)
[2022-02-21] MEDS: 0.9% Saline Lock 10 ML Syringe IV (09:27)
[2022-02-21 13:46] VITALS: BP 152/63; PULSE 95; RESP 16; TEMP 36.6; O2SAT 97
--- NOTE | 2022-02-21 17:29 | PCA ---
Pt. is putting bed up high in the air and trending to max of the bed. Ambulating from bathroom back to bed alone and never pulled the call alarm. Patient educated on the dangers of injury.
--- NOTE | 2022-02-21 19:24 | NURSING ---
Notified Dr. Nance of patient's right arm red and swollen. Received order for CBC with diff, CMP, Sed rate and CRP, doppler in am, hold vancomycin dose in am until Dr. Causey gives ok.
[2022-02-21 20:17] LABS: Erythrocyte Sedimentation Rate 54 mm/hr (0-20)
[2022-02-21 20:19] LABS: Absolute Lymphocyte Count 0.82 X10^3/uL (0.83-4.51); Absolute Neutrophil Count 5.9 X10^3/uL (2.0-7.7); Basophil# 0.03 X10^3/uL; Basophil% 0.4 % (0-1); Eosinophil# 0.08 X10^3/uL; Eosinophils% 1.1 % (0-5); Hematocrit 23.8 % (40-54); Hemoglobin 7.6 g/dL (13.0-16.5); Lymphocyte # 0.82 X10^3/ul (0.83-4.51); Lymphocyte % 11.1 % (19-41); Mean Corp Hgb Conc 31.9 g/dL (32-36); Mean Corpuscular Hgb 32.5 pg (27.0-32.0); Mean Corpuscular Volume 101.7 fL (80-94); Mean Platelet Vol. 9.9 fl (6.2-12.0); Monocyte# 0.56 X10^3/uL; Monocyte% 7.6 % (0-10); NRBC Flagged by Analyzer 0 % (0-5); Neutrophil # 5.86 X10^3/uL (2.7-7.7); Neutrophil % 79.4 % (47-70); Platelet Count 226 K/mm3 (150-450); RBC Distribution Width CV 15.8 % (11.6-14.6); RBC Distribution Width SD 58.5 fl (35.1-43.9); Red Blood Count 2.34 M/mm3 (4.6-6.2); White Blood Count 7.4 K/mm3 (4.4-11.0)
[2022-02-21 20:25] LABS: ALB/GLOB Ratio 0.5 RATIO (0.9-2.4); AST(SGOT) 17 U/L (15-37); Alanine Aminotransfer ALT/SGPT 16 U/L (16-61); Albumin, Serum 2.2 g/dL (3.2-5.0); Alkaline Phosphatase 95 U/L (45-117); Anion Gap 6 (5-15); BUN 22 mg/dL (7-18); Calcium,Total 8.8 mg/dL (8.5-10.1); Chloride 102 mmol/L (98-107); EST Glomerular Filtration Rate 68 mL/min (>60); Est Glom Filt Rate - Afr Amer 83 mL/min (>60); Estimated Creatinine Clearance 43.73 ml/min; Globulin 4.2 g/dL (2.2-4.2); Glucose 131 mg/dL (74-106); Potassium 3.6 mmol/L (3.5-5.1); Protein, Total 6.4 g/dL (6.4-8.2); Sodium Level 135 mmol/L (136-145)
[2022-02-21] MEDS: oxyCODONE 5 MG Tablet 10 MG PO (21:28)
[2022-02-21] MEDS: Pravastatin 80 MG Tablet PO (21:29)
[2022-02-21 22:40] VITALS: PULSE 92; RESP 16; O2SAT 91
[2022-02-22 06:02] LABS: Erythrocyte Sedimentation Rate 51 mm/hr (0-20)
[2022-02-22 06:05] LABS: Absolute Neutrophil Count 4.4 X10^3/uL (2.0-7.7); Basophil# 0.04 X10^3/uL; Basophil% 0.6 % (0-1); Eosinophil# 0.15 X10^3/uL; Eosinophils% 2.4 % (0-5); Hematocrit 22.2 % (40-54); Hemoglobin 7.1 g/dL (13.0-16.5); Lymphocyte % 17.6 % (19-41); Mean Corpuscular Hgb 32.6 pg (27.0-32.0); Mean Corpuscular Volume 101.8 fL (80-94); Monocyte# 0.59 X10^3/uL; Monocyte% 9.4 % (0-10); NRBC Flagged by Analyzer 0 % (0-5); Neutrophil # 4.35 X10^3/uL (2.7-7.7); Neutrophil % 69.7 % (47-70); Platelet Count 217 K/mm3 (150-450); RBC Distribution Width CV 15.7 % (11.6-14.6); RBC Distribution Width SD 59.6 fl (35.1-43.9); Red Blood Count 2.18 M/mm3 (4.6-6.2); White Blood Count 6.3 K/mm3 (4.4-11.0)
[2022-02-22] MEDS: Umeclidinium Brm/Vilanterol 62.5-25 mcg Inh 1 PUFF INHALATION (06:12)
[2022-02-22] MEDS: Polyethylene Glycol 3350 17 GM PACKET PO (06:12)
[2022-02-22] MEDS: Pantoprazole Sodium 40 MG Tablet PO (06:13)
[2022-02-22] MEDS: amLODIPine 10 MG Tablet PO (06:13)
[2022-02-22] MEDS: Cholecalciferol (VIT D3) 25 MCG TABLET (1,000 UNITS) PO (06:13)
[2022-02-22] MEDS: Rivaroxaban 10 MG Tablet PO (06:13)
[2022-02-22] MEDS: Senna/Docusate Sodium 1 Tablet 2 TABLET PO ×2 (06:13→17:00)
[2022-02-22] MEDS: morphine SR 15 MG Tablet PO ×2 (06:16→17:00)
[2022-02-22 06:17] VITALS: BP 149/60; PULSE 69
[2022-02-22] MEDS: Metoprolol Tartrate 25 MG Tablet PO (06:17)
[2022-02-22 06:22] LABS: ALB/GLOB Ratio 0.5 RATIO (0.9-2.4); AST(SGOT) 19 U/L (15-37); Alanine Aminotransfer ALT/SGPT 14 U/L (16-61); Albumin, Serum 2.2 g/dL (3.2-5.0); Alkaline Phosphatase 93 U/L (45-117); Anion Gap 6 (5-15); BUN 19 mg/dL (7-18); BUN/Creat Ratio 19.1 RATIO (10-20); Calcium,Total 8.9 mg/dL (8.5-10.1); Chloride 101 mmol/L (98-107); Creatinine, Serum 0.99 mg/dL (0.70-1.30); EST Glomerular Filtration Rate 77 mL/min (>60); Est Glom Filt Rate - Afr Amer 93 mL/min (>60); Estimated Creatinine Clearance 48.59 ml/min; Globulin 4.3 g/dL (2.2-4.2); Glucose 103 mg/dL (74-106); Potassium 3.4 mmol/L (3.5-5.1); Protein, Total 6.5 g/dL (6.4-8.2); Sodium Level 135 mmol/L (136-145)
[2022-02-22 06:31] LABS: Vancomycin, Trough Level 19.4 ug/mL (5.0-15.0)
--- NOTE | 2022-02-22 06:59 | PCM.RX.CS ---
Consult Pharmacy has been consulted to manage selected antiobiotic: Vancomycin Type of Consult: Follow-up Labs: Sodium 135 mmol/L (136-145) L 02/22/22 05:21 Potassium 3.4 mmol/L (3.5-5.1) L 02/22/22 05:21 Chloride 101 mmol/L (98-107) 02/22/22 05:21 Carbon Dioxide 28.0 mmol/L (21.0-32.0) 02/22/22 05:21 Anion Gap 6 (5-15) 02/22/22 05:21 BUN 19 mg/dL (7-18) H 02/22/22 05:21 Creatinine 0.99 mg/dL (0.70-1.30) 02/22/22 05:21 Est GFR (MDRD) Af Amer 93 mL/min (>60) 02/22/22 05:21 Est GFR (MDRD) Non-Af 77 mL/min (>60) 02/22/22 05:21 BUN/Creatinine Ratio 19.1 RATIO (10-20) 02/22/22 05:21 Glucose 103 mg/dL (74-106) 02/22/22 05:21 Vancomycin Trough 19.4 ug/mL (5.0-15.0) H 02/22/22 05:30 Goal Trough: 15-20 mcg/mL Pharmacy Plan for Drug Dosing: VANCOMYCIN LEVEL RECEIVED Current Vancomycin Dose: 750mg q12h (,18) Number of Doses Received: 6 of current dose Vancomycin Level: 19.4 Hours Since Last Dose: 12 Renal Function: SrCr 0.99 Renal Function Trend: SrCr stable Lab/Micro: Vancomycin Plan/Comments: pts Vancomycin levels have been increasing (18.8 on 02/20, and 19.4 on 02/22) since dosage change to 750mg q12h. recommend decreasing dose to 500mg q12h starting 02/22/22 at 1800. will check trough before the 4th dose Pending Level: 02/24/22 at 0530 Pharmacy Service will continue to monitor and adjust dosing as required. Follow-Up Labs: Trough Vancomycin - 02/24/22 at 0530
[2022-02-22] MEDS: Iron Polysaccharide Complex 150 MG CAPSULE PO (08:20)
[2022-02-22] MEDS: Potassium Chloride Oral Tablet 20 MEQ PO (08:20)
--- NOTE | 2022-02-22 11:35 | CASEMGMT ---
Social Work BIMS and PHQ-9 completed for MDS assessment. Sarah Franco, EXTRUSION DIE REPAIRER SHOE LAY OUT PLANNER
--- NOTE | 2022-02-22 13:29 | PCM.PN.ID ---
Physical Exam Narrative RUE around picc with redness/bruising after vanc this AM. Feeling ok, no fever Const alert and no apparent distress General Appearance: cooperative Resp normal air movement and clear to auscultation bilaterally Cardio regular rate and regular rhythm GI soft to palpation, non-tender and non-distended Skin Skin Narrative: RUE bruising and redness ID ID: Route of nutrition/ use of supplements: [] Nutritional Intake: [] IV Site: [] Uriarte Catheter: [] Assessment & Plan Assessment/Plan (1) Infection of prosthetic right knee joint: PLAN: S/p R TKR 01/13/[address] Emmanuel. Cxs 01/22 were neg but GPC seen on gram stain, 01/26 also neg. Has been on omnicef recently. Take to for I&D 02/12 with poly exchange. Picc in place, discharged on 6 weeks iv vanc/ceftriaxone. Requested micro lab hold surg cxs for 14 days. Cx now with actino and eggerthia. Will adjust abx to unasyn, stop date 03/26/22. Will follow.
--- NOTE | 2022-02-22 13:35 | MDS.RN ---
Completed pain interview for OLEG 02/22/2022
--- NOTE | 2022-02-22 14:07 | WOUNDNOTE ---
wound photo: right knee
--- NOTE | 2022-02-22 14:07 | WOUNDNOTE ---
wound photo: right lateral knee
--- NOTE | 2022-02-22 14:08 | WOUNDNOTE ---
wound photo: right anterior lower leg
--- NOTE | 2022-02-22 14:09 | WOUNDNOTE ---
wound photo: right lateral lower leg
[2022-02-22] MEDS: 0.9% Saline Lock 10 ML Syringe IV ×2 (14:10→21:57)
[2022-02-22 16:00] VITALS: BP 98/62; PULSE 74; RESP 16; TEMP 36.6; O2SAT 97
[2022-02-22] MEDS: Pravastatin 80 MG Tablet PO (21:56)
[2022-02-23] MEDS: Umeclidinium Brm/Vilanterol 62.5-25 mcg Inh 1 PUFF INHALATION (05:22)
[2022-02-23] MEDS: morphine SR 15 MG Tablet PO ×2 (05:24→16:56)
[2022-02-23] MEDS: Senna/Docusate Sodium 1 Tablet 2 TABLET PO ×2 (05:24→16:55)
[2022-02-23 05:25] VITALS: BP 153/65; PULSE 84
[2022-02-23] MEDS: Pantoprazole Sodium 40 MG Tablet PO (05:25)
[2022-02-23] MEDS: Metoprolol Tartrate 25 MG Tablet PO (05:25)
[2022-02-23] MEDS: amLODIPine 10 MG Tablet PO (05:25)
[2022-02-23] MEDS: Cholecalciferol (VIT D3) 25 MCG TABLET (1,000 UNITS) PO (05:25)
[2022-02-23] MEDS: 0.9% Saline Lock 10 ML Syringe IV (05:26)
[2022-02-23 06:44] VITALS: O2SAT 95
[2022-02-23] MEDS: Iron Polysaccharide Complex 150 MG CAPSULE PO (07:41)
[2022-02-23] MEDS: Potassium Chloride Oral Tablet 20 MEQ PO (07:41)
[2022-02-23] MEDS: oxyCODONE 5 MG Tablet 10 MG PO (13:55)
[2022-02-23] MEDS: Tuberculin,Purif.prot.deriv. 50 TU/ML Vial 0.1 ML ID (15:26)
[2022-02-23 16:00] VITALS: BP 154/71; PULSE 78; RESP 16; TEMP 36.8; O2SAT 95
--- NOTE | 2022-02-23 17:40 | NURSING ---
1730-care information associate heard crash from trashcan and pt found laying on floor by walker with o2 off. no loc and pt denies any injury. no hematoma palpated and assessed and pt reported that landed on back. pelvis stable no pain to back or abrasions noted. able to bend and straighten left leg with no pain. pt assisted up and shakey when up but then back to bed with min assist x2. vs obtained and bp elevated. pt a&ox3 and stated, i was bad and got myself in trouble. i tripped over the trash can.: pt was attempting to get up to chair across room.dr. cuellar aware and fall protocol sheet initiated.
[2022-02-23 18:34] VITALS: BP 141/71; PULSE 98; RESP 16; TEMP 36.4; O2SAT 96
[2022-02-23] MEDS: Pravastatin 80 MG Tablet PO (20:56)
--- NOTE | 2022-02-23 22:37 | NURSING ---
PICC line located in ROSETTA, double lumen. Purple lumen flushed and ATB administered as directed. Patient tolerated well. Upon completion of ATB, purple lumen flushed without issue. Attempted to flush red lumen. Attempt was unsuccessful after several times of repositioning arm.
[2022-02-23 22:53] VITALS: PULSE 79; RESP 18
[2022-02-24] MEDS: morphine SR 15 MG Tablet PO ×2 (06:10→17:49)
[2022-02-24] MEDS: Umeclidinium Brm/Vilanterol 62.5-25 mcg Inh 1 PUFF INHALATION (06:10)
[2022-02-24] MEDS: amLODIPine 10 MG Tablet PO (06:10)
[2022-02-24 06:11] VITALS: BP 144/90; PULSE 75
[2022-02-24] MEDS: Cholecalciferol (VIT D3) 25 MCG TABLET (1,000 UNITS) PO (06:11)
[2022-02-24] MEDS: Metoprolol Tartrate 25 MG Tablet PO (06:11)
[2022-02-24] MEDS: Pantoprazole Sodium 40 MG Tablet PO (06:11)
[2022-02-24 06:29] LABS: Anion Gap 7 (5-15); BUN 21 mg/dL (7-18); Calcium,Total 8.5 mg/dL (8.5-10.1); Chloride 102 mmol/L (98-107); Creatinine, Serum 1.05 mg/dL (0.70-1.30); EST Glomerular Filtration Rate 72 mL/min (>60); Est Glom Filt Rate - Afr Amer 87 mL/min (>60); Estimated Creatinine Clearance 45.81 ml/min; Glucose 102 mg/dL (74-106); Potassium 3.3 mmol/L (3.5-5.1); Sodium Level 138 mmol/L (136-145)
[2022-02-24 06:55] VITALS: O2SAT 95
[2022-02-24] MEDS: Iron Polysaccharide Complex 150 MG CAPSULE PO (08:27)
[2022-02-24] MEDS: Potassium Chloride Oral Tablet 20 MEQ PO ×2 (08:27→17:50)
--- NOTE | 2022-02-24 10:02 | CASEMGMT ---
Social Work IDT met with patient, and son for care plan meeting. Discussed patient's progress in PT/OT and nursing. Pt making progress. Pt has IV ATB until 03/26. The goal is for pt to return home with at the end of the IV ATBs. Pt is on chronic O2. Pt fell last night and bed alarm placed for precaution. Explained [employer] insurance with NRD 03/01. SW to order HHC and DME as needed. SW to continue to follow. Sarah Franco, WORSHIP LEADER JAVA DEVELOPMENT TEAM LEAD
--- NOTE | 2022-02-24 12:27 | NURSING ---
Lab called to see about CBC results. They state they will be up to draw blood.
[2022-02-24 14:12] LABS: Absolute Lymphocyte Count 1.77 X10^3/uL (0.83-4.51); Absolute Neutrophil Count 6.3 X10^3/uL (2.0-7.7); Basophil# 0.05 X10^3/uL; Basophil% 0.6 % (0-1); Eosinophil# 0.22 X10^3/uL; Eosinophils% 2.4 % (0-5); Hematocrit 32.9 % (40-54); Hemoglobin 10.7 g/dL (13.0-16.5); Lymphocyte # 1.77 X10^3/ul (0.83-4.51); Lymphocyte % 19.6 % (19-41); Mean Corp Hgb Conc 32.5 g/dL (32-36); Mean Corpuscular Hgb 32.1 pg (27.0-32.0); Mean Corpuscular Volume 98.8 fL (80-94); Mean Platelet Vol. 9.7 fl (6.2-12.0); Monocyte# 0.69 X10^3/uL; Monocyte% 7.6 % (0-10); NRBC Flagged by Analyzer 0 % (0-5); Neutrophil % 69.6 % (47-70); POSITIVE MORPHOLOGY YES; Platelet Count 258 K/mm3 (150-450); RBC Distribution Width CV 18.1 % (11.6-14.6); RBC Distribution Width SD 65.1 fl (35.1-43.9); Red Blood Count 3.33 M/mm3 (4.6-6.2); White Blood Count 9.1 K/mm3 (4.4-11.0)
[2022-02-24 14:18] LABS: Differential Indicated SCAN CRITERIA MET
[2022-02-24] MEDS: 0.9% Saline Lock 10 ML Syringe IV ×4 (14:49→22:51)
--- NOTE | 2022-02-24 14:55 | NURSING ---
Resident reports having a BM yesterday. He is not wanting stool softeners as he doesnt want to go the other way. States i know my body.
[2022-02-24 15:18] LABS: Anisocytosis 1+
[2022-02-24 16:00] VITALS: BP 136/107; PULSE 87; RESP 16; TEMP 36.8; O2SAT 95
--- NOTE | 2022-02-24 21:07 | PCA ---
ichthyology teacher asked him if he was ready to wash up and put pjs on he refused said he would in morning. RN nurse notified
[2022-02-24] MEDS: Pravastatin 80 MG Tablet PO (21:36)
[2022-02-24 22:00] VITALS: PULSE 79; RESP 16; O2SAT 94
[2022-02-25] MEDS: 0.9% Saline Lock 10 ML Syringe IV ×5 (06:08→23:42)
[2022-02-25] MEDS: morphine SR 15 MG Tablet PO ×2 (06:18→18:04)
[2022-02-25 06:19] VITALS: BP 178/68; PULSE 70
[2022-02-25] MEDS: Metoprolol Tartrate 25 MG Tablet PO (06:19)
[2022-02-25] MEDS: amLODIPine 10 MG Tablet PO (06:19)
[2022-02-25] MEDS: Pantoprazole Sodium 40 MG Tablet PO (06:19)
[2022-02-25] MEDS: Cholecalciferol (VIT D3) 25 MCG TABLET (1,000 UNITS) PO (06:19)
[2022-02-25] MEDS: Umeclidinium Brm/Vilanterol 62.5-25 mcg Inh 1 PUFF INHALATION (06:20)
[2022-02-25] MEDS: Potassium Chloride Oral Tablet 20 MEQ PO ×2 (07:38→17:27)
[2022-02-25] MEDS: Iron Polysaccharide Complex 150 MG CAPSULE PO (07:38)
[2022-02-25 15:08] VITALS: BP 145/60; PULSE 61; RESP 18; TEMP 36.5; O2SAT 94
[2022-02-25 16:53] VITALS: O2SAT 94
--- NOTE | 2022-02-25 18:31 | PCA ---
This EVP HEAD OF [employer] offered to help patient get washed up for the night and help with HS care. Patient stated that they have an appointment in the morning and would rather wait to get washed in the morning. EVP HEAD OF [employer] filled water and asked if patient needed anything. Patient said they would call if then needed any thing else. call light with in reach.
[2022-02-25 22:00] VITALS: PULSE 76; RESP 14; O2SAT 95
[2022-02-25] MEDS: Pravastatin 80 MG Tablet PO (22:38)
[2022-02-26] MEDS: 0.9% Saline Lock 10 ML Syringe IV ×3 (05:15→14:48)
[2022-02-26 05:25] VITALS: BP 151/58; PULSE 69
[2022-02-26] MEDS: Metoprolol Tartrate 25 MG Tablet PO (05:25)
[2022-02-26] MEDS: morphine SR 15 MG Tablet PO ×2 (05:25→17:57)
[2022-02-26] MEDS: Umeclidinium Brm/Vilanterol 62.5-25 mcg Inh 1 PUFF INHALATION (05:26)
[2022-02-26] MEDS: amLODIPine 10 MG Tablet PO (05:26)
[2022-02-26] MEDS: Cholecalciferol (VIT D3) 25 MCG TABLET (1,000 UNITS) PO (05:26)
[2022-02-26] MEDS: Pantoprazole Sodium 40 MG Tablet PO (05:26)
[2022-02-26 07:04] LABS: Anion Gap 6 (5-15); BUN 22 mg/dL (7-18); Chloride 107 mmol/L (98-107); Creatinine, Serum 1.05 mg/dL (0.70-1.30); EST Glomerular Filtration Rate 72 mL/min (>60); Est Glom Filt Rate - Afr Amer 87 mL/min (>60); Estimated Creatinine Clearance 45.81 ml/min; Glucose 96 mg/dL (74-106); Potassium 3.9 mmol/L (3.5-5.1); Sodium Level 138 mmol/L (136-145)
[2022-02-26] MEDS: Potassium Chloride Oral Tablet 20 MEQ PO ×2 (08:15→17:59)
[2022-02-26] MEDS: Iron Polysaccharide Complex 150 MG CAPSULE PO (08:16)
[2022-02-26 09:12] VITALS: PULSE 75; RESP 16; O2SAT 98
--- NOTE | 2022-02-26 09:42 | NURSING ---
Patient off unit for Ortho appointment
--- NOTE | 2022-02-26 11:22 | WOUNDNOTE ---
Talked with Dr Emmanuel after patient was in the office for follow up. Dr Emmanuel would like the dressing to be changed daily to prevent crusting around the graft site and along incision. Orders changed in the computer. nursing to notify Dr Emmanuel of any changes.
--- NOTE | 2022-02-26 11:35 | NURSING ---
Spouse stated they forgot the paperwork from the F/U with Dr. Emmanuel, this nurse contacted his office requesting they fax over any new orders. Spoke with Marielos.
[2022-02-26] MEDS: oxyCODONE 5 MG Tablet 10 MG PO ×2 (11:41→20:42)
--- NOTE | 2022-02-26 13:54 | NURSING ---
Orders faxed from Dr. Emmanuel's office, Dr. Nance reviewed and approved orders: PT/OT-Daily for right knee, No PROM past 60 degress. Stop knee immobilizer. pt developed right foot drop. Please begin to work on right ankle and brace at this time. Dressing - every other day dressing changes, use xeroform over lateral wound. DVT prophylaxis - stop Xarelto, begin Aspirin 81mg twice daily for 2 weeks. Continue pain medication as prescribed. F/U with Dr. Emmanuel in 2 weeks. Continue wound treatment with wound nurse.
[2022-02-26] MEDS: Acetaminophen 500 MG Tablet 1000 MG PO (14:17)
[2022-02-26 15:30] VITALS: BP 136/63; PULSE 67; RESP 16; TEMP 36.9; O2SAT 92
[2022-02-26 15:32] VITALS: O2SAT 92
[2022-02-26] MEDS: Aspirin 81 MG TAB.CHEW PO (17:59)
[2022-02-26] MEDS: Pravastatin 80 MG Tablet PO (20:41)
--- NOTE | 2022-02-27 02:04 | PCA ---
Patient refused any HS care offered by both FITNESS CENTRE MANAGER's, stating i will take care of everything in the morning refused to change clothes and slept in same clothes he had on.
[2022-02-27] MEDS: Umeclidinium Brm/Vilanterol 62.5-25 mcg Inh 1 PUFF INHALATION (05:23)
[2022-02-27] MEDS: amLODIPine 10 MG Tablet PO (05:26)
[2022-02-27] MEDS: Pantoprazole Sodium 40 MG Tablet PO (05:26)
[2022-02-27] MEDS: Cholecalciferol (VIT D3) 25 MCG TABLET (1,000 UNITS) PO (05:26)
[2022-02-27] MEDS: oxyCODONE 5 MG Tablet 10 MG PO ×2 (05:28→09:43)
[2022-02-27 05:31] VITALS: BP 141/68; PULSE 72
[2022-02-27] MEDS: Metoprolol Tartrate 25 MG Tablet PO (05:31)
[2022-02-27] MEDS: Aspirin 81 MG TAB.CHEW PO ×2 (09:38→17:20)
[2022-02-27] MEDS: Iron Polysaccharide Complex 150 MG CAPSULE PO (09:38)
[2022-02-27] MEDS: Potassium Chloride Oral Tablet 20 MEQ PO ×2 (09:39→17:21)
[2022-02-27] MEDS: Acetaminophen 500 MG Tablet 1000 MG PO (09:44)
[2022-02-27] MEDS: 0.9% Saline Lock 10 ML Syringe IV ×4 (13:54→22:23)
[2022-02-27 16:00] VITALS: BP 151/67; PULSE 63; RESP 19; TEMP 36.4; O2SAT 98
[2022-02-27] MEDS: morphine SR 15 MG Tablet PO (17:21)
[2022-02-27 19:52] VITALS: PULSE 63; RESP 14; O2SAT 96
[2022-02-27] MEDS: Pravastatin 80 MG Tablet PO (21:15)
[2022-02-28] MEDS: morphine SR 15 MG Tablet PO ×2 (05:38→16:53)
[2022-02-28] MEDS: 0.9% Saline Lock 10 ML Syringe IV ×5 (05:38→21:30)
[2022-02-28] MEDS: amLODIPine 10 MG Tablet PO (05:39)
[2022-02-28] MEDS: Pantoprazole Sodium 40 MG Tablet PO (05:39)
[2022-02-28] MEDS: Cholecalciferol (VIT D3) 25 MCG TABLET (1,000 UNITS) PO (05:39)
[2022-02-28 05:40] VITALS: BP 155/77; PULSE 66
[2022-02-28] MEDS: Metoprolol Tartrate 25 MG Tablet PO (05:40)
[2022-02-28] MEDS: Umeclidinium Brm/Vilanterol 62.5-25 mcg Inh 1 PUFF INHALATION (05:42)
[2022-02-28] MEDS: Aspirin 81 MG TAB.CHEW PO ×2 (07:48→16:55)
[2022-02-28] MEDS: Potassium Chloride Oral Tablet 20 MEQ PO ×2 (07:49→16:54)
[2022-02-28] MEDS: Iron Polysaccharide Complex 150 MG CAPSULE PO (09:29)
[2022-02-28 09:59] VITALS: O2SAT 98
[2022-02-28] MEDS: Alteplase 2 MG/2 ML Vial IV (13:47)
[2022-02-28 16:31] VITALS: BP 154/71; PULSE 68; RESP 18; TEMP 36.8; O2SAT 96
[2022-02-28] MEDS: Pravastatin 80 MG Tablet PO (21:28)
[2022-03-01 05:43] LABS: Absolute Lymphocyte Count 1.55 X10^3/uL (0.83-4.51); Absolute Neutrophil Count 4.7 X10^3/uL (2.0-7.7); Basophil# 0.04 X10^3/uL; Basophil% 0.6 % (0-1); Eosinophil# 0.42 X10^3/uL; Eosinophils% 5.8 % (0-5); Hematocrit 30.8 % (40-54); Hemoglobin 9.9 g/dL (13.0-16.5); Lymphocyte # 1.55 X10^3/ul (0.83-4.51); Lymphocyte % 21.5 % (19-41); Mean Corp Hgb Conc 32.1 g/dL (32-36); Mean Corpuscular Hgb 32.2 pg (27.0-32.0); Mean Corpuscular Volume 100.3 fL (80-94); Monocyte# 0.54 X10^3/uL; Monocyte% 7.5 % (0-10); NRBC Flagged by Analyzer 0 % (0-5); Neutrophil # 4.66 X10^3/uL (2.7-7.7); Neutrophil % 64.5 % (47-70); Platelet Count 246 K/mm3 (150-450); RBC Distribution Width CV 15.9 % (11.6-14.6); RBC Distribution Width SD 58.2 fl (35.1-43.9); Red Blood Count 3.07 M/mm3 (4.6-6.2); White Blood Count 7.2 K/mm3 (4.4-11.0)
[2022-03-01] MEDS: Cholecalciferol (VIT D3) 25 MCG TABLET (1,000 UNITS) PO (05:46)
[2022-03-01] MEDS: morphine SR 15 MG Tablet PO ×2 (05:46→17:31)
[2022-03-01] MEDS: Pantoprazole Sodium 40 MG Tablet PO (05:46)
[2022-03-01 05:47] VITALS: BP 162/77; PULSE 70
[2022-03-01] MEDS: Metoprolol Tartrate 25 MG Tablet PO (05:47)
[2022-03-01] MEDS: Umeclidinium Brm/Vilanterol 62.5-25 mcg Inh 1 PUFF INHALATION (05:47)
[2022-03-01] MEDS: amLODIPine 10 MG Tablet PO (05:47)
[2022-03-01] MEDS: 0.9% Saline Lock 10 ML Syringe IV ×3 (05:49→20:54)
[2022-03-01 06:15] LABS: Erythrocyte Sedimentation Rate 71 mm/hr (0-20)
[2022-03-01 06:18] LABS: Anion Gap 7 (5-15); BUN 22 mg/dL (7-18); BUN/Creat Ratio 19.5 RATIO (10-20); Calcium,Total 9.1 mg/dL (8.5-10.1); Chloride 105 mmol/L (98-107); Creatinine, Serum 1.13 mg/dL (0.70-1.30); EST Glomerular Filtration Rate 66 mL/min (>60); Est Glom Filt Rate - Afr Amer 80 mL/min (>60); Estimated Creatinine Clearance 42.57 ml/min; Glucose 95 mg/dL (74-106); Potassium 3.9 mmol/L (3.5-5.1); Sodium Level 138 mmol/L (136-145)
[2022-03-01] MEDS: Iron Polysaccharide Complex 150 MG CAPSULE PO (07:47)
[2022-03-01] MEDS: Aspirin 81 MG TAB.CHEW PO ×2 (07:47→17:31)
[2022-03-01] MEDS: Potassium Chloride Oral Tablet 20 MEQ PO ×2 (07:49→17:32)
[2022-03-01] MEDS: oxyCODONE 5 MG Tablet 10 MG PO ×2 (11:23→20:50)
--- NOTE | 2022-03-01 14:29 | WOUNDNOTE ---
wound photo: right lateral knee
--- NOTE | 2022-03-01 14:30 | WOUNDNOTE ---
wound photo: right knee
--- NOTE | 2022-03-01 14:31 | WOUNDNOTE ---
wound photo: right anterior ankle/lower leg
--- NOTE | 2022-03-01 14:31 | WOUNDNOTE ---
wound photo: right lateral lower leg
[2022-03-01 15:06] VITALS: BP 140/53; PULSE 62; RESP 16; TEMP 37; O2SAT 95
--- NOTE | 2022-03-01 18:40 | PCA ---
patient was approached by CRYSTALLIZER OPERATOR and offered to help with HS care and get cleaned up for the night. Patient refused stating they wish to get cleaned up in the morning and does not need any assistance at this time.
[2022-03-01] MEDS: Pravastatin 80 MG Tablet PO (20:53)
[2022-03-01 20:55] VITALS: O2SAT 97
[2022-03-02 05:35] VITALS: BP 155/70; PULSE 78
[2022-03-02] MEDS: Metoprolol Tartrate 25 MG Tablet PO (05:35)
[2022-03-02] MEDS: Umeclidinium Brm/Vilanterol 62.5-25 mcg Inh 1 PUFF INHALATION (05:35)
[2022-03-02] MEDS: Pantoprazole Sodium 40 MG Tablet PO (05:35)
[2022-03-02] MEDS: Cholecalciferol (VIT D3) 25 MCG TABLET (1,000 UNITS) PO (05:35)
[2022-03-02] MEDS: amLODIPine 10 MG Tablet PO (05:35)
[2022-03-02] MEDS: morphine SR 15 MG Tablet PO ×2 (05:39→17:27)
[2022-03-02] MEDS: 0.9% Saline Lock 10 ML Syringe IV ×4 (05:39→22:34)
[2022-03-02] MEDS: Aspirin 81 MG TAB.CHEW PO ×2 (07:33→17:25)
[2022-03-02] MEDS: Iron Polysaccharide Complex 150 MG CAPSULE PO (07:33)
[2022-03-02] MEDS: Potassium Chloride Oral Tablet 20 MEQ PO ×2 (07:33→17:25)
[2022-03-02] MEDS: oxyCODONE 5 MG Tablet 10 MG PO ×2 (14:56→21:26)
[2022-03-02 15:43] VITALS: PULSE 70; RESP 20; TEMP 36.2; O2SAT 96
[2022-03-02 15:47] VITALS: BP 152/74; PULSE 69
[2022-03-02 17:46] VITALS: O2SAT 96
[2022-03-02] MEDS: Pravastatin 80 MG Tablet PO (21:26)
[2022-03-03] MEDS: morphine SR 15 MG Tablet PO ×2 (05:30→17:32)
[2022-03-03] MEDS: Cholecalciferol (VIT D3) 25 MCG TABLET (1,000 UNITS) PO (05:30)
[2022-03-03] MEDS: amLODIPine 10 MG Tablet PO (05:30)
[2022-03-03] MEDS: Pantoprazole Sodium 40 MG Tablet PO (05:30)
[2022-03-03 05:32] VITALS: BP 138/55; PULSE 72
[2022-03-03] MEDS: Metoprolol Tartrate 25 MG Tablet PO (05:32)
[2022-03-03] MEDS: Umeclidinium Brm/Vilanterol 62.5-25 mcg Inh 1 PUFF INHALATION (05:32)
[2022-03-03] MEDS: 0.9% Saline Lock 10 ML Syringe IV ×5 (05:33→22:25)
[2022-03-03] MEDS: Aspirin 81 MG TAB.CHEW PO ×2 (07:59→17:32)
[2022-03-03] MEDS: Potassium Chloride Oral Tablet 20 MEQ PO ×2 (07:59→17:32)
[2022-03-03] MEDS: Iron Polysaccharide Complex 150 MG CAPSULE PO (07:59)
[2022-03-03 08:02] VITALS: O2SAT 97
[2022-03-03 15:09] VITALS: BP 150/64; PULSE 67; RESP 16; TEMP 37.1; O2SAT 95
[2022-03-03] MEDS: oxyCODONE 5 MG Tablet 10 MG PO (21:18)
[2022-03-03] MEDS: Pravastatin 80 MG Tablet PO (21:18)
[2022-03-03 22:00] VITALS: PULSE 72; RESP 16; O2SAT 97
[2022-03-04 05:24] VITALS: BP 151/64; PULSE 66
[2022-03-04] MEDS: morphine SR 15 MG Tablet PO ×2 (05:24→21:13)
[2022-03-04] MEDS: amLODIPine 10 MG Tablet PO (05:24)
[2022-03-04] MEDS: Pantoprazole Sodium 40 MG Tablet PO (05:24)
[2022-03-04] MEDS: Cholecalciferol (VIT D3) 25 MCG TABLET (1,000 UNITS) PO (05:24)
[2022-03-04] MEDS: Metoprolol Tartrate 25 MG Tablet PO (05:24)
[2022-03-04] MEDS: Umeclidinium Brm/Vilanterol 62.5-25 mcg Inh 1 PUFF INHALATION (05:25)
[2022-03-04] MEDS: 0.9% Saline Lock 10 ML Syringe IV ×5 (05:26→22:37)
[2022-03-04] MEDS: Iron Polysaccharide Complex 150 MG CAPSULE PO (07:48)
[2022-03-04] MEDS: Potassium Chloride Oral Tablet 20 MEQ PO ×2 (07:48→17:16)
[2022-03-04] MEDS: Aspirin 81 MG TAB.CHEW PO ×2 (07:48→17:16)
[2022-03-04 16:00] VITALS: BP 151/58; PULSE 68; RESP 18; TEMP 36.9; O2SAT 93
[2022-03-04] MEDS: oxyCODONE 5 MG Tablet 10 MG PO (16:00)
[2022-03-04] MEDS: Acetaminophen 500 MG Tablet 1000 MG PO (16:00)
--- NOTE | 2022-03-04 16:03 | NURSING ---
O2 humidifier changed out, old was empty and patient c/o dry/blood in nose.
[2022-03-04] MEDS: Pravastatin 80 MG Tablet PO (21:13)
[2022-03-04] MEDS: MELATONIN 10 MG TABLET PO (21:16)
[2022-03-05] MEDS: 0.9% Saline Lock 10 ML Syringe IV ×2 (05:35→14:10)
[2022-03-05 05:36] VITALS: BP 182/70; PULSE 65
[2022-03-05] MEDS: Metoprolol Tartrate 25 MG Tablet PO (05:36)
[2022-03-05] MEDS: Pantoprazole Sodium 40 MG Tablet PO (05:37)
[2022-03-05] MEDS: amLODIPine 10 MG Tablet PO (05:37)
[2022-03-05] MEDS: Cholecalciferol (VIT D3) 25 MCG TABLET (1,000 UNITS) PO (05:37)
[2022-03-05] MEDS: Umeclidinium Brm/Vilanterol 62.5-25 mcg Inh 1 PUFF INHALATION (05:37)
[2022-03-05] MEDS: Potassium Chloride Oral Tablet 20 MEQ PO ×2 (08:02→17:47)
[2022-03-05] MEDS: morphine SR 15 MG Tablet PO ×2 (08:02→20:52)
[2022-03-05] MEDS: Aspirin 81 MG TAB.CHEW PO ×2 (08:02→17:47)
[2022-03-05] MEDS: Iron Polysaccharide Complex 150 MG CAPSULE PO (08:02)
[2022-03-05] MEDS: Acetaminophen 500 MG Tablet 1000 MG PO (10:38)
[2022-03-05] MEDS: oxyCODONE 5 MG Tablet 10 MG PO (10:38)
[2022-03-05 14:02] VITALS: O2SAT 93
[2022-03-05 14:11] VITALS: BP 135/66; PULSE 69; RESP 18; TEMP 36.2; O2SAT 96
[2022-03-05] MEDS: MELATONIN 10 MG TABLET PO (20:53)
[2022-03-05] MEDS: Pravastatin 80 MG Tablet PO (20:53)
[2022-03-05 22:32] VITALS: PULSE 68; RESP 16; O2SAT 96
[2022-03-06 06:15] VITALS: BP 181/69; PULSE 69
[2022-03-06] MEDS: Metoprolol Tartrate 25 MG Tablet PO (06:15)
[2022-03-06] MEDS: amLODIPine 10 MG Tablet PO (06:15)
[2022-03-06] MEDS: Cholecalciferol (VIT D3) 25 MCG TABLET (1,000 UNITS) PO (06:15)
[2022-03-06] MEDS: Pantoprazole Sodium 40 MG Tablet PO (06:15)
[2022-03-06] MEDS: Umeclidinium Brm/Vilanterol 62.5-25 mcg Inh 1 PUFF INHALATION (06:15)
[2022-03-06] MEDS: Iron Polysaccharide Complex 150 MG CAPSULE PO (07:35)
[2022-03-06] MEDS: Aspirin 81 MG TAB.CHEW PO ×2 (07:35→16:31)
[2022-03-06] MEDS: Potassium Chloride Oral Tablet 20 MEQ PO ×2 (07:36→16:31)
[2022-03-06] MEDS: morphine SR 15 MG Tablet PO ×2 (08:59→21:20)
[2022-03-06 13:49] VITALS: BP 169/71; PULSE 74; RESP 18; TEMP 36.3; O2SAT 94
[2022-03-06] MEDS: 0.9% Saline Lock 10 ML Syringe IV ×2 (14:43→21:26)
[2022-03-06] MEDS: Acetaminophen 500 MG Tablet 1000 MG PO (16:32)
[2022-03-06] MEDS: Pravastatin 80 MG Tablet PO (21:21)
[2022-03-06] MEDS: MELATONIN 10 MG TABLET PO (21:21)
[2022-03-07] MEDS: amLODIPine 10 MG Tablet PO (05:32)
[2022-03-07] MEDS: Pantoprazole Sodium 40 MG Tablet PO (05:32)
[2022-03-07] MEDS: Cholecalciferol (VIT D3) 25 MCG TABLET (1,000 UNITS) PO (05:32)
[2022-03-07 05:33] VITALS: BP 156/71; PULSE 69
[2022-03-07] MEDS: Metoprolol Tartrate 25 MG Tablet PO (05:33)
[2022-03-07] MEDS: 0.9% Saline Lock 10 ML Syringe IV ×3 (05:34→21:51)
[2022-03-07] MEDS: Umeclidinium Brm/Vilanterol 62.5-25 mcg Inh 1 PUFF INHALATION (05:37)
[2022-03-07] MEDS: Aspirin 81 MG TAB.CHEW PO ×2 (08:08→17:00)
[2022-03-07] MEDS: Iron Polysaccharide Complex 150 MG CAPSULE PO (08:08)
[2022-03-07] MEDS: Potassium Chloride Oral Tablet 20 MEQ PO ×2 (08:09→17:00)
[2022-03-07] MEDS: morphine SR 15 MG Tablet PO ×2 (08:11→21:50)
[2022-03-07 16:00] VITALS: BP 136/78; PULSE 78; RESP 18; TEMP 36.6; O2SAT 99
[2022-03-07] MEDS: oxyCODONE 5 MG Tablet 10 MG PO (16:57)
[2022-03-07 20:45] VITALS: PULSE 75; RESP 16; O2SAT 95
[2022-03-07] MEDS: MELATONIN 10 MG TABLET PO (21:51)
[2022-03-07] MEDS: Pravastatin 80 MG Tablet PO (21:51)
--- NOTE | 2022-03-07 23:16 | PCA ---
asked several times to get washed up and he kept refusing saying he would do it in morning
[2022-03-08] MEDS: 0.9% Saline Lock 10 ML Syringe IV ×2 (05:30→13:00)
[2022-03-08 05:34] VITALS: BP 148/67; PULSE 64
[2022-03-08] MEDS: Metoprolol Tartrate 25 MG Tablet PO (05:34)
[2022-03-08] MEDS: Umeclidinium Brm/Vilanterol 62.5-25 mcg Inh 1 PUFF INHALATION (05:34)
[2022-03-08] MEDS: Cholecalciferol (VIT D3) 25 MCG TABLET (1,000 UNITS) PO (05:35)
[2022-03-08] MEDS: amLODIPine 10 MG Tablet PO (05:35)
[2022-03-08] MEDS: Pantoprazole Sodium 40 MG Tablet PO (05:35)
[2022-03-08 05:58] LABS: Absolute Lymphocyte Count 1.55 X10^3/uL (0.83-4.51); Absolute Neutrophil Count 4.1 X10^3/uL (2.0-7.7); Basophil# 0.05 X10^3/uL; Basophil% 0.8 % (0-1); Eosinophil# 0.36 X10^3/uL; Eosinophils% 5.4 % (0-5); Hematocrit 31.6 % (40-54); Hemoglobin 9.9 g/dL (13.0-16.5); Lymphocyte # 1.55 X10^3/ul (0.83-4.51); Lymphocyte % 23.4 % (19-41); Mean Corp Hgb Conc 31.3 g/dL (32-36); Mean Corpuscular Hgb 31.3 pg (27.0-32.0); Mean Platelet Vol. 9.5 fl (6.2-12.0); Monocyte# 0.58 X10^3/uL; Monocyte% 8.7 % (0-10); NRBC Flagged by Analyzer 0 % (0-5); Neutrophil # 4.07 X10^3/uL (2.7-7.7); Neutrophil % 61.4 % (47-70); Platelet Count 242 K/mm3 (150-450); RBC Distribution Width CV 15.3 % (11.6-14.6); RBC Distribution Width SD 56.1 fl (35.1-43.9); Red Blood Count 3.16 M/mm3 (4.6-6.2); White Blood Count 6.6 K/mm3 (4.4-11.0)
[2022-03-08 06:07] LABS: Erythrocyte Sedimentation Rate 80 mm/hr (0-20)
[2022-03-08 06:30] LABS: Anion Gap 7 (5-15); BUN 21 mg/dL (7-18); BUN/Creat Ratio 17.6 RATIO (10-20); Calcium,Total 9.2 mg/dL (8.5-10.1); Chloride 106 mmol/L (98-107); Creatinine, Serum 1.19 mg/dL (0.70-1.30); EST Glomerular Filtration Rate 62 mL/min (>60); Est Glom Filt Rate - Afr Amer 76 mL/min (>60); Estimated Creatinine Clearance 39.36 ml/min; Glucose 93 mg/dL (74-106); Potassium 3.8 mmol/L (3.5-5.1); Sodium Level 139 mmol/L (136-145)
[2022-03-08 07:16] VITALS: O2SAT 98
[2022-03-08] MEDS: Aspirin 81 MG TAB.CHEW PO ×2 (07:50→16:09)
[2022-03-08] MEDS: Potassium Chloride Oral Tablet 20 MEQ PO ×2 (07:50→16:09)
[2022-03-08] MEDS: Iron Polysaccharide Complex 150 MG CAPSULE PO (07:50)
[2022-03-08] MEDS: morphine SR 15 MG Tablet PO ×2 (08:46→21:18)
--- NOTE | 2022-03-08 10:56 | WOUNDNOTE ---
wound photo: right anterior ankle
--- NOTE | 2022-03-08 10:57 | WOUNDNOTE ---
wound photo: right lateral lower leg
--- NOTE | 2022-03-08 10:57 | WOUNDNOTE ---
wound photo: right knee
--- NOTE | 2022-03-08 10:58 | WOUNDNOTE ---
wound photo: right lateral knee
[2022-03-08 15:10] VITALS: BP 146/60; PULSE 65; RESP 18; TEMP 36.9; O2SAT 94
--- NOTE | 2022-03-08 17:12 | NURSING ---
Spouse came to nurses station, stating pt has an appt on 03/11/[address] Garcia. Spouse wondering if testing can be done in TCU instead of going to appt. Spouse unsure of what testing is to be completed at appt. This nurse left a message for Dr. Garcia's office requesting information about appt and if testing can be completed here. Waiting for return call.
[2022-03-08] MEDS: Acetaminophen 500 MG Tablet 1000 MG PO (18:47)
--- NOTE | 2022-03-08 19:30 | PN.TCU_ITS ---
Subjective Subjective Resident seen and examined for regulatory visit. He is eating supper, he has no new problems, concerns, issues, complaints. He appears well. Objective Data Objective Data Vital Signs: Vital Signs Temp Pulse Resp BP Pulse Ox 98.5 F 65 18 146/60 H 94 03/08/22 15:10 03/08/22 15:10 03/08/22 15:10 03/08/22 15:10 03/08/22 15:10 Oxygen Flow Rate (L/min) 3 Oxygen Delivery Method Nasal Cannula Weight: 56.2 kg Body Mass Index (BMI) 20.0 Intake & Output: Intake and Output for Last 24 Hours 03/06/22 03/07/22 03/08/22 23:59 23:59 23:59 Intake Total 936 / 936 1535.5 / 1535.5 1314 / 1314 Output Total 1200 / 1200 Balance 936 / 936 335.5 / 335.5 1314 / 1314 Lab / Micro Data Result Diagrams: 03/08/22 05:33 03/08/22 05:33 Labs: Laboratory Results - last 24 hr 03/08/22 05:33: WBC 6.6, RBC 3.16 L, Hgb 9.9 L, Hct 31.6 L, MCV 100.0 H, MCH 31.3, MCHC 31.3 L, RDW Std Deviation 56.1 H, RDW Coeff of Marya 15.3 H, Plt Count 242, MPV 9.5, Immature Gran % (Auto) 0.300, Neut % (Auto) 61.4, Lymph % (Auto) 23.4, [place] % (Auto) 8.7, Eos % (Auto) 5.4 H, Baso % (Auto) 0.8, Absolute Neuts (auto) 4.1, Absolute Lymphs (auto) 1.55, Nucleated RBC % 0, ESR 80 H 03/08/22 05:33: Sodium 139, Potassium 3.8, Chloride 106, Carbon Dioxide 26.0, Anion Gap 7, BUN 21 H, Creatinine 1.19, Estim Creat Clear Calc 39.36, Est GFR (MDRD) Af Amer 76, Est GFR (MDRD) Non-Af 62, BUN/Creatinine Ratio 17.6, Glucose 93, Calcium 9.2 Micro: Microbiology 02/22/22 08:30 Nasal Secretion SARS-CoV-2 Antigen (Rapid) - Final Physical Exam Const alert General Appearance: cooperative HEENT normocephalic Eyes PERRL and EOMs intact bilaterally Neck supple, no JVD and no carotid bruits Resp normal respiratory effort, normal air movement and clear to auscultation bilaterally Cardio regular rate and regular rhythm GI normal to inspection, nondistended, normoactive bowel sounds, non-tender and non-distended Extremity normal capillary refill Extremity Narrative: Right upper extremity PICC line. General Extremity: Negative for edema Skin no rashes or lesions noted General Skin Exam: no breakdown Psych affect normal Appearance: appropriate Assessment & Plan Assessment/Plan (1) Debility: (2) Infection of prosthetic right knee joint: (3) Hypertension: (4) Hyperlipidemia: (5) Hypokalemia: (6) Gastroesophageal reflux disease: (7) Vitamin D deficiency: (8) Chronic obstructive pulmonary disease: PLAN: 81 year old male with below past medical history hospitalized for i nfection right prosthetic knee, underwent irrigation/debridement, polyethylene exchange 02/12/[address] Emmanuel, admitted to TCU with debility, here for rehabilitation, strengthening, intravenous antibiotics, prior to discharge home with . * Debility - PT/OT. * Pain - Tylenol 1000mg q6h prn pain (1-5), Oxycodone 10mg q4h prn pain (6-10), MS Contin 15mg q12h. * Bowel - Miralax 17gm daily prn, senna/colace 2 tablets bid prn, Dulcolax 10mg daily prn. * Adult immunization - Administer pneumonia vaccine, flu vaccine, covid19 vaccine. * DVT prophylaxis - Aspirin 81mg twice daily. * Hypertension - Metoprolol 25mg daily, Amlodipine 10mg daily. * Right prosthetic knee infection - Dr. Causey, surgical cultures growing acinetobacter, eggerthia, Ceftriaxone/Vancomycin changed to Unasyn 3gm iv q8 thru 03/26/2022. * Vitamin D deficiency - D3 25mcg daily. * Iron deficiency anemia - Ferrex 150mg daily. * GERD - Pantoprazole 40mg daily. * Hyperlipidemia - Pravastatin 80mg qhs. * COPD - Anoro 1 puff daily, oxygen 3 liters per nasal cannula. * Insomnia - Melatonin 10mg qhs. * Hypokalemia - KCL 20meq bidcm. Capacity Capacity Assessment Tool Can the patient make a choice & communicate that choice?: Yes Can the patient understand benefits, risks and alternatives?: Yes Can the patient make a logical, rational choice?: Yes Is the choice the patient makes consistent w/ their values?: Yes Is there an impending, emergent risk to the patient?: No Does the patient have an Advance Directive?: Yes Is there a Surrogate Available?: Yes i.e. HCPOA: Yes i.e. close relative (spouse, child, parent, sibling)?: Yes
[2022-03-08] MEDS: MELATONIN 10 MG TABLET PO (21:19)
[2022-03-08] MEDS: Pravastatin 80 MG Tablet PO (21:19)
[2022-03-08 23:06] VITALS: PULSE 76; RESP 18; O2SAT 96
--- NOTE | 2022-03-09 01:29 | NURSING ---
Patient continues on IV ATB for infection to right knee. PICC line with double lumen in place to ROSETTA. Both lumens flushed without difficulty, good blood return. No adverse effects noted with ATB administration. Will continue to monitor.
--- NOTE | 2022-03-09 01:31 | NURSING ---
Dressing changed to right knee. No drainage noted. Area cleansed with NS. Knee incision covered with Adaptic, lateral aspect of right knee covered with xeroform. Both areas covered with ABD, secured with gauze wrap, then JOSE ALBERTO wrap applied. Patient tolerated well.
[2022-03-09 06:42] VITALS: O2SAT 99
[2022-03-09] MEDS: Cholecalciferol (VIT D3) 25 MCG TABLET (1,000 UNITS) PO (06:49)
[2022-03-09] MEDS: 0.9% Saline Lock 10 ML Syringe IV ×3 (06:49→21:13)
[2022-03-09 06:50] VITALS: BP 180/68; PULSE 69
[2022-03-09] MEDS: Metoprolol Tartrate 25 MG Tablet PO (06:50)
[2022-03-09] MEDS: Pantoprazole Sodium 40 MG Tablet PO (06:50)
[2022-03-09] MEDS: Umeclidinium Brm/Vilanterol 62.5-25 mcg Inh 1 PUFF INHALATION (06:51)
[2022-03-09] MEDS: amLODIPine 10 MG Tablet PO (06:52)
[2022-03-09] MEDS: Iron Polysaccharide Complex 150 MG CAPSULE PO (08:07)
[2022-03-09] MEDS: Aspirin 81 MG TAB.CHEW PO ×2 (08:07→17:49)
[2022-03-09] MEDS: morphine SR 15 MG Tablet PO ×2 (08:07→21:12)
[2022-03-09] MEDS: Potassium Chloride Oral Tablet 20 MEQ PO ×2 (08:07→17:49)
--- NOTE | 2022-03-09 09:53 | NURSING ---
appt canceled with Dr Garcia on 03/11, will reschedule at DC from TCU. Regarding pulse ox results in December
[2022-03-09 14:29] VITALS: BP 124/60; PULSE 67; RESP 18; TEMP 36.3; O2SAT 98
[2022-03-09] MEDS: Acetaminophen 500 MG Tablet 1000 MG PO (17:52)
[2022-03-09 19:51] VITALS: PULSE 74; RESP 16; O2SAT 95
[2022-03-09] MEDS: Pravastatin 80 MG Tablet PO (21:12)
[2022-03-09] MEDS: MELATONIN 10 MG TABLET PO (21:12)
[2022-03-10] MEDS: 0.9% Saline Lock 10 ML Syringe IV ×3 (05:28→21:26)
[2022-03-10] MEDS: Umeclidinium Brm/Vilanterol 62.5-25 mcg Inh 1 PUFF INHALATION (05:30)
[2022-03-10 05:31] VITALS: BP 139/67; PULSE 65
[2022-03-10] MEDS: amLODIPine 10 MG Tablet PO (05:31)
[2022-03-10] MEDS: Pantoprazole Sodium 40 MG Tablet PO (05:31)
[2022-03-10] MEDS: Metoprolol Tartrate 25 MG Tablet PO (05:31)
[2022-03-10] MEDS: Cholecalciferol (VIT D3) 25 MCG TABLET (1,000 UNITS) PO (05:32)
[2022-03-10 07:26] VITALS: O2SAT 97
[2022-03-10] MEDS: Iron Polysaccharide Complex 150 MG CAPSULE PO (08:11)
[2022-03-10] MEDS: Aspirin 81 MG TAB.CHEW PO ×2 (08:11→16:57)
[2022-03-10] MEDS: Potassium Chloride Oral Tablet 20 MEQ PO ×2 (08:11→16:57)
[2022-03-10] MEDS: morphine SR 15 MG Tablet PO ×2 (08:34→21:23)
[2022-03-10 16:00] VITALS: BP 167/68; PULSE 62; RESP 14; TEMP 37.1; O2SAT 95
[2022-03-10] MEDS: Acetaminophen 500 MG Tablet 1000 MG PO (17:02)
[2022-03-10] MEDS: MELATONIN 10 MG TABLET PO (21:23)
[2022-03-10] MEDS: Pravastatin 80 MG Tablet PO (21:24)
[2022-03-11] MEDS: Umeclidinium Brm/Vilanterol 62.5-25 mcg Inh 1 PUFF INHALATION (05:53)
[2022-03-11 05:54] VITALS: BP 155/75; PULSE 67
[2022-03-11] MEDS: Metoprolol Tartrate 25 MG Tablet PO (05:54)
[2022-03-11] MEDS: amLODIPine 10 MG Tablet PO (05:54)
[2022-03-11] MEDS: Pantoprazole Sodium 40 MG Tablet PO (05:54)
[2022-03-11] MEDS: Cholecalciferol (VIT D3) 25 MCG TABLET (1,000 UNITS) PO (05:54)
[2022-03-11] MEDS: 0.9% Saline Lock 10 ML Syringe IV ×2 (05:56→13:59)
[2022-03-11] MEDS: morphine SR 15 MG Tablet PO ×2 (08:18→21:03)
[2022-03-11] MEDS: Aspirin 81 MG TAB.CHEW PO ×2 (08:19→17:18)
[2022-03-11] MEDS: Iron Polysaccharide Complex 150 MG CAPSULE PO (08:19)
[2022-03-11] MEDS: Potassium Chloride Oral Tablet 20 MEQ PO ×2 (08:19→17:18)
[2022-03-11 10:00] VITALS: O2SAT 94
[2022-03-11 16:17] VITALS: BP 143/69; PULSE 68; RESP 20; TEMP 37; O2SAT 94
[2022-03-11] MEDS: Acetaminophen 500 MG Tablet 1000 MG PO (17:18)
[2022-03-11] MEDS: MELATONIN 10 MG TABLET PO (21:03)
[2022-03-11] MEDS: Pravastatin 80 MG Tablet PO (21:03)
[2022-03-11 21:15] VITALS: PULSE 72; RESP 18; O2SAT 94
[2022-03-12] MEDS: 0.9% Saline Lock 10 ML Syringe IV ×4 (06:40→21:04)
[2022-03-12 06:41] VITALS: BP 180/72; PULSE 69
[2022-03-12] MEDS: Umeclidinium Brm/Vilanterol 62.5-25 mcg Inh 1 PUFF INHALATION (06:41)
[2022-03-12] MEDS: Metoprolol Tartrate 25 MG Tablet PO (06:41)
[2022-03-12] MEDS: amLODIPine 10 MG Tablet PO (06:41)
[2022-03-12] MEDS: Pantoprazole Sodium 40 MG Tablet PO (06:41)
[2022-03-12] MEDS: Cholecalciferol (VIT D3) 25 MCG TABLET (1,000 UNITS) PO (06:41)
[2022-03-12 08:04] VITALS: O2SAT 95
[2022-03-12] MEDS: Aspirin 81 MG TAB.CHEW PO ×2 (08:06→16:29)
[2022-03-12] MEDS: Potassium Chloride Oral Tablet 20 MEQ PO ×2 (08:06→16:29)
[2022-03-12] MEDS: Iron Polysaccharide Complex 150 MG CAPSULE PO (08:06)
[2022-03-12] MEDS: morphine SR 15 MG Tablet PO ×2 (08:09→20:59)
[2022-03-12 16:00] VITALS: BP 120/60; PULSE 69; RESP 16; TEMP 37.1; O2SAT 96
[2022-03-12] MEDS: Acetaminophen 500 MG Tablet 1000 MG PO (16:31)
[2022-03-12] MEDS: MELATONIN 10 MG TABLET PO (21:12)
[2022-03-12] MEDS: Pravastatin 80 MG Tablet PO (21:12)
[2022-03-13] MEDS: Pantoprazole Sodium 40 MG Tablet PO (05:23)
[2022-03-13] MEDS: amLODIPine 10 MG Tablet PO (05:23)
[2022-03-13] MEDS: Umeclidinium Brm/Vilanterol 62.5-25 mcg Inh 1 PUFF INHALATION (05:23)
[2022-03-13] MEDS: Cholecalciferol (VIT D3) 25 MCG TABLET (1,000 UNITS) PO (05:23)
[2022-03-13 05:24] VITALS: BP 158/75; PULSE 65
[2022-03-13] MEDS: Metoprolol Tartrate 25 MG Tablet PO (05:24)
[2022-03-13] MEDS: 0.9% Saline Lock 10 ML Syringe IV ×3 (05:32→21:21)
[2022-03-13] MEDS: Iron Polysaccharide Complex 150 MG CAPSULE PO (08:02)
[2022-03-13] MEDS: Potassium Chloride Oral Tablet 20 MEQ PO ×2 (08:02→16:31)
[2022-03-13] MEDS: morphine SR 15 MG Tablet PO ×2 (08:44→21:18)
[2022-03-13 15:30] VITALS: BP 135/60; PULSE 70; RESP 16; TEMP 36.9; O2SAT 95
[2022-03-13] MEDS: Acetaminophen 500 MG Tablet 1000 MG PO (16:34)
[2022-03-13] MEDS: MELATONIN 10 MG TABLET PO (21:19)
[2022-03-13] MEDS: Pravastatin 80 MG Tablet PO (21:20)
[2022-03-14] MEDS: Cholecalciferol (VIT D3) 25 MCG TABLET (1,000 UNITS) PO (06:54)
[2022-03-14 06:55] VITALS: BP 167/71; PULSE 71
[2022-03-14] MEDS: Pantoprazole Sodium 40 MG Tablet PO (06:55)
[2022-03-14] MEDS: Metoprolol Tartrate 25 MG Tablet PO (06:55)
[2022-03-14] MEDS: amLODIPine 10 MG Tablet PO (06:55)
[2022-03-14] MEDS: Umeclidinium Brm/Vilanterol 62.5-25 mcg Inh 1 PUFF INHALATION (06:55)
[2022-03-14] MEDS: morphine SR 15 MG Tablet PO ×2 (08:42→21:36)
[2022-03-14] MEDS: Iron Polysaccharide Complex 150 MG CAPSULE PO (08:42)
[2022-03-14] MEDS: Potassium Chloride Oral Tablet 20 MEQ PO ×2 (08:42→16:21)
--- NOTE | 2022-03-14 09:08 | NURSING ---
Notified Dr. Nance of patient's PICC line not working properly. Received order for cathflo for both picc lines.
[2022-03-14] MEDS: Alteplase 2 MG/2 ML Vial IV (10:37)
[2022-03-14] MEDS: 0.9% Saline Lock 10 ML Syringe IV ×3 (11:30→21:44)
[2022-03-14] MEDS: oxyCODONE 5 MG Tablet 10 MG PO (14:42)
[2022-03-14 15:16] VITALS: BP 154/72; PULSE 68; RESP 16; TEMP 36.6; O2SAT 99
[2022-03-14] MEDS: Acetaminophen 500 MG Tablet 1000 MG PO (18:33)
[2022-03-14] MEDS: MELATONIN 10 MG TABLET PO (21:36)
[2022-03-14] MEDS: Pravastatin 80 MG Tablet PO (21:37)
[2022-03-15] MEDS: Umeclidinium Brm/Vilanterol 62.5-25 mcg Inh 1 PUFF INHALATION (05:37)
[2022-03-15 05:38] VITALS: BP 145/67; PULSE 70
[2022-03-15] MEDS: Pantoprazole Sodium 40 MG Tablet PO (05:38)
[2022-03-15] MEDS: Metoprolol Tartrate 25 MG Tablet PO (05:38)
[2022-03-15] MEDS: Cholecalciferol (VIT D3) 25 MCG TABLET (1,000 UNITS) PO (05:38)
[2022-03-15] MEDS: amLODIPine 10 MG Tablet PO (05:38)
[2022-03-15] MEDS: 0.9% Saline Lock 10 ML Syringe IV ×3 (05:40→15:08)
[2022-03-15 06:11] LABS: Absolute Lymphocyte Count 1.64 X10^3/uL (0.83-4.51); Absolute Neutrophil Count 3.1 X10^3/uL (2.0-7.7); Basophil# 0.04 X10^3/uL; Basophil% 0.7 % (0-1); Eosinophils% 8.5 % (0-5); Hematocrit 31.3 % (40-54); Hemoglobin 9.8 g/dL (13.0-16.5); Lymphocyte # 1.64 X10^3/ul (0.83-4.51); Lymphocyte % 27.8 % (19-41); Mean Corp Hgb Conc 31.3 g/dL (32-36); Mean Corpuscular Hgb 31.3 pg (27.0-32.0); Mean Platelet Vol. 9.8 fl (6.2-12.0); Monocyte# 0.55 X10^3/uL; Monocyte% 9.3 % (0-10); NRBC Flagged by Analyzer 0 % (0-5); Neutrophil # 3.14 X10^3/uL (2.7-7.7); Neutrophil % 53.4 % (47-70); Platelet Count 197 K/mm3 (150-450); RBC Distribution Width CV 15.7 % (11.6-14.6); RBC Distribution Width SD 58.4 fl (35.1-43.9); Red Blood Count 3.13 M/mm3 (4.6-6.2); White Blood Count 5.9 K/mm3 (4.4-11.0)
[2022-03-15 06:31] LABS: Erythrocyte Sedimentation Rate 92 mm/hr (0-20)
[2022-03-15 06:35] LABS: Anion Gap 7 (5-15); BUN 25 mg/dL (7-18); BUN/Creat Ratio 22.5 RATIO (10-20); Calcium,Total 9.4 mg/dL (8.5-10.1); Chloride 104 mmol/L (98-107); Creatinine, Serum 1.11 mg/dL (0.70-1.30); EST Glomerular Filtration Rate 68 mL/min (>60); Est Glom Filt Rate - Afr Amer 82 mL/min (>60); Estimated Creatinine Clearance 41.89 ml/min; Glucose 95 mg/dL (74-106); Potassium 3.7 mmol/L (3.5-5.1); Sodium Level 137 mmol/L (136-145)
[2022-03-15 07:49] VITALS: O2SAT 95
[2022-03-15] MEDS: morphine SR 15 MG Tablet PO ×2 (08:23→20:52)
[2022-03-15] MEDS: Potassium Chloride Oral Tablet 20 MEQ PO ×2 (08:24→17:45)
[2022-03-15] MEDS: Iron Polysaccharide Complex 150 MG CAPSULE PO (08:24)
--- NOTE | 2022-03-15 11:23 | WOUNDNOTE ---
wound photo: right knee
--- NOTE | 2022-03-15 14:38 | PCM.PN.ID ---
Physical Exam Narrative Knee mild pain, no fever, no n/v/d. Const alert and no apparent distress General Appearance: cooperative Resp normal air movement and clear to auscultation bilaterally Cardio regular rate and regular rhythm GI soft to palpation, non-tender and non-distended Skin Skin Narrative: knee, mild swelling ID ID: Route of nutrition/ use of supplements: [] Nutritional Intake: [] IV Site: [] Uriarte Catheter: [] Assessment & Plan Assessment/Plan (1) Infection of prosthetic right knee joint: PLAN: S/p R TKR 01/13/[address] mEmanuel. Cxs 01/22 were neg but GPC seen on gram stain, 01/26 also neg. Has been on omnicef recently. Take to for I&D 02/12 with poly exchange. Picc in place, discharged on 6 weeks iv vanc/ceftriaxone. Requested micro lab hold surg cxs for 14 days. Cx now with actino and eggerthia. Cont unasyn, stop date 03/26/22. Once iV is complete, plan will be for one year of augmentin 875mg bid, ID followup in 1 month after discharge. Will follow.
[2022-03-15 16:00] VITALS: BP 160/73; PULSE 70; RESP 14; TEMP 37.1; O2SAT 96
[2022-03-15] MEDS: Acetaminophen 500 MG Tablet 1000 MG PO (17:46)
[2022-03-15] MEDS: MELATONIN 10 MG TABLET PO (20:53)
[2022-03-15] MEDS: Pravastatin 80 MG Tablet PO (20:53)
[2022-03-16] MEDS: Umeclidinium Brm/Vilanterol 62.5-25 mcg Inh 1 PUFF INHALATION (05:20)
[2022-03-16 05:21] VITALS: BP 171/56; PULSE 67
[2022-03-16] MEDS: Metoprolol Tartrate 25 MG Tablet PO (05:21)
[2022-03-16] MEDS: Pantoprazole Sodium 40 MG Tablet PO (05:21)
[2022-03-16] MEDS: amLODIPine 10 MG Tablet PO (05:21)
[2022-03-16] MEDS: Cholecalciferol (VIT D3) 25 MCG TABLET (1,000 UNITS) PO (05:21)
[2022-03-16] MEDS: Acetaminophen 500 MG Tablet 1000 MG PO ×2 (05:44→11:42)
[2022-03-16] MEDS: Iron Polysaccharide Complex 150 MG CAPSULE PO (08:11)
[2022-03-16] MEDS: Potassium Chloride Oral Tablet 20 MEQ PO ×2 (08:11→17:10)
--- NOTE | 2022-03-16 08:36 | WOUNDNOTE ---
wound photo: right anterior lower leg/ankle
--- NOTE | 2022-03-16 08:37 | WOUNDNOTE ---
wound photo: right knee
--- NOTE | 2022-03-16 08:37 | WOUNDNOTE ---
wound photo: right lateral knee
[2022-03-16] MEDS: morphine SR 15 MG Tablet PO ×2 (08:52→21:51)
[2022-03-16] MEDS: 0.9% Saline Lock 10 ML Syringe IV ×2 (14:23→21:53)
[2022-03-16 16:00] VITALS: BP 143/71; PULSE 72; RESP 16; TEMP 36.8; O2SAT 95
[2022-03-16] MEDS: Pravastatin 80 MG Tablet PO (21:52)
[2022-03-16] MEDS: MELATONIN 10 MG TABLET PO (21:52)
[2022-03-17] MEDS: Umeclidinium Brm/Vilanterol 62.5-25 mcg Inh 1 PUFF INHALATION (06:14)
[2022-03-17 06:15] VITALS: BP 151/67; PULSE 74
[2022-03-17] MEDS: 0.9% Saline Lock 10 ML Syringe IV ×3 (06:15→21:49)
[2022-03-17] MEDS: Cholecalciferol (VIT D3) 25 MCG TABLET (1,000 UNITS) PO (06:15)
[2022-03-17] MEDS: Pantoprazole Sodium 40 MG Tablet PO (06:15)
[2022-03-17] MEDS: Metoprolol Tartrate 25 MG Tablet PO (06:15)
[2022-03-17] MEDS: amLODIPine 10 MG Tablet PO (06:15)
[2022-03-17 07:32] VITALS: O2SAT 98
[2022-03-17] MEDS: Iron Polysaccharide Complex 150 MG CAPSULE PO (08:07)
[2022-03-17] MEDS: Potassium Chloride Oral Tablet 20 MEQ PO ×2 (08:07→16:40)
--- NOTE | 2022-03-17 08:27 | NURSING ---
Dressing change completed. Knee wound:4cm lateral wound around ankle:2cm. Patient tolerated change overall well.
[2022-03-17] MEDS: morphine SR 15 MG Tablet PO ×2 (09:16→20:27)
[2022-03-17] MEDS: oxyCODONE 5 MG Tablet 10 MG PO ×2 (15:56→22:53)
[2022-03-17] MEDS: Pravastatin 80 MG Tablet PO (20:28)
[2022-03-17] MEDS: MELATONIN 10 MG TABLET PO (20:28)
[2022-03-18] MEDS: oxyCODONE 5 MG Tablet 10 MG PO ×2 (04:15→15:45)
[2022-03-18 04:16] VITALS: PULSE 77
[2022-03-18] MEDS: Metoprolol Tartrate 25 MG Tablet PO (04:16)
[2022-03-18] MEDS: Umeclidinium Brm/Vilanterol 62.5-25 mcg Inh 1 PUFF INHALATION (04:16)
[2022-03-18] MEDS: Pantoprazole Sodium 40 MG Tablet PO (04:17)
[2022-03-18] MEDS: Cholecalciferol (VIT D3) 25 MCG TABLET (1,000 UNITS) PO (04:17)
[2022-03-18] MEDS: amLODIPine 10 MG Tablet PO (04:17)
[2022-03-18] MEDS: 0.9% Saline Lock 10 ML Syringe IV ×4 (05:23→22:34)
[2022-03-18] MEDS: Potassium Chloride Oral Tablet 20 MEQ PO ×2 (07:46→16:55)
[2022-03-18] MEDS: Iron Polysaccharide Complex 150 MG CAPSULE PO (07:47)
[2022-03-18] MEDS: morphine SR 15 MG Tablet PO ×2 (09:22→21:22)
[2022-03-18 09:58] VITALS: PULSE 68; RESP 18; O2SAT 98
[2022-03-18 15:07] VITALS: BP 150/65; PULSE 68; RESP 16; TEMP 36.9; O2SAT 98
[2022-03-18] MEDS: Acetaminophen 500 MG Tablet 1000 MG PO (16:55)
[2022-03-18] MEDS: MELATONIN 10 MG TABLET PO (21:22)
[2022-03-18] MEDS: Pravastatin 80 MG Tablet PO (21:23)
[2022-03-19] MEDS: Pantoprazole Sodium 40 MG Tablet PO (06:28)
[2022-03-19] MEDS: Cholecalciferol (VIT D3) 25 MCG TABLET (1,000 UNITS) PO (06:28)
[2022-03-19 06:29] VITALS: BP 156/65; PULSE 71
[2022-03-19] MEDS: amLODIPine 10 MG Tablet PO (06:29)
[2022-03-19] MEDS: Umeclidinium Brm/Vilanterol 62.5-25 mcg Inh 1 PUFF INHALATION (06:29)
[2022-03-19] MEDS: Metoprolol Tartrate 25 MG Tablet PO (06:29)
[2022-03-19 07:37] VITALS: O2SAT 92
[2022-03-19] MEDS: Iron Polysaccharide Complex 150 MG CAPSULE PO (08:29)
[2022-03-19] MEDS: morphine SR 15 MG Tablet PO ×2 (08:29→21:28)
[2022-03-19] MEDS: Potassium Chloride Oral Tablet 20 MEQ PO ×2 (08:30→17:33)
[2022-03-19] MEDS: 0.9% Saline Lock 10 ML Syringe IV (14:29)
--- NOTE | 2022-03-19 15:25 | NURSING ---
Addendum entered by Corinne Ohara 03/19/22 19:01: , CHRISTINA CALLED BACK AND WAS NOTIFIED OF NEG COVID PCR TEST. Addendum entered by Corinne Ohara 03/19/22 18:56: PCR TEST NEGATIVE. NOTIFIED DR SCOTT. ORDER TO DC PAXLOVID. R' UPDATED ON NEG TEST RESULT. CALLED , DILAN GELLER TO CALL BACK. FINANCE MANAGER UPDATED ON NEG RESULT. Addendum entered by Corinne Ohara 03/19/22 17:44: R' SON ALSO NOTIFIED OF POSITIVE RAPID TEST FOR COVID. R' NOTIFIED OF N.O. PAXLOVID. Gilmer HANCOCK RN NOTIFIED DR SCOTT OF POSITIVE RAPID AND PAXLOVID WAS ORDERED. Original Note: Alba' TESTED POSITIVE FOR COVID WITH RAPID TEST. Jah LOBO FINANCE MANAGER NOTIFIED. PCR TEST ORDERED. Francesca AND HIS IN ROOM NOTIFIED OF RESULT. R' IN DROPLET ISOLATION WITH DOOR CLOSED. ACCOUNT RECEIVABLE CLERK AND CAP MAKER ALSO NOTIFIED. R.T. CALLED AT THIS TIME TO OBTAIN PCR TEST. Francesca IS EXPERIENCING NO SYMPTOMS AT THIS TIME. R' IS UPSET ABOUT POSITIVE RESULT. 1:1 GIVEN WITH EMOTIONAL SUPPORT. AT SIDE. EXPLAINED TO HER PPE NEEDS TO BE WORN IN ROOM.
[2022-03-19 16:00] VITALS: BP 166/96; PULSE 81; RESP 16; TEMP 36.7; O2SAT 98
[2022-03-19 19:45] VITALS: PULSE 68; RESP 16; O2SAT 93
[2022-03-19] MEDS: Pravastatin 80 MG Tablet PO (21:34)
[2022-03-19] MEDS: MELATONIN 10 MG TABLET PO (21:34)
[2022-03-20] MEDS: oxyCODONE 5 MG Tablet 10 MG PO (04:56)
[2022-03-20] MEDS: Acetaminophen 500 MG Tablet 1000 MG PO ×2 (04:56→19:48)
[2022-03-20 04:57] VITALS: BP 152/75; PULSE 75
[2022-03-20] MEDS: Cholecalciferol (VIT D3) 25 MCG TABLET (1,000 UNITS) PO (04:57)
[2022-03-20] MEDS: Metoprolol Tartrate 25 MG Tablet PO (04:57)
[2022-03-20] MEDS: Umeclidinium Brm/Vilanterol 62.5-25 mcg Inh 1 PUFF INHALATION (04:58)
[2022-03-20] MEDS: Pantoprazole Sodium 40 MG Tablet PO (04:58)
[2022-03-20] MEDS: amLODIPine 10 MG Tablet PO (04:58)
[2022-03-20 07:51] VITALS: O2SAT 95
[2022-03-20] MEDS: Iron Polysaccharide Complex 150 MG CAPSULE PO (08:14)
[2022-03-20] MEDS: Potassium Chloride Oral Tablet 20 MEQ PO ×2 (08:14→16:40)
[2022-03-20] MEDS: morphine SR 15 MG Tablet PO ×2 (09:49→21:48)
[2022-03-20 10:22] VITALS: PULSE 65; RESP 16; O2SAT 92
[2022-03-20] MEDS: 0.9% Saline Lock 10 ML Syringe IV ×2 (13:31→21:50)
[2022-03-20 15:33] VITALS: BP 137/62; PULSE 65; RESP 16; TEMP 36.9; O2SAT 92
[2022-03-20] MEDS: Pravastatin 80 MG Tablet PO (21:49)
[2022-03-20] MEDS: MELATONIN 10 MG TABLET PO (21:49)
[2022-03-21] MEDS: Pantoprazole Sodium 40 MG Tablet PO (06:09)
[2022-03-21] MEDS: amLODIPine 10 MG Tablet PO (06:09)
[2022-03-21] MEDS: Cholecalciferol (VIT D3) 25 MCG TABLET (1,000 UNITS) PO (06:09)
[2022-03-21] MEDS: Umeclidinium Brm/Vilanterol 62.5-25 mcg Inh 1 PUFF INHALATION (06:09)
[2022-03-21] MEDS: 0.9% Saline Lock 10 ML Syringe IV ×3 (06:13→22:19)
[2022-03-21 06:14] VITALS: BP 160/79; PULSE 71
[2022-03-21] MEDS: Metoprolol Tartrate 25 MG Tablet PO (06:14)
[2022-03-21 07:14] VITALS: O2SAT 92
[2022-03-21] MEDS: morphine SR 15 MG Tablet PO ×2 (07:39→22:15)
[2022-03-21] MEDS: Iron Polysaccharide Complex 150 MG CAPSULE PO (07:40)
[2022-03-21] MEDS: Potassium Chloride Oral Tablet 20 MEQ PO ×2 (07:41→17:17)
[2022-03-21] MEDS: Acetaminophen 500 MG Tablet 1000 MG PO (10:10)
[2022-03-21 14:44] VITALS: BP 148/61; PULSE 64; RESP 14; TEMP 36.3; O2SAT 94
[2022-03-21] MEDS: MELATONIN 10 MG TABLET PO (22:16)
[2022-03-21] MEDS: Pravastatin 80 MG Tablet PO (22:16)
[2022-03-22 05:38] LABS: Absolute Lymphocyte Count 1.59 X10^3/uL (0.83-4.51); Absolute Neutrophil Count 3.6 X10^3/uL (2.0-7.7); Basophil# 0.05 X10^3/uL; Basophil% 0.8 % (0-1); Eosinophil# 0.69 X10^3/uL; Eosinophils% 10.6 % (0-5); Hematocrit 32.7 % (40-54); Hemoglobin 10.4 g/dL (13.0-16.5); Lymphocyte # 1.59 X10^3/ul (0.83-4.51); Lymphocyte % 24.4 % (19-41); Mean Corp Hgb Conc 31.8 g/dL (32-36); Mean Corpuscular Hgb 31.5 pg (27.0-32.0); Mean Corpuscular Volume 99.1 fL (80-94); Mean Platelet Vol. 9.6 fl (6.2-12.0); Monocyte# 0.57 X10^3/uL; Monocyte% 8.7 % (0-10); NRBC Flagged by Analyzer 0 % (0-5); Neutrophil % 55.2 % (47-70); Platelet Count 194 K/mm3 (150-450); RBC Distribution Width CV 15.5 % (11.6-14.6); RBC Distribution Width SD 56.6 fl (35.1-43.9); White Blood Count 6.5 K/mm3 (4.4-11.0)
[2022-03-22 05:48] LABS: Erythrocyte Sedimentation Rate 91 mm/hr (0-20)
[2022-03-22] MEDS: Cholecalciferol (VIT D3) 25 MCG TABLET (1,000 UNITS) PO (05:51)
[2022-03-22] MEDS: Umeclidinium Brm/Vilanterol 62.5-25 mcg Inh 1 PUFF INHALATION (05:51)
[2022-03-22 05:52] VITALS: BP 172/80; PULSE 69
[2022-03-22] MEDS: amLODIPine 10 MG Tablet PO (05:52)
[2022-03-22] MEDS: 0.9% Saline Lock 10 ML Syringe IV (05:52)
[2022-03-22] MEDS: Metoprolol Tartrate 25 MG Tablet PO (05:52)
[2022-03-22] MEDS: Pantoprazole Sodium 40 MG Tablet PO (05:52)
[2022-03-22 05:59] LABS: Anion Gap 5 (5-15); BUN 21 mg/dL (7-18); BUN/Creat Ratio 19.4 RATIO (10-20); Calcium,Total 9.4 mg/dL (8.5-10.1); Chloride 104 mmol/L (98-107); Creatinine, Serum 1.08 mg/dL (0.70-1.30); EST Glomerular Filtration Rate 70 mL/min (>60); Est Glom Filt Rate - Afr Amer 84 mL/min (>60); Estimated Creatinine Clearance 43.68 ml/min; Glucose 95 mg/dL (74-106); Potassium 3.8 mmol/L (3.5-5.1); Sodium Level 136 mmol/L (136-145)
[2022-03-22 07:05] VITALS: O2SAT 94
[2022-03-22] MEDS: morphine SR 15 MG Tablet PO ×2 (09:10→21:49)
[2022-03-22] MEDS: Potassium Chloride Oral Tablet 20 MEQ PO ×2 (09:10→16:13)
[2022-03-22] MEDS: Iron Polysaccharide Complex 150 MG CAPSULE PO (09:10)
[2022-03-22 12:58] VITALS: PULSE 65; RESP 16; O2SAT 92
--- NOTE | 2022-03-22 15:00 | NURSING ---
Pt test covid positive . update. one on one care given
[2022-03-22 15:21] VITALS: BP 155/68; PULSE 65; RESP 16; TEMP 36.6; O2SAT 92
[2022-03-22] MEDS: Acetaminophen 500 MG Tablet 1000 MG PO (17:50)
[2022-03-22] MEDS: oxyCODONE 5 MG Tablet 10 MG PO (17:50)
[2022-03-22] MEDS: NIRMATRELVIR/RITONAVIR 1 EACH TABLET PO (18:47)
[2022-03-22] MEDS: Pravastatin 80 MG Tablet PO (21:49)
[2022-03-22] MEDS: MELATONIN 10 MG TABLET PO (21:50)
[2022-03-23 06:47] VITALS: BP 173/78; PULSE 72
[2022-03-23] MEDS: Metoprolol Tartrate 25 MG Tablet PO (06:47)
[2022-03-23] MEDS: Umeclidinium Brm/Vilanterol 62.5-25 mcg Inh 1 PUFF INHALATION (06:48)
[2022-03-23] MEDS: amLODIPine 10 MG Tablet PO (06:48)
[2022-03-23] MEDS: NIRMATRELVIR/RITONAVIR 1 EACH TABLET PO ×2 (06:49→17:13)
[2022-03-23] MEDS: Cholecalciferol (VIT D3) 25 MCG TABLET (1,000 UNITS) PO (06:50)
[2022-03-23] MEDS: Pantoprazole Sodium 40 MG Tablet PO (06:50)
[2022-03-23] MEDS: Potassium Chloride Oral Tablet 20 MEQ PO ×2 (08:04→17:13)
[2022-03-23] MEDS: Iron Polysaccharide Complex 150 MG CAPSULE PO (08:04)
[2022-03-23] MEDS: Acetaminophen 500 MG Tablet 1000 MG PO ×2 (08:09→14:17)
--- NOTE | 2022-03-23 09:06 | CASEMGMT ---
Addendum entered by Sarah Franco 03/23/22 10:45: Received return call from . does not want pt to remain longer and neither does pt. and pt agreeable to DC 03/27 after IV ATB are completed. Both denying continued therapy or nursing care. to transport. Pt is on chronic O2. Plan: DC home with 03/27, no needs Original Note: Social Work Left message with to f/u on DC plans. Ensuring she can take care of pt at home since testing positive for COVID. Sarah Franco, DENTAL EQUIPMENT INSTALLER AND SERVICER HOME HEALTH TRAVEL OT
[2022-03-23 15:15] VITALS: BP 164/73; PULSE 75; RESP 18; TEMP 36.4; O2SAT 95
[2022-03-23 16:18] VITALS: O2SAT 93
[2022-03-23] MEDS: oxyCODONE 5 MG Tablet 10 MG PO (17:13)
[2022-03-23] MEDS: morphine SR 15 MG Tablet PO (21:45)
[2022-03-23] MEDS: MELATONIN 10 MG TABLET PO ×2 (21:45)
[2022-03-23] MEDS: Pravastatin 80 MG Tablet PO (21:45)
[2022-03-23] MEDS: 0.9% Saline Lock 10 ML Syringe IV (21:46)
[2022-03-23 22:00] VITALS: BP 150/68; PULSE 78; RESP 16; TEMP 37; O2SAT 94
--- NOTE | 2022-03-23 22:20 | DS.PCM_ITS ---
Providers Date of Admission: 02/15/22 Primary Care Physician: RIK RiveraC Consultations 02/15/22 16:20 Consult: Onc/Wound/farm machinery mechanic Routine Comment: Reason for Consult:: RT knee infection/drain placed 02/15/22 19:40 Consult: Infectious Disease Routine Consulting Provider: Jamel Causey Reason for Consult: Right prosthetic knee infection, status post I+D, danielle yethylene exchange. EMERGENT Consult: No MD Notified: Yes Date Notified: 02/16/22 Time Notified: 09:01 Method of Notification: Verbal Reason For Visit: RIGHT KNEE INFECTION Diagnosis Discharge Diagnosis (1) Infection of prosthetic right knee joint: Status: Acute Code(s): T84.53XA - Infection and inflammatory reaction due to internal right knee prosthesis, initial encounter Medications at Discharge Home Medications acetaminophen 1,000 mg PO Q6H PRN PRN #0 tab 02/03/22 Anoro Ellipta 1 ea INHALATION DAILY 02/11/22 amlodipine 10 mg PO DAILY 02/11/22 cholecalciferol (vitamin D3) 25 mcg PO DAILY 02/11/22 metoprolol tartrate 25 mg PO DAILY 02/11/22 pantoprazole 40 mg PO DAILY 02/11/22 polysaccharide iron complex [Ferrex 150] 150 mg PO DAILYCM 02/11/22 pravastatin 80 mg PO QHS 02/11/22 morphine [MS Contin] 15 mg PO Q12H 02/15/22 amoxicillin-pot clavulanate 1 tab PO BID 30 Days #60 tab 03/23/22 oxycodone 10 mg PO Q4H PRN PRN 3 Days #36 tab 03/23/22 potassium chloride [Klor-Con M20] 20 meq PO BIDCM 30 Days #60 tab 03/23/22 Hospital Course Operations - (Right prosthetic knee explaint with polyethylene exchange.) Procedures None Summary of Care Provided Minutes Spent on Discharge: 35 Hospital Course: 81 year old male with below past medical history hospitalized for infection right prosthetic knee, underwent irrigation/debridement, polyethylene exchange 02/12/[address] Emmanuel, admitted to TCU with debility, here for rehabilitation, strengthening, intravenous antibiotics, prior to discharge home with . 03/22/2022 Resident positive for covid19, treated with Paxlovid. After IV antibiotics, resident will need to stay on Augmentin 875mg bid for [address] Causey. Discharge home with 03/27/2022, No needs. Physical Exam Const alert General Appearance: cooperative HEENT normocephalic Eyes PERRL and EOMs intact bilaterally Neck supple, no JVD and no carotid bruits Resp normal respiratory effort, normal air movement and clear to auscultation bilaterally Cardio regular rate and regular rhythm GI normal to inspection, nondistended, normoactive bowel sounds, non-tender and non-distended Extremity normal capillary refill General Extremity: Negative for edema Skin no rashes or lesions noted General Skin Exam: no breakdown Psych affect normal Appearance: appropriate Weight / BMI Weight Weight: 57.017 kg Body Mass Index (BMI) 20.0 ABG / Lab / Microbiology Data Result Diagrams: 03/22/22 05:14 03/22/22 05:14 Microbiology: Microbiology 03/22/22 11:37 Nasal Secretion SARS-CoV-2 Antigen (Rapid) - Final SARS-CoV-2 (COVID 19) 03/19/22 14:20 Nasal Secretion SARS-CoV-2 Antigen (Rapid) - Final SARS-CoV-2 (COVID 19) 02/22/22 08:30 Nasal Secretion SARS-CoV-2 Antigen (Rapid) - Final D/C Instructions Discharge Diet: No restrictions Discharge Activity: Return to Normal Activity, May Shower and Use Walker Weight Bearing Status: Weight bearing as tolerated Call your doctor if you observe: Fever of 101 or Higher, Inability to urinate, Inability to have a bowel movement, Shortness of breath, Dizziness, Fainting spells, Swelling in the ankles, Chest pain and Uncontrolled pain Additional Instructions: Discharge home with 03/27/2022, No needs. Please Follow Up With: Ramirez Emmanuel MD When: As scheduled. Meaningful Use Info Meaningful Use Diagnoses (Choose all that apply): None applicable Discharge Plan Admission Admit Date/Time: 02/15/22 15:45 Primary Reason for Your Visit: Debility. Attending Provider: Yogesh Nance Chi Primary Care Provider: Rona Barnett NP Consulting Providers: Jamel Causey Instructions Additional Instructions / Restrictions: Discharge home with 03/27/2022, No needs. Discharge Orders/Prescriptions Prescriptions: New potassium chloride [Klor-Con M20] 20 mEq Tablet,Er Particles/Crystals 20 meq PO BIDCM 30 Days Qty: 60 RF: 0 oxycodone 5 mg Tablet 10 mg PO Q4H PRN PRN (Reason: Pain Score 6-10) 3 Days Qty: 36 RF: 0 amoxicillin-pot clavulanate 875-125 mg tablet 1 tab PO BID 30 Days Qty: 60 RF: 0 Continued acetaminophen 500 mg Tablet 1,000 mg PO Q6H PRN PRN (Reason: Pain Score 1-10) Qty: 0 RF: 0 polysaccharide iron complex [Ferrex 150] 150 mg iron capsule 150 mg PO DAILYCM RF: 0 pravastatin 80 mg tablet 80 mg PO QHS RF: 0 amlodipine 10 mg tablet 10 mg PO DAILY RF: 0 pantoprazole 40 mg tablet,delayed release (DR/EC) 40 mg PO DAILY RF: 0 metoprolol tartrate 25 mg tablet 25 mg PO DAILY RF: 0 cholecalciferol (vitamin D3) 25 mcg (1,000 unit) tablet 25 mcg PO DAILY RF: 0 Anoro Ellipta 62.5-25 mcg/actuation blister with device 1 ea inhalation DAILY RF: 0 morphine [MS Contin] 15 mg tablet extended release 15 mg PO Q12H RF: 0 Discontinued oxycodone 5 mg Tablet 5 mg PO Q4H PRN PRN (Reason: pain 4-5) 7 Days Qty: 42 RF: 0 ceftriaxone 2 gram recon soln 2 g IV DAILY RF: 0 sennosides-docusate sodium [Stool Softener-Stimulant Laxat] 8.6-50 mg tablet 2 tab PO BID RF: 0 bisacodyl 5 mg tablet,delayed release (DR/EC) 5 mg PO DAILY RF: 0 vancomycin in dextrose 5 % 500 mg/100 mL piggyback 500 mg IV Q12H RF: 0 Ensure Surgery 0.08-1.4 gram-kcal/mL liquid 237 ml PO TIDCM RF: 0 Xarelto 10 mg tablet 10 mg PO DAILY@0600 RF: 0 Referrals / Follow Up: Jamel Garcia MD [STAFF PHYSICIAN] - See Referral Note (call to schedule appt to follow up on pulse ox results) Ramirez Emmanuel MD [STAFF PHYSICIAN] - Within 2 Weeks (from 02/26/22) Rona Barnett NP, [employer]PPORT[employer]IST-[facility] [Primary Care Provider] - Disposition Disposition (needs filled in before D/C Order can be placed): Home, Self Care
--- NOTE | 2022-03-24 00:16 | NURSING ---
03/23/22 @ 2200- Dressing changed to right knee. No drainage noted. Area cleansed with NS. Right knee incision covered with Adaptic, lateral aspect of right knee covered with xeroform. Both areas covered with 4x4 gauze, secured with kerlix wrap, then JOSE ALBERTO wrap applied. Patient tolerated well.
[2022-03-24 05:05] VITALS: BP 161/90; PULSE 82
[2022-03-24] MEDS: 0.9% Saline Lock 10 ML Syringe IV ×3 (05:05→20:59)
[2022-03-24] MEDS: Pantoprazole Sodium 40 MG Tablet PO (05:05)
[2022-03-24] MEDS: Cholecalciferol (VIT D3) 25 MCG TABLET (1,000 UNITS) PO (05:05)
[2022-03-24] MEDS: Metoprolol Tartrate 25 MG Tablet PO (05:05)
[2022-03-24] MEDS: amLODIPine 10 MG Tablet PO (05:05)
[2022-03-24] MEDS: Umeclidinium Brm/Vilanterol 62.5-25 mcg Inh 1 PUFF INHALATION (05:07)
[2022-03-24] MEDS: NIRMATRELVIR/RITONAVIR 1 EACH TABLET PO ×2 (05:07→17:38)
[2022-03-24 06:33] VITALS: O2SAT 94
[2022-03-24] MEDS: oxyCODONE 5 MG Tablet 10 MG PO (07:07)
[2022-03-24] MEDS: Iron Polysaccharide Complex 150 MG CAPSULE PO (08:35)
[2022-03-24] MEDS: morphine SR 15 MG Tablet PO ×2 (08:35→20:56)
[2022-03-24] MEDS: Potassium Chloride Oral Tablet 20 MEQ PO ×2 (08:35→17:39)
[2022-03-24 13:15] VITALS: BP 130/77; PULSE 72; RESP 18; TEMP 36.4; O2SAT 96
[2022-03-24] MEDS: Acetaminophen 500 MG Tablet 1000 MG PO (20:57)
[2022-03-24] MEDS: MELATONIN 10 MG TABLET PO (20:59)
[2022-03-24] MEDS: Pravastatin 80 MG Tablet PO (21:01)
[2022-03-25] MEDS: 0.9% Saline Lock 10 ML Syringe IV (06:32)
[2022-03-25] MEDS: Acetaminophen 500 MG Tablet 1000 MG PO ×2 (06:32→13:02)
[2022-03-25 06:33] VITALS: BP 144/77; PULSE 83
[2022-03-25] MEDS: Cholecalciferol (VIT D3) 25 MCG TABLET (1,000 UNITS) PO (06:33)
[2022-03-25] MEDS: amLODIPine 10 MG Tablet PO (06:33)
[2022-03-25] MEDS: Pantoprazole Sodium 40 MG Tablet PO (06:33)
[2022-03-25] MEDS: Metoprolol Tartrate 25 MG Tablet PO (06:33)
[2022-03-25] MEDS: Umeclidinium Brm/Vilanterol 62.5-25 mcg Inh 1 PUFF INHALATION (06:33)
[2022-03-25] MEDS: NIRMATRELVIR/RITONAVIR 1 EACH TABLET PO ×2 (06:34→17:41)
[2022-03-25] MEDS: morphine SR 15 MG Tablet PO ×2 (08:32→21:59)
[2022-03-25] MEDS: Iron Polysaccharide Complex 150 MG CAPSULE PO (08:33)
[2022-03-25] MEDS: Potassium Chloride Oral Tablet 20 MEQ PO ×2 (08:33→17:26)
--- NOTE | 2022-03-25 10:32 | NURSING ---
Per [facility] Dr. Emmanuel requesting photo of right leg graft site to determine if patient can shower. Two photos sent to office.
--- NOTE | 2022-03-25 11:01 | NURSING ---
Per [facility] will contact to schedule follow up appointment after discharge for next week since appointments were cancelled due to covid.
--- NOTE | 2022-03-25 11:21 | CASEMGMT ---
Social Work BIMS and PHQ-9 completed for MDS assessment. Sarah Franco, DISPATCHER SERVICE FISCAL ECONOMIST
[2022-03-25 16:00] VITALS: BP 146/66; PULSE 77; RESP 18; TEMP 36.8; O2SAT 95
[2022-03-25] MEDS: oxyCODONE 5 MG Tablet 10 MG PO (17:53)
--- NOTE | 2022-03-25 18:43 | NURSING ---
[facility] states that it is ok for patient to shower but to keep graft site covered and dry. and patient notified, communication order put in.
[2022-03-25] MEDS: MELATONIN 10 MG TABLET PO (22:00)
[2022-03-25] MEDS: Pravastatin 80 MG Tablet PO (22:00)
[2022-03-25 22:55] VITALS: PULSE 70; O2SAT 92
[2022-03-26] MEDS: Cholecalciferol (VIT D3) 25 MCG TABLET (1,000 UNITS) PO (06:16)
[2022-03-26] MEDS: Pantoprazole Sodium 40 MG Tablet PO (06:16)
[2022-03-26] MEDS: amLODIPine 10 MG Tablet PO (06:16)
[2022-03-26 06:24] VITALS: BP 167/79; PULSE 79
[2022-03-26] MEDS: Umeclidinium Brm/Vilanterol 62.5-25 mcg Inh 1 PUFF INHALATION (06:24)
[2022-03-26] MEDS: Metoprolol Tartrate 25 MG Tablet PO (06:24)
[2022-03-26] MEDS: NIRMATRELVIR/RITONAVIR 1 EACH TABLET PO ×2 (06:24→17:15)
[2022-03-26] MEDS: oxyCODONE 5 MG Tablet 10 MG PO ×2 (06:41→14:58)
[2022-03-26] MEDS: Potassium Chloride Oral Tablet 20 MEQ PO ×2 (08:04→17:14)
[2022-03-26] MEDS: Iron Polysaccharide Complex 150 MG CAPSULE PO (08:04)
[2022-03-26] MEDS: morphine SR 15 MG Tablet PO ×2 (08:17→20:14)
[2022-03-26 13:08] VITALS: BP 137/59; PULSE 70; RESP 18; TEMP 36.6; O2SAT 94
[2022-03-26] MEDS: Acetaminophen 500 MG Tablet 1000 MG PO (19:16)
[2022-03-26 20:14] VITALS: BP 150/64; PULSE 75; RESP 18; TEMP 36.6; O2SAT 95
[2022-03-26] MEDS: Pravastatin 80 MG Tablet PO (20:14)
[2022-03-26] MEDS: MELATONIN 10 MG TABLET PO (20:14)
[2022-03-27] MEDS: oxyCODONE 5 MG Tablet 10 MG PO ×2 (05:14→09:50)
[2022-03-27] MEDS: amLODIPine 10 MG Tablet PO ×2 (05:14→05:15)
[2022-03-27] MEDS: Pantoprazole Sodium 40 MG Tablet PO (05:14)
[2022-03-27] MEDS: Cholecalciferol (VIT D3) 25 MCG TABLET (1,000 UNITS) PO (05:15)
[2022-03-27 05:34] VITALS: BP 116/65; PULSE 74; RESP 18; O2SAT 96
[2022-03-27] MEDS: Metoprolol Tartrate 25 MG Tablet PO (05:34)
[2022-03-27] MEDS: Umeclidinium Brm/Vilanterol 62.5-25 mcg Inh 1 PUFF INHALATION (05:35)
[2022-03-27] MEDS: NIRMATRELVIR/RITONAVIR 1 EACH TABLET PO (05:36)
[2022-03-27 07:48] VITALS: O2SAT 96
[2022-03-27] MEDS: morphine SR 15 MG Tablet PO (08:05)
[2022-03-27] MEDS: Iron Polysaccharide Complex 150 MG CAPSULE PO (08:05)
[2022-03-27] MEDS: Potassium Chloride Oral Tablet 20 MEQ PO (08:06)
--- NOTE | 2022-03-27 08:16 | NURSING ---
All care provided in room due to Covid precautions. Resident sitting on side of bed. Breakfast tray brought to him as well as AM medications. Reports that his good knee is acting like a bad knee and states he is painful this AM. Given scheduled Morphine and will continue to monitor pain.
== END 2022-03-27 10:05 | disposition home or self-care (01) | DRG 949 ==
PROVIDERS: Internal Medicine Infectious Disease; Admitting Provider Family Medicine Geriatric Medicine; PCP Nurse Practitioner; Visit Provider Family Medicine Geriatric Medicine
DX: T84.53XD Infection and inflammatory reaction due to internal right knee prosthesis, subsequent encounter (principal); U07.1 COVID-19; Z99.81 Dependence on supplemental oxygen; J44.9 Chronic obstructive pulmonary disease, unspecified; I73.9 Peripheral vascular disease, unspecified; D50.9 Iron deficiency anemia, unspecified; E55.9 Vitamin D deficiency, unspecified; E78.5 Hyperlipidemia, unspecified; I10 Essential (primary) hypertension; K21.9 Gastro-esophageal reflux disease without esophagitis; E87.6 Hypokalemia; M19.90 Unspecified osteoarthritis, unspecified site; Y83.1 Surgical operation with implant of artificial internal device as the cause of abnormal reaction of the patient, or of later complication, without mention of misadventure at the time of the procedure; Z79.899 Other long term (current) drug therapy; Z87.891 Personal history of nicotine dependence; Z79.01 Long term (current) use of anticoagulants; Z28.310 Unvaccinated for COVID-19; Z28.21 Immunization not carried out because of patient refusal
CPT/HCPCS: 36415; 80048; 80053; 80202; 85025; 85652; 86140; 86850; 86900; 86901; 86920; 86922; 87426; 87635; 97032; 97110; 97116; 97162; 97166; 97530; 97535; 97802; J2997; J7050; A4216; J0295; J0696; U0003; U0005

== ENCOUNTER 2022-02-22 09:31 | Outpatient (CLI) | payer MEDICARE, SELFPAY ==
--- NOTE | 2022-02-22 09:33 | VDUE_ITS ---
Reason For Study: Swelling Right Proximal Left Proximal Right jugular vein is spontaneous, widely Left subclavian vein is spontaneous, widely patent, phasic, with no intraluminal patent, phasic, with no intraluminal echogenicity noted. echogenicity noted. Right subclavian vein is spontaneous, widely patent, phasic, with no intraluminal echogenicity noted. Right Lower Arm Right radial vein is compressible. Right ulnar vein is compressible. Right Arm Right axillary vein is spontaneous, patent, phasic, competent, compressible and demonstrates augmentation. Right brachial vein is compressible. Right cephalic vein is compressible. Right basilic vein is compressible. Patient Safety Prelim given to TCU RN. VL/Venous Duplex US, Unilateral Interpretation Summary Deep veins of the right upper extremity are patent and compressible segmentally . There is no evidence of deep vein thrombosis. The superficial veins of the right upper extr emity, the basilic and cephalic veins, are patent and compressible. There is no evidence of right upper extremity superficial thrombophlebitis involving the veins imaged. Ordering Physician: Yogesh Nance Chi Referring Physician: Rona Barnett Performed By: Felicity Morrissey, JOS, RVT ?
== END 2022-02-22 23:59 | disposition home or self-care (01) ==
LOC: CVS 09:32
PROVIDERS: PCP Nurse Practitioner; Referring Provider Family Medicine Geriatric Medicine; Visit Provider Family Medicine Geriatric Medicine
DX: M79.89 Other specified soft tissue disorders (principal)
CPT/HCPCS: 93971

== ENCOUNTER → 2022-02-23 | Outpatient (CLI) | payer MEDICARE, SELFPAY ==
[2022-02-23 08:25] VITALS: BP 143/63; PULSE 71; RESP 16; TEMP 36.9; O2SAT 92
[2022-02-23 08:55] VITALS: BP 134/60; PULSE 71; RESP 16; TEMP 36.8; O2SAT 97
[2022-02-23 09:55] VITALS: BP 136/67; PULSE 66; RESP 16; TEMP 37.2
[2022-02-23 10:33] VITALS: BP 160/45; PULSE 43; RESP 16; TEMP 36.6; O2SAT 92
[2022-02-23] MEDS: Furosemide 20 MG/2 ML VIAL IV (10:33)
[2022-02-23 11:18] VITALS: BP 148/65; PULSE 71; RESP 16; TEMP 36.6; O2SAT 92
[2022-02-23 12:18] VITALS: BP 153/81; PULSE 50; RESP 16; TEMP 37.3
== END | disposition home or self-care (01) ==
LOC: MEDOUTP 08:16
PROVIDERS: PCP Nurse Practitioner; Referring Provider Family Medicine Geriatric Medicine; Visit Provider Family Medicine Geriatric Medicine
DX: D64.89 Other specified anemias (principal)
CPT/HCPCS: 36415; 36430; 86850; 86900; 86901; 86920; 86922; J7040; P9016; A4216; J1940

== ENCOUNTER → 2022-10-08 | Outpatient (CLI) | payer MEDICARE, SELFPAY ==
--- NOTE | 2022-10-08 14:09 | CT_ITS ---
EXAM: CT CHEST, LUNG CANCER SCREENING WITHOUT INTRAVENOUS CONTRAST CLINICAL INDICATION: [id number] TECHNIQUE: Helically acquired images were obtained of the chest without intravenous contrast using low dose (LDCT) lung cancer screening protocol. This CT exam was performed using one or more of the following dose reduction techniques: automated exposure control, adjustment of the mA and/or kV according to patient size, and/or use of iterative reconstruction technique. This report was created using Visiprise report generation technology. COMPARISON: CTA chest dated 09/29/2021 FINDINGS: LUNGS AND PLEURAL SPACES: There are emphysematous changes in the upper lobes. There is minimal scarring in the lung bases. There is a 4 mm noncalcified nodule superior segment right lower lobe seen on series 2 image 88. There is minimal scar or atelectasis in the right middle or lower lobes. No pleural effusion or thickening. No pneumothorax. HEART: There are coronary artery calcifications. Heart size is normal. No pericardial effusion. MEDIASTINUM: Unremarkable. No mediastinal or hilar adenopathy. Esophagus is unremarkable. No hiatal hernia. THYROID: Unremarkable. No thyroid lesions. BONES/JOINTS: Unremarkable. No suspicious lytic or blastic abnormality. VASCULATURE: Unremarkable. Thoracic aorta is non-dilated. LYMPH NODES: Unremarkable. No enlarged lymph nodes. OTHER FINDINGS: There is elevation the right hemidiaphragm. CT/Low Dose CT Lung Screening IMPRESSION: 4 mm noncalcified nodule in the superior segment right lower lobe. Lung-RADS score: 2 - Benign Appearance or Behavior. Recommend continued annual screening with low-dose CT (LDCT) in 12 months. Electronically Signed: Florencio Shipley MD at 18:26 [facility] ,
== END | disposition home or self-care (01) ==
LOC: CT 14:00
PROVIDERS: PCP Nurse Practitioner Family; Referring Provider Internal Medicine Pulmonary Disease; Visit Provider Internal Medicine Pulmonary Disease
DX: Z87.891 Personal history of nicotine dependence (principal)
CPT/HCPCS: 71271

== ENCOUNTER → 2023-02-14 | Outpatient (CLI) | payer MEDICARE, SELFPAY ==
--- NOTE | 2023-02-14 07:54 | ADU_ITS ---
Reason For Study: Stenosis Right Velocities Left Velocities Ext. Iliac Artery, dist = 87.9 cm./sec. Ext Iliac Artery, dist = 71.4 cm./sec. Common Femoral Artery, mid = 108.6 cm./sec. Common Femoral Artery, mid = 168.2 cm./sec. Supf Femoral Artery, prox = 80.6 cm./sec. Supf. Femoral Artery, prox = 144.9 cm./sec. Supf Femoral Artery, mid = 11.4 cm./sec. Supf. Femoral Artery, mid = 44.1 cm./sec. Drumbeat flow noted in prox/mid SFA. Collateral Supf. Femoral Artery, dist = 74.8 cm./sec. flow seen distally. Flow within vessels appears toProfunda Femoral Artery = 93.0 cm./sec. reconsitute at distal SFA/ Prox POP A. Popliteal Artery, mid = 34.2 cm./sec. Supf Femoral Artery, dist. = 30.3 cm./sec. Post. Tibial Artery, prox = 46.5 cm./sec. Profunda Femoral Artery = 212.1 cm./sec. Post Tibial Artery, mid = 37.9 cm./sec. Popliteal Artery, mid = 52.3 cm./sec. Post Tibial Artery, dist. = 28.1 cm./sec. Post. Tibial Artery, prox = 39.1 cm./sec. Peroneal Artery, prox = 22.7 cm./sec. Post. Tibial Artery, mid = 21.3 cm./sec. Peroneal Artery, mid = 19.6 cm./sec. Post. Tibial Artery, dist = 12.7 cm./sec. Peroneal Artery,dist. = 16.1 cm./sec. Peroneal Artery, prox = 36.2 cm./sec. Ant.Tibial Artery, prox = 54.0 cm./sec. Peroneal Artery, mid = 25.5 cm./sec. Ant Tibial Artery, mid = 28.7 cm./sec. Peroneal Artery,dist = 10.7 cm./sec. Ant. Tibial Artery, distal = 24.3 cm./sec. Ant. Tibial Artery, prox = 21.1 cm./sec. Ant. Tibial Artery, mid = 15.4 cm./sec. Ant. Tibial Artery, dist = 17.6 cm./sec. Comments Pictures out of order due to machine malfunction. VL/US Art Duplex Bilat Lower Ext Interpretation Summary Right femoral occlussion. Left no stenosis. Ordering Physician: Shar Mckay Referring Physician: Shar Mckay Performed By: Jonatan Kraft RVT
--- NOTE | 2023-02-14 07:55 | CDU_ITS ---
Reason For Study: Stenosis Rt. Velocities/BP Lt. Velocities/BP Prox CCA 55.1/10.7 cm/sec. Prox CCA 114.3/13.3 cm/sec. Mid CCA 57.0/11.6 cm/sec. Mid CCA 106.5/17.0 cm/sec. Dist CCA 53.2/16.3 cm/sec. Dist CCA 101.0/15.2 cm/sec. Prox ICA 201.4/23.6 cm/sec. Prox ICA 60.7/15.4 cm/sec. Mid ICA 123.8/17.1 cm/sec. Mid ICA 49.4/13.5 cm/sec. Dist ICA 86.4/13.3 cm/sec. Dist ICA 51.7/10.5 cm/sec. Rt. ICA/CCA = 3.5. Lt. ICA/CCA = 0.6. Prox ECA 114.8/18.2 cm/sec. Prox ECA 126.6/15.2 cm/sec. Rt. Vert. 64.5/9.7 cm/sec. Lt. Vert. 60.8/14.0 cm/sec. Right Extracranial There is heterogeneous, irregular atherosclerotic plaque noted in the right common carotid artery. There is heterogeneous, irregular atherosclerotic plaque noted in the right internal carotid artery. There is heterogeneous, irregular atherosclerotic plaque noted in the right external carotid artery. Antegrade flow is noted in the right vertebral artery. Left Extracranial There is homogeneous, smooth atherosclerotic plaque noted in the left common carotid artery. There is heterogeneous, irregular atherosclerotic plaque noted in the left internal carotid artery. There is heterogeneous, irregular atherosclerotic plaque noted in the left external carotid artery. Antegrade flow is noted in the left vertebral artery. Procedure Carotid Duplex [id number]. This is a Carotid Duplex examination using B-mode, color flow and specral Doppler. The exam was diagnostic. Exam performed in department. VL/Carotid Duplex Ultrasound Interpretation Summary Moderate (50-69%) stenosis right extracranial internal carotid. Mild (<50%) teodora nosis left extracranial internal carotid. Flow within the vertebral arteries is antegrade bilaterally. Ordering Physician: Shar Mckay Referring Physician: Shar Mckay Performed By: Jonatan Kraft RVT
--- NOTE | 2023-02-14 07:55 | ART_ITS ---
Reason For Study: Stenosis Procedure A bilateral lower extremity continuous wave Doppler with analog waveform analysis and ankle brachial indexes. Left Segmental Pressures Left brachial= 190mmHg. Left posterior tibial artery = 155mmHg. Left dorsalis pedis artery = 139mmHg. Left digit = 77 mmHg. The left posterior tibial artery waveforms are biphasic. The left dorsalis pedis waveforms are triphasic. Right Segmental Pressures Right brachial= 188mmHg. Right posterior tibial artery = 107mmHg. Right dorsalis pedis artery = 112mmHg. Right digit = 76 mmHg. The right posterior tibial artery waveforms are biphasic. The right dorsalis pedis waveforms are triphasic. Indices The right ankle brachial index by the posterior tibial artery is 0.56. The right ankle brachial index by the dorsalis pedis is 0.59. The right digital-brachial index is 0.40. The left ankle brachial index by the posterior tibial artery is 0.82. The left ankle brachial index by the dorsalis pedis is 0.73. The left digital-brachial index is 0.41. VL/Ankle Brachial Index Interpretation Summary Bilateral triphasic flow with right moderate disease and DUSTIN 0.59 and left mild disease with DUSTIN 0.82. DBI 0.4 and 0.41. Ordering Physician: Shar Mckay Referring Physician: Jennyfer Ramirez Performed By: Jonatan Kraft RVT
== END | disposition home or self-care (01) ==
PROVIDERS: PCP Nurse Practitioner Family; Referring Provider Surgery Vascular Surgery; Visit Provider Surgery Vascular Surgery
DX: I65.23 Occlusion and stenosis of bilateral carotid arteries (principal); I70.213 Atherosclerosis of native arteries of extremities with intermittent claudication, bilateral legs; F17.200 Nicotine dependence, unspecified, uncomplicated
CPT/HCPCS: 93880; 93922; 93925

== ENCOUNTER → 2023-03-10 | Outpatient (CLI) | payer MEDICARE, SELFPAY ==
[2023-03-10 15:21] LABS: Absolute Lymphocyte Count 2.08 X10^3/uL (0.83-4.51); Absolute Neutrophil Count 4.1 X10^3/uL (2.0-7.7); Basophil# 0.05 X10^3/uL; Basophil% 0.7 % (0-1); Eosinophil# 0.22 X10^3/uL; Eosinophils% 3.1 % (0-5); Hematocrit 43.5 % (40-54); Hemoglobin 14.4 g/dL (13.0-16.5); Lymphocyte # 2.08 X10^3/ul (0.83-4.51); Lymphocyte % 29.2 % (19-41); Mean Corp Hgb Conc 33.1 g/dL (32-36); Mean Corpuscular Hgb 33.3 pg (27.0-32.0); Mean Corpuscular Volume 100.5 fL (80-94); Mean Platelet Vol. 10.2 fl (6.2-12.0); Monocyte# 0.62 X10^3/uL; Monocyte% 8.7 % (0-10); NRBC Flagged by Analyzer 0 % (0-5); Neutrophil # 4.14 X10^3/uL (2.7-7.7); Platelet Count 190 K/mm3 (150-450); RBC Distribution Width CV 14.1 % (11.6-14.6); RBC Distribution Width SD 52.8 fl (35.1-43.9); Red Blood Count 4.33 M/mm3 (4.6-6.2); White Blood Count 7.1 K/mm3 (4.4-11.0)
[2023-03-10 16:21] LABS: Albumin, Serum 3.8 g/dL (3.2-5.0); Anion Gap 8 (5-15); BUN 24 mg/dL (7-18); BUN/Creat Ratio 18.9 RATIO (10-20); Calcium,Total 9.9 mg/dL (8.5-10.1); Chloride 106 mmol/L (98-107); Creatinine, Serum 1.27 mg/dL (0.70-1.30); EST Glomerular Filtration Rate 58 mL/min (>60); Est Glom Filt Rate - Afr Amer 70 mL/min (>60); Glucose 98 mg/dL (74-106); Potassium 4.2 mmol/L (3.5-5.1); Sodium Level 138 mmol/L (136-145)
[2023-03-10 16:23] LABS: Vitamin D,25 Hydroxy 84.8 ng/mL
== END | disposition home or self-care (01) ==
LOC: LAB 14:55
PROVIDERS: PCP Nurse Practitioner Family; Referring Provider Specialist; Visit Provider Specialist
DX: M17.12 Unilateral primary osteoarthritis, left knee (principal)
CPT/HCPCS: 36415; 80048; 82040; 82306; 85025

== ENCOUNTER → 2023-06-17 | Outpatient (CLI) | payer MEDICARE, SELFPAY ==
--- NOTE | 2023-06-17 13:15 | CT_ITS ---
CT LEFT LOWER EXTREMITY WITH 3-D IMAGING CLINICAL INDICATION: LEFT KNEE [facility] PROTOCOL/PRE OP TECHNIQUE: Axial CT images of the LEFT lower extremity was performed without IV contrast material. Coronal and sagittal reformats were provided. RADIATION DOSAGE (If Supplied By Facility): CTDIvol = ( 16.48 ) mGy, DLP = ( 1124.52 ) mGycm COMPARISON: No relevant prior comparison study available FINDINGS: Bones: Imaging of the left hip joint was obtained. The joint space is well-maintained. No significant abnormality is seen. Imaging of the left knee joint was obtained. Marked degree of joint space narrowing of the lateral compartment of the knee joint. Mild degree of degenerative joint space narrowing of the medial compartment of the knee joint. Degenerative spurs are seen in the medial tibial plateau and distal right medial femoral condyle. There is evidence of a 1.4 cm x 1 cm cyst in the posterior lateral aspect of the lateral tibial plateau. Mild to moderate degree of degenerative changes of the patellofemoral joint. Imaging of the ankle joint was obtained. No significant abnormality is seen. Soft Tissues: Vascular calcification. The superficial soft tissues are unremarkable without evidence of edema, hematoma, or foreign body. CT/Extremity Lower without Contra IMPRESSION: Degenerative changes of the left knee joint as described. Electronically Signed: Dandre Snell MD at 13:56 EDT ,
--- NOTE | 2023-06-17 13:25 | RAD_ITS ---
INDICATION: PREOP EXAMINATION/TECHNIQUE: X-RAY - XR Chest 2 Views COMPARISON: 01/21/2022 FINDINGS: LINES/DEVICES: None. LUNGS: Reticular opacities in the right lung base not significantly changed, likely scarring. Elevated right hemidiaphragm is unchanged. No consolidation. No pneumothorax. MEDIASTINUM: Aorta is tortuous and atherosclerotic. CARDIAC SILHOUETTE: Not enlarged. BONES AND SOFT TISSUES: Degenerative changes in the dorsal spine and right shoulder. RAD/Chest PA and Lateral IMPRESSION: Stable right basilar changes likely scarring. No evidence of active intrathoracic disease. Electronically Signed: Shannan Adam MD at 16:52 EDT ,
== END | disposition home or self-care (01) ==
LOC: CT 13:13
PROVIDERS: PCP Nurse Practitioner Family; Referring Provider Specialist; Visit Provider Specialist
DX: Z01.810 Encounter for preprocedural cardiovascular examination (principal); M21.062 Valgus deformity, not elsewhere classified, left knee; M17.12 Unilateral primary osteoarthritis, left knee; F17.200 Nicotine dependence, unspecified, uncomplicated
CPT/HCPCS: 71046; 73700

== ENCOUNTER 2023-06-30 08:13 | Emergency (ER) | payer MEDICARE, SELFPAY ==
[2023-06-30 08:15] VITALS: BP 162/72; PULSE 73; RESP 15; TEMP 36.2; O2SAT 93; BMI 23.4
--- NOTE | 2023-06-30 08:23 | EKG12_ITS ---
Test Reason : DIZZY Blood Pressure : / mmHG Vent. Rate : 081 BPM Atrial Rate : 081 BPM P-R Int : 164 ms QRS Dur : 144 ms QT Int : 430 ms P-R-T Axes : 053 -60 014 degrees QTc Int : 499 ms Sinus rhythm with frequent Premature ventricular complexes Left axis deviation Right bundle branch block Abnormal ECG Confirmed by TK MICHAEL ([id number]), marketing editor FROYLAN ANGEL ([id number]) on 07/14/2023 10:52:34 AM Referred By: Confirmed By:TK MICHAEL
--- NOTE | 2023-06-30 08:42 | EX.ED.DYSGE1 ---
HPI History of Present Illness Chief Complaint: Dizziness Informant: patient Onset/Context/Timing Onset: Today Narrative Narrative: Patient presents via EMS secondary to dizziness. He reportedly was dizzy when he was heading into the bathroom today. He states he is had problems with intermittent dizziness since he was started on blood pressure medication. He made it to the bathroom and had a bowel movement. He states he felt well following this and EMS was getting ready to leave. He then developed nausea with some dry heaves. He states at the time EMS made it back up to evaluate him the nausea had resolved. He denies complaint at this time. Patient does report starting a new medication yesterday. It appears he was started on Cymbalta. He reports having some anxiety about an upcoming surgery. [facility] Medical History Ambulates with cane Anemia Arthritis Cancer Cardiology follow-up encounter COPD (chronic obstructive pulmonary disease) Duodenal ulcer due to nonsteroidal anti-inflammatory drug (NSAID) (09/28/21) Easy bruising Essential hypertension Former smoker High cholesterol History of echocardiogram History of GI bleed History of pain when walking History of rheumatic fever History of ulceration Hx of basal cell carcinoma Hyperlipidemia Multiple premature ventricular complexes On home oxygen therapy On home oxygen therapy Peripheral vascular disease Peripheral vascular occlusive disease Prostate cancer Right bundle branch block (RBBB) Shortness of breath on exertion Skin cancer Sleep apnea Syncope Tobacco abuse Walker as ambulation aid Wears dentures Wears hearing aid Home Medications acetaminophen 500 mg tablet 1,000 mg (2 x 500 mg) PO Q6H PRN PRN Pain Score 1-10 #0 tabs 02/03/22 [Rx Last Taken 02/11/22] amlodipine 10 mg tablet 10 mg PO DAILY bp 02/11/22 [History Last Taken 02/10/22] cholecalciferol (vitamin D3) 25 mcg (1,000 unit) tablet 25 mcg PO QODAY supplement 02/11/22 [History Last Taken 02/11/22] polysaccharide iron complex 150 mg iron capsule (Ferrex) 150 mg PO DAILYCM supplement 02/11/22 [History Last Taken 02/11/22] pravastatin 80 mg tablet 80 mg PO QHS cholesterol 02/11/22 [History Last Taken 02/11/22] umeclidinium 62.5 mcg-vilanterol 25 mcg/actuation powdr for inhalation (Anoro Ellipta) 1 ea inhalation DAILY copd 02/11/22 [History Last Taken 02/10/22] clopidogrel 75 mg tablet 75 mg PO DAILY 05/24/23 [History Last Taken Unknown] metoprolol tartrate 25 mg tablet 12.5 mg PO BID bp 05/24/23 [History Last Taken Unknown] Allergy/AdvReac Type Severity Reaction Status Date / Time peanut Allergy Swelling Verified 06/30/23 08:14 Family History Father CVA (cerebral vascular accident) Hypertension Surgical History H/O radical prostatectomy H/O: knee surgery History of carpal tunnel surgery of left wrist History of esophagogastroduodenoscopy (EGD) History of total right knee replacement Hx of vascular surgery (2018) Status post total right knee replacement Social History household members: spouse Smoking Status: Former smoker Tobacco: How many years used: 50 alcohol intake: former ROS ROS ED Constitutional Constitutional ED: Denies chills or fever(s) Eyes Eyes: Denies discharge from eye(s) ENT ENT ED: Denies discharge from eye(s), rhinorrhea or sore throat Cardiovascular Cardiovascular: Denies chest pain or palpitations Respiratory/Chest Respiratory/Chest: Denies cough or dyspnea Gastrointestinal Gastrointestinal: Reports nausea; Denies abdominal pain, diarrhea or vomiting Genitourinary Genitourinary ED: Denies dysuria Musculoskeletal Musculoskeletal: Reports extremity pain; Denies back pain Integumentary Denies Abrasions or rash Neurologic Neurologic: Denies headache(s) or weakness Psychiatric Psychiatric: Reports anxiety; Denies depression Allergic/Immunologic Allergic/Immunologic ED: Denies lip swelling or urticaria EXAM Physical Exam Const Vital Signs: 06/30/23 08:15 06/30/23 08:21 Temperature 97.2 F L Temperature Source Temporal Pulse Rate 73 Respiratory Rate 15 Respiratory Pattern Normal Blood Pressure 162/72 H Blood Pressure Mean 102 Pulse Ox 93 Oxygen Delivery Method Nasal Cannula Oxygen Flow Rate (L/min) 3 Positive well nourished and well developed General Appearance ED: well developed HEENT Reports normocephalic and head/scalp atraumatic Eyes PERRL and EOMs intact bilaterally Neck supple Chest Wall inspection of chest normal and palpation of chest normal Resp normal respiratory effort and clear to auscultation bilaterally Cardio regular rate and regular rhythm GI normal to inspection, nondistended, normoactive bowel sounds Palpation: soft Extremity normal to inspection Neuro oriented x3 and no sensory deficits noted Sensorium / Orientation: alert Motor Exam: strength 5/5 throughout Psych mental status grossly normal Skin no rashes or lesions noted MDM MDM MDM Narrative Medical decision making narrative: Patient placed on cardiac cath technologist. EKG obtained to evaluate for cardiac arrhythmia/ischemia. Labwork obtained to evaluate for leukocytosis, anemia, and electrolyte derangement. Patient given IV fluids. History & Record Review Discussion w/independent historian: Patient and Significant other Lab Data Attestation: I reviewed the patient's lab results. Labs: Laboratory Results - last 24 hr 06/30/23 08:32 WBC 5.8 RBC 4.00 L Hgb 13.5 Hct 40.4 MCV 101.0 H MCH 33.8 H MCHC 33.4 RDW Std Deviation 52.6 H RDW Coeff of Marya 14.2 Plt Count 197 MPV 11.7 Immature Gran % (Auto) 0.200 Neut % (Auto) 72.1 H Lymph % (Auto) 19.6 Mckean % (Auto) 5.2 Eos % (Auto) 2.4 Baso % (Auto) 0.5 Absolute Neuts (auto) 4.2 Absolute Lymphs (auto) 1.13 Nucleated RBC % 0 Sodium 136 Potassium 4.3 Chloride 106 Carbon Dioxide 25.0 Anion Gap 5 BUN 22 H Creatinine 1.25 Estim Creat Clear Calc 41.12 Est GFR (MDRD) Af Amer 71 Est GFR (MDRD) Non-Af 59 L BUN/Creatinine Ratio 17.6 Glucose 128 H Calcium 9.2 EKG Initial EKG: Attestation: I personally reviewed and interpreted this EKG as follows: Interpretation: Sinus Rhythm (Sinus 81 with frequent PVCs. Right bundle branch block.) Treatment and Re-Evaluation :: Patient reported has a history of frequent PVCs at baseline. His blood pressure has been stable and normal to elevated. EKG is sinus at 81 with no acute ischemia and frequent PVCs. CBC was normal white count at 5.8 with a hemoglobin of 13.5. Chemistry studies unremarkable. Glucose is 128. After IV fluids patient is feeling back to baseline. He said no further nausea while here. He will be discharged home. It does appear that duloxetine is his new medication that he started yesterday. This can cause dizziness, although I do not know that I can attribute it to this given he is only had 1 dose. He then tells me that he has had dizziness since he was started on blood pressure medication quite some time ago. He did not feel as if he was going to pass out. Do not feel he needs observation for cardiac monitoring at this time Discharge Plan Triage Chief Complaint: Dizziness ED Provider: Anat Owen Dx/Rx/DC Orders Clinical Impression: Dizziness Instructions: ED Dizziness, Uncertain Cause Prescriptions: No Action clopidogrel 75 mg tablet 75 mg PO DAILY acetaminophen 500 mg Tablet 1,000 mg PO Q6H PRN PRN (Reason: Pain Score 1-10) Qty: 0 0RF polysaccharide iron complex [Ferrex 150] 150 mg iron capsule 150 mg PO DAILYCM pravastatin 80 mg tablet 80 mg PO QHS amlodipine 10 mg tablet 10 mg PO DAILY cholecalciferol (vitamin D3) 25 mcg (1,000 unit) tablet 25 mcg PO QODAY Anoro Ellipta 62.5-25 mcg/actuation blister with device 1 ea inhalation DAILY metoprolol tartrate 25 mg tablet 12.5 mg PO BID Primary Care Provider: Jennyfer Ramirez Referrals: Jennyfer Ramirez, MANAGER SOCIAL RESPONSIBILITY-C [Primary Care Provider] - 1-2 Weeks Disposition Disposition: Home, Self Care
[2023-06-30 08:48] LABS: Absolute Lymphocyte Count 1.13 X10^3/uL (0.83-4.51); Absolute Neutrophil Count 4.2 X10^3/uL (2.0-7.7); Basophil# 0.03 X10^3/uL; Basophil% 0.5 % (0-1); Eosinophil# 0.14 X10^3/uL; Eosinophils% 2.4 % (0-5); Hematocrit 40.4 % (40-54); Hemoglobin 13.5 g/dL (13.0-16.5); Lymphocyte # 1.13 X10^3/ul (0.83-4.51); Lymphocyte % 19.6 % (19-41); Mean Corp Hgb Conc 33.4 g/dL (32-36); Mean Corpuscular Hgb 33.8 pg (27.0-32.0); Mean Platelet Vol. 11.7 fl (6.2-12.0); Monocyte% 5.2 % (0-10); NRBC Flagged by Analyzer 0 % (0-5); Neutrophil # 4.15 X10^3/uL (2.7-7.7); Neutrophil % 72.1 % (47-70); Platelet Count 197 K/mm3 (150-450); RBC Distribution Width CV 14.2 % (11.6-14.6); RBC Distribution Width SD 52.6 fl (35.1-43.9); White Blood Count 5.8 K/mm3 (4.4-11.0)
[2023-06-30 08:58] LABS: Anion Gap 5 (5-15); BUN 22 mg/dL (7-18); BUN/Creat Ratio 17.6 RATIO (10-20); Calcium,Total 9.2 mg/dL (8.5-10.1); Chloride 106 mmol/L (98-107); Creatinine, Serum 1.25 mg/dL (0.70-1.30); EST Glomerular Filtration Rate 59 mL/min (>60); Est Glom Filt Rate - Afr Amer 71 mL/min (>60); Estimated Creatinine Clearance 41.12 ml/min; Glucose 128 mg/dL (74-106); Potassium 4.3 mmol/L (3.5-5.1); Sodium Level 136 mmol/L (136-145)
[2023-06-30 09:29] VITALS: BP 168/64; PULSE 71
== END 2023-06-30 10:26 | disposition home or self-care (01) ==
LOC: ED 09:29
PROVIDERS: Emergency Provider Emergency Medicine; PCP Nurse Practitioner Family; Visit Provider Emergency Medicine
DX: R42 Dizziness and giddiness (principal); G47.30 Sleep apnea, unspecified; Z87.891 Personal history of nicotine dependence; Z99.81 Dependence on supplemental oxygen
CPT/HCPCS: 80048; 85025; 93005; 99285; J7040

== ENCOUNTER → 2023-07-07 | Outpatient (CLI) | payer MEDICARE, SELFPAY ==
--- NOTE | 2023-07-07 07:57 | NM_ITS ---
CLINICAL: 83-year-old male with history of primary prostate carcinoma. WHOLE BODY 99m Tc MDP RADIONUCLIDE BONE SCINTIGRAPHY COMPARISON: None available FINDINGS: Following the intravenous administration of 27.0 mCi of 99m Tc MDP, whole body bone images reveal: 1. Increased radiopharmaceutical distribution is defined in the right proximal humeral metaphysis, humeral head. 2. Facilitated uptake is noted in the sternoclavicular and acromioclavicular compartments of both shoulders, the lateral glenohumeral compartment of the left shoulder, the bilateral elbows, the right and left hands and both wrists, medial and lateral tibial compartments of the left knee, the patellofemoral compartment of the right knee, the visualized right forefoot, the cervical, thoracic and lumbar spine. 3. The remaining skeletal structures are scintigraphically unremarkable with normal-appearing renal images and urinary bladder activity identified. A presumably asymptomatic right knee arthroplasty is defined. NM/Bone Scan Whole Body IMPRESSION: 1. The increase in radiopharmaceutical defined in the glenohumeral compartment of the right shoulder, right proximal humerus may be further investigated with plain film radiography in setting of known prostate carcinoma. 2. Degenerative arthritis is defined in the bilateral shoulders, right and left elbows, the bilateral hands and wrists, the knee articulations bilaterally, the right forefoot, the cervical, thoracic and lumbar spine. Plain film radiography may be of benefit in the region of the thoracic-lumbar spine. Electronically Signed: Augustin Damon DO at 20:41 EDT ,
== END | disposition home or self-care (01) ==
PROVIDERS: PCP Nurse Practitioner Family; Referring Provider Urology; Visit Provider Urology
DX: C61 Malignant neoplasm of prostate (principal); R97.21 Rising PSA following treatment for malignant neoplasm of prostate
CPT/HCPCS: 78306; A9503

== ENCOUNTER → 2023-07-11 | Outpatient (CLI) | payer MEDICARE, SELFPAY ==
--- NOTE | 2023-07-11 16:47 | CT_ITS ---
STUDY: CT ABDOMEN AND PELVIS WITH CONTRAST REASON FOR EXAM: Male, 83 years old. PROSTATE CA. Hypertension. RADIATION DOSAGE (If Supplied By Facility): CTDIvol = ( 13.58 ) mGy, DLP = ( 753.21 ) mGycm TECHNIQUE: Transaxial images were obtained from the dome of the diaphragm to the symphysis pubis without oral contrast. IV 100mL Isovue-370 was administered. Sagittal and coronal images were reconstructed. Individualized dose optimization techniques were used for this CT. COMPARISON: None. FINDINGS: Increased interstitial markings with areas of confluence in the right lower lobe suggestive of bilateral atelectasis and/or infiltrate. Coronary artery calcifications. Mild degree of central intrahepatic biliary ductal dilatation. There are multiple small gallstones along the dependent portion of the gallbladder lumen.. There are multiple benign calcified granulomata of the spleen. Normal pancreas. Normal bilateral adrenal glands. 1.6 cm cyst in the upper anterior aspect of the right kidney. Normal left kidney. Normal visualized stomach. Normal small intestine. Normal colon. The appendix is visualized and appears normal. There is diffuse atherosclerotic calcification of the abdominal aorta and its major visceral branches, without a demonstrated aneurysm. Normal inferior vena cava. Normal retroperitoneum. Small lymph nodes are seen in the root of the mesentery fat. Diffuse bladder wall thickening. The prostate appears to have been removed. There is a small umbilical hernia containing fat. The neck of the hernia measures 2.5 cm. There are diffuse degenerative changes of the visualized lumbar spine. CT/Abdomen/Pelvis W IV Cont ONLY IMPRESSION: Increased markings at the right lung base suggestive of atelectasis and/or early infiltrate. Multiple small gallstones. Mild degree of central intrahepatic biliary ductal dilatation. Small cyst in the anterior aspect of the right kidney. Diffuse bladder wall thickening. There appears to have been prior prostatectomy. Diffuse atherosclerotic calcification of the abdominal aorta. Electronically Signed: Dandre Snell MD at 12:47 EDT ,
== END | disposition home or self-care (01) ==
LOC: CT 16:43
PROVIDERS: PCP Nurse Practitioner Family; Referring Provider Urology; Visit Provider Urology
DX: C61 Malignant neoplasm of prostate (principal); R97.21 Rising PSA following treatment for malignant neoplasm of prostate
CPT/HCPCS: 74177; Q9967

== ENCOUNTER 2023-07-13 11:12 | Inpatient (IN) | payer MEDICARE, SELFPAY ==
--- NOTE | 2023-06-17 13:20 | EKG12_ITS ---
Test Reason : PREOP Blood Pressure : / mmHG Vent. Rate : 068 BPM Atrial Rate : 068 BPM P-R Int : 136 ms QRS Dur : 138 ms QT Int : 432 ms P-R-T Axes : 016 -58 029 degrees QTc Int : 459 ms Sinus rhythm with occasional Premature ventricular complexes Left axis deviation Right bundle branch block Abnormal ECG Confirmed by TK MICHAEL ([id number]), metropolitan editor FROYLAN ANGEL ([id number]) on 06/21/2023 9:05:24 AM Referred By: Ramirez Emmanuel Confirmed By:TK MICHAEL
[2023-06-23 10:43] LABS: Absolute Lymphocyte Count 1.61 X10^3/uL (0.83-4.51); Absolute Neutrophil Count 3.2 X10^3/uL (2.0-7.7); Basophil# 0.05 X10^3/uL; Basophil% 0.9 % (0-1); Eosinophil# 0.15 X10^3/uL; Eosinophils% 2.7 % (0-5); Hemoglobin 13.9 g/dL (13.0-16.5); Lymphocyte # 1.61 X10^3/ul (0.83-4.51); Lymphocyte % 29.1 % (19-41); Mean Corp Hgb Conc 33.1 g/dL (32-36); Mean Corpuscular Hgb 34.1 pg (27.0-32.0); Mean Corpuscular Volume 102.9 fL (80-94); Mean Platelet Vol. 10.7 fl (6.2-12.0); Monocyte# 0.55 X10^3/uL; Monocyte% 9.9 % (0-10); NRBC Flagged by Analyzer 0 % (0-5); Neutrophil # 3.16 X10^3/uL (2.7-7.7); Neutrophil % 57.2 % (47-70); Platelet Count 182 K/mm3 (150-450); RBC Distribution Width CV 14.1 % (11.6-14.6); RBC Distribution Width SD 53.7 fl (35.1-43.9); Red Blood Count 4.08 M/mm3 (4.6-6.2); White Blood Count 5.5 K/mm3 (4.4-11.0)
[2023-06-23 11:11] LABS: Albumin, Serum 3.6 g/dL (3.2-5.0); Anion Gap 5 (5-15); BUN 32 mg/dL (7-18); BUN/Creat Ratio 22.5 RATIO (10-20); Calcium,Total 9.6 mg/dL (8.5-10.1); Chloride 106 mmol/L (98-107); Creatinine, Serum 1.42 mg/dL (0.70-1.30); EST Glomerular Filtration Rate 51 mL/min (>60); Est Glom Filt Rate - Afr Amer 61 mL/min (>60); Glucose 106 mg/dL (74-106); Potassium 4.2 mmol/L (3.5-5.1); Sodium Level 139 mmol/L (136-145)
[2023-06-23 11:15] LABS: Magnesium 2.3 mg/dL (1.6-2.6)
--- NOTE | 2023-07-12 13:53 | PCM.HP.STD ---
HPI - General HPI Narrative NICA PANTOJA, is a 83 M who presentsSCHEDULED PROCEDURE: ROBOTIC ASSISTED LEFT TOTAL KNEE ARTHROPLASTY HISTORY OF PRESENT ILLNESS: Patient is an 83-year-old male with ongoing severe left knee pain and deformity for several years.? It is intermittent stabbing pain in the left knee he is unable to walk short distances due to ongoing knee pain.? He has significant decrease in functional limitations due to knee pain and dysfunction.? Bathing showering and dressing himself of have become very difficult for him.? He has attempted cortisone Tylenol and other oral medications.? He is now having to use a cane to walk due to this knee pain.? He has failed conservative treatment options would like to proceed with a robotic-assisted left total knee arthroplasty. He is on suppressive antibiotics amoxicillin per infectious disease for the right knee.? He has been cleared to proceed for the left. Patient has a history of bleeding ulcers and cannot tolerate NSAIDs. REVIEW OF SYSTEMS: Review Of Systems: Constitutional: Denies change in appetite, fever and weight change. Cardiovasular: Denies chest pain, heart murmur and irregular heartbeat. Respiratory: Denies cough, pneumonia, shortness of breath, tuberculosis and wheezing. Gastrointestinal: Denies constipation, diarrhea, heartburn, nausea, rectal itching, bloody stools and vomiting. Genitourinary: . (F Genital Sx) Denies incontinence. Musculoskeletal: Reports leg swelling, pain, trouble walking and weakness. Skin: Denies Raynaud's, history of shingles and tattoo. Neurological: Denies ambulatory dysfunction, dizziness, numbness/tingling and tremor. Psychiatric: Denies anxiety, insomnia and stress. Hematologic/Lymphatic: Reports bleeding/bruising tendency, but denies anemia and past transfusion. Reviewed and updated. PAST MEDICAL HISTORY: Advance Care Plan: Other Directive, POA Effective Date: 05/18/2018 Other Directive, LIVING WILL Effective Date: 05/18/2018 Past Medical History: Medical Problems: High Blood Pressure, Vascular Disease/ Peripheral, Bleeding Ulcers, Chronic Obstructive Pulmonary Disease (COPD) Accidents: Fracture - RT CLAVICLE FX Surgical Hx: Knee Arthroscopy Lt, Carpal Tunnel Release Lt, Carpal Tunnel Release Rt, Rafael Artery Leg Surgery, Prostate SX, Basal Cell Cancer SX Knee Replacement RT - (01/13/2022) SAW @ [facility] Irrigation And Debridement W/ Poly Exchange RT Total Knee - (02/12/2022) SAW @ [facility] Anesthesia Complications: None Assistive Devices: Glasses, Walker, Cane, Hearing Aid Reviewed and updated. SOCIAL HISTORY: Social History: Marital: .Occupation: Retired.Work Status: Retired.Hand Dominance: Ambidextrous. Personal Habits:? Cigarette Use: Currently smokes - (01/04/2022), Former Cigarette Smoker.Smokeless Tobacco: Never Used Smokeless Tobacco.E-Cigarette Use: Never Used.Alcohol: Occasionally.Drug Use: Denies Use.Enjoy Exercising: Daily. Reviewed and updated. VITALS: Ht: 64 Wt: 144lb Wt k.318 BMI: 24.7 BP: 118/68 Pulse: 60 Resp: 12 T: 97.3 T: 36.3C Pain Level: 8 O2SatR: 86 ALLERGIES: Enalapril? MEDICATIONS: [employer] High-Potency Vitamin D 1000 Unit daily, Acetaminophen 500 mg every 6 hours as needed, Amlodipine Besylate 10 mg daily, Metoprolol Tartrate 25 mg daily, Multivitamins? 1 PO qd, Pravastatin Sodium 80 mg 1 by mouth every day, Vitamin D3-Vitamin C 1000-500 Unit-MG, Heparin Lock Flush For Flushing Vascular Access Devices 10 Unit/ML, Ferrous Sulfate 27 mg 1po qday, Clopidogrel Bisulfate 75 mg 1 by mouth every day, Duloxetine HCL 20 mg 1 by mouth every day, Doxazosin Mesylate 2 mg take 1 tablet by mouth at bedtime, Amoxicillin 875 mg take 1 tablet by mouth twice daily for 10 days., Albuterol Inhaler? 2 puffs as needed PRE-OP EXAM:? General appearance:NORMAL? ? ? Other: Eyes: Conjunctivae and lids: NORMAL? Pupils: ERR Ears, Nose, Mouth, and Throat: NORMAL? Other: Inspection of lips, teeth and gums: NORMAL? ?Other: Neck: Examination of neck: no masses noted. Respiratory: Assessment of respiratory effort: NORMAL? ?Other: ?Auscultation of lungs: clear to auscultation no wheezes, rhonchi or rales. Cardiovascular:? Auscultation of heart: regular rate and rhythm, no murmurs, gallops or rubs. Exam of carotid arteries: NORMAL? ?Other: Gastrointestinal:? Exam of abdomen: soft, nontender, nondistended bowel sounds present. Lymphatic:? Palpation of nodes in neck:? NORMAL? ? ?Other: ? Palpation of nodes in Axillae: NORMAL? ?Other: Neurological: see below Psychiatric:? Orientation to time, place and person: NORMAL? ? ?Other: ?Mood and affect: NORMAL? ?Other: PHYSICAL EXAMINATION: Exam: Const: Appears healthy. No signs of apparent distress present. Alert and oriented x 3. Musculo: Walks with a normal gait. Knees: ?Insp/Palp: Right knee: Incision is well healed. No redness or sign of infection. range of motion 0 to 130.? Stable to varus and valgus stress with firm endpoints on MCL and LCL testing.? No effusion.?? Left knee: Moderate effusion.? Valgus alignment.? Firm endpoint varus and valgus stress testing.? Crepitus with range of motion.? Limited range of motion. Skin: Skin is warm, dry and intact. Neuro: Sensation to light touch is intact in the lower extremities deep peroneal, lower extremities dorsal cutaneous, lower extremities saphenous, lower extremities sural and lower extremities tibial nerve distribution.? IMAGING STUDIES: 4 views left knee in office obtained? severe stage IV [id number] tricompartmental osteoarthritis with valgus alignment on the left side. IMPRESSION: 1 .grade iv osteoarthritis left knee? 2. High Blood Pressure 3. Vascular Disease/ Peripheral 4. Bleeding Ulcers 5. Chronic Obstructive Pulmonary Disease (COPD) PLAN: Patient denies history of DVT or PE, open wounds or sores over the body, no allergies to antibiotics? he is on suppressive antibiotics amoxicillin from ID.? No current dental issues DVT ppx: Xarelto 10 mg once daily ?4 weeks-no Hx of DVT Patient has a history of bleeding ulcers and is no longer able to take NSAIDs At this time patient has consented to proceed with a ROBOTIC ASSISTED LEFT TOTAL KNEE ARTHROPLASTY.? Dr. Emmanuel did discuss and review with the patient all treatment options including surgical versus nonsurgical options.? Patient does wish to proceed with the above-stated procedure.? Potential risk, benefits, and complications of the procedure were discussed in detail including but not limited to , infection, nerve and blood vessel damage, persistent pain, numbness, tingling, paresthesias, blood clot, pulmonary embolism, and requirement for possible further surgery.? The patient expressed full understanding and has no further questions for the doctor.? Patient does agree to proceed with the above-stated procedure and has signed the surgery consent form. I have reviewed the [place] Automated Rx Reporting System (OARRS) report for this patient for refill pattern and other prescriber involvement as part of the appropriate surveillance for the provision of acute and chronic controlled medications.? The report was requested and reviewed on the date of this entry and was considered in the prescribing process. Discussed with the patient the risks associated with the COVID-19 virus including the risk of exposure while at the hospital.? The patient was reassured local hospitals have low infection rates and taken all necessary precautions to limit patient exposure to COVID-19.? Limiting the patient's time in the hospital may decrease their exposure to COVID-19.? The patient was notified that we will need to comply with any screening or testing the hospital wishes to perform and that surgery may be delayed for any positive test results. [facility] Medical History Ambulates with cane Anemia Arthritis Cancer Cardiology follow-up encounter COPD (chronic obstructive pulmonary disease) Duodenal ulcer due to nonsteroidal anti-inflammatory drug (NSAID) (09/28/21) Easy bruising Essential hypertension Former smoker High cholesterol History of echocardiogram History of GI bleed History of pain when walking History of rheumatic fever History of ulceration Hx of basal cell carcinoma Hyperlipidemia Multiple premature ventricular complexes On home oxygen therapy On home oxygen therapy Peripheral vascular disease Peripheral vascular occlusive disease Prostate cancer Right bundle branch block (RBBB) Shortness of breath on exertion Skin cancer Sleep apnea Syncope Tobacco abuse Walker as ambulation aid Wears dentures Wears hearing aid Home Medications acetaminophen 500 mg tablet 1,000 mg (2 x 500 mg) PO Q6H PRN PRN Pain Score 1-10 #0 tabs 02/03/22 [Rx Last Taken 02/11/22] amlodipine 10 mg tablet 10 mg PO DAILY bp 02/11/22 [History Last Taken 02/10/22] cholecalciferol (vitamin D3) 25 mcg (1,000 unit) tablet 25 mcg PO QODAY supplement 02/11/22 [History Last Taken 02/11/22] polysaccharide iron complex 150 mg iron capsule (Ferrex) 150 mg PO DAILYCM supplement 02/11/22 [History Last Taken 02/11/22] pravastatin 80 mg tablet 80 mg PO QHS cholesterol 02/11/22 [History Last Taken 02/11/22] umeclidinium 62.5 mcg-vilanterol 25 mcg/actuation powdr for inhalation (Anoro Ellipta) 1 ea inhalation DAILY copd 02/11/22 [History Last Taken 02/10/22] clopidogrel 75 mg tablet 75 mg PO DAILY 05/24/23 [History Last Taken Unknown] metoprolol tartrate 25 mg tablet 12.5 mg PO BID bp 05/24/23 [History Last Taken Unknown] Allergy/AdvReac Type Severity Reaction Status Date / Time peanut Allergy Swelling Verified 06/30/23 08:14 Family History Father CVA (cerebral vascular accident) Hypertension Surgical History H/O radical prostatectomy H/O: knee surgery History of carpal tunnel surgery of left wrist History of esophagogastroduodenoscopy (EGD) History of total right knee replacement Hx of vascular surgery (2018) Status post total right knee replacement Social History household members: spouse Smoking Status: Former smoker Tobacco: How many years used: 50 alcohol intake: former Results Lab / Micro Data 06/23/23 10:17 06/23/23 10:17
[2023-07-13] VITALS (20 sets, daily range): BP systolic 124–158; BP diastolic 61–87; PULSE 58–86; RESP 10–18; TEMP 36.6–37.4; O2SAT 78–96; BMI 23.1; BMI 23.6
--- NOTE | 2023-07-13 07:21 | PCM.OPRPT ---
Report of Operation Date of Procedure: 07/13/23 Pre-Operative Diagnosis: Left knee primary osteoarthritis Post-Operative Diagnosis: Left knee primary osteoarthritis Surgery/Procedure Performed:: Left knee minimally invasive robotic assisted total knee replacement Description of Surgical Findings:: Stable knee with good patella tracking Surgeon: Ramirez Emmanuel project management intern: Krunal Cobb Type of Anesthesia: General Anesthesiologist: Malik Bernard Special Medications: 2 g Ancef, 1 g TXA at incision, 1 g TXA closure, 10 mg Decadron, joint cocktail (5 mg Duramorph, 30 mL of 0.5% Ropivicaine, 1000 units of epinephrine, 30 mg of Toradol) Specimen's removed: Bony cuts Estimated Blood Loss (mL): 75 Fluids Replaced: 1500 ml Description of Procedure: Implants used: 1. Bergen size 5 triathlon cruciate retaining distal femoral press-fit component 2. Isabella size 5 press-fit tritanium tibial baseplate 3. Bergen X3 9 mm CS polyethylene 4. Isabella X3 32 mm asymmetric patella Brief history operative indications: 83-year-old M with history of left knee osteoarthritis with radiographic findings with loss of joint space, osteophyte formation and subchondral sclerosis. Failed conservative measures as mentioned in the H&P. Discussion of total knee arthroplasty as well as risk and benefits were discussed the patient including but not limited to blood loss, DVTs, PEs, neurovascular damage, general risk of anesthesia including loss of life, and stiffness or instability were discussed with patient. Patient demonstrated understanding and was able to sign informed consent. Procedure: On the date of procedure patient's left lower extremity was marked in the preoperative area. The patient was then taken back to the operating room where the patient was placed on the table in the supine position. All bony prominences were identified a well-padded. Anesthesia assumed control of the C-spine and airway and remained controlled throughout the remainder of the procedure. A tourniquet was placed on the left upper thigh and the leg was prepped in a sterile fashion. The surgeon then scrubbed at this time .Upon reentering the room left lower extremity was draped in a standard orthopedic fashion. A timeout was then called and everyone agreed upon the side, the site, the procedure to be performed, patient's identity and antibiotics given. Esmarch bandage was used to exsanguinate the extremity and the tourniquet was placed up to 250 mmHg with the knee in flexion. A midline skin incision was made and sharp dissection was taken down through skin subcutaneous tissue and fat. The standard medial parapatellar incision was made and the patella was subluxed laterally. An Appropriate deep MCL release was done and the fat pad was resected. Our attention was then directed to the patella. The patella was everted and a flat resection was made. The knee was then flexed up in 2 femoral pins were placed inside the incision and 2 tibial pins were placed outside the incision in the medial tibia bicortically. Once this was completed the 2 checkpoints in the femur and tibia were placed. Knee was then flexed up and the bony landmarks were registered. Once this was completed knee was taken through range of motion and manually stressed allowing us to a plan for an appropriate tibial cut. The robotic arm was brought into the field sterilely and checkpoint and saw were registered. Based on the patient's deformity the tibial cut was made neutral to the tibial axis. At this time the tensioner was then placed in the joint and ligament tension was checked at 90 degrees and full extension. Based on the patient's ligamentous tension appropriate adjustments were made to the operative plan and ligament releases were done. Once we were happy with our operative plan with balanced flexion and extension gaps our attention was directed to the femur. The robot was brought into the field sterilely and registered. Posterior condylar cuts, anterior chamfer cuts and anterior cuts were appropriately made for a size 5 femur. When these were completed the saws were switched out in the distal femoral and posterior chamfer cuts were made. Protecting the soft tissue throughout this time. A size 5 tibial base plate was selected. the knee was flexed to 90 degrees and the soft tissues and posterior osteophytes were removed from the joint. 40 cc of the periarticular injection was injected into the posterior medial corner of the joint. The appropriate trials were then placed on the femur and tibia. A trial polyethylene was trialed to ensure proper balancing and stability of the knee. The appropriate tibial internal rotation was then marked with a bovie. Our attention was then directed to the patella. The lug holes were drilled and the patella trial was placed. Patellar tracking was checked and deemed appropriate. Once we were happy lug holes were drilled for the femur and trial components were removed. the tibia was subluxed and pinned into place and the keel was punched and drilled appropriately. Final components were verified and opened, and cement was mixed in a vacuum. Isabella Simplex cement was used. The wound was copiously irrigated with normal saline. When the cement was ready the components were impacted into place starting with the tibia, femur and finally the patella. The trial poly component was placed and the knee was placed in full extension. All excess cement was removed in the process. Once the cement had cured the tracking, alignment and balance were verified and a size 9 mm CS polyethylene component was placed. Once the final components were placed a 3-minute dilute Betadine lavage was performed followed by an Irrisept lavage was performed and the wound was copiously irrigated with normal saline solution and the periarticular injection was given. The wound was closed in a layer pedroza fashion using #1 vicryl interrupted sutures for the arthrotomy, 2-0 interrupted Vicryl suture for the subcuticular layer and bruce for final skin closure. A sterile compressive dressing was then placed. The patient was then awakened from anesthesia, transferred to the rpicacho and transferred to the PACU for recovery. Post op plan DVT ppx: ASA 81mg BID, thigh high compression stockings Follow up: in office in 2 weeks for wound check PT: to start POD #0 at hospital, outpatient PT should be arranged. My physician assistant director of plant operations was a vital part of this case. He was important in appropriate retraction during the case, and protection of soft tissues during bony cuts. His intimate knowledge of the case and my steps aided in safe and expedient completion of the procedure as well as appropriate position of the leg during the case. He was also vital in assisting with closure under my direct supervision. Due to the complexity of this case robotic arm was used to assist in the surgery to improve accuracy and clinical outcomes. Patient has COPD and is on oxygen. He has peripheral vascular disease. He did have previous knee replacement and required readmission. Based on his medical comorbidities and medical history we have elected to proceed with an admission to the hospital with anticipated prolonged stay postoperatively and increased probability of needing placement postoperatively prior to discharge home. Complications No intraoperative complications Admit VTE Documentation VTE Present on Admission: No VTE Mechan Device Prophylaxis: SCD's and Thigh High GIBSON Hose VTE Pharm Prophylaxis ordered?: Yes
[2023-07-13] MEDS: Celecoxib 200 MG Capsule 400 MG PO (12:01)
[2023-07-13] MEDS: Acetaminophen 500 MG Tablet 1000 MG PO ×2 (12:02→22:12)
[2023-07-13] MEDS: Gabapentin 600 MG Tablet PO (12:02)
[2023-07-13] MEDS: Magnesium 1 GM over 15 mins IV (12:02)
[2023-07-13] MEDS: Lactated Ringers 1,000 ML 999 ML IV (12:04)
[2023-07-13] MEDS: Lactated Ringers 1,000 ML 75 ML IV (12:05)
[2023-07-13 13:00] LABS: Bedside Glucose 99 mg/dL (74-106)
--- NOTE | 2023-07-13 13:45 | KNEE_PTH ---
PATIENT: NICA PANTOJA LOC: [facility] U#:[id number] AGE/SX: 83/M ROOM: [facility] [place]07/13/[address]: Dr. Nica Mohan MD : [id number] BED: 1 DIS: 07/19/2023 SPEC #: [id number] RECD: 07/14/23 07:55 STATUS: PATSY REQ #: [id number] ANGIE: 07/13/23 13:[address]: Ramirez Emmanuel DEPT: SURGICAL PATHOLOGY RECD BY: Latia Ambrose ENTERED: 07/14/23 09:11 SP TYPE: TOTAL KNEE OTHR DR: DO Dr. Mireya Zaragoza MD Dr. Eric Jopperi, DO Dr. Nicholas F Kotsonis, MD Carolyn Graham, WET ROLLER-C Tissues: Knee, NOS Procedures: Decalcification bone/plaque Surgery Specimen Level IV HEADER OPERATION: ERAS, total knee replacement robotic arm assist PRE-OP DIAGNOSIS: Severe left knee pain and deformity TISSUE SUBMITTED: Bone and tissue left knee MICROSCOPIC DIAGNOSIS Bone and soft tissue, left knee, total knee replacement/resection: Pieces of bone with degenerative osteoarthritic changes. Pieces of fibrocartilaginous tissue and reactive synovial tissue. Focal changes consistent with pseudogout. TEDDY:makenna 07/20/2023 MICROSCOPIC DESCRIPTION Slides are reviewed. GROSS DESCRIPTION Received is one container designated bone and soft tissue left knee. The specimen consists of multiple fragments of garcia-yellow bone measuring in aggregate 9.0 x 9.0 x 3.0 cm. Also in the specimen container are multiple fragments of fibrocartilaginous tissue measuring in aggregate 6.0 x 3.0 x 1.0 cm. Chalky white deposits are noted. A number of bony fragments contain articular surfaces consistent with tibial plateau and femoral condyle and displaying prominent osteophyte formation, eburnation and bone erosion. Flatbed Owner Operator sections are submitted in two cassettes as follows: 1 - soft tissue, 2 - bone after decalcification. / TEDDY:makenna 07/14/2023 TC:5 CPT: 68038, 65573
[2023-07-13] MEDS: Cefazolin 2 GM in 0.9% Normal Saline (100mL Bag) 100 ML IV (14:40)
[2023-07-13] MEDS: TXA 1000mg in NS100 100ml (IVPB at Incision) 660 MG IV (14:50)
[2023-07-13] MEDS: TXA 1000mg in NS100 100ml (IVPB at Closure) 660 MG IV (15:50)
--- NOTE | 2023-07-13 17:09 | RAD_ITS ---
STUDY: X-RAY - LEFT KNEE REASON FOR EXAM: Male, 83 years old. post op -- AP and Lateral xray of operative knee in PACU TECHNIQUE: 2 view(s) of the knee. COMPARISON: None. FINDINGS: Pulmonary arthroplasty is demonstrated showing normal alignment. Suprapatellar postoperative air is present with small effusion. Normal visualized proximal tibia and fibula. Normal proximal tibiofibular articulation. Diffuse demineralization is noted. The soft tissue structures are unremarkable. RAD/Knee 1 or 2 Views IMPRESSION: Total knee arthroplasty with postoperative changes as above. Electronically Signed: Jimmy Tamayo DO at 17:28 EDT ,
[2023-07-13] MEDS: Lactated Ringers 1,000 ML 125 ML IV (17:30)
[2023-07-13] MEDS: Ipratropium/Albuterol Sulfate 3 ML AMPUL.NEB INHALATION (18:29)
--- NOTE | 2023-07-13 19:01 | SUR.PHASEI ---
report sent to [facility]
[2023-07-13] MEDS: 0.9% Normal Saline (250mL Bag) 250 ML 15 ML IV (20:11)
[2023-07-13] MEDS: oxyCODONE 5 MG Tablet PO (20:56)
[2023-07-13] MEDS: Cefazolin 1 GM/50 ML BAG IV (22:11)
[2023-07-13] MEDS: Pravastatin 80 MG Tablet PO (22:12)
[2023-07-13] MEDS: Senna/Docusate Sodium 1 Tablet 2 TABLET PO (22:12)
[2023-07-13] MEDS: Metoprolol Tartrate 25 MG Tablet 12.5 MG PO (22:12)
[2023-07-14] VITALS (16 sets, daily range): BP systolic 134–165; BP diastolic 61–92; PULSE 50–94; RESP 16–19; TEMP 36.6–37.4; O2SAT 91–97
--- NOTE | 2023-07-14 01:22 | CON.PCM.HO_ITS ---
Assessment & Plan Assessment/Plan (1) S/P total knee replacement: QUALIFIERS: Laterality: left Qualified Code(s): Z96.652 - Presence of left artificial knee joint (2) Hypoxia: PLAN: Plan Status post total knee replacement Management by orthopedic surgery. Hypoxia CPAP ordered nightly and as needed History of COPD Does not appear to be in exacerbation. Agrees with KERA-ERROL in place of anoro. DVT prophylaxis Agrees with SCDs. Thank you for the consulting internal medicine service will continue to follow. Internal Medicine service will continue to follow. Thank you for the consult. Time spent in the patient's overall evaluation,decision-making process, review of diagnostic data, adjustment of management, discussion with other providers, nursing and ancillary staff involved in patient's care documentation, 30 minutes. HPI Consult Data Date of Consult: 07/14/23 HPI Narrative Reason for Consultation: Postop medical management HPI Narrative: NICA PANTOJA, is a 83 M with a significant history of congestive heart failure and COPD on chronic 3 L nasal cannula Oxygen who is postop day 1 for left total knee replacement. Internal medicine service has been consulted for postop medical management. Patient denies any symptoms. Nurse reported that it has been difficult to properly oxygenate patient and patient is on 8 L Venturi mask. Reportedly patient has been prescribed CPAP at home however patient CPAP is on back order and is waiting to receive it. [facility] Medical History Ambulates with cane Anemia Arthritis Cancer Cardiology follow-up encounter COPD (chronic obstructive pulmonary disease) Duodenal ulcer due to nonsteroidal anti-inflammatory drug (NSAID) (09/28/21) Easy bruising Essential hypertension Former smoker High cholesterol History of echocardiogram History of GI bleed History of pain when walking History of rheumatic fever History of ulceration Hx of basal cell carcinoma Hyperlipidemia Multiple premature ventricular complexes On home oxygen therapy On home oxygen therapy Peripheral vascular disease Peripheral vascular occlusive disease Prostate cancer Right bundle branch block (RBBB) Shortness of breath on exertion Skin cancer Sleep apnea Syncope Tobacco abuse Walker as ambulation aid Wears dentures Wears hearing aid Home Medications acetaminophen 500 mg tablet 1,000 mg (2 x 500 mg) PO Q6H PRN PRN Pain Score 1-10 #0 tabs 02/03/22 [Rx Last Taken 02/11/22] amlodipine 10 mg tablet 10 mg PO DAILY bp 02/11/22 [History Last Taken 07/13/23] cholecalciferol (vitamin D3) 25 mcg (1,000 unit) tablet 25 mcg PO QODAY supplement 02/11/22 [History Last Taken 02/11/22] polysaccharide iron complex 150 mg iron capsule (Ferrex) 150 mg PO DAILYCM supplement 02/11/22 [History Last Taken 07/13/23] pravastatin 80 mg tablet 80 mg PO QHS cholesterol 02/11/22 [History Last Taken 02/11/22] umeclidinium 62.5 mcg-vilanterol 25 mcg/actuation powdr for inhalation (Anoro Ellipta) 1 ea inhalation DAILY copd 02/11/22 [History Last Taken 02/10/22] clopidogrel 75 mg tablet 75 mg PO DAILY 05/24/23 [History Last Taken Unknown] metoprolol tartrate 25 mg tablet 12.5 mg PO BID bp 05/24/23 [History Last Taken 07/13/23] amoxicillin 875 mg-potassium clavulanate 125 mg tablet tab previous infection 07/13/23 [History Last Taken 07/13/23] hydrochlorothiazide 25 mg tablet mg htn 07/13/23 [History Last Taken 07/13/23] Allergy/AdvReac Type Severity Reaction Status Date / Time peanut Allergy Swelling Verified 07/13/23 12:06 Family History Father CVA (cerebral vascular accident) Hypertension Surgical History H/O radical prostatectomy H/O: knee surgery History of carpal tunnel surgery of left wrist History of esophagogastroduodenoscopy (EGD) History of total right knee replacement Hx of vascular surgery (2018) Status post total right knee replacement Social History household members: spouse Smoking Status: Former smoker Tobacco: How many years used: 50 alcohol intake: former ROS ROS Narrative Pertinent positives and pertinent negatives as noted in HPI. All other systems were reviewed and are negative Physical Exam Narrative Physical exam: General: Well-nourished, well-developed. Head: Normocephalic, atraumatic, no tenderness Eyes: Vision is grossly intact. EOMI ENT, no trauma, moist mucous membranes, no rhinorrhea Neck: Nontender, No thyromegaly. CVS: Regular rate and rhythm. S1-S2 present. No murmur, gallop or rub. Respiratory : On a Venturi mask; mild expiratory wheezes. Abdomen: Soft, nontender, nondistended, normal bowel sounds, no masses : Deferred Back: Nontender, no CVA tenderness, no midline spinal tenderness, deformities, step-offs Extremities: Left knee and leg with polar pack. Right knee with no polar pack; no swelling. Skin: Normal color, no trauma, abrasions Neuro: Alert, oriented, cranial nerves II through XII grossly intact. Psychiatry: Normal mood. Normal affect. Not depressed. Not anxious. Lab / Micro Data 06/23/23 10:17 06/23/23 10:17 Labs: Laboratory Results - last 24 hr 07/13/23 11:54: POC Glucose 99 Radiology Impression Knee X-Ray 07/13/23 17:09 IMPRESSION: Total knee arthroplasty with postoperative changes as above. Electronically Signed: Jimmy Tamayo DO at 17:28 EDT , Charges/Coding Visit Charges Inpatient E&M: 72872 Subs Hosp L2
--- NOTE | 2023-07-14 01:49 | NURSING ---
patient was unable to void, bladder scanned for greater than 500, he wanted to wait a little bit to try and void again, an hour later he voided 100 ml, he was then straight cathed for 500 ml of slightly cloudy straw color urine with normal odor. Procedure was well tolerated.
[2023-07-14] MEDS: Cefazolin 1 GM/50 ML BAG IV (05:52)
[2023-07-14] MEDS: Ipratropium/Albuterol Sulfate 3 ML AMPUL.NEB INHALATION ×3 (06:52→19:58)
[2023-07-14 07:07] LABS: Hematocrit 34.1 % (40-54); Hemoglobin 10.9 g/dL (13.0-16.5); Mean Corpuscular Hgb 33.2 pg (27.0-32.0); Mean Platelet Vol. 9.7 fl (6.2-12.0); Platelet Count 153 K/mm3 (150-450); RBC Distribution Width CV 13.7 % (11.6-14.6); RBC Distribution Width SD 52.8 fl (35.1-43.9); Red Blood Count 3.28 M/mm3 (4.6-6.2); White Blood Count 7.8 K/mm3 (4.4-11.0)
[2023-07-14 07:35] LABS: Anion Gap 4 (5-15); BUN 24 mg/dL (7-18); BUN/Creat Ratio 16.8 RATIO (10-20); Calcium,Total 8.5 mg/dL (8.5-10.1); Chloride 103 mmol/L (98-107); Creatinine, Serum 1.43 mg/dL (0.70-1.30); EST Glomerular Filtration Rate 50 mL/min (>60); Est Glom Filt Rate - Afr Amer 61 mL/min (>60); Estimated Creatinine Clearance 38.53 ml/min; Glucose 92 mg/dL (74-106); Potassium 3.5 mmol/L (3.5-5.1); Sodium Level 137 mmol/L (136-145)
[2023-07-14] MEDS: Metoprolol Tartrate 25 MG Tablet 12.5 MG PO ×2 (07:57→21:32)
[2023-07-14] MEDS: Senna/Docusate Sodium 1 Tablet 2 TABLET PO ×2 (07:57→21:33)
[2023-07-14] MEDS: Cholecalciferol (VIT D3) 25 MCG TABLET (1,000 UNITS) PO (07:57)
[2023-07-14] MEDS: Iron Polysaccharide Complex 150 MG CAPSULE PO (07:58)
[2023-07-14] MEDS: Famotidine 20 MG Tablet PO (07:58)
[2023-07-14] MEDS: AMOXICILLIN 875 MG TABLET PO ×2 (07:58→21:32)
[2023-07-14] MEDS: Aspirin 81 MG TAB.CHEW PO (07:58)
[2023-07-14] MEDS: amLODIPine 10 MG Tablet PO (07:58)
[2023-07-14] MEDS: Clopidogrel Bisulfate 75 MG Tablet PO (07:58)
[2023-07-14] MEDS: Ensure Surgery 237 ML LIQUID PO ×2 (08:06→16:20)
--- NOTE | 2023-07-14 09:09 | RAD_ITS ---
STUDY: X-RAY CHEST REASON FOR EXAM: Male, 83 years old. Dyspnea TECHNIQUE: Single AP portable view of the chest. COMPARISON: Comparison is made with prior study June 17, 2023. FINDINGS: Stable elevation of the right hemidiaphragm. Mild increased markings at the lung bases suggests a mild degree of atelectasis and/or scarring. There is blunting of the right costophrenic angle. There is borderline cardiomegaly. Normal mediastinum and cheli. Normal visualized pulmonary arteries. There is atherosclerotic calcification of the aortic arch with tortuosity. There are diffuse degenerative changes of the visualized thoracic spine. There is degenerative osteoarthritis of the bilateral shoulders. There is no demonstrated abnormality of the visualized soft tissue structures of the upper abdomen. RAD/Chest 1 View (Portable) IMPRESSION: Mild increased markings at the lung bases suggests a mild degree of bibasilar atelectasis. There is blunting of the right costophrenic angle. Electronically Signed: Dandre Snell MD at 10:27 EDT ,
--- NOTE | 2023-07-14 10:36 | PCM.PN.ORT ---
Subjective Subjective The patient was sitting in bed side chair upon examination with his present. Patient denies any chest pain, shortness of breath, dizziness, nausea or vomiting, or calf pain. Pain is controlled on medications. No adverse overnight events. Patient states he always has some baseline lightheadedness. He has COPD in which he is currently on 3 L of oxygen daily. He is followed by Dr. Garcia sales relationship manager. Patient is currently requiring 7 L of nasal oxygen today. Medicine is currently on board and chest x-ray has been ordered. Patient is participating with physical therapy while in the hospital. Patient's plan is he would like to try to go home. Appreciate input from therapy upon discharge planning. Objective Data Objective Data Vital Signs: Vital Signs Temp Pulse Resp BP Pulse Ox O2 Del Method O2 Flow Rate 97.9 F 56 L 18 151/92 H 92 Nasal Cannula 7 07/14/23 08:30 07/14/23 08:30 07/14/23 08:30 07/14/23 08:30 07/14/23 08:30 07/14/23 08:30 07/14/23 08:30 FiO2 40 07/14/23 02:12 Oxygen Flow Rate (L/min) 7 Oxygen Delivery Method Nasal Cannula Weight: 70.307 kg Body Mass Index (BMI) 23.6 Intake & Output: Intake and Output for Last 24 Hours 07/12/23 07/13/23 07/14/23 23:59 23:59 23:59 Intake Total 2482 / 2602 1170 / 1170 Output Total 600 / 600 Balance 2482 / 2602 570 / 570 Lab / Micro Data 07/14/23 06:20 07/14/23 06:20 Labs: Laboratory Results - last 24 hr 07/13/23 11:54: POC Glucose 99 07/14/23 06:20: WBC 7.8, RBC 3.28 L, Hgb 10.9 L, Hct 34.1 L, MCV 104.0 H, MCH 33.2 H, MCHC 32.0, RDW Std Deviation 52.8 H, RDW Coeff of Marya 13.7, Plt Count 153, MPV 9.7, Sodium 137, Potassium 3.5, Chloride 103, Carbon Dioxide 30.0, Anion Gap 4 L, BUN 24 H, Creatinine 1.43 H, Estim Creat Clear Calc 38.53, Est GFR (MDRD) Af Amer 61, Est GFR (MDRD) Non-Af 50 L, BUN/Creatinine Ratio 16.8, Glucose 92, Calcium 8.5 Micro: Microbiology 06/23/23 10:17 Swab (Method) Nasal Screen MRSA/MSSA - Final Radiography Diagnostic Testing: Radiology Impression Knee X-Ray 07/13/23 17:09 IMPRESSION: Total knee arthroplasty with postoperative changes as above. Electronically Signed: Jimmy Tamayo DO at 17:28 EDT , Chest X-Ray 07/14/23 09:09 IMPRESSION: Mild increased markings at the lung bases suggests a mild degree of bibasilar atelectasis. There is blunting of the right costophrenic angle. Electronically Signed: Dandre Snell MD at 10:27 EDT , Physical Exam Narrative Most recent blood pressure 151/92, pulse 56. Afebrile. Currently requiring 7 L nasal oxygen SCDs and GIBSON hose are in place bilaterally Patient is able to plantarflex and dorsiflex actively. Sensation is intact to light touch to saphenous, sural, superficial and deep peroneal, and tibial distribution. Main Mepilex dressing clean dry and intact with drainage over the distal pin site dressing Negative Homans bilaterally, negative signs and symptoms of DVT. Const alert, oriented x3 and no apparent distress Assessment & Plan Assessment/Plan (1) Status post total left knee replacement: PLAN: 1. S/P left total knee arthroplasty POD #1 2. Continue Pain Medications: Tylenol and oxycodone. Patient is not able to take nonsteroidal anti-inflammatories due to previous GI bleeds. 3. DVT Prophylaxis: Xarelto 10 mg for 2 weeks postoperatively for DVT prophylaxis. Patient is not able to tolerate aspirin due to previous GI bleeds 4. PT/OT: Weightbearing as tolerated with walker. Appreciate recommendations from physical therapy for discharge planning 5. H & H: 10.9/34.1, asymptomatic. Monitoring patient's hemoglobin and hematocrit with postoperative anemia without any intra operative complications. At this time no treatment is required. Drop in hemoglobin most likely from acute blood loss from surgery versus dilutional component. 6. Continue postoperative medical management per medicine: Patient does have chronic obstructive pulmonary disease in which she does require 3 L of oxygen daily in which she is managed by sales relationship manager Dr. Garcia. Currently requiring 7 L of nasal oxygen postoperatively. Medicine currently working up with chest x-ray. Appreciate recommendations for discharge planning. 7. Encouraged Incentive Spirometry 8. Disposition: Patient currently not appropriate for discharge at this time. Still need recommendations from physical therapy for appropriate discharge planning. I will to make sure patient has safe and appropriate for discharge home. Patient wants to try to go home if possible. He is currently still on 7 L of nasal oxygen with chronic history of COPD with baseline oxygen of 3 L at home. Patient is also on chronic suppressive antibiotics amoxicillin. He will continue these while in the hospital and upon discharge. I have reviewed the [place] Automated Rx Reporting System (OARRS) report for this patient for refill pattern and other prescriber involvement as part of the appropriate surveillance for the provision of acute and chronic controlled medications. The report was requested and reviewed on the date of this entry and was considered in the prescribing process. This dictation was created using voice recognition software. Phonetic and/or grammatical errors may exist. (2) Hypoxia: (3) Chronic obstructive pulmonary disease:
--- NOTE | 2023-07-14 12:39 | PN.HOSP_ITS ---
Reason for Visit Reason for Visit: Diagnoses Chronic obstructive pulmonary disease, unspecified (07/13/23) Hypoxemia (07/13/23) Encounter for other preprocedural examination (07/13/23) Presence of left artificial knee joint (07/13/23) Subjective Subjective Breathing well. Objective Data Objective Data Vital Signs: Vital Signs Temp Pulse Resp BP Pulse Ox O2 Del Method O2 Flow Rate 36.6 C 56 L 18 151/92 H 93 Nasal Cannula 7 07/14/23 08:30 07/14/23 08:30 07/14/23 08:30 07/14/23 08:30 07/14/23 12:16 07/14/23 10:52 07/14/23 12:16 FiO2 40 07/14/23 02:12 Oxygen Flow Rate (L/min) 7 Oxygen Delivery Method Nasal Cannula Weight: 70.307 kg Body Mass Index (BMI) 23.6 Intake & Output: Intake and Output for Last 24 Hours 07/12/23 07/13/23 07/14/23 23:59 23:59 23:59 Intake Total 2482 / 2602 1399.5 / 1399.5 Output Total 600 / 600 Balance 2482 / 2602 799.5 / 799.5 Lab / Micro Data 07/14/23 06:20 07/14/23 06:20 Labs: Laboratory Results - last 24 hr 07/13/23 11:54: POC Glucose 99 07/14/23 06:20: WBC 7.8, RBC 3.28 L, Hgb 10.9 L, Hct 34.1 L, MCV 104.0 H, MCH 33.2 H, MCHC 32.0, RDW Std Deviation 52.8 H, RDW Coeff of Marya 13.7, Plt Count 153, MPV 9.7, Sodium 137, Potassium 3.5, Chloride 103, Carbon Dioxide 30.0, Anion Gap 4 L, BUN 24 H, Creatinine 1.43 H, Estim Creat Clear Calc 38.53, Est GFR (MDRD) Af Amer 61, Est GFR (MDRD) Non-Af 50 L, BUN/Creatinine Ratio 16.8, Glucose 92, Calcium 8.5 Micro: Microbiology 06/23/23 10:17 Swab (Method) Nasal Screen MRSA/MSSA - Final Radiography Diagnostic Testing: Radiology Impression Knee X-Ray 07/13/23 17:09 IMPRESSION: Total knee arthroplasty with postoperative changes as above. Electronically Signed: Jimmy Tamayo at 17:28 EDT , Chest X-Ray 07/14/23 09:09 IMPRESSION: Mild increased markings at the lung bases suggests a mild degree of bibasilar atelectasis. There is blunting of the right costophrenic angle. Electronically Signed: Dandre Snell MD at 10:27 EDT , Physical Exam Const alert and no apparent distress HEENT head/scalp atraumatic and moist oral mucous membranes Resp normal respiratory effort, no retractions, no use of accessory muscles and clear to auscultation bilaterally Cardio regular rate, regular rhythm, S1 normal heart sound and S2 normal heart sound GI normal to inspection, nondistended, normoactive bowel sounds and soft to palp ation Psych affect normal Assessment & Plan Assessment/Plan (1) Chronic respiratory failure: QUALIFIERS: Respiratory failure complication: unspecified whether with hypoxia or hypercapnia Qualified Code(s): J96.10 - Chronic respiratory failure, unspecified whether with hypoxia or hypercapnia PLAN: 2/2 COPD Normally on 3 l/m at home. Has had increased oxygen requirements. CXR showed atx. PEP therapy. Wean oxygen as able. PLAN: Plan s/p knee replacement: mgmt per orthopaedics Chronic conditions: * HTN: continue amlodipine * PAD: continue clopidogrel VTE prophylaxis: ASA BID.
[2023-07-14] MEDS: Acetaminophen 500 MG Tablet 1000 MG PO ×2 (13:28→21:31)
--- NOTE | 2023-07-14 16:00 | CASEMGMT ---
RN?CM?HVAC ENGINEERING TECHNICIAN?CM?to room to meet with patient for initial transition planning/care coordination?assessment.?RN?CM?introduced self and role at [facility].? Pt voices understanding and consents to?assessment?at this time.? Pt resting in bed in no distress at this time.?Son, Hunter, @ bedside and pt agreable to him being present during assessment. Pt is A/O at this time and answers all questions appropriately.?? Care providers, pharmacy, and demographics verified/updated at this time. PCP: Jennyfer Ramirez, REGRADER Specialists: Dr Emmanuel-ortho, Dr Latham-urology, Dr Hoffmann-cardiology, Dr Garcia-pulmonology Preferred Pharmacy: [facility] Insurance: [employer] Prescription Benefit: [employer] Living Will/HPOA: Pt has LW/HPOA. Pt states his , Larissa Shea, is HPOA. LNOK: Larissa Shea, . SonHunter. Dtr, [place] Living Arrangements: Pt states lives with in 2 story home w/no steps to enter. Per son, bedroom is on 2nd floor and there are about 14 steps to go up. Pt states he uses his cane to help navigate on the stairs at his baseline. Pt is independent with ADL's. does home mgnt tasks. Transportation: Pt states drives self and states no transportation concerns. also drives. DME: Pt has a shower chair, cane, walker, pulse ox, and O2 through [employer]. Pt states he wears O2 @ 3 L/M continuously. SNF/HHC: Hx of [facility] TCU. He has not had HHC in the past. Pt states he wishes to return home and wants to do OP therapy @ [facility]. He is not aware of apppt being set up yet. ARASELI PLASCENCIA checked pt's chart and noted appt is scheduled for 07/18 @ 2:30 PM. Pt and son made aware. Son voices concern w/pt discharging home, as he has concerns w/pt being able to navigate the stairs and d/t pt having hx of requiring [facility] TCU about a week after discharging home from his last knee surgery. He also states pt's only weighs about 95 pounds and she is not able to help him much. Pt states he feels he will be safe to return home and does not think he will need to go somewhere again and wishes to do OP therapy. Pt and son made aware therapy will work w/him again tomorrow and they will make recommendations and can see how pt progresses. They voice understanding. Pt and son state no further concerns/needs. CM to follow. Advised pt to ask for CM if any further questions/concerns/needs arise, voices understanding. Pt Plan: Pt wishes to discharge home w/OP therapy @ [facility]. Plan: TBD by progress w/therapy tomorrow. Bao MESSINAN RN CM
--- NOTE | 2023-07-14 16:03 | CASEMGMT ---
Discharge Planning A list of home healthcare providers including quality and resource use data and consistent with the patient?s preferred geographic region, medical needs, and insurance network was created in [employer] Guide. This list was provided to the RN TEMO. Toña Selby, Discharge Planning Asst.
[2023-07-14] MEDS: Rivaroxaban 10 MG Tablet PO (16:20)
[2023-07-14] MEDS: Pravastatin 80 MG Tablet PO (21:33)
[2023-07-14] MEDS: Morphine 4 MG/ML Syringe IV (23:49)
[2023-07-15] VITALS (15 sets, daily range): BP systolic 142–158; BP diastolic 63–95; PULSE 75–93; RESP 16–18; TEMP 36.8–38.3; O2SAT 82–95
--- NOTE | 2023-07-15 00:59 | NURSING ---
Pt pulse ox dropping to 86% with 9lnc on while pt sleeping. vent mask applied and will monitor
--- NOTE | 2023-07-15 03:19 | NURSING ---
Pt has awake most of the night taking 02 off and pt will desat into 70s. Pt instructed to keep it on can be argumentative at times
[2023-07-15] MEDS: oxyCODONE 5 MG Tablet PO ×4 (03:23→22:29)
[2023-07-15] MEDS: Acetaminophen 500 MG Tablet 1000 MG PO ×3 (05:48→22:32)
--- NOTE | 2023-07-15 06:49 | PCM.PN.ORT ---
Subjective Subjective The patient was sitting in bed upon examination. Patient denies any chest pain, dizziness, lightheadedness, nausea or vomiting, or calf pain. Patient states he overdid it yesterday with physical therapy and his pain is significantly increased today. He is concerned about doing therapy due to the pain. He also required 8 L of O2 with therapy. Case management is currently involved with possible home health. I am concerned with patient's discharge home with his current condition. He is requiring a significant amount of increased oxygen and his pain has increased. I am concerned he will not do appropriate therapy at home. Objective Data Objective Data Vital Signs: Vital Signs Temp Pulse Resp BP Pulse Ox O2 Del Method O2 Flow Rate 98.2 F 80 18 142/70 H 95 Venturi Mask 6 07/15/23 03:07/15/23 03:07/15/23 03:07/15/23 03:07/15/23 03:07/15/23 03:15 07/14/23 21:30 FiO2 40 07/14/23 02:12 Oxygen Flow Rate (L/min) 6 Oxygen Delivery Method Venturi Mask Weight: 70.307 kg Body Mass Index (BMI) 23.6 Intake & Output: Intake and Output for Last 24 Hours 07/13/23 07/14/23 07/15/23 23:59 23:59 23:59 Intake Total 2482 / 2602 1599.5 / 1599.5 Output Total 600 / 600 Balance 2482 / 2602 999.5 / 999.5 Lab / Micro Data 07/14/23 06:20 07/14/23 06:20 Labs: Laboratory Results - last 24 hr 07/14/23 06:20: WBC 7.8, RBC 3.28 L, Hgb 10.9 L, Hct 34.1 L, MCV 104.0 H, MCH 33.2 H, MCHC 32.0, RDW Std Deviation 52.8 H, RDW Coeff of Marya 13.7, Plt Count 153, MPV 9.7, Sodium 137, Potassium 3.5, Chloride 103, Carbon Dioxide 30.0, Anion Gap 4 L, BUN 24 H, Creatinine 1.43 H, Estim Creat Clear Calc 38.53, Est GFR (MDRD) Af Amer 61, Est GFR (MDRD) Non-Af 50 L, BUN/Creatinine Ratio 16.8, Glucose 92, Calcium 8.5 Micro: Microbiology 06/23/23 10:17 Swab (Method) Nasal Screen MRSA/MSSA - Final Radiography Diagnostic Testing: Radiology Impression Chest X-Ray 07/14/23 09:09 IMPRESSION: Mild increased markings at the lung bases suggests a mild degree of bibasilar atelectasis. There is blunting of the right costophrenic angle. Electronically Signed: Dandre Snell MD at 10:27 EDT , Physical Exam Narrative Vital signs stable and afebrile. SCDs and GIBSON hose are in place bilaterally Patient is able to plantarflex and dorsiflex actively. Sensation is intact to light touch to saphenous, sural, superficial and deep peroneal, and tibial distribution. Drainage over the middle one third has been stable with the Mepilex dressing. There is also stable drainage over the distal pin site Negative Homans bilaterally, negative signs and symptoms of DVT. Const alert, oriented x3 and no apparent distress Assessment & Plan Assessment/Plan (1) Status post total left knee replacement: PLAN: 1. S/P left total knee arthroplasty POD #2 2. Continue Pain Medications: Tylenol and oxycodone. Patient is not able to take nonsteroidal anti-inflammatories due to previous GI bleeds. 3. DVT Prophylaxis: Xarelto 10 mg for 2 weeks postoperatively for DVT prophylaxis. Patient is not able to tolerate aspirin due to previous GI bleeds 4. PT/OT: Weightbearing as tolerated with walker. Appreciate recommendations from physical therapy for discharge planning 5. H & H: Waiting on lab work this morning, asymptomatic. Monitoring patient's hemoglobin and hematocrit with postoperative anemia without any intra operative complications. At this time no treatment is required. Drop in hemoglobin most likely from acute blood loss from surgery versus dilutional component. 6. Continue postoperative medical management per medicine: Patient does have chronic obstructive pulmonary disease in which she does require 3 L of oxygen daily in which she is managed by casing worker Dr. Garcia. Currently requiring 8 L of nasal oxygen postoperatively with physical therapy. Chest x-ray revealed atelectasis per medicine's note. Appreciate recommendations for discharge planning. 7. Encouraged Incentive Spirometry 8. Disposition: I am concerned at this time for discharge home with the patient due to his current high need for oxygen and his pain levels at this time. Patient states he overdid it yesterday with physical therapy. Case management is currently on board in which they document possible home health. I do feel patient would benefit from alf facility so that he could get appropriate management of his oxygen and physical therapy. I will discuss case with case management this morning. Case was also discussed with Ramirez Emmanuel. I have reviewed the [place] Automated Rx Reporting System (OARRS) report for this patient for refill pattern and other prescriber involvement as part of the appropriate surveillance for the provision of acute and chronic controlled medications. The report was requested and reviewed on the date of this entry and was considered in the prescribing process. This dictation was created using voice recognition software. Phonetic and/or grammatical errors may exist. (2) Hypoxia: (3) Chronic obstructive pulmonary disease:
[2023-07-15] MEDS: Ipratropium/Albuterol Sulfate 3 ML AMPUL.NEB INHALATION ×3 (07:08→19:40)
--- NOTE | 2023-07-15 07:17 | PN.HOSP_ITS ---
Reason for Visit Reason for Visit: Diagnoses Chronic obstructive pulmonary disease, unspecified (07/13/23) Chronic respiratory failure, unspecified whether with hypoxia or hypercapnia (07/13/23) Hypoxemia (07/13/23) Encounter for other preprocedural examination (07/13/23) Presence of left artificial knee joint (07/13/23) Subjective Subjective Breathing well. Denies shortness of breath. Objective Data Objective Data Vital Signs: Vital Signs Temp Pulse Resp BP Pulse Ox O2 Del Method O2 Flow Rate 36.8 C 80 18 142/70 H 95 Venturi Mask 6 07/15/23 03:10 07/15/23 03:10 07/15/23 03:10 07/15/23 03:10 07/15/23 03:10 07/15/23 03:15 07/14/23 21:30 FiO2 40 07/14/23 02:12 Oxygen Flow Rate (L/min) 6 Oxygen Delivery Method Venturi Mask Weight: 70.307 kg Body Mass Index (BMI) 23.6 Intake & Output: Intake and Output for Last 24 Hours 07/13/23 07/14/23 07/15/23 23:59 23:59 23:59 Intake Total 2482 / 2602 1599.5 / 1599.5 200 / 200 Output Total 600 / 600 875 / 875 Balance 2482 / 2602 999.5 / 999.5 -675 / -675 Lab / Micro Data 07/15/23 06:10 07/14/23 06:20 Labs: Laboratory Results - last 24 hr 07/14/23 06:20: Sodium 137, Potassium 3.5, Chloride 103, Carbon Dioxide 30.0, Anion Gap 4 L, BUN 24 H, Creatinine 1.43 H, Estim Creat Clear Calc 38.53, Est GF R (MDRD) Af Amer 61, Est GFR (MDRD) Non-Af 50 L, BUN/Creatinine Ratio 16.8, G lucose 92, Calcium 8.5 Micro: Microbiology 06/23/23 10:17 Swab (Method) Nasal Screen MRSA/MSSA - Final Radiography Diagnostic Testing: Radiology Impression Chest X-Ray 07/14/23 09:09 IMPRESSION: Mild increased markings at the lung bases suggests a mild degree of bibasilar atelectasis. There is blunting of the right costophrenic angle. Electronically Signed: Dandre Snell MD at 10:27 EDT , Physical Exam Const alert and no apparent distress HEENT head/scalp atraumatic and moist oral mucous membranes Resp normal respiratory effort and no retractions Resp Narrative: diminished. clear. Cardio regular rate, regular rhythm, S1 normal heart sound and S2 normal heart sound GI normal to inspection, nondistended, normoactive bowel sounds and soft to palpation Psych affect normal Assessment & Plan Assessment/Plan (1) Chronic respiratory failure: QUALIFIERS: Respiratory failure complication: unspecified whether with hypoxia or hypercapnia Qualified Code(s): J96.10 - Chronic respiratory failure, unspecified whether with hypoxia or hypercapnia PLAN: 2/2 COPD Normally on 3 l/m at home. Has had increased oxygen requirements. CXR showed atx. PEP therapy. Wean oxygen as able. Requires 8liters with activity and 6liters at rest. In no duress. Unclear if required more oxygen previously. Medically stable for discharge. PLAN: Plan s/p knee replacement: mgmt per orthopaedics Chronic conditions: * HTN: continue amlodipine * PAD: continue clopidogrel VTE prophylaxis: ASA BID. Charges/Coding Visit Charges Inpatient E&M: 06709 Subs Hosp L2
[2023-07-15 07:31] LABS: Hematocrit 34.8 % (40-54); Hemoglobin 11.2 g/dL (13.0-16.5); Mean Corp Hgb Conc 32.2 g/dL (32-36); Mean Corpuscular Hgb 33.3 pg (27.0-32.0); Mean Corpuscular Volume 103.6 fL (80-94); Mean Platelet Vol. 10.3 fl (6.2-12.0); Platelet Count 168 K/mm3 (150-450); RBC Distribution Width CV 13.8 % (11.6-14.6); RBC Distribution Width SD 53.1 fl (35.1-43.9); Red Blood Count 3.36 M/mm3 (4.6-6.2)
[2023-07-15] MEDS: Iron Polysaccharide Complex 150 MG CAPSULE PO (10:03)
[2023-07-15] MEDS: Metoprolol Tartrate 25 MG Tablet 12.5 MG PO ×2 (10:03→22:30)
[2023-07-15] MEDS: AMOXICILLIN 875 MG TABLET PO ×2 (10:03→22:33)
[2023-07-15] MEDS: amLODIPine 10 MG Tablet PO (10:04)
[2023-07-15] MEDS: Clopidogrel Bisulfate 75 MG Tablet PO (10:04)
--- NOTE | 2023-07-15 11:10 | CASEMGMT ---
Addendum entered by Bettye Lazo 07/15/23 15:38: ARASELI PLASCENCIA called into pt room, pt states she would like pt to go to TCU. Pt states he does not. Pt with other family member in room. They are aware that will see pt and we can go from there. ARASELI PLASCENCIA to follow. Addendum entered by Bettye Lazo 07/15/23 14:27: Beckie states able to accept pt for SOC on Tuesday. Green sheet on chart. Addendum entered by Bettye Lazo 07/15/23 14:14: Spoke with on pt plan. He will be up to see pt today. TC to Beckie at [facility], referral made pending how pt looks when comes in today. She will review referral and make aware of decision. Plan for pt to dc tomorrow. Addendum entered by Bettye Lazo 07/15/23 12:32: Pt asked to speak with ARASELI PLASCENCIA, she states they have decided on HHC with choices being 1. [facility] 2. [facility] 3. [facility]. They would like to wait until the ortho has come in to make this referral. Discussed having SN, PT and OT. They are agreeable to this. SN d/t the increased oxygen needs. Original Note: RN TEMO into pt room, pt at bedside. Pt states he would like to go home with outpt therapy. brought up [facility] TCU. Discussed options for therapy as far as outpt, HHC and SNF. Pt concerned with steps at home. Pt did do 12 steps this morning with therapy. also concerned with oxygen requirements. Pt and to discuss dc plan. Provided pt with a HHC list provided by dc media assistant. ARASELI PLASCENCIA to check back on decision.
[2023-07-15] MEDS: Famotidine 20 MG Tablet PO (12:16)
[2023-07-15] MEDS: Ensure Surgery 237 ML LIQUID PO (12:17)
[2023-07-15] MEDS: Rivaroxaban 10 MG Tablet PO (16:07)
--- NOTE | 2023-07-15 17:10 | CASEMGMT ---
Social Work Spoke with Dr. Emmanuel who reports patient is now agreeable to SNF level of care, and prefers [facility] TCU. Met with patient and to confirm. Patient voices now in agreement. confirms had been given a list of SNF options, but would like [facility] T[facility]. Call to Mirta in admission at TCU of referral. Patient will need precert as well, which cannot be done until Tuesday. Dr. Emmanuel made aware of timeframe for insurance contact. Plan: Pending TCU. -DOUG Lim
[2023-07-15] MEDS: Senna/Docusate Sodium 1 Tablet 2 TABLET PO (22:31)
[2023-07-15] MEDS: Pravastatin 80 MG Tablet PO (22:32)
--- NOTE | 2023-07-15 23:05 | CPS ---
Pt refused BiPAP for tonight
[2023-07-16] VITALS (17 sets, daily range): BP systolic 154–191; BP diastolic 61–106; PULSE 72–102; RESP 16–20; TEMP 37–38.1; O2SAT 93–99
[2023-07-16] MEDS: oxyCODONE 5 MG Tablet PO ×3 (02:57→21:12)
--- NOTE | 2023-07-16 03:40 | PCM.PN.BLA ---
Progress Note With fever and history of infection with surgery amoxicillin has been changed to Augmentin.
[2023-07-16] MEDS: hydrALAZINE 20 MG/ML Vial 5 MG IV ×2 (03:52→14:00)
[2023-07-16] MEDS: Amox/Clavulanate 875 MG Tablet PO ×2 (05:35→17:20)
[2023-07-16] MEDS: Acetaminophen 500 MG Tablet 1000 MG PO ×3 (05:35→21:11)
[2023-07-16] MEDS: Ipratropium/Albuterol Sulfate 3 ML AMPUL.NEB INHALATION ×3 (07:14→18:47)
--- NOTE | 2023-07-16 07:15 | PN.HOSP_ITS ---
Reason for Visit Reason for Visit: Diagnoses Chronic obstructive pulmonary disease, unspecified (07/13/23) Chronic respiratory failure, unspecified whether with hypoxia or hypercapnia (07/13/23) Hypoxemia (07/13/23) Encounter for other preprocedural examination (07/13/23) Presence of left artificial knee joint (07/13/23) Subjective Subjective Feels well. Denies any shortness of breath. Objective Data Objective Data Vital Signs: Vital Signs Temp Pulse Resp BP Pulse Ox O2 Del Method O2 Flow Rate 37.0 C 80 18 167/66 H 96 Venturi Mask 6 07/16/23 05:40 07/16/23 05:40 07/16/23 02:52 07/16/23 05:40 07/16/23 05:40 07/16/23 05:40 07/15/23 20:14 FiO2 40 07/14/23 02:12 Oxygen Flow Rate (L/min) [ 0 AMBULATING on Room Air] Oxygen Flow Rate (L/min) [ 7 AMBULATING with Oxygen #3] Oxygen Flow Rate (L/min) [ 4 AMBULATING with Oxygen #2] Oxygen Flow Rate (L/min) [ 3 AMBULATING with Oxygen #1] Oxygen Flow Rate (L/min) [At 6 REST with Oxygen] Oxygen Flow Rate (L/min) [At 0 REST on Room Air] Oxygen Flow Rate (L/min) 6 Oxygen Delivery Method Venturi Mask Weight: 70.307 kg Body Mass Index (BMI) 23.6 Intake & Output: Intake and Output for Last 24 Hours 07/14/23 07/15/23 07/16/23 23:59 23:59 23:59 Intake Total 1599.5 / 1599.5 400 / 400 450 / 450 Output Total 600 / 600 875 / 875 400 / 400 Balance 999.5 / 999.5 -475 / -475 50 / 50 Lab / Micro Data 07/15/23 06:10 07/14/23 06:20 Labs: Laboratory Results - last 24 hr 07/15/23 06:10: WBC 9.0, RBC 3.36 L, Hgb 11.2 L, Hct 34.8 L, MCV 103.6 H, MCH 33.3 H, MCHC 32.2, RDW Std Deviation 53.1 H, RDW Coeff of Marya 13.8, Plt Count 168, MPV 10.3 Micro: Microbiology 06/23/23 10:17 Swab (Method) Nasal Screen MRSA/MSSA - Final Physical Exam Const alert and no apparent distress Resp normal respiratory effort, no retractions and no use of accessory muscles Cardio regular rate, regular rhythm, S1 normal heart sound and S2 normal heart sound GI normal to inspection, nondistended, normoactive bowel sounds, soft to palpation and non-tender Assessment & Plan Assessment/Plan (1) Chronic respiratory failure: QUALIFIERS: Respiratory failure complication: unspecified whether with hypoxia or hypercapnia Qualified Code(s): J96.10 - Chronic respiratory failure, unspecified whether with hypoxia or hypercapnia PLAN: 2/2 COPD Normally on 3 l/m at home. Has had increased oxygen requirements. CXR showed atx. PEP therapy. Wean oxygen as able. Requires 8 liters with activity and 6liters at rest. In no duress. Unclear if required more oxygen previously. Placed on Ventimask overnight. Patient has been told to use CPAP in the past but cannot tolerate it. Patient stable on 3 L nasal cannula. PLAN: Plan Fever overnight. We will check a COVID-19. s/p knee replacement: mgmt per orthopaedics Chronic conditions: * HTN: continue amlodipine. Blood pressure has been slowly riding high but would continue to monitor for now. * PAD: continue clopidogrel VTE prophylaxis: ASA BID. Charges/Coding Visit Charges Inpatient E&M: 68960 Subs Hosp L2
[2023-07-16] MEDS: Metoprolol Tartrate 25 MG Tablet 12.5 MG PO ×2 (08:33→21:11)
[2023-07-16] MEDS: Famotidine 20 MG Tablet PO (08:33)
[2023-07-16] MEDS: Clopidogrel Bisulfate 75 MG Tablet PO (08:33)
[2023-07-16] MEDS: Cholecalciferol (VIT D3) 25 MCG TABLET (1,000 UNITS) PO (08:33)
[2023-07-16] MEDS: amLODIPine 10 MG Tablet PO (08:33)
[2023-07-16] MEDS: Iron Polysaccharide Complex 150 MG CAPSULE PO (08:34)
[2023-07-16] MEDS: Ensure Surgery 237 ML LIQUID PO ×2 (08:37→13:54)
--- NOTE | 2023-07-16 11:40 | PN.ORTHO_ITS ---
Subjective Subjective Patient doing well. I did stop in last evening and discuss plan through the weekend with the patient and his . Patient's is still concerned with being able to handle him at home. He did have issues with going home directly after surgery from his last surgery. His is also frail. He continues to improve from medical standpoint. He was on 8 L of oxygen last evening. Over the night he is now down to 3 L of oxygen which he is on normally at home. He continues to return to his baseline. He is pain remains under better control. He did have some fevers overnight likely related to atelectasis and poor pulmonary function. He is currently afebrile Objective Data Objective Data Vital Signs: Vital Signs Temp Pulse Resp BP Pulse Ox O2 Del Method O2 Flow Rate 99.2 F H 84 16 181/76 H 99 Nasal Cannula 3 07/16/23 08:29 07/16/23 08:33 07/16/23 08:29 07/16/23 08:33 07/16/23 08:29 07/16/23 08:29 07/16/23 08:29 FiO2 40 07/14/23 02:12 Oxygen Flow Rate (L/min) [ 0 AMBULATING on Room Air] Oxygen Flow Rate (L/min) [ 7 AMBULATING with Oxygen #3] Oxygen Flow Rate (L/min) [ 4 AMBULATING with Oxygen #2] Oxygen Flow Rate (L/min) [ 3 AMBULATING with Oxygen #1] Oxygen Flow Rate (L/min) [At 6 REST with Oxygen] Oxygen Flow Rate (L/min) [At 0 REST on Room Air] Oxygen Flow Rate (L/min) 3 Oxygen Delivery Method Nasal Cannula Weight: 155 lb Body Mass Index (BMI) 23.6 Intake & Output: Intake and Output for Last 24 Hours 07/14/23 07/15/23 07/16/23 23:59 23:59 23:59 Intake Total 1599.5 / 1599.5 400 / 400 450 / 450 Output Total 600 / 600 875 / 875 400 / 400 Balance 999.5 / 999.5 -475 / -475 50 / 50 Lab / Micro Data 07/15/23 06:10 07/14/23 06:20 Micro: Microbiology 07/16/23 08:20 Nasal Secretion SARS-CoV-2 Antigen (Rapid) - Final 08/24/23 10:17 Swab (Method) Nasal Screen MRSA/MSSA - Final Physical Exam Narrative Vital signs stable and afebrile. SCDs and GIBSON hose are in place bilaterally Patient is able to plantarflex and dorsiflex actively. Sensation is intact to light touch to saphenous, sural, superficial and deep peroneal, and tibial distribution. Drainage over the middle one third has been stable with the Mepilex dressing. There is also stable drainage over the distal pin site Negative Homans bilaterally, negative signs and symptoms of DVT. Const alert, oriented x3 and no apparent distress Resp Resp Narrative: Patient has nonlabored breathing with 3 L of oxygen. Assessment & Plan Assessment/Plan (1) Status post total left knee replacement: PLAN: 1. S/P left total knee arthroplasty POD #3 2. Continue Pain Medications: Tylenol and oxycodone. Patient is not able to take nonsteroidal anti-inflammatories due to previous GI bleeds. 3. DVT Prophylaxis: Xarelto 10 mg for 2 weeks postoperatively for DVT prophylaxis. Patient is not able to tolerate aspirin due to previous GI bleeds 4. PT/OT: Weightbearing as tolerated with walker. Appreciate recommendations from physical therapy for discharge planning 5. H & H: Postoperative lab work has been stable. No further lab work is required unless events occur. 6. Continue postoperative medical management per medicine: Patient does have chronic obstructive pulmonary disease in which he does require 3 L of oxygen daily in which she is managed by women's apparel salesperson Dr. Garcia. Currently patient is requiring 3 L of oxygen is back to his baseline 7. Encouraged Incentive Spirometry, postoperative elevated temperatures likely related to atelectasis 8. Disposition: Patient's oxygen requirements have returned to baseline. If he remains here he may be a more appropriate candidate to return home. He is also improving daily with physical therapy. Plan at this time is to continue with the patient in the hospital over the weekend and assess for [facility] or detention on Tuesday. Patient's family has concerns about him returning home based on his failure to thrive after his last visit. Additionally however, patient does wish to proceed with discharge home. We will determine appropriateness of discharge and insurance qualifications on Tuesday. Plan will be for eventual discharge Tuesday once we can verify appropriate discharge destination. In the meantime patient should continue with physical therapy in house. I have reviewed the [place] Automated Rx Reporting System (OARRS) report for this patient for refill pattern and other prescriber involvement as part of the appropriate surveillance for the provision of acute and chronic controlled medications. The report was requested and reviewed on the date of this entry and was considered in the prescribing process. This dictation was created using voice recognition software. Phonetic and/or grammatical errors may exist. (2) Hypoxia: PLAN: Improving, per medical service (3) Chronic obstructive pulmonary disease: PLAN: Improving, per medical service
[2023-07-16] MEDS: Rivaroxaban 10 MG Tablet PO (17:21)
[2023-07-16] MEDS: Pravastatin 80 MG Tablet PO (21:11)
[2023-07-16] MEDS: Senna/Docusate Sodium 1 Tablet 2 TABLET PO (21:11)
[2023-07-17] VITALS (18 sets, daily range): BP systolic 124–176; BP diastolic 63–82; PULSE 70–104; RESP 16–18; TEMP 37.3–38; O2SAT 90–98
[2023-07-17] MEDS: hydrALAZINE 20 MG/ML Vial 5 MG IV ×2 (02:58→06:59)
[2023-07-17] MEDS: Acetaminophen 500 MG Tablet 1000 MG PO ×3 (06:20→21:31)
[2023-07-17] MEDS: oxyCODONE 5 MG Tablet PO ×2 (06:20→21:32)
--- NOTE | 2023-07-17 07:13 | PN.HOSP_ITS ---
Reason for Visit Reason for Visit: Diagnoses Chronic obstructive pulmonary disease, unspecified (07/13/23) Chronic respiratory failure, unspecified whether with hypoxia or hypercapnia (07/13/23) Hypoxemia (07/13/23) Encounter for other preprocedural examination (07/13/23) Presence of left artificial knee joint (07/13/23) Subjective Subjective Feels well. Breathing well. Objective Data Objective Data Vital Signs: Vital Signs Temp Pulse Resp BP Pulse Ox O2 Del Method O2 Flow Rate 37.4 C H 71 18 170/71 H 98 Venturi Mask 3 07/17/23 02:55 07/17/23 06:59 07/17/23 02:55 07/17/23 06:59 07/17/23 02:55 07/17/23 02:55 07/16/23 20:30 FiO2 40 07/14/23 02:12 Oxygen Flow Rate (L/min) [ 0 AMBULATING on Room Air] Oxygen Flow Rate (L/min) [ 7 AMBULATING with Oxygen #3] Oxygen Flow Rate (L/min) [ 4 AMBULATING with Oxygen #2] Oxygen Flow Rate (L/min) [ 3 AMBULATING with Oxygen #1] Oxygen Flow Rate (L/min) [At 6 REST with Oxygen] Oxygen Flow Rate (L/min) [At 0 REST on Room Air] Oxygen Flow Rate (L/min) 3 Oxygen Delivery Method Venturi Mask Weight: 70.307 kg Body Mass Index (BMI) 23.6 Intake & Output: Intake and Output for Last 24 Hours 07/15/23 07/16/23 07/17/23 23:59 23:59 23:59 Intake Total 400 / 400 700 / 700 100 / 100 Output Total 875 / 875 400 / 400 Balance -475 / -475 300 / 300 100 / 100 Lab / Micro Data 07/15/23 06:10 07/14/23 06:20 Micro: Microbiology 07/16/23 08:20 Nasal Secretion SARS-CoV-2 Antigen (Rapid) - Final 06/23/23 10:17 Swab (Method) Nasal Screen MRSA/MSSA - Final Physical Exam Const alert and no apparent distress Constitutional Narrative: speaking fluidly w/o conversational dyspnea. HEENT head/scalp atraumatic Psych affect normal Assessment & Plan Assessment/Plan (1) Chronic respiratory failure: QUALIFIERS: Respiratory failure complication: unspecified whether with hypoxia or hypercapnia Qualified Code(s): J96.10 - Chronic respiratory failure, unspecified whether with hypoxia or hypercapnia PLAN: 2/2 COPD Normally on 3 l/m at home. Has had increased oxygen requirements. CXR showed atx. PEP therapy. Wean oxygen as able. Requires 8 liters with activity and 6liters at rest. In no duress. Unclear if required more oxygen previously. Placed on Ventimask overnight. Patient has been told to use CPAP in the past but cannot tolerate it. Patient stable on 3 L nasal cannula. (2) Hypertension: QUALIFIERS: Hypertension type: primary hypertension Qualified Code(s): I10 - Essential (primary) hypertension PLAN: Continue 10mg of amlodipine and metoprolol Given COPD, would hold on increasing metoprolol BP better after resumption of HCTZ PLAN: Plan Fever overnight. We will check a COVID-19. s/p knee replacement: mgmt per orthopaedics Chronic conditions: * PAD: continue clopidogrel VTE prophylaxis: ASA BID. Medically stable for discharge. The Hospitalist Service will sign off. Please call with questions or reconsult if new events arise. Charges/Coding Visit Charges Inpatient E&M: 07180 Subs Hosp L1
[2023-07-17] MEDS: Ipratropium/Albuterol Sulfate 3 ML AMPUL.NEB INHALATION ×3 (07:19→19:00)
[2023-07-17] MEDS: Amox/Clavulanate 875 MG Tablet PO ×2 (08:39→17:29)
[2023-07-17] MEDS: Iron Polysaccharide Complex 150 MG CAPSULE PO (08:39)
[2023-07-17] MEDS: Senna/Docusate Sodium 1 Tablet 2 TABLET PO ×2 (08:40→21:31)
[2023-07-17] MEDS: Famotidine 20 MG Tablet PO (08:41)
[2023-07-17] MEDS: amLODIPine 10 MG Tablet PO (08:42)
[2023-07-17] MEDS: Metoprolol Tartrate 25 MG Tablet 12.5 MG PO ×2 (08:43→21:31)
[2023-07-17] MEDS: Clopidogrel Bisulfate 75 MG Tablet PO (08:43)
[2023-07-17] MEDS: hydroCHLOROthiazide 25 MG Tablet PO (08:48)
--- NOTE | 2023-07-17 12:24 | PCM.PN.ORT ---
Subjective Subjective Patient is doing well overall. No acute events overnight. Participating in therapy. Notes pain is improving. Continues to oxygenate at 3 L of oxygen on nasal cannula which is his home baseline. Objective Data Objective Data Vital Signs: Vital Signs Temp Pulse Resp BP Pulse Ox O2 Del Method O2 Flow Rate 99.1 F 88 18 131/63 H 94 Nasal Cannula 3 07/17/23 08:33 07/17/23 08:43 07/17/23 08:33 07/17/23 08:43 07/17/23 08:33 07/17/23 08:33 07/17/23 08:33 FiO2 40 07/14/23 02:12 Oxygen Flow Rate (L/min) [ 0 AMBULATING on Room Air] Oxygen Flow Rate (L/min) [ 7 AMBULATING with Oxygen #3] Oxygen Flow Rate (L/min) [ 4 AMBULATING with Oxygen #2] Oxygen Flow Rate (L/min) [ 3 AMBULATING with Oxygen #1] Oxygen Flow Rate (L/min) [At 6 REST with Oxygen] Oxygen Flow Rate (L/min) [At 0 REST on Room Air] Oxygen Flow Rate (L/min) 3 Oxygen Delivery Method Nasal Cannula Weight: 155 lb Body Mass Index (BMI) 23.6 Intake & Output: Intake and Output for Last 24 Hours 07/15/23 07/16/23 07/17/23 23:59 23:59 23:59 Intake Total 400 / 400 700 / 700 100 / 100 Output Total 875 / 875 400 / 400 Balance -475 / -475 300 / 300 100 / 100 Lab / Micro Data Attestation: I reviewed the patient's lab results. 07/15/23 06:10 07/14/23 06:20 Micro: Microbiology 07/16/23 08:20 Nasal Secretion SARS-CoV-2 Antigen (Rapid) - Final 06/23/23 10:17 Swab (Method) Nasal Screen MRSA/MSSA - Final Physical Exam Const alert and oriented x3 Resp normal respiratory effort Resp Narrative: On 3 L of oxygen Extremity Extremity Narrative: Left lower extremity: Dressing is clean dry and intact Sensations intact to light touch saphenous, sural, superficial peroneal, deep peroneal, and tibial distributions Motors intact EHL, DF, PF calves are soft and supple Minimal ecchymosis. No blistering. Assessment & Plan Assessment/Plan (1) Status post total left knee replacement: PLAN: 1. S/P left total knee arthroplasty POD #4 2. Continue Pain Medications: Tylenol and oxycodone. Patient is not able to take nonsteroidal anti-inflammatories due to previous GI bleeds. 3. DVT Prophylaxis: Xarelto 10 mg for 2 weeks postoperatively for DVT prophylaxis. Patient is not able to tolerate aspirin due to previous GI bleeds 4. PT/OT: Weightbearing as tolerated with walker. Appreciate recommendations from physical therapy for discharge planning 5. H & H: Postoperative lab work has been stable. No further lab work is required unless events occur. 6. Continue postoperative medical management per medicine: Patient does have chronic obstructive pulmonary disease in which he does require 3 L of oxygen daily in which she is managed by casket inspector Dr. Garcia. Currently patient is requiring 3 L of oxygen is back to his baseline 7. Encouraged Incentive Spirometry, postoperative elevated temperatures likely related to atelectasis 8. Disposition: Patient's oxygen requirements have returned to baseline. He is also improving daily with physical therapy and pain control. Plan at this time is to continue with the patient in the hospital over the weekend and assess for discharge to transitional care or retirement on Tuesday. Patient's family has concerns about him returning home based on his failure to thrive after his last visit. we will continue with physical therapy inpatient as we await insurance precertification we will determine appropriateness of discharge and insurance qualifications on Tuesday. Plan will be for eventual discharge Tuesday once we can verify appropriate discharge destination. This dictation was created using voice recognition software. Phonetic and/or grammatical errors may exist. (2) Hypoxia: PLAN: Improving, per medical service (3) Chronic obstructive pulmonary disease: PLAN: Improving, per medical service
--- NOTE | 2023-07-17 15:17 | NURSING ---
This RN is aware of Vitals Taken by Son Student Nurse. Will recheck Vitals in 1hr. Pt's temp is 100.4 but pt room is very warm.
[2023-07-17] MEDS: Rivaroxaban 10 MG Tablet PO (17:53)
--- NOTE | 2023-07-17 18:52 | NURSING ---
This Nurse agrees with Handoff communication by Son, Firer Helper.
[2023-07-17] MEDS: Pravastatin 80 MG Tablet PO (21:31)
[2023-07-17] MEDS: DULoxetine Hcl 30 MG Capsule PO (21:31)
[2023-07-18] VITALS (15 sets, daily range): BP systolic 138–178; BP diastolic 70–85; PULSE 70–95; RESP 16–20; TEMP 36.9–37.2; O2SAT 2–96
[2023-07-18] MEDS: Acetaminophen 500 MG Tablet 1000 MG PO ×3 (05:42→21:28)
[2023-07-18] MEDS: oxyCODONE 5 MG Tablet PO ×3 (05:42→21:31)
[2023-07-18] MEDS: Ipratropium/Albuterol Sulfate 3 ML AMPUL.NEB INHALATION ×3 (06:38→19:24)
--- NOTE | 2023-07-18 07:33 | PN.HOSP_ITS ---
Reason for Visit Reason for Visit: Diagnoses Essential (primary) hypertension (07/13/23) Chronic obstructive pulmonary disease, unspecified (07/13/23) Chronic respiratory failure, unspecified whether with hypoxia or hypercapnia (07/13/23) Hypoxemia (07/13/23) Encounter for other preprocedural examination (07/13/23) Presence of left artificial knee joint (07/13/23) Subjective Subjective Patient is an 83-year-old gentleman who underwent left total knee replacement subsequently developed hypoxia necessitating the hospitalist service being consu lted Objective Data Objective Data Vital Signs: Vital Signs Temp Pulse Resp BP Pulse Ox O2 Del Method O2 Flow Rate 99 F 70 16 138/75 H 94 Nasal Cannula 3 07/18/23 02:25 07/18/23 06:38 07/18/23 06:38 07/18/23 05:45 07/18/23 06:38 07/18/23 06:38 07/18/23 06:38 FiO2 40 07/14/23 02:12 Oxygen Flow Rate (L/min) [ 0 AMBULATING on Room Air] Oxygen Flow Rate (L/min) [ 7 AMBULATING with Oxygen #3] Oxygen Flow Rate (L/min) [ 4 AMBULATING with Oxygen #2] Oxygen Flow Rate (L/min) [ 3 AMBULATING with Oxygen #1] Oxygen Flow Rate (L/min) [At 6 REST with Oxygen] Oxygen Flow Rate (L/min) [At 0 REST on Room Air] Oxygen Flow Rate (L/min) 3 Oxygen Delivery Method Nasal Cannula Weight: 70.307 kg Body Mass Index (BMI) 23.6 Intake & Output: Intake and Output for Last 24 Hours 07/16/23 07/17/23 07/18/23 23:59 23:59 23:59 Intake Total 700 / 700 1170 / 1170 300 / 300 Output Total 400 / 400 200 / 200 400 / 400 Balance 300 / 300 970 / 970 -100 / -100 Lab / Micro Data 07/15/23 06:10 07/14/23 06:20 Micro: Microbiology 07/16/23 08:20 Nasal Secretion SARS-CoV-2 Antigen (Rapid) - Final 06/23/23 10:17 Swab (Method) Nasal Screen MRSA/MSSA - Final Physical Exam Narrative GENERAL: cooperative HEENT: Atraumatic; normocephalic EYES; Anicteric, Normal Conjunctiva NECK; supple, normal thyroid, RESPIRATORY: Diminished to auscultation CARDIOVASCULAR: Regular S1 S2, GI: soft, normoactive bowel sounds, : No Renal angle tenderness; EXTREMITIES: Left knee in surgical dressing MUSCULOSKELETAL: no muscle wasting NEURO: Awake; no lateralizing signs. SKIN: No Rash PSYCH; Flat affect Assessment & Plan Assessment/Plan (1) Status post total left knee replacement: (2) Hypoxia: PLAN: Plan Patient is an 83-year-old gentleman who underwent left total knee replacement subsequently developed hypoxia necessitating the hospitalist service being consulted 1. Status post left total knee replacement ? Procedure performed by Dr. Emmanuel on 07/13/2023 postoperative orders regarding PT OT, pain management and DVT prophylaxis addressed by primary service 2. Acute hypoxia In the setting of chronic hypoxic respiratory failure secondary to COPD patient is on baseline home oxygen at 3 L. Patient did require increased oxygen level was in the hospital. Imaging studies obtained as part of patient's evaluation demonstrated atelectasis 3. Hypertension - Blood pressure controlled, home medications continued with dose adjustment as needed 4. Peripheral arterial disease ? Patient is on Plavix continue 5. Dyslipidemia -Patient is on statin therapy, continued at home dose 6. DVT prophylaxis ? As per primary service Time spent in the patient's overall evaluation,decision-making process, review of diagnostic data, adjustment of management, discussion with other providers, nursing nursing and ancillary staff involved in patient's care documentation,35 Minutes Charges/Coding Visit Charges Inpatient E&M: 80092 Subs Hosp L2
--- NOTE | 2023-07-18 08:55 | CASEMGMT ---
Social Work SW returned phone call to Larissa, patient's . reports concerns regarding patient going home today. SW explained more patient has been referred to TCU and is currently in review and SW will update as able. asked medical questions and SW advised her to speak with medical staff. reports she will be in this morning. Gabby Campos HEAVY EQUIPMENT OPERATING ENGINEER, HOSE SEAMER
[2023-07-18] MEDS: amLODIPine 10 MG Tablet PO (09:40)
[2023-07-18] MEDS: Metoprolol Tartrate 25 MG Tablet 12.5 MG PO ×2 (09:40→21:28)
[2023-07-18] MEDS: Cholecalciferol (VIT D3) 25 MCG TABLET (1,000 UNITS) PO (09:41)
[2023-07-18] MEDS: Senna/Docusate Sodium 1 Tablet 2 TABLET PO ×2 (09:42→21:29)
[2023-07-18] MEDS: Clopidogrel Bisulfate 75 MG Tablet PO (09:42)
[2023-07-18] MEDS: Famotidine 20 MG Tablet PO (09:43)
[2023-07-18] MEDS: Iron Polysaccharide Complex 150 MG CAPSULE PO (09:44)
[2023-07-18] MEDS: hydroCHLOROthiazide 25 MG Tablet PO (09:44)
[2023-07-18] MEDS: DULoxetine Hcl 30 MG Capsule PO (09:44)
[2023-07-18] MEDS: Amox/Clavulanate 875 MG Tablet PO ×2 (09:45→17:23)
--- NOTE | 2023-07-18 12:30 | PCM.PN.ORT ---
Subjective Subjective Patient sitting at bedside eating lunch. Patient's in the room with him. Patient states pain is well managed. Has no complaints at this time. Denies chest pain, shortness of breath, calf pain, nausea vomiting. Objective Data Objective Data Vital Signs: Vital Signs Temp Pulse Resp BP Pulse Ox O2 Del Method O2 Flow Rate 98.9 F 91 16 178/85 H 92 Nasal Cannula 3 07/18/23 09:51 07/18/23 09:51 07/18/23 09:51 07/18/23 09:51 07/18/23 09:51 07/18/23 09:51 07/18/23 09:51 FiO2 40 07/14/23 02:12 Oxygen Flow Rate (L/min) [ 0 AMBULATING on Room Air] Oxygen Flow Rate (L/min) [ 7 AMBULATING with Oxygen #3] Oxygen Flow Rate (L/min) [ 4 AMBULATING with Oxygen #2] Oxygen Flow Rate (L/min) [ 3 AMBULATING with Oxygen #1] Oxygen Flow Rate (L/min) [At 6 REST with Oxygen] Oxygen Flow Rate (L/min) [At 0 REST on Room Air] Oxygen Flow Rate (L/min) 3 Oxygen Delivery Method Nasal Cannula Weight: 70.307 kg Body Mass Index (BMI) 23.6 Intake & Output: Intake and Output for Last 24 Hours 07/16/23 07/17/23 07/18/23 23:59 23:59 23:59 Intake Total 700 / 700 1170 / 1170 300 / 300 Output Total 400 / 400 200 / 200 400 / 400 Balance 300 / 300 970 / 970 -100 / -100 Lab / Micro Data 07/15/23 06:10 07/14/23 06:20 Micro: Microbiology 07/16/23 08:20 Nasal Secretion SARS-CoV-2 Antigen (Rapid) - Final 06/23/23 10:17 Swab (Method) Nasal Screen MRSA/MSSA - Final Physical Exam Narrative Exam, patient sitting comfortably at bedside in the chair. Alert oriented. No respiratory distress, speaking in full sentences. Moving upper extremities without limitations. The dressing was clean dry intact. No calf tenderness neurovascular is otherwise intact. Const alert and oriented x3 General Appearance: cooperative HEENT normocephalic Eyes PERRL Resp normal respiratory effort Effort and Inspection: able to speak in complete sentences Skin no rashes or lesions noted Neuro CN's II-XII intact bilaterally Psych mental status grossly normal and affect normal Assessment & Plan Assessment/Plan (1) Status post total left knee replacement: PLAN: 1. Continue all pain medications as prescribed 2. Xarelto 10 mg 1 p.o. daily postop DVT prophylaxis 3. Continue ambulation with walker weight-bear as tolerated 4. Discharge to TCU when cleared by insurance 5. Follow-up with Dr. Emmanuel as scheduled
--- NOTE | 2023-07-18 12:35 | EX.PCM.DISCH ---
Discharge Instructions Diet Discharge Diet: No restrictions Activity Discharge Activity: May Not Drive, May Shower and Use Walker May shower in (days): 1 May resume sexual activity in: No Restrictions Ice area for (Minutes): 30 Weight Bearing Status: Weight bearing as tolerated Keep extremity elevated above heart level: Operative Extremity Dressing / Incision Call your doctor if your incision/area has: Continuous Slow Oozing, Sudden Increased Bleeding, Increased Pain/ Swelling, Increased Redness, Foul Smelling Discharge and Swelling at the incision site Call your doctor if you observe: Fever of 101 or Higher Remove Dressing in: 1 week Follow Up Care Please Follow Up With: Ramirez Emmanuel MD When: 2 weeks Test Results: Test results from this visit will be discussed in further detail at your follow-up appointment, if applicable. Discharge Plan Admission Admit Date/Time: 07/13/23 11:12 Primary Reason for Your Visit: Left total knee arthroplasty Attending Provider: Seferino Mohan Primary Care Provider: Jennyfer Ramirez Consulting Providers: Laurent Hanks; Mireya Murillo; Marv Fitzpatrick; Malik Vega; Ramirez Emmanuel Discharge Orders/Prescriptions Prescriptions: New acetaminophen 500 mg Tablet 1,000 mg PO Q8 30 Days Qty: 180 0RF amoxicillin-pot clavulanate 875-125 mg Tablet 1 tab PO BIDCM 14 Days Qty: 28 0RF duloxetine 30 mg Capsule,Delayed Release(Dr/Ec) 30 mg PO DAILY Qty: 30 0RF oxycodone 5 mg Tablet 5 - 10 mg PO Q4H PRN PRN (Reason: Pain Score 4-10) 7 Days Qty: 56 0RF Xarelto 10 mg Tablet 10 mg PO DINNER 30 Days Qty: 30 0RF Continued clopidogrel 75 mg tablet 75 mg PO DAILY acetaminophen 500 mg Tablet 1,000 mg PO Q6H PRN PRN (Reason: Pain Score 1-10) Qty: 0 0RF polysaccharide iron complex [Ferrex 150] 150 mg iron capsule 150 mg PO DAILYCM pravastatin 80 mg tablet 80 mg PO QHS amlodipine 10 mg tablet 10 mg PO DAILY cholecalciferol (vitamin D3) 25 mcg (1,000 unit) tablet 25 mcg PO QODAY Anoro Ellipta 62.5-25 mcg/actuation blister with device 1 ea inhalation DAILY metoprolol tartrate 25 mg tablet 12.5 mg PO BID hydrochlorothiazide 25 mg tablet 25 mg PO DAILY Patient Comments: TAKE 1 TABLET BY MOUTH DAILY amoxicillin-pot clavulanate 875-125 mg tablet 1 tab PO Q12H Patient Comments: TAKE 1 TABLET BY MOUTH TWICE DAILY duloxetine [Cymbalta] 30 mg capsule,delayed release(DR/EC) 30 mg PO DAILY Referrals / Follow Up: Jennyfer Ramirez GALLERY OR MUSEUM GUIDE-C [Primary Care Provider] - Disposition Disposition (needs filled in before D/C Order can be placed): Shelter Facility
--- NOTE | 2023-07-18 12:57 | TREXTCAR_ITS ---
Diet Diet Order/Speech Therapy: 07/14/23 05:57 Diet: Regular - General Is pt able to select menu?: Yes Wound(s) LEFT KNEE: Wound Type: Surgical Incision Left index finger: Wound Type: Abrasion Problem/Diagnosis (1) Status post total left knee replacement: Status: Acute Code(s): Z96.652 - Presence of left artificial knee joint Plan: 1. Continue all pain medications as prescribed 2. Xarelto 10 mg 1 p.o. daily postop DVT prophylaxis 3. Continue ambulation with walker weight-bear as tolerated 4. Discharge to TCU when cleared by insurance 5. Follow-up with Dr. Emmanuel as scheduled Allergies/Procedures Done in Hospital Allergies peanut Allergy (Verified 07/13/23 12:06) Swelling Type of Care/Length of Stay Estimated LOS: Convalescent Care Less Than 30 days Type of Care Needed: Skilled Rehab Potential: Good Prognosis: Good Additional Orders/Day of Discharge Day of Discharge: 07/18/23 Follow Up Care Please Follow Up With: Ramirez Emmanuel MD When: 2 weeks Discharge Plan Admission Admit Date/Time: 07/13/23 11:12 Primary Reason for Your Visit: Left total knee arthroplasty Attending Provider: Seferino Mohan Primary Care Provider: Jennyfer Ramirez Consulting Providers: Laurent Hanks; Mireya Murillo; Marv Fitzpatrick; Malik Vega; Ramirez Emmanuel Discharge Orders/Prescriptions Prescriptions: New acetaminophen 500 mg Tablet 1,000 mg PO Q8 30 Days Qty: 180 0RF amoxicillin-pot clavulanate 875-125 mg Tablet 1 tab PO BIDCM 14 Days Qty: 28 0RF duloxetine 30 mg Capsule,Delayed Release(Dr/Ec) 30 mg PO DAILY Qty: 30 0RF oxycodone 5 mg Tablet 5 - 10 mg PO Q4H PRN PRN (Reason: Pain Score 4-10) 7 Days Qty: 56 0RF Xarelto 10 mg Tablet 10 mg PO DINNER 30 Days Qty: 30 0RF Continued clopidogrel 75 mg tablet 75 mg PO DAILY acetaminophen 500 mg Tablet 1,000 mg PO Q6H PRN PRN (Reason: Pain Score 1-10) Qty: 0 0RF polysaccharide iron complex [Ferrex 150] 150 mg iron capsule 150 mg PO DAILYCM pravastatin 80 mg tablet 80 mg PO QHS amlodipine 10 mg tablet 10 mg PO DAILY cholecalciferol (vitamin D3) 25 mcg (1,000 unit) tablet 25 mcg PO QODAY Anoro Ellipta 62.5-25 mcg/actuation blister with device 1 ea inhalation DAILY metoprolol tartrate 25 mg tablet 12.5 mg PO BID hydrochlorothiazide 25 mg tablet 25 mg PO DAILY Patient Comments: TAKE 1 TABLET BY MOUTH DAILY amoxicillin-pot clavulanate 875-125 mg tablet 1 tab PO Q12H Patient Comments: TAKE 1 TABLET BY MOUTH TWICE DAILY duloxetine [Cymbalta] 30 mg capsule,delayed release(DR/EC) 30 mg PO DAILY Referrals / Follow Up: Jennyfer Ramirez SHUTTLECOCK ASSEMBLER-C [Primary Care Provider] - Disposition Disposition (needs filled in before D/C Order can be placed): Senior Living Facility
--- NOTE | 2023-07-18 14:23 | PHA.DC_ITS ---
Pharmacy [facility] Pharmacy Service has performed discharge medication reconciliation and counseling for this patient. The patient's discharge medication list was reviewed for discrepancies and discrepancies were resolved. The patient was counseled on the following discharge medications and changes in medications for homegoing were reviewed. The Reason for Use, instructions for use, and potential side effects were reviewed for all new medications. The patient's questions regarding all of their medications were answered. 1. Oxycodone 5 -10 mg Q4H PRN pain 2. Xarelto 10 mg PO daily 3. Augmentin 875 PO BID x 14 days 4. Acetaminophen 1000 mg PO Q8H The patient was able to verbally demonstrate an understanding of their discharge medications. Medications at Discharge Home Medications acetaminophen 500 mg tablet 1,000 mg (2 x 500 mg) PO Q6H PRN PRN Pain Score 1-10 #0 tabs 02/03/22 amlodipine 10 mg tablet 10 mg PO DAILY bp 02/11/22 cholecalciferol (vitamin D3) 25 mcg (1,000 unit) tablet 25 mcg PO QODAY supplement 02/11/22 polysaccharide iron complex 150 mg iron capsule (Ferrex) 150 mg PO DAILYCM supplement 02/11/22 pravastatin 80 mg tablet 80 mg PO QHS cholesterol 02/11/22 umeclidinium 62.5 mcg-vilanterol 25 mcg/actuation powdr for inhalation (Anoro Ellipta) 1 ea inhalation DAILY copd 02/11/22 clopidogrel 75 mg tablet 75 mg PO DAILY 05/24/23 metoprolol tartrate 25 mg tablet 12.5 mg PO BID bp 05/24/23 amoxicillin 875 mg-potassium clavulanate 125 mg tablet 1 tab PO Q12H previous infection 07/13/23 hydrochlorothiazide 25 mg tablet 25 mg PO DAILY htn 07/13/23 duloxetine 30 mg capsule,delayed release (Cymbalta) 30 mg PO DAILY anxiety 07/17/23 acetaminophen 500 mg tablet 1,000 mg (2 x 500 mg) PO Q8 Pain 30 days #180 tabs 07/18/23 amoxicillin 875 mg-potassium clavulanate 125 mg tablet 1 tab PO BIDCM 14 days #28 tabs 07/18/23 duloxetine 30 mg capsule,delayed release 30 mg PO DAILY #30 caps 07/18/23 oxycodone 5 mg tablet 5 - 10 mg (1 - 2 x 5 mg) PO Q4H PRN PRN Pain Score 4-10 7 days #56 tabs 07/18/23 rivaroxaban 10 mg tablet (Xarelto) 10 mg PO DINNER 30 days #30 tabs 07/18/23
--- NOTE | 2023-07-18 17:02 | CASEMGMT ---
Social Work TCU reports patient is accepted but to notify patient/family of covid in TCU. SW notified patient and he would like to discuss it with his . SW called without answer. Dr. Emmanuel called regarding patient d/c status and SW informed of TCU/covid. Dr. Emmanuel expressed concern regarding patient going to TCU with Covid outbreak and would rather patient d/c home. Pt will need HHC if d/cing home and planning cannot be done until the AM. SW to discuss patient d/c in the morning with family and CM to ensure needs are met as had concerns regarding patient discharging home. Plan: Discuss discharge plans in the morning regarding TCU w/covid outbreak -VS- HHC. Gabby Campos CONSTRUCTION PIT WORKER, GRADUATING MACHINE OPERATOR
[2023-07-18] MEDS: Rivaroxaban 10 MG Tablet PO (17:23)
--- NOTE | 2023-07-18 17:28 | NURSING ---
this nurse in to talk with pt and /family after talked with social work manager Gabby. Aware per Gabby forest worker she had taken a phone call from Dr. Emmanuel whom expressed concern with pt discharging to TCU given covid outbreak. Stated Dr. Emmanuel had verbalized he felt patient was moving well enough for patient to be discharged home with HHC. pt and agreeable. Tripp Case mgmt on unit, discussed with her. natalia Almaguer will discuss hhc with family as requesting.
--- NOTE | 2023-07-18 17:35 | CASEMGMT ---
RN TEMO NOTE: RN CM informed family had questions re: HHC and d/c plan. RN CM to room. Pt resting in bed. and son @ bedside. Discussed discharge options re: SNF and HHC. They are all agreeable they do not wish for pt to d/c to TCU d/t COVID case in TCU and do not want pt going to any other SNF. Pt states I'll be fine at home and and son both state they feel he will do okay at home as well. Questions answered re: HHC. They would like pt to discharge home and want HHC. states she has looked over the list of [facility] agencies provided to them this admission and her preferences are the top 3 on the list, with [facility] being her 1st choice, [facility] is 2nd choice, and [facility] is 3rd. Call placed to Beckie @ [facility] and VM left re: referral for SN and PT/OT. VM also stated pt to discharge home tomorrow, , 07/19. Discussed w/family option of pt discharging home tonight, as CM can f/u re: C referral tomorrow, but they all felt more comfortable w/pt staying one more night and wish for him to get therapy again tomorrow for discharge. senior policy associate, Geri, notified and to update Dr Emmanuel. Bao MESSINAN ARASELI PLASCENCIA
--- NOTE | 2023-07-18 17:44 | NURSING ---
talked with Dr. Emmanuel after talked with Case Yaz Almaguer as pt and asking for patient to spent 1 more night as C is not offically set up and would like pt to have one more session of therapy before discharged home. OK for cancelling discharge tonight but must go home tomorrow
[2023-07-18] MEDS: 0.9% Saline Lock 10 ML Syringe IV (21:26)
[2023-07-18] MEDS: Pravastatin 80 MG Tablet PO (21:29)
[2023-07-19] VITALS (7 sets, daily range): BP systolic 139–174; BP diastolic 76–85; PULSE 72–84; RESP 18; TEMP 36.7–37.2; O2SAT 92–95
[2023-07-19] MEDS: Acetaminophen 500 MG Tablet 1000 MG PO ×2 (05:49→13:39)
[2023-07-19] MEDS: oxyCODONE 5 MG Tablet PO ×2 (05:49→09:48)
[2023-07-19] MEDS: 0.9% Saline Lock 10 ML Syringe IV (05:52)
[2023-07-19] MEDS: hydrALAZINE 20 MG/ML Vial 5 MG IV (05:52)
[2023-07-19] MEDS: Ipratropium/Albuterol Sulfate 3 ML AMPUL.NEB INHALATION (06:51)
--- NOTE | 2023-07-19 07:09 | PCM.PN.HOSP ---
Reason for Visit Reason for Visit: Diagnoses Essential (primary) hypertension (07/13/23) Chronic obstructive pulmonary disease, unspecified (07/13/23) Chronic respiratory failure, unspecified whether with hypoxia or hypercapnia (07/13/23) Hypoxemia (07/13/23) Encounter for other preprocedural examination (07/13/23) Presence of left artificial knee joint (07/13/23) Presence of unspecified artificial knee joint (07/13/23) Subjective Subjective Patient seen participating in physical therapy plan is for patient to be assessed for possible discharge Objective Data Objective Data Vital Signs: Vital Signs Temp Pulse Resp BP Pulse Ox O2 Del Method O2 Flow Rate 99.0 F 72 18 163/76 H 95 Nasal Cannula 3 07/19/23 05:47 07/19/23 06:53 07/19/23 06:53 07/19/23 05:52 07/19/23 06:53 07/19/23 06:53 07/19/23 06:53 FiO2 50 07/18/23 21:35 Oxygen Flow Rate (L/min) [ 0 AMBULATING on Room Air] Oxygen Flow Rate (L/min) [ 7 AMBULATING with Oxygen #3] Oxygen Flow Rate (L/min) [ 4 AMBULATING with Oxygen #2] Oxygen Flow Rate (L/min) [ 3 AMBULATING with Oxygen #1] Oxygen Flow Rate (L/min) [At 6 REST with Oxygen] Oxygen Flow Rate (L/min) [At 0 REST on Room Air] Oxygen Flow Rate (L/min) 3 Oxygen Delivery Method Nasal Cannula Weight: 70.307 kg Body Mass Index (BMI) 23.6 Intake & Output: Intake and Output for Last 24 Hours 07/17/23 07/18/23 07/19/23 23:59 23:59 23:59 Intake Total 1170 / 1170 1140 / 1140 Output Total 200 / 200 400 / 400 300 / 300 Balance 970 / 970 740 / 740 -300 / -300 Lab / Micro Data 07/19/23 07:19 07/19/23 07:19 Micro: Microbiology 07/16/23 08:20 Nasal Secretion SARS-CoV-2 Antigen (Rapid) - Final 06/23/23 10:17 Swab (Method) Nasal Screen MRSA/MSSA - Final Physical Exam Narrative GENERAL: cooperative HEENT: Atraumatic; normocephalic EYES; Anicteric, Normal Conjunctiva NECK; supple, normal thyroid, RESPIRATORY: Diminished to auscultation CARDIOVASCULAR: Regular S1 S2, GI: soft, normoactive bowel sounds, : No Renal angle tenderness; EXTREMITIES: Left knee in surgical dressing MUSCULOSKELETAL: no muscle wasting NEURO: Awake; no lateralizing signs. SKIN: No Rash PSYCH; Flat affect Assessment & Plan Assessment/Plan (1) Status post total left knee replacement: (2) Hypoxia: PLAN: Plan Patient is an 83-year-old gentleman who underwent left total knee replacement subsequently developed hypoxia necessitating the hospitalist service being consulted 1. Status post left total knee replacement ? Procedure performed by Dr. Emmanuel on 07/13/2023 postoperative orders regarding PT OT, pain management and DVT prophylaxis addressed by primary service 2. Acute hypoxia In the setting of chronic hypoxic respiratory failure secondary to COPD patient is on baseline home oxygen at 3 L. Patient did require increased oxygen level was in the hospital. Imaging studies obtained as part of patient's evaluation demonstrated atelectasis 3. Hypertension - Blood pressure controlled, home medications continued with dose adjustment as needed 4. Peripheral arterial disease ? Patient is on Plavix continue 5. Dyslipidemia -Patient is on statin therapy, continued at home dose 6. DVT prophylaxis ? As per primary service Time spent in the patient's overall evaluation,decision-making process, review of diagnostic data, adjustment of management, discussion with other providers, nursing nursing and ancillary staff involved in patient's care documentation,35 Minutes Charges/Coding Visit Charges Inpatient E&M: 29007 Subs Hosp L2
[2023-07-19 07:30] LABS: Absolute Lymphocyte Count 1.01 X10^3/uL (0.83-4.51); Absolute Neutrophil Count 5.1 X10^3/uL (2.0-7.7); Basophil# 0.04 X10^3/uL; Basophil% 0.6 % (0-1); Eosinophil# 0.15 X10^3/uL; Eosinophils% 2.1 % (0-5); Hematocrit 29.9 % (40-54); Hemoglobin 9.6 g/dL (13.0-16.5); Lymphocyte # 1.01 X10^3/ul (0.83-4.51); Mean Corp Hgb Conc 32.1 g/dL (32-36); Mean Corpuscular Hgb 32.8 pg (27.0-32.0); Mean Platelet Vol. 9.2 fl (6.2-12.0); Monocyte# 0.83 X10^3/uL; Monocyte% 11.5 % (0-10); NRBC Flagged by Analyzer 0 % (0-5); Neutrophil # 5.14 X10^3/uL (2.7-7.7); Neutrophil % 71.4 % (47-70); Platelet Count 180 K/mm3 (150-450); RBC Distribution Width CV 14.1 % (11.6-14.6); RBC Distribution Width SD 52.7 fl (35.1-43.9); Red Blood Count 2.93 M/mm3 (4.6-6.2); White Blood Count 7.2 K/mm3 (4.4-11.0)
[2023-07-19] MEDS: Iron Polysaccharide Complex 150 MG CAPSULE PO (07:43)
[2023-07-19] MEDS: Ensure Surgery 237 ML LIQUID PO ×2 (07:43→12:01)
[2023-07-19] MEDS: Amox/Clavulanate 875 MG Tablet PO (07:43)
[2023-07-19 07:53] LABS: Anion Gap 6 (5-15); BUN 32 mg/dL (7-18); BUN/Creat Ratio 25.8 RATIO (10-20); Calcium,Total 8.9 mg/dL (8.5-10.1); Chloride 99 mmol/L (98-107); Creatinine, Serum 1.24 mg/dL (0.70-1.30); EST Glomerular Filtration Rate 59 mL/min (>60); Est Glom Filt Rate - Afr Amer 72 mL/min (>60); Estimated Creatinine Clearance 44.44 ml/min; Glucose 101 mg/dL (74-106); Magnesium 2.2 mg/dL (1.6-2.6); Potassium 3.2 mmol/L (3.5-5.1); Sodium Level 136 mmol/L (136-145)
--- NOTE | 2023-07-19 08:00 | PCM.PN.ORT ---
Subjective Subjective Patient sitting up in bed, states pain has been very well managed. Patient states he is awaiting to hear where he will be going for rehab. Patient denies chest pain, shortness of breath, calf pain, nausea vomiting. Objective Data Objective Data Vital Signs: Vital Signs Temp Pulse Resp BP Pulse Ox O2 Del Method O2 Flow Rate 98.1 F 76 18 139/85 H 92 Nasal Cannula 3 07/19/23 07:34 07/19/23 07:34 07/19/23 07:34 07/19/23 07:34 07/19/23 07:34 07/19/23 07:34 07/19/23 07:34 FiO2 50 07/18/23 21:35 Oxygen Flow Rate (L/min) [ 0 AMBULATING on Room Air] Oxygen Flow Rate (L/min) [ 7 AMBULATING with Oxygen #3] Oxygen Flow Rate (L/min) [ 4 AMBULATING with Oxygen #2] Oxygen Flow Rate (L/min) [ 3 AMBULATING with Oxygen #1] Oxygen Flow Rate (L/min) [At 6 REST with Oxygen] Oxygen Flow Rate (L/min) [At 0 REST on Room Air] Oxygen Flow Rate (L/min) 3 Oxygen Delivery Method Nasal Cannula Weight: 70.307 kg Body Mass Index (BMI) 23.6 Intake & Output: Intake and Output for Last 24 Hours 07/17/23 07/18/23 07/19/23 23:59 23:59 23:59 Intake Total 1170 / 1170 1140 / 1140 Output Total 200 / 200 400 / 400 300 / 300 Balance 970 / 970 740 / 740 -300 / -300 Lab / Micro Data 07/19/23 07:19 07/19/23 07:19 Labs: Laboratory Results - last 24 hr 07/19/23 07:19: WBC 7.2, RBC 2.93 L, Hgb 9.6 L, Hct 29.9 L, MCV 102.0 H, MCH 32.8 H, MCHC 32.1, RDW Std Deviation 52.7 H, RDW Coeff of Marya 14.1, Plt Count 180, MPV 9.2, Immature Gran % (Auto) 0.400, Neut % (Auto) 71.4 H, Lymph % (Auto) 14.0 L, Cochran % (Auto) 11.5 H, Eos % (Auto) 2.1, Baso % (Auto) 0.6, Absolute Neuts (auto) 5.1, Absolute Lymphs (auto) 1.01, Nucleated RBC % 0, Sodium 136, Potassium 3.2 L, Chloride 99, Carbon Dioxide 31.0, Anion Gap 6, BUN 32 H, Creatinine 1.24, Estim Creat Clear Calc 44.44, Est GFR (MDRD) Af Amer 72, Est GFR (MDRD) Non-Af 59 L, BUN/Creatinine Ratio 25.8 H, Glucose 101, Calcium 8.9, Magnesium 2.2 Micro: Microbiology 07/16/23 08:20 Nasal Secretion SARS-CoV-2 Antigen (Rapid) - Final 06/23/23 10:17 Swab (Method) Nasal Screen MRSA/MSSA - Final Physical Exam Narrative Patient sitting up in bed watching TV. Patient denies any respiratory distress. Patient on 2 L of nasal cannula O2 patient speaking in full sentences. Patient is full range of motion of the upper extremities with good muscle tone and strength. Dressing the left knee is clean dry intact. No calf tenderness. Neurovascular is otherwise intact. Const alert and oriented x3 General Appearance: cooperative HEENT normocephalic Eyes PERRL Resp normal respiratory effort Effort and Inspection: able to speak in complete sentences Extremity normal capillary refill Skin no rashes or lesions noted Neuro CN's II-XII intact bilaterally Motor Exam: strength 5/5 throughout Psych mental status grossly normal and affect normal Assessment & Plan Assessment/Plan (1) Status post total left knee replacement: PLAN: 1. Continue all pain medications as prescribed 2. Continue Xarelto 10 mg 1 p.o. daily for postop DVT prophylaxis 3. Continue all meds as prescribed 4. Encourage incentive spirometry 5. Ambulate with walker weight-bear as tolerated 6. Continue ice to knee 30 minutes each hour while awake 7. Follow-up with Dr. Emmanuel as scheduled 8. Discharge home today after therapy to continue home therapy
[2023-07-19] MEDS: hydroCHLOROthiazide 25 MG Tablet PO (09:43)
[2023-07-19] MEDS: Famotidine 20 MG Tablet PO (09:43)
[2023-07-19] MEDS: DULoxetine Hcl 30 MG Capsule PO (09:43)
[2023-07-19] MEDS: Metoprolol Tartrate 25 MG Tablet 12.5 MG PO (09:44)
[2023-07-19] MEDS: Clopidogrel Bisulfate 75 MG Tablet PO (09:44)
[2023-07-19] MEDS: Senna/Docusate Sodium 1 Tablet 2 TABLET PO (09:44)
[2023-07-19] MEDS: amLODIPine 10 MG Tablet PO (09:44)
--- NOTE | 2023-07-19 10:26 | PHA.DC.MR.R ---
Pharmacy [facility] Med Recon[facility] Pharmacy Service has performed discharge medication reconciliation for this patient upon transfer to facility for inpatient rehab The patient's discharge medication list was reviewed for discrepancies and discrepancies were resolved. Medications at Discharge Home Medications acetaminophen 500 mg tablet 1,000 mg (2 x 500 mg) PO Q6H PRN PRN Pain Score 1-10 #0 tabs 02/03/22 amlodipine 10 mg tablet 10 mg PO DAILY bp 02/11/22 cholecalciferol (vitamin D3) 25 mcg (1,000 unit) tablet 25 mcg PO QODAY supplement 02/11/22 polysaccharide iron complex 150 mg iron capsule (Ferrex) 150 mg PO DAILYCM supplement 02/11/22 pravastatin 80 mg tablet 80 mg PO QHS cholesterol 02/11/22 umeclidinium 62.5 mcg-vilanterol 25 mcg/actuation powdr for inhalation (Anoro Ellipta) 1 ea inhalation DAILY copd 02/11/22 clopidogrel 75 mg tablet 75 mg PO DAILY 05/24/23 metoprolol tartrate 25 mg tablet 12.5 mg PO BID bp 05/24/23 amoxicillin 875 mg-potassium clavulanate 125 mg tablet 1 tab PO Q12H previous infection 07/13/23 hydrochlorothiazide 25 mg tablet 25 mg PO DAILY htn 07/13/23 duloxetine 30 mg capsule,delayed release (Cymbalta) 30 mg PO DAILY anxiety 07/17/23 acetaminophen 500 mg tablet 1,000 mg (2 x 500 mg) PO Q8 Pain 30 days #180 tabs 07/18/23 amoxicillin 875 mg-potassium clavulanate 125 mg tablet 1 tab PO BIDCM 14 days #28 tabs 07/18/23 duloxetine 30 mg capsule,delayed release 30 mg PO DAILY #30 caps 07/18/23 oxycodone 5 mg tablet 5 - 10 mg (1 - 2 x 5 mg) PO Q4H PRN PRN Pain Score 4-10 7 days #56 tabs 07/18/23 rivaroxaban 10 mg tablet (Xarelto) 10 mg PO DINNER 30 days #30 tabs 07/18/23
--- NOTE | 2023-07-19 13:15 | CASEMGMT ---
Addendum entered by Bettye Lazo 07/19/23 13:32: Spoke with pt nurse who states pt has been up with therapy on baseline oxygen. No testing completed. Addendum entered by Bettye Lazo 07/19/23 13:25: [facility] will see pt on . Updated pt and . Original Note: Awaiting acceptance from [facility] for pt. Updated pt .
--- NOTE | 2023-08-01 08:13 | DS.PCM_ITS ---
Providers Date of Admission: 07/13/23 Primary Care Physician: SHEILA You Consultations 07/13/23 07:16 Consult: Hospitalist Routine Consulting Provider: [facility] Reason for Consult: post op med management EMERGENT Consult: No MD Notified: Yes Date Notified: 07/13/23 Time Notified: 20:25 Method of Notification: Text Reason For Visit: LT ROBOTIC KNEE W DEACON Diagnosis Discharge Diagnosis (1) Status post total left knee replacement: Status: Acute Code(s): Z96.652 - Presence of left artificial knee joint Plan: 1. S/P left total knee arthroplasty POD #4 2. Continue Pain Medications: Tylenol and oxycodone. Patient is not able to take nonsteroidal anti-inflammatories due to previous GI bleeds. 3. DVT Prophylaxis: Xarelto 10 mg for 2 weeks postoperatively for DVT prophylaxis. Patient is not able to tolerate aspirin due to previous GI bleeds 4. PT/OT: Weightbearing as tolerated with walker. Appreciate recommendations from physical therapy for discharge planning 5. H & H: Postoperative lab work has been stable. No further lab work is required unless events occur. 6. Continue postoperative medical management per medicine: Patient does have chronic obstructive pulmonary disease in which he does require 3 L of oxygen daily in which she is managed by microwave remote sensing scientist Dr. Garcia. Currently patient is requiring 3 L of oxygen is back to his baseline 7. Encouraged Incentive Spirometry, postoperative elevated temperatures likely related to atelectasis 8. Disposition: Patient's oxygen requirements have returned to baseline. He is also improving daily with physical therapy and pain control. Plan at this time is to continue with the patient in the hospital over the weekend and assess for discharge to transitional care or long-term on Tuesday. Patient's family has concerns about him returning home based on his failure to thrive after his last visit. we will continue with physical therapy inpatient as we await insurance precertification we will determine appropriateness of discharge and insurance qualifications on Tuesday. Plan will be for eventual discharge Tuesday once we can verify appropriate discharge destination. This dictation was created using voice recognition software. Phonetic and/or grammatical errors may exist. (2) Hypoxia: Status: Acute Code(s): R09.02 - Hypoxemia Plan: Improving, per medical service Medications at Discharge Home Medications acetaminophen 500 mg tablet 1,000 mg (2 x 500 mg) PO Q6H PRN PRN Pain Score 1-10 #0 tabs 02/03/22 amlodipine 10 mg tablet 10 mg PO DAILY bp 02/11/22 cholecalciferol (vitamin D3) 25 mcg (1,000 unit) tablet 25 mcg PO QODAY supplement 02/11/22 polysaccharide iron complex 150 mg iron capsule (Ferrex) 150 mg PO DAILYCM supplement 02/11/22 pravastatin 80 mg tablet 80 mg PO QHS cholesterol 02/11/22 umeclidinium 62.5 mcg-vilanterol 25 mcg/actuation powdr for inhalation (Anoro Ellipta) 1 ea inhalation DAILY copd 02/11/22 clopidogrel 75 mg tablet 75 mg PO DAILY 05/24/23 metoprolol tartrate 25 mg tablet 12.5 mg PO BID bp 05/24/23 amoxicillin 875 mg-potassium clavulanate 125 mg tablet 1 tab PO Q12H previous infection 07/13/23 hydrochlorothiazide 25 mg tablet 25 mg PO DAILY htn 07/13/23 duloxetine 30 mg capsule,delayed release (Cymbalta) 30 mg PO DAILY anxiety 07/17/23 acetaminophen 500 mg tablet 1,000 mg (2 x 500 mg) PO Q8 Pain 30 days #180 tabs 07/18/23 amoxicillin 875 mg-potassium clavulanate 125 mg tablet 1 tab PO BIDCM 14 days #28 tabs 07/18/23 duloxetine 30 mg capsule,delayed release 30 mg PO DAILY #30 caps 07/18/23 oxycodone 5 mg tablet 5 - 10 mg (1 - 2 x 5 mg) PO Q4H PRN PRN Pain Score 4-10 7 days #56 tabs 07/18/23 rivaroxaban 10 mg tablet (Xarelto) 10 mg PO DINNER 30 days #30 tabs 07/18/23 Hospital Course Operations total knee replacement Summary of Care Provided Hospital Course: PATIENT WAS ADMITTED FOR TOTAL KNEE. WAS WEAK POST OP AND STAYED PENDING INSURANCE APPROVAL FOR TRANSITIONAL CARE UNIT DUE TO POOR OUTCOME AFTER FAILURE TO THRIVE WITH PREVIOUS SURGERY. EVENTUALLY WAS APPROVED AND ALSO IMPROVED WITH INPATIENT THERAPY WHEN PREFERRED TRANSITIONAL CARE UNIT HAD COVID OUTBREAK PT WAS DC'D HOME WITH HOME HEALTH CARE. Weight / BMI Weight Weight: 155 lb Body Mass Index (BMI) 23.6 ABG / Lab / Microbiology Data 07/19/23 07:19 07/19/23 07:19 Microbiology: Microbiology 07/16/23 08:20 Nasal Secretion SARS-CoV-2 Antigen (Rapid) - Final 06/23/23 10:17 Swab (Method) Nasal Screen MRSA/MSSA - Final D/C Instructions Discharge Diet: No restrictions May shower in (days): 1 May resume sexual activity in: No Restrictions Ice area for (Minutes): 30 Weight Bearing Status: Weight bearing as tolerated Keep extremity elevated above heart level: Operative Extremity Call your doctor if your incision/area has: Continuous Slow Oozing, Sudden Increased Bleeding, Increased Pain/ Swelling, Increased Redness, Foul Smelling Discharge and Swelling at the incision site Call your doctor if you observe: Fever of 101 or Higher Please Follow Up With: Ramirez Emmanuel MD When: 2 weeks Meaningful Use Info Meaningful Use Diagnoses (Choose all that apply): None applicable Discharge Plan Admission Admit Date/Time: 07/13/23 11:12 Primary Reason for Your Visit: Left total knee arthroplasty Attending Provider: Seferino Mohan Primary Care Provider: Jennyfer Ramirez Consulting Providers: Laurent Hanks; Mireya Murillo; Marv Fitzpatrick; Malik Vega; Ramirez Emmanuel Discharge Orders/Prescriptions Prescriptions: New acetaminophen 500 mg Tablet 1,000 mg PO Q8 30 Days Qty: 180 0RF amoxicillin-pot clavulanate 875-125 mg Tablet 1 tab PO BIDCM 14 Days Qty: 28 0RF duloxetine 30 mg Capsule,Delayed Release(Dr/Ec) 30 mg PO DAILY Qty: 30 0RF oxycodone 5 mg Tablet 5 - 10 mg PO Q4H PRN PRN (Reason: Pain Score 4-10) 7 Days Qty: 56 0RF Xarelto 10 mg Tablet 10 mg PO DINNER 30 Days Qty: 30 0RF Continued clopidogrel 75 mg tablet 75 mg PO DAILY acetaminophen 500 mg Tablet 1,000 mg PO Q6H PRN PRN (Reason: Pain Score 1-10) Qty: 0 0RF polysaccharide iron complex [Ferrex 150] 150 mg iron capsule 150 mg PO DAILYCM pravastatin 80 mg tablet 80 mg PO QHS amlodipine 10 mg tablet 10 mg PO DAILY cholecalciferol (vitamin D3) 25 mcg (1,000 unit) tablet 25 mcg PO QODAY Anoro Ellipta 62.5-25 mcg/actuation blister with device 1 ea inhalation DAILY metoprolol tartrate 25 mg tablet 12.5 mg PO BID hydrochlorothiazide 25 mg tablet 25 mg PO DAILY Patient Comments: TAKE 1 TABLET BY MOUTH DAILY amoxicillin-pot clavulanate 875-125 mg tablet 1 tab PO Q12H Patient Comments: TAKE 1 TABLET BY MOUTH TWICE DAILY duloxetine [Cymbalta] 30 mg capsule,delayed release(DR/EC) 30 mg PO DAILY Referrals / Follow Up: Jennyfer Ramirez NP-C [Primary Care Provider] - Disposition Disposition (needs filled in before D/C Order can be placed): [facility]
== END 2023-07-19 14:05 | disposition skilled nursing facility (03) | DRG 470 ==
LOC: ACINP 11:20 → MS3 17:32
PROVIDERS: Anesthesiology; Admitting Provider Specialist; PCP Nurse Practitioner Family; Referring Provider Specialist; Visit Provider Internal Medicine
PROC: 0SRD0JZ Replacement of Left Knee Joint with Synthetic Substitute, Open Approach (ICD-10-PCS; CPT 27447; principal; 2023-07-13 13:15)
DX: M17.12 Unilateral primary osteoarthritis, left knee (principal); J96.11 Chronic respiratory failure with hypoxia; Z99.81 Dependence on supplemental oxygen; I73.9 Peripheral vascular disease, unspecified; J44.9 Chronic obstructive pulmonary disease, unspecified; I10 Essential (primary) hypertension; E78.00 Pure hypercholesterolemia, unspecified; R97.21 Rising PSA following treatment for malignant neoplasm of prostate; R50.9 Fever, unspecified; Z79.02 Long term (current) use of antithrombotics/antiplatelets; Z20.822 Contact with and (suspected) exposure to COVID-19; Z87.891 Personal history of nicotine dependence; Z96.651 Presence of right artificial knee joint; Z90.79 Acquired absence of other genital organ(s)
CPT/HCPCS: 36415; 71045; 73560; 74177; 80048; 82040; 82962; 83735; 85025; 85027; 87081; 87811; 88305; 88311; 93005; 94640; 94660; 94668; 94762; 97110; 97116; 97162; 97166; 97530; 97535; 99252; C1776; J7050; J7120; Q9967; A4216; G0463; J2405; J3475

== ENCOUNTER → 2023-08-02 | Outpatient (CLI) | payer MEDICARE, SELFPAY ==
--- NOTE | 2023-08-02 15:40 | RAD_ITS ---
STUDY: X-RAY - RIGHT SHOULDER REASON FOR EXAM: Male, 83 years old. Prostate cancer. TECHNIQUE: 4 views of the right shoulder. COMPARISON: None. FINDINGS: There is moderate degenerative arthrosis of the glenohumeral articulation. There is superior migration of the humeral head with respect to the glenoid with narrowing of the acromiohumeral space, suggestive of a chronic rotator cuff tear. There is mild acromioclavicular arthrosis. Normal acromion. The soft tissue structures are unremarkable. There is no demonstrated fracture. Normal visualized pulmonary apex. RAD/Shoulder min 2 Views IMPRESSION: Moderate glenohumeral arthrosis. Superior migration of the humeral head with respect to the glenoid with narrowing of the acromiohumeral space, suggestive of a chronic rotator cuff tear. Mild acromioclavicular arthrosis. Electronically Signed: Aaron Esquivel MD at 10:26 EDT ,
--- NOTE | 2023-08-02 15:40 | RAD_ITS ---
STUDY: X-RAY - RIGHT HUMERUS REASON FOR EXAM: Male, 83 years old. Prostate cancer. TECHNIQUE: 2 views of the humerus. COMPARISON: None. FINDINGS: Intact visualized humerus. There is no demonstrated fracture or osseous destructive process. There is no demonstrated soft tissue abnormality. RAD/Humerus min 2 Views IMPRESSION: Intact humerus, with no demonstrated fracture. Electronically Signed: Aaron Esquivel MD at 10:29 EDT ,
== END | disposition home or self-care (01) ==
LOC: MTRAD 15:40
PROVIDERS: PCP Nurse Practitioner Family; Referring Provider Nurse Practitioner Family; Visit Provider Nurse Practitioner Family
DX: C61 Malignant neoplasm of prostate (principal)
CPT/HCPCS: 73030; 73060

== ENCOUNTER → 2023-11-21 | Outpatient (CLI) | payer MEDICARE, SELFPAY ==
[2023-11-21 13:22] LABS: PSA,Total- Diagnostic 0.25 ng/mL (0.0-4.0)
== END | disposition home or self-care (01) ==
LOC: LAB 11:19
PROVIDERS: PCP Nurse Practitioner Family; Referring Provider Nurse Practitioner; Visit Provider Nurse Practitioner
DX: C61 Malignant neoplasm of prostate (principal)
CPT/HCPCS: 36415; 84153

== ENCOUNTER → 2024-02-21 | Outpatient (CLI) | payer MEDICARE, SELFPAY ==
[2024-02-21 10:56] LABS: Absolute Lymphocyte Count 1.92 X10^3/uL (0.83-4.51); Absolute Neutrophil Count 4.3 X10^3/uL (2.0-7.7); Basophil# 0.06 X10^3/uL; Basophil% 0.8 % (0-1); Eosinophil# 0.38 X10^3/uL; Eosinophils% 5.1 % (0-5); Hematocrit 40.5 % (40-54); Hemoglobin 12.9 g/dL (13.0-16.5); Lymphocyte # 1.92 X10^3/ul (0.83-4.51); Mean Corp Hgb Conc 31.9 g/dL (32-36); Mean Corpuscular Hgb 32.7 pg (27.0-32.0); Mean Corpuscular Volume 102.8 fL (80-94); Mean Platelet Vol. 11.6 fl (6.2-12.0); Monocyte# 0.67 X10^3/uL; Monocyte% 9.1 % (0-10); NRBC Flagged by Analyzer 0 % (0-5); Neutrophil # 4.34 X10^3/uL (2.7-7.7); Neutrophil % 58.7 % (47-70); Platelet Count 192 K/mm3 (150-450); RBC Distribution Width CV 14.4 % (11.6-14.6); RBC Distribution Width SD 54.6 fl (35.1-43.9); Red Blood Count 3.94 M/mm3 (4.6-6.2); White Blood Count 7.4 K/mm3 (4.4-11.0)
[2024-02-21 11:02] LABS: ALB/GLOB Ratio 0.9 RATIO (0.9-2.4); AST(SGOT) 17 U/L (15-37); Alanine Aminotransfer ALT/SGPT 17 U/L (16-61); Albumin, Serum 3.6 g/dL (3.2-5.0); Alkaline Phosphatase 63 U/L (45-117); Anion Gap 7 (5-15); BUN 44 mg/dL (7-18); BUN/Creat Ratio 26.5 RATIO (10-20); Calcium,Total 9.7 mg/dL (8.5-10.1); Chloride 103 mmol/L (98-107); Cholesterol 158 mg/dL (200); Creatinine, Serum 1.66 mg/dL (0.70-1.30); EST Glomerular Filtration Rate 42 mL/min (>60); Est Glom Filt Rate - Afr Amer 51 mL/min (>60); Globulin 4.2 g/dL (2.2-4.2); Glucose 101 mg/dL (74-106); High Density Lipoprotein 62 mg/dL; Potassium 4.2 mmol/L (3.5-5.1); Protein, Total 7.8 g/dL (6.4-8.2); Sodium Level 137 mmol/L (136-145); Thyroid Stim Hormone (TSH) 1.31 uIU/mL (0.358-3.74); Triglycerides 112 mg/dL; Very Low Density Lipoprotein 22 mg/dL (5-40)
== END | disposition home or self-care (01) ==
LOC: LAB 09:05
PROVIDERS: PCP Nurse Practitioner Family; Referring Provider Nurse Practitioner; Visit Provider Nurse Practitioner
DX: I10 Essential (primary) hypertension (principal); C61 Malignant neoplasm of prostate; E78.00 Pure hypercholesterolemia, unspecified
CPT/HCPCS: 36415; 80053; 80061; 84153; 84443; 85025

== ENCOUNTER → 2024-08-22 | Outpatient (CLI) | payer MEDICARE, SELFPAY ==
[2024-08-22 11:15] LABS: PSA,Total- Diagnostic 0.03 ng/mL (0.0-4.0)
== END | disposition home or self-care (01) ==
PROVIDERS: PCP Nurse Practitioner Family; Referring Provider Urology; Visit Provider Urology
DX: C61 Malignant neoplasm of prostate (principal)
CPT/HCPCS: 36415; 84153

== ENCOUNTER 2025-03-07 22:42 | Inpatient (IN) | payer MEDICARE, SELFPAY ==
[2025-03-07] VITALS (9 sets, daily range): BP systolic 187–202; BP diastolic 75–87; PULSE 86–96; RESP 12–30; TEMP 36.6–37; O2SAT 76–92; BMI 23.2
--- NOTE | 2025-03-07 22:52 | ED.RN ---
pulse ox 74 percent on 5 l nc,placed on nonrebreather at 10l per md.
--- NOTE | 2025-03-07 23:15 | RAD_ITS ---
PROCEDURE: CHEST 1 VIEW (PORTABLE) 03/07/2025 REASON FOR EXAM: SOB TECHNIQUE: Frontal view of the chest. COMPARISON: 07/14/2023 FINDINGS: Hardware: None Heart: Cardiac and mediastinal contours are stable. Lungs: Right hemidiaphragmatic elevation bibasilar atelectasis. No pneumothorax. No pleural effusion. Bones: Degenerative changes are identified within the thoracic spine. Other: RAD/Chest 1 View (Portable) IMPRESSION: No acute findings. Reading Location: [facility]
[2025-03-07 23:18] LABS: Absolute Neutrophil Count 5.6 X10^3/uL (2.0-7.7); Basophil# 0.02 X10^3/uL; Basophil% 0.2 % (0-1); Eosinophil# 0.22 X10^3/uL; Eosinophils% 2.7 % (0-5); Hematocrit 37.1 % (40-54); Hemoglobin 12.3 g/dL (13.0-16.5); Lymphocyte % 20.8 % (19-41); Mean Corp Hgb Conc 33.2 g/dL (32-36); Mean Corpuscular Hgb 33.7 pg (27.0-32.0); Mean Corpuscular Volume 101.6 fL (80-94); Mean Platelet Vol. 10.9 fl (6.2-12.0); Monocyte# 0.57 X10^3/uL; NRBC Flagged by Analyzer 0 % (0-5); Neutrophil # 5.64 X10^3/uL (2.7-7.7); Neutrophil % 69.1 % (47-70); Platelet Count 185 K/mm3 (150-450); RBC Distribution Width CV 14.3 % (11.6-14.6); RBC Distribution Width SD 53.7 fl (35.1-43.9); Red Blood Count 3.65 M/mm3 (4.6-6.2); White Blood Count 8.2 K/mm3 (4.4-11.0)
[2025-03-07 23:36] LABS: International Normalized Ratio 1.1; Prothrombin Time (Protime)PT. 13.9 SECONDS (11.7-14.9)
[2025-03-07 23:37] LABS: Partial Thromboplast Time 30.8 Seconds (24.1-36.2)
[2025-03-07] MEDS: Ipratropium/Albuterol Sulfate 3 ML AMPUL.NEB INHALATION (23:37)
[2025-03-07] MEDS: Albuterol 2.5 MG/3 ML VIAL.NEB. INHALATION (23:37)
--- NOTE | 2025-03-07 23:45 | ED.VIS.DYS ---
HPI History of Present Illness Chief Complaint: Shortness of Breath Informant: patient and spouse/S.O. Narrative Narrative: 84-year-old male history of diastolic heart failure COPD on chronic home oxygen presenting to the emergency room with dyspnea. Family states that on Tuesday evening he began to feel chilled and have body aches. They note that he has not been eating as much over the past few days. He has done more sitting in his chair due to fatigue and increasing shortness of breath. Temperatures at home have been around 100. He notes cough but no sputum production. He was noted by nursing to be in the 70s on 5 L in triage. Patient denies any vomiting or diarrhea. He denies any pain. Patient is on Plavix but not on any anticoagulations. [facility] Medical History Chronic respiratory failure Wears hearing aid Ambulates with cane Sleep apnea Former smoker History of rheumatic fever On home oxygen therapy COPD (chronic obstructive pulmonary disease) Wears dentures Cancer Walker as ambulation aid Anemia High cholesterol Easy bruising Syncope History of ulceration History of GI bleed On home oxygen therapy Shortness of breath on exertion History of pain when walking History of echocardiogram Cardiology follow-up encounter Hx of basal cell carcinoma Multiple premature ventricular complexes Arthritis Tobacco abuse Prostate cancer Peripheral vascular occlusive disease Right bundle branch block (RBBB) Essential hypertension Duodenal ulcer due to nonsteroidal anti-inflammatory drug (NSAID) (09/28/21) Peripheral vascular disease Hyperlipidemia Skin cancer Home Medications ?Medication ?Instructions ?Recorded ?Last Taken ?Type acetaminophen 500 mg tablet 1,000 mg (2 x 500 mg) PO Q6H PRN 02/03/22 02/11/22 Rx PRN Pain Score 1-10 #0 tabs amlodipine 10 mg tablet 10 mg PO DAILY bp 02/11/22 07/13/23 History cholecalciferol (vitamin D3) 25 25 mcg PO QODAY supplement 02/11/22 02/11/22 History mcg (1,000 unit) tablet polysaccharide iron complex 150 mg 150 mg PO DAILYCM supplement 02/11/22 07/13/23 History iron capsule (Ferrex) pravastatin 80 mg tablet 80 mg PO QHS cholesterol 02/11/22 02/11/22 History umeclidinium 62.5 mcg-vilanterol 1 ea inhalation DAILY copd 02/11/22 02/10/22 History 25 mcg/actuation powdr for inhalation (Anoro Ellipta) clopidogrel 75 mg tablet 75 mg PO DAILY 05/24/23 Unknown History metoprolol tartrate 25 mg tablet 12.5 mg PO BID bp 05/24/23 07/13/23 History hydrochlorothiazide 25 mg tablet 25 mg PO DAILY htn 07/13/23 07/13/23 History duloxetine 30 mg capsule,delayed 30 mg PO DAILY #30 caps 07/18/23 Unknown Rx release Allergy/AdvReac Type Severity Reaction Status Date / Time peanut Allergy Swelling Verified 03/07/25 22:44 Family History Father CVA (cerebral vascular accident) Hypertension Surgical History History of total right knee replacement Status post total right knee replacement History of esophagogastroduodenoscopy (EGD) Hx of vascular surgery (2018) History of carpal tunnel surgery of left wrist H/O radical prostatectomy H/O: knee surgery Social History household members: spouse Smoking Status: Former smoker Tobacco: How many years used: 50 alcohol intake: former ROS ROS ED Constitutional Constitutional ED: Reports chills and fever(s); Denies weight loss Eyes Eyes: Denies change in vision or diplopia ENT ENT ED: Denies ear pain, rhinorrhea or sore throat Cardiovascular Cardiovascular: Denies chest pain, orthopnea, palpitations or racing heartbeat Respiratory/Chest Respiratory/Chest: Reports cough, dyspnea and dyspnea on exertion; Denies orthopnea Gastrointestinal Gastrointestinal: Reports other Details: Decreased appetite ; Denies abdominal pain, diarrhea, nausea or vomiting Genitourinary Genitourinary ED: Denies dysuria, hematuria or urinary frequency Musculoskeletal Musculoskeletal: Denies arthralgias or myalgias Integumentary Denies abscess or rash Neurologic Neurologic: Denies headache(s) or weakness Psychiatric Psychiatric: Denies anxiety, depression, suicidal ideation or suicidal thoughts Endocrine Endocrinology: Denies polydipsia, polyphagia or polyuria Allergic/Immunologic Allergic/Immunologic ED: Denies mouth swelling, tongue swelling or urticaria EXAM Physical Exam Const Vital Signs: 03/07/25 22:44 05/08/25 22:47 03/07/25 22:52 Temperature 98.6 F 98.6 F Temperature Source Oral Oral Pulse Rate 96 96 Respiratory Rate 30 H 30 H Respiratory Pattern Blood Pressure 202/87 H 202/87 H Blood Pressure Mean 125 125 Pulse Ox 76 76 Oxygen Delivery Method Nasal Cannula Nasal Cannula Venturi Mask Oxygen Flow Rate (L/min) 5 5 10 Fraction of Inspired Oxygen (FIO2) 03/07/25 22:53 03/07/25 23:05 03/07/25 23:23 Temperature 98 F Temperature Source Temporal Pulse Rate 94 Respiratory Rate 25 H Respiratory Pattern Blood Pressure 187/87 H Blood Pressure Mean 120 Pulse Ox 92 91 Oxygen Delivery Method Non-Rebreather Venturi Mask Bi-pap Oxygen Flow Rate (L/min) 10 40 Fraction of Inspired Oxygen (FIO2) 50 03/07/25 23:28 03/07/25 23:40 03/07/25 23:43 Temperature 97.9 F Temperature Source Temporal Pulse Rate 94 90 88 Respiratory Rate 20 H 18 29 H Respiratory Pattern Normal Normal Blood Pressure 188/75 H Blood Pressure Mean 112 Pulse Ox 92 90 Oxygen Delivery Method Bi-pap Oxygen Flow Rate (L/min) 40 Fraction of Inspired Oxygen (FIO2) 40 03/07/25 23:47 03/07/25 23:57 03/08/25 00:00 Temperature 97.9 F 98.3 F Temperature Source Temporal Temporal Pulse Rate 86 96 Respiratory Rate 30 H 21 H Respiratory Pattern Blood Pressure 188/75 H 186/87 H Blood Pressure Mean 112 120 Pulse Ox 87 92 91 Oxygen Delivery Method Bi-pap Bi-pap Bi-pap Oxygen Flow Rate (L/min) 40 40 40 Fraction of Inspired Oxygen (FIO2) 03/08/25 00:00 Temperature Temperature Source Pulse Rate 94 Respiratory Rate Respiratory Pattern Blood Pressure Blood Pressure Mean Pulse Ox Oxygen Delivery Method Oxygen Flow Rate (L/min) Fraction of Inspired Oxygen (FIO2) Positive well nourished and well developed General Appearance ED: well developed HEENT Reports normocephalic, head/scalp atraumatic and moist mucous membranes Eyes PERRL and EOMs intact bilaterally Neck no lymphadenopathy, supple and no JVD Resp Resp Narrative: Patient is tachypneic conversational dyspnea. Diminished lung sounds bilaterally with some expiratory wheezes. Cardio regular rate, regular rhythm and no murmurs Rate: tachycardic GI normal to inspection, nondistended, normoactive bowel sounds and non-tender Palpation: soft Back/Spine no CVA tenderness and normal ROM Extremity normal to inspection General Extremety ED: Negative for edema General Extremity: Negative for edema Neuro oriented x3 and CN's II-XII intact bilaterally Sensorium / Orientation: alert Motor Exam: strength 5/5 throughout Psych mental status grossly normal Mood & Affect: Negative for depressed or tearful Skin no rashes or lesions noted and no wounds MDM MDM MDM Narrative Medical decision making narrative: Differential diagnosis includes but is not limited to COPD exacerbation viral syndrome sepsis pneumothorax pneumonia acute coronary syndrome congestive heart failure Patient received increasing amounts of supplemental oxygen. We tried him on various Ventimask but he continued to be hypoxic. We transitioned him to BiPAP. He received breathing treatments. My independent interpretation the chest x-ray is no acute process. Significantly elevated hemidiaphragm on the right. Patient's white count is 8.2 with hemoglobin 12.3 platelet count of 185. INR is 1.1. Lactic acid is elevated 2.4 and may reflect more the degree of hypoxia and work of breathing and sepsis. Glucose is 110. proBNP 931 troponin 36 and again nonischemic EKG but does show a right bundle branch block which is known. Creatinine 1.86 with a BUN of 35. VBG was ordered as well as a CTA of the chest. Patient is been resting significantly more comfortable on BiPAP. I will be checking the patient out to the oncoming physician for check a CTA and ABG and would anticipate a hospital admission. History & Record Review Discussion w/independent historian: Patient and Family Additional record(s) reviewed:: Prior inpatient record, Prior outpatient record, Prior ED visit and Prior labs Lab Data Attestation: I reviewed the patient's lab results. Labs: Laboratory Results - last 24 hr 03/07/25 22:55 WBC 8.2 RBC 3.65 L Hgb 12.3 L Hct 37.1 L MCV 101.6 H MCH 33.7 H MCHC 33.2 RDW Std Deviation 53.7 H RDW Coeff of Marya 14.3 Plt Count 185 MPV 10.9 Immature Gran % (Auto) 0.200 Neut % (Auto) 69.1 Lymph % (Auto) 20.8 [place] % (Auto) 7.0 Eos % (Auto) 2.7 Baso % (Auto) 0.2 Absolute Neuts (auto) 5.6 Absolute Lymphs (auto) 1.70 Nucleated RBC % 0 PT 13.9 INR 1.1 APTT 30.8 Sodium 140 Potassium 3.2 L Chloride 100 Carbon Dioxide 23.3 Anion Gap 17 H BUN 35 H Creatinine 1.86 H Estim Creat Clear Calc 29.11 L Est GFR (MDRD) Non-Af 35 L BUN/Creatinine Ratio 19.0 Glucose 110 H Lactic Acid 2.4 H* Calcium 9.7 Total Bilirubin 0.45 AST 25 ALT 12 Alkaline Phosphatase 122 Troponin T High Sens 36 H NT pro BNP II 931 Total Protein 8.1 Albumin 3.8 Globulin 4.2 Albumin/Globulin Ratio 0.9 ABG Data ABG results: ABG 03/08/25 00:24 Specimen Type ART Sample Site R Radial pH 7.50 H Bicarbonate Actual 26.6 H Total CO2 28 Base Excess 3 H O2 Saturation 99 O2 % 40.0 ABG pCO2 34.5 L ABG pO2 121 H Beny Test Positive Respiration Rate 12 O2 Delivery Device BiPAP Vent Mode Not entered Clinical Comments 12/6 cmH2O Radiography Diagnostic Testing: Clinical Impression(s) from Imaging Studies Chest X-Ray 03/07/25 23:15 IMPRESSION: No acute findings. Reading Location: [facility] EK Initial EKG: Attestation: I personally reviewed and interpreted this EKG as follows: Comments: Sinus rhythm with a ventricular rate of 94 bpm. Right bundle branch block is no Prior EKG tracings: available for review Prior: Unchanged (2022) Management Discussion w/another healthcare provider: Hospitalist Discharge Plan Dx/Rx/DC Orders Clinical Impression: Acute exacerbation of chronic obstructive pulmonary disease, Acute and chronic respiratory failure with hypoxia, Elevated lactic acid level Disposition Disposition: [facility]
[2025-03-08] VITALS (32 sets, daily range): BP systolic 134–186; BP diastolic 67–107; PULSE 68–110; RESP 12–31; TEMP 36.3–37.1; O2SAT 86–97; BMI 23.2; BMI 23.8
[2025-03-08 00:02] LABS: Lactic Acid 2.4 mmol/L (0.0-2.0)
[2025-03-08 00:08] LABS: ALB/GLOB Ratio 0.9 RATIO (0.9-2.4); AST(SGOT) 25 U/L (<=37); Alanine Aminotransfer ALT/SGPT 12 U/L (<=46); Albumin, Serum 3.8 g/dL (3.4-4.8); Alkaline Phosphatase 122 U/L (40-129); Anion Gap 17 (5-15); BUN 35 mg/dL (4-19); Calcium,Total 9.7 mg/dL (7.6-11.0); Carbon Dioxide 23.3 mmol/L (21.0-32.0); Chloride 100 mmol/L (98-108); Creatinine, Serum 1.86 mg/dL (0.70-1.20); EST Glomerular Filtration Rate 35 (>60); Estimated Creatinine Clearance 29.11 ml/min (50-250); Globulin 4.2 g/dL (2.2-4.2); Glucose 110 mg/dL (70-99); Potassium 3.2 mmol/L (3.3-5.1); Protein, Total 8.1 g/dL (5.9-8.4); Sodium Level 140 mmol/L (133-145); Total Bilirubin 0.45 mg/dL (0.00-1.30)
--- NOTE | 2025-03-08 00:09 | CT_ITS ---
PROCEDURE: CTA CHEST W/WO CONTRAST 03/08/2025 REASON FOR EXAM: PULMONARY EMBOLISM TECHNIQUE: CTA imaging of the chest with intravenous contrast. Multiplanar and multisequence images were obtained. Coronal and sagittal MIP images obtained CONTRAST: 100 cc Isovue 370 IV One or more dose reduction techniques were used (e.g., Automated exposure control, adjustment of the mA and/or kV according to patient size, use of iterative reconstruction technique). RADIATION DOSE SUMMARY: CTDlvol: 12.59 mGy DLP: 452.09 mGycm COMPARISON: 10/08/2022 FINDINGS: No evidence of filling defect to suggest pulmonary embolism. No thoracic aortic aneurysm or dissection. Atherosclerotic changes with irregular multifocal areas of mural soft plaque distal thoracic aortic arch and descending thoracic aorta. Three-vessel coronary calcification. Very small pericardial fluid anteriorly. No pleural effusion. The central airways appear patent. Background of mild centrilobular pulmonary emphysema. Atelectasis right middle lobe. Patchy opacity left lower lobe and some more consolidative type change within the right lower lobe concerning for pneumonia, clinically correlate and recommend follow-up to resolution. Limited images of the upper abdomen with note of cholelithiasis, adreniform enlargement of the left adrenal gland, possible renal cyst upper pole right kidney. Atherosclerotic changes visualized partially imaged abdominal aorta with some soft plaque formation at the origin of the celiac with contrast seen beyond, calcific and soft plaque at the origin of the SMA with contrast seen beyond and [id number]-right renal artery calcific plaque with contrast seen beyond. Multilevel spondylosis/discogenic change with areas of cervical and upper thoracic osseous fusion with an increased cervical thoracic kyphosis. Severe appearing [id number]-left shoulder osteoarthrosis. There again appears to be a lucent area in the right humeral head partially imaged for example axial 265. CT/CTA Chest W/WO Contrast IMPRESSION: No evidence of filling defect to suggest pulmonary embolism. No thoracic aortic aneurysm or dissection. Atherosclerotic changes with irregul ar multifocal areas of mural soft plaque distal thoracic aortic arch and descending thoracic aorta. Three-vessel coronary calci fication. Background of mild centrilobular pulmonary emphysema. Atelectasis right middle lobe. Patchy opacity left lower lobe and some more consolidative type change within the right lower lobe concerning for pneum onia, clinically correlate and recommend follow-up to resolution. Reading Location: [id number]
[2025-03-08 00:21] LABS: Pro- Brain NATRIURETIC PEPTIDE 931 pg/mL (<=1800); Troponin T High Sensitivity 36 ng/L (<=22)
[2025-03-08 00:29] LABS: Allen Test Positive; Base Excess 3 mmol/L (-2 to +2); Bicarbonate 26.6 mmol/L (22-26); Blood Gas Specimen Type ART; Comment 12/6 cmH2O; Mode Not entered; O2 Delivery Device BiPAP; PO2 121 mmHG (75-100); RR 12; SITE R Radial; SO2 99 % (95-99); Total Carbon Dioxide 28 mmol/L; pCO2 34.5 mmHg (35-45)
[2025-03-08] MEDS: MethylPREDNISolone 125 MG/2 ML Vial IV (00:51)
[2025-03-08] MEDS: Ceftriaxone 1 GM/50 ML BAG IV ×2 (00:52→20:41)
[2025-03-08] MEDS: Azithromycin 500 MG in 0.9% Normal Saline (250mL Bag) 250 ML 255 MG IV ×2 (01:34→23:13)
--- NOTE | 2025-03-08 01:59 | PCM.HP.STD ---
[facility] - General General Date of Admission: 03/08/25 Date of Service: 03/08/25 Chief Complaint: SOB and Wheezing. HPI Narrative NICA PANTOJA, is a 84 M with a past medical history of essential hypertension; on amlodipine, metoprolol and hydrochlorothiazide, hyperlipidemia; on pravastatin, history of tobacco abuse; with subsequent COPD, chronic hypoxic respiratory failure on 2L NC, WENDI; noncompliant with CPAP, history of chronic diastolic CHF; preserved LVEF, history of multiple PVC's (2020), history of prostate cancer; s/p radical prostatectomy, PVD; s/p bilateral lower extremity stents on clopidogrel (2017), history of duodenal ulcer with bleed (2020); attributed to NSAID's treated at EGD with electrocautery, KYLE; on polysaccharide iron complex, history of basal cell carcinoma on the Right ear; s/p excision, depression; on duloxetine and OA; s/p Right TKR who presents to [facility] ER complaining of shortness of breath and wheezing. Mr. Pantoja reports his symptoms began approximately 4 days prior to admission on Sunday, February 02, 2025 when he began to feel chilled and have body aches with temperatures at home ~100 ?F. He then noted a gradual-onset of dyspnea on exertion that progressed to shortness of breath at rest with wheezing, malaise and decreased appetite. He admits to nonproductive cough and was noted to have an oxygen saturation of 70% on 5L NC in triage. He denies associated changes in vision, runny nose, sore throat, ear pain, chest pain, palpitations, heart racing, lower extremity edema, abdominal pain, nausea, vomiting, diarrhea, dysuria, hematuria, headache or rash. In the ER he was noted to have a CTA of the chest with IV contrast that revealed no filling defect to suggest pulmonary embolism but did reveal background of mild centrilobular pulmonary emphysema with atelectasis in the right middle lobe and patchy opacity in the left lower lobe and some consolidative change within the right lower lobe concerning for pneumonia with clinical correlation and follow-up to resolution recommended complicated by clinical evidence of AE COPD with Acute Respiratory Failure requiring BiPAP with ABG that revealed pH 7.5/ pCO2 34.5 mmHg/ PaO2 121 mmHg/ HCO3 26.6 mmol/L at 99% on 40% FiO2 with BiPAP 12 at 12/6 cmH2O compounded by laboratory evidence of Lactic Acidosis of 2.4 mmol/L and Hypokalemia of 3.2 mmol/L and GOMEZ; with elevated serum creatinine of 1.86 mg/dL and he was then admitted to the PCU for ongoing care for a stay that is expected to extend beyond 2 midnights. [facility] Medical History Chronic respiratory failure Wears hearing aid Ambulates with cane Sleep apnea Former smoker History of rheumatic fever On home oxygen therapy COPD (chronic obstructive pulmonary disease) Wears dentures Cancer Walker as ambulation aid Anemia High cholesterol Easy bruising Syncope History of ulceration History of GI bleed On home oxygen therapy Shortness of breath on exertion History of pain when walking History of echocardiogram Cardiology follow-up encounter Hx of basal cell carcinoma Multiple premature ventricular complexes Arthritis Tobacco abuse Prostate cancer Peripheral vascular occlusive disease Right bundle branch block (RBBB) Essential hypertension Duodenal ulcer due to nonsteroidal anti-inflammatory drug (NSAID) (09/28/21) Peripheral vascular disease Hyperlipidemia Skin cancer Home Medications ?Medication ?Instructions ?Recorded ?Last Taken ?Type acetaminophen 500 mg tablet 1,000 mg (2 x 500 mg) PO Q6H PRN 02/03/22 02/11/22 Rx PRN Pain Score 1-10 #0 tabs amlodipine 10 mg tablet 10 mg PO DAILY bp 02/11/22 07/13/23 History cholecalciferol (vitamin D3) 25 25 mcg PO QODAY supplement 02/11/22 02/11/22 History mcg (1,000 unit) tablet polysaccharide iron complex 150 mg 150 mg PO DAILYCM supplement 02/11/22 07/13/23 History iron capsule (Ferrex) pravastatin 80 mg tablet 80 mg PO QHS cholesterol 02/11/22 02/11/22 History umeclidinium 62.5 mcg-vilanterol 1 ea inhalation DAILY copd 02/11/22 02/10/22 History 25 mcg/actuation powdr for inhalation (Anoro Ellipta) clopidogrel 75 mg tablet 75 mg PO DAILY 05/24/23 Unknown History metoprolol tartrate 25 mg tablet 12.5 mg PO BID bp 05/24/23 07/13/23 History hydrochlorothiazide 25 mg tablet 25 mg PO DAILY htn 07/13/23 07/13/23 History duloxetine 30 mg capsule,delayed 30 mg PO DAILY #30 caps 07/18/23 Unknown Rx release Allergy/AdvReac Type Severity Reaction Status Date / Time peanut Allergy Swelling Verified 03/07/25 22:44 Family History Father CVA (cerebral vascular accident) Hypertension Surgical History History of total right knee replacement Status post total right knee replacement History of esophagogastroduodenoscopy (EGD) Hx of vascular surgery (2018) History of carpal tunnel surgery of left wrist H/O radical prostatectomy H/O: knee surgery Social History household members: spouse Smoking Status: Former smoker Tobacco: How many years used: 50 alcohol intake: former ROS ROS Narrative Review of Systems: Constitutional: Patient admits to fever and chills. Eyes: Patient denies changes in vision or discharge from eyes. ENT: Patient denies runny nose, sore throat or ear pain. Resp: Patient admits to GARCÍA that progressed to SOB at rest with wheezing and nonproductive cough as per HPI. CV: Patient denies chest pain, palpitations, heart racing or LE edema. GI: Patient admits to decreased appetite but he denies nausea, vomiting, diarrhea or constipation. : Patient denies dysuria, hematuria or urinary frequency. MSK: Patient denies arthralgias or myalgias. Skin: Patient denies rash, abscess, wounds or jaundice. Psych: Patient denies symptoms of uncontrolled depression or anxiety. Neuro: Patient denies headache, paresthesias or focal neurologic deficits. Allergy: Patient denies lip swelling, tongue swelling or urticaria. Hematology: Patient denies easy bleeding or easy bruisability. Endocrinology: Patient denies polyuria, polydipsia, polyphagia or heat/cold/intolerance. 14 point ROS otherwise negative except for positives noted above in HPI. Vital Signs Vital Signs Vital Signs: 03/07/25 22:44 03/07/25 22:47 03/07/25 22:52 Temperature 98.6 F 98.6 F Temperature Source Oral Oral Pulse Rate 96 96 Respiratory Rate 30 H 30 H Respiratory Pattern Blood Pressure 202/87 H 202/87 H Blood Pressure Mean 125 125 Pulse Ox 76 76 Oxygen Delivery Method Nasal Cannula Nasal Cannula Venturi Mask Oxygen Flow Rate (L/min) 5 5 10 Fraction of Inspired Oxygen (FIO2) 03/07/25 22:53 03/07/25 23:05 03/07/25 23:23 Temperature 98 F Temperature Source Temporal Pulse Rate 94 Respiratory Rate 25 H Respiratory Pattern Blood Pressure 187/87 H Blood Pressure Mean 120 Pulse Ox 92 91 Oxygen Delivery Method Non-Rebreather Venturi Mask Bi-pap Oxygen Flow Rate (L/min) 10 40 Fraction of Inspired Oxygen (FIO2) 50 03/07/25 23:28 03/07/25 23:40 03/07/25 23:43 Temperature 97.9 F Temperature Source Temporal Pulse Rate 94 90 88 Respiratory Rate 20 H 18 29 H Respiratory Pattern Normal Normal Blood Pressure 188/75 H Blood Pressure Mean 112 Pulse Ox 92 90 Oxygen Delivery Method Bi-pap Oxygen Flow Rate (L/min) 40 Fraction of Inspired Oxygen (FIO2) 40 03/07/25 23:47 03/07/25 23:57 03/08/25 00:00 Temperature 97.9 F 98.3 F Temperature Source Temporal Temporal Pulse Rate 86 96 Respiratory Rate 30 H 21 H Respiratory Pattern Blood Pressure 188/75 H 186/87 H Blood Pressure Mean 112 120 Pulse Ox 87 92 91 Oxygen Delivery Method Bi-pap Bi-pap Bi-pap Oxygen Flow Rate (L/min) 40 40 40 Fraction of Inspired Oxygen (FIO2) 03/08/25 00:00 03/08/25 00:30 03/08/25 00:36 Temperature 97.9 F Temperature Source Temporal Pulse Rate 94 97 110 H Respiratory Rate 30 H 20 H Respiratory Pattern Normal Blood Pressure 152/68 H Blood Pressure Mean 96 Pulse Ox 90 94 Oxygen Delivery Method Bi-pap Oxygen Flow Rate (L/min) 30 Fraction of Inspired Oxygen (FIO2) 30 03/08/25 01:00 03/08/25 01:18 03/08/25 01:30 Temperature Temperature Source Pulse Rate 97 92 Respiratory Rate 23 H 31 H Respiratory Pattern Blood Pressure 152/68 H 146/70 H Blood Pressure Mean 96 95 Pulse Ox 86 88 88 Oxygen Delivery Method Bi-pap Bi-pap Oxygen Flow Rate (L/min) Fraction of Inspired Oxygen (FIO2) 35 35 Weight Weight: 152 lb 12.485 oz Body Mass Index (BMI) 23.2 Physical Exam Const alert and oriented x3 Constitutional Narrative: Patient with labored respirations on BiPAP. General Appearance: cooperative HEENT normocephalic, head/scalp atraumatic, hearing grossly normal bilaterally and moist oral mucous membranes Eyes PERRL, EOMs intact bilaterally and conjunctivae normal Neck no lymphadenopathy and supple Resp Resp Narrative: Diminished breath sounds throughout with scattered expiratory wheezes, tachypnea and conversational dyspnea. Auscultation: wheezes Cardio regular rate and regular rhythm Cardio Narrative: Tachycardia in the ~115 bpm/min range. GI normal to inspection, nondistended, normoactive bowel sounds, soft to palpation, non-tender and non-distended Extremity normal to inspection, full ROM and no clubbing, cyanosis or edema Skin Skin Narrative: Patient has evidence of rash, abscess, wounds or jaundice. Neuro oriented x3, CN's II-XII intact bilaterally, moves all extremities and no focal motor deficits Sensorium / Orientation: awake, alert, oriented to person, oriented to place and oriented to time Speech: speech normal Psych affect normal Mood & Affect: anxious Results Medical Records Data Attestation: I reviewed the patient's medical records Lab / Micro Data Attestation: I reviewed the patient's lab results. 03/08/25 03:45 03/07/25 22:55 Labs: Laboratory Results - last 24 hr 03/07/25 22:55: WBC 8.2, RBC 3.65 L, Hgb 12.3 L, Hct 37.1 L, MCV 101.6 H, MCH 33.7 H, MCHC 33.2, RDW Std Deviation 53.7 H, RDW Coeff of Marya 14.3, Plt Count 185, MPV 10.9, Immature Gran % (Auto) 0.200, Neut % (Auto) 69.1, Lymph % (Auto) 20.8, [place] % (Auto) 7.0, Eos % (Auto) 2.7, Baso % (Auto) 0.2, Absolute Neuts (auto) 5.6, Absolute Lymphs (auto) 1.70, Nucleated RBC % 0, PT 13.9, INR 1.1, APTT 30.8, Sodium 140, Potassium 3.2 L, Chloride 100, Carbon Dioxide 23.3, Anion Gap 17 H, BUN 35 H, Creatinine 1.86 H, Estim Creat Clear Calc 29.11 L, Est GFR (MDRD) Non-Af 35 L, BUN/Creatinine Ratio 19.0, Glucose 110 H, Lactic Acid 2.4 H*, Calcium 9.7, Total Bilirubin 0.45, AST 25, ALT 12, Alkaline Phosphatase 122, Troponin T High Sens 36 H, NT pro BNP II 931, Total Protein 8.1, Albumin 3.8, Globulin 4.2, Albumin/Globulin Ratio 0.9 Micro: Microbiology 03/07/25 23:04 Mucosa - Nose SARS-CoV-2, Influenza & RSV (PCR) - Final ABG Data ABG results: ABG 03/08/25 00:24 Specimen Type ART Sample Site R Radial pH 7.50 H Bicarbonate Actual 26.6 H Total CO2 28 Base Excess 3 H O2 Saturation 99 O2 % 40.0 ABG pCO2 34.5 L ABG pO2 121 H Beny Test Positive Respiration Rate 12 O2 Delivery Device BiPAP Vent Mode Not entered Clinical Comments 12/6 cmH2O Imaging Radiology Impression Chest X-Ray 03/07/25 23:15 IMPRESSION: No acute findings. [facility] 03/08/25 00:09 IMPRESSION: No evidence of filling defect to suggest pulmonary embolism. No thoracic aortic aneurysm or dissection. Atherosclerotic changes with irregular multifocal areas of mural soft plaque distal thoracic aortic arch and descending thoracic aorta. Three-vessel coronary calcification. Background of mild centrilobular pulmonary emphysema. Atelectasis right middle lobe. Patchy opacity left lower lobe and some more consolidative type change within the right lower lobe concerning for pneumonia, clinically correlate and recommend follow-up to resolution. Reading Location: [id number] Assessment & Plan Assessment/Plan (1) Multifocal pneumonia: (2) Acute exacerbation of chronic obstructive pulmonary disease: (3) Acute and chronic respiratory failure with hypoxia: (4) Elevated lactic acid level: (5) GOMEZ (acute kidney injury): (6) Hypokalemia: (7) Uncontrolled hypertension: PLAN: Plan 1. CTA of the chest with IV contrast that revealed no filling defect to suggest pulmonary embolism but did reveal background of mild centrilobular pulmonary Emphysema with atelectasis in the Right middle lobe and patchy opacity in the Left lower lobe and some consolidative change within the Right lower lobe concerning for Pneumonia with clinical correlation and follow-up to resolution recommended with Lactic Acidosis of 2.4 mmol/L present on admission - Admit to PCU. Continue BiPAP and recheck ABG periodically to follow trend. Continue empiric IV ceftriaxone and IV azithromycin and await culture & sensitivity data. Check urinary antigens Streptococcus pneumonia and Legionella. Check sputum cultures. Give scheduled guaifenesin twice daily. Give acetaminophen as needed for [id number] (level 1-5/10) pain or fever. Give morphine IV as needed for severe (level 6-10/10) pain. Finally, patient was noted to have a normal white blood cell count of 8.2K without Left-shift and was afebrile mitigating against diagnosis of sepsis at this time. 2. AE COPD with Xuzxc-bi-Dopitie Hypoxic Respiratory Failure requiring BiPAP due to #1 - Maintain IV methylprednisolone begun in ER. Wean BiPAP as tolerated. 3. GOMEZ; with elevated serum creatinine of 1.86 mg/dL present on admission complicating #1 & #2 - Gently volume resuscitate and then recheck renal indices in AM to follow trend for hopeful improvement. We will avoid potentially nephrotoxic agents. 4. Hypokalemia of 3.2 mmol/L present on admission compounding #1 - #3 - Give supplemental IV KCl and then recheck level in AM to confirm repletion. 5. Uncontrolled Hypertension with elevated blood pressure of 202/87 mmHg present on admission; on amlodipine, metoprolol and hydrochlorothiazide - Hold hydrochlorothiazide but continue amlodipine and metoprolol as before. Give IV hydralazine as needed for systolic blood pressure greater than 160 mmHg. 6. Hyperlipidemia; on pravastatin - Resume statin. 7. History of tobacco abuse; with subsequent COPD plus chronic hypoxic respiratory failure on 2L NC - Noted. 8. WENDI; noncompliant with CPAP - Continue BiPAP for now. Patient would likely benefit from additional education and encouragement to comply with CPAP when he improves. 9. History of chronic diastolic CHF; preserved LVEF - Stable with no signs of volume overload at this time and normal-range NT pro-BNP II of 931 pg/mL present on admission. 10. History of multiple PVC's (2020) - Noted with no signs of significant PVC's or other arrhythmia at this time. 11. History of prostate cancer; s/p radical prostatectomy - Noted. 12. PVD; s/p bilateral lower extremity stents on clopidogrel (2017) - Stable. Resume clopidogrel as before. 13. History of duodenal ulcer with bleed (2020); attributed to NSAID's treated at EGD with electrocautery - Stable with no evidence of active bleeding at this time. 14. KYLE; on polysaccharide iron complex - Stable with hemoglobin of 12.3 g/dL and MCV of 101.6 fL present on admission. Check B12 and folate levels with macrocytosis. 15. History of basal cell carcinoma on the Right ear; s/p excision - Noted. 16. Depression; on duloxetine - Resume duloxetine as before. 17. OA; s/p Right TKR - Give acetaminophen as per pain scale outlined in #1. 18. DVT/GI prophylaxis - Heparin 5,000U sq BID plus SCD's. Give pantoprazole 40 mg IV daily in light of high-dose IV steroids used to treat #2. Total time: Approximately (midnight less than) 75 minutes. Charges/Coding Visit Charges Inpatient E&M: 11281 Init Hosp L3
[2025-03-08 03:14] LABS: Reflex Lactate? Y
[2025-03-08 04:01] LABS: Absolute Lymphocyte Count 0.37 X10^3/uL (0.83-4.51); Absolute Neutrophil Count 7.8 X10^3/uL (2.0-7.7); Basophil# 0.02 X10^3/uL; Basophil% 0.2 % (0-1); Eosinophil# 0.01 X10^3/uL; Eosinophils% 0.1 % (0-5); Hematocrit 33.4 % (40-54); Hemoglobin 11.2 g/dL (13.0-16.5); Lymphocyte # 0.37 X10^3/ul (0.83-4.51); Lymphocyte % 4.3 % (19-41); Mean Corp Hgb Conc 33.5 g/dL (32-36); Mean Corpuscular Hgb 33.7 pg (27.0-32.0); Mean Corpuscular Volume 100.6 fL (80-94); Mean Platelet Vol. 10.2 fl (6.2-12.0); Monocyte# 0.41 X10^3/uL; Monocyte% 4.8 % (0-10); NRBC Flagged by Analyzer 0 % (0-5); Neutrophil # 7.79 X10^3/uL (2.7-7.7); Neutrophil % 90.4 % (47-70); POSITIVE DIFFERENTIAL YES; Platelet Count 177 K/mm3 (150-450); RBC Distribution Width CV 14.5 % (11.6-14.6); RBC Distribution Width SD 53.7 fl (35.1-43.9); Red Blood Count 3.32 M/mm3 (4.6-6.2); White Blood Count 8.6 K/mm3 (4.4-11.0)
[2025-03-08] MEDS: Pantoprazole Sodium 40 MG in 0.9% Normal Saline (100mL MB+) 100 ML 330 MG IV ×2 (04:05→22:09)
[2025-03-08] MEDS: Potassium Chloride Oral Tablet 20 MEQ 40 MEQ PO (04:06)
[2025-03-08] MEDS: KCL 40mEq in 0.9% NS 40 MEQ/1,000 ML IV.SOLN 75 MEQ IV (04:23)
[2025-03-08 04:32] LABS: AST(SGOT) 26 U/L (<=37); Alanine Aminotransfer ALT/SGPT 15 U/L (<=46); Albumin, Serum 3.6 g/dL (3.4-4.8); Alkaline Phosphatase 123 U/L (40-129); Anion Gap 14 (5-15); BUN 33 mg/dL (4-19); BUN/Creat Ratio 20.2 RATIO (10-20); Calcium,Total 9.4 mg/dL (7.6-11.0); Carbon Dioxide 23.3 mmol/L (21.0-32.0); Chloride 100 mmol/L (98-108); Creatinine, Serum 1.64 mg/dL (0.70-1.20); EST Glomerular Filtration Rate 41 (>60); Estimated Creatinine Clearance 33.02 ml/min (50-250); Globulin 3.7 g/dL (2.2-4.2); Glucose 147 mg/dL (70-99); Lactic Acid 1.2 mmol/L (0.0-2.0); Phosphorus 2.3 mg/dL (2.7-4.5); Potassium 3.3 mmol/L (3.3-5.1); Protein, Total 7.3 g/dL (5.9-8.4); Sodium Level 137 mmol/L (133-145); Total Bilirubin 0.38 mg/dL (0.00-1.30)
[2025-03-08 05:28] LABS: Magnesium 1.9 mg/dL (1.5-2.2); Thyroid Stim Hormone (TSH) 0.676 uIU/mL (0.300-4.200); Vitamin B12 697 pg/mL (180-914)
[2025-03-08 05:39] LABS: Allen Test Positive; Base Excess 2 mmol/L (-2 to +2); Bicarbonate 25.9 mmol/L (22-26); Blood Gas Specimen Type ART; Mode Not entered; O2 Delivery Device HFNC; PO2 68 mmHG (75-100); SITE L Radial; SO2 94 % (95-99); Total Carbon Dioxide 27 mmol/L; pCO2 38.2 mmHg (35-45); pH 7.44 (7.35-7.45)
[2025-03-08 06:38] LABS: Troponin T High Sensitivity 38 ng/L (<=22)
[2025-03-08 07:31] LABS: Troponin T High Sens 2 HR 33 ng/L (<=22)
[2025-03-08] MEDS: Ipratropium/Albuterol Sulfate 3 ML AMPUL.NEB INHALATION ×3 (07:40→20:04)
--- NOTE | 2025-03-08 07:57 | PCM.PN.HOSP ---
Reason for Visit Reason for Visit: Diagnoses Hypokalemia (03/08/25) Essential (primary) hypertension (03/08/25) Pneumonia, unspecified organism (03/08/25) Chronic obstructive pulmonary disease with (acute) exacerbation (03/08/25) Acute and chronic respiratory failure with hypoxia (03/08/25) Acute kidney failure, unspecified (03/08/25) Other specified abnormal findings of blood chemistry (03/08/25) Subjective Subjective Breathing better. Objective Data Objective Data Vital Signs: Vital Signs Temp Pulse Resp BP Pulse Ox O2 Del Method O2 Flow Rate 37.1 C 73 20 H 150/107 H 91 High Flow 13 03/08/25 03:43 03/08/25 07:42 03/08/25 07:42 03/08/25 03:43 03/08/25 07:42 03/08/25 07:42 03/08/25 07:42 FiO2 35 03/08/25 01:30 Oxygen Flow Rate (L/min) 13 Oxygen Delivery Method High Flow Weight: 71.2 kg Body Mass Index (BMI) 23.8 Intake & Output: Intake and Output for Last 24 Hours 03/06/25 03/07/25 03/08/25 23:59 23:59 23:59 Intake Total 475 / 475 Balance 475 / 475 Lab / Micro Data 03/08/25 03:45 03/08/25 03:45 Labs: Laboratory Results - last 24 hr 03/07/25 22:55: WBC 8.2, RBC 3.65 L, Hgb 12.3 L, Hct 37.1 L, MCV 101.6 H, MCH 33.7 H, MCHC 33.2, RDW Std Deviation 53.7 H, RDW Coeff of Marya 14.3, Plt Count 185, MPV 10.9, Immature Gran % (Auto) 0.200, Neut % (Auto) 69.1, Lymph % (Auto) 20.8, [place] % (Auto) 7.0, Eos % (Auto) 2.7, Baso % (Auto) 0.2, Absolute Neuts (auto) 5.6, Absolute Lymphs (auto) 1.70, Nucleated RBC % 0, PT 13.9, INR 1.1, APTT 30.8, Sodium 140, Potassium 3.2 L, Chloride 100, Carbon Dioxide 23.3, Anion Gap 17 H, BUN 35 H, Creatinine 1.86 H, Estim Creat Clear Calc 29.11 L, Est GFR (MDRD) Non-Af 35 L, BUN/Creatinine Ratio 19.0, Glucose 110 H, Lactic Acid 2.4 H*, Calcium 9.7, Total Bilirubin 0.45, AST 25, ALT 12, Alkaline Phosphatase 122, Troponin T High Sens 36 H, NT pro BNP II 931, Total Protein 8.1, Albumin 3.8, Globulin 4.2, Albumin/Globulin Ratio 0.9 03/08/25 03:45: WBC 8.6, RBC 3.32 L, Hgb 11.2 L, Hct 33.4 L, MCV 100.6 H, MCH 33.7 H, MCHC 33.5, RDW Std Deviation 53.7 H, RDW Coeff of Marya 14.5, Plt Count 177, MPV 10.2, Immature Gran % (Auto) 0.200, Neut % (Auto) 90.4 H, Lymph % (Auto) 4.3 L, [place] % (Auto) 4.8, Eos % (Auto) 0.1, Baso % (Auto) 0.2, Absolute Neuts (auto) 7.8 H, Absolute Lymphs (auto) 0.37 L, Nucleated RBC % 0, Sodium 137, Potassium 3.3, Chloride 100, Carbon Dioxide 23.3, Anion Gap 14, BUN 33 H, Creatinine 1.64 H, Estim Creat Clear Calc 33.02 L, Est GFR (MDRD) Non-Af 41 L, BUN/Creatinine Ratio 20.2 H, Glucose 147 H, Lactic Acid 1.2, Calcium 9.4, Phosphorus 2.3 L, Magnesium 1.9, Total Bilirubin 0.38, AST 26, ALT 15, Alkaline Phosphatase 123, Troponin T High Sens 38 H, Total Protein 7.3, Albumin 3.6, Globulin 3.7, Albumin/Globulin Ratio 1.0, Vitamin B12 697, Serum Folate 22.90, TSH 0.676 03/08/25 06:38: Troponin T Hi Sens 2 Hr 33 H Micro: Microbiology 03/07/25 23:04 Mucosa - Nose SARS-CoV-2, Influenza & RSV (PCR) - Final ABG Data ABG results: ABG 03/08/25 03/08/25 00:24 05:36 Specimen Type ART ART Sample Site R Radial L Radial pH 7.50 H 7.44 Bicarbonate Actual 26.6 H 25.9 Total CO2 28 27 Base Excess 3 H 2 O2 Saturation 99 94 L O2 % 40.0 12.0 ABG pCO2 34.5 L 38.2 ABG pO2 121 H 68 L Beny Test Positive Positive Respiration Rate 12 O2 Delivery Device BiPAP HFNC Vent Mode Not entered Not entered Clinical Comments 12/6 cmH2O Radiography Diagnostic Testing: Radiology Impression Chest X-Ray 03/07/25 23:15 IMPRESSION: No acute findings. Reading [facility] Chest CTA 03/08/25 00:09 IMPRESSION: No evidence of filling defect to suggest pulmonary embolism. No thoracic aortic aneurysm or dissection. Atherosclerotic changes with irregular multifocal areas of mural soft plaque distal thoracic aortic arch and descending thoracic aorta. Three-vessel coronary calcification. Background of mild centrilobular pulmonary emphysema. Atelectasis right middle lobe. Patchy opacity left lower lobe and some more consolidative type change within the right lower lobe concerning for pneumonia, clinically correlate and recommend follow-up to resolution. Reading Location: [id number] Physical Exam Const alert and no apparent distress HEENT head/scalp atraumatic and moist oral mucous membranes Resp normal respiratory effort, no retractions, no use of accessory muscles and clear to auscultation bilaterally Cardio regular rate, regular rhythm, S1 normal heart sound and S2 normal heart sound GI normal to inspection, nondistended, normoactive bowel sounds, soft to palpation, non-tender and non-distended Extremity normal to inspection and full ROM Assessment & Plan Assessment/Plan (1) Pneumonia: PLAN: suspected pneumococcal. check legionella and strep antigens, sputum culture abx with CTX and azithromycin PEP (2) Acute hypoxic respiratory failure: PLAN: acute on chronic respiratory failure. 2/2 Pneumonia, AECOPD wean oxygen as tolerated Normally on 3.5 l/m. Was on BiPAP, since weaned down to 6 l/m (3) COPD with acute exacerbation: PLAN: methylprednisolone and BDs. (4) Hypertensive urgency: PLAN: improved chronic HTN exacerbated by respiratory failure. on metoprolol and amlodipine PRN hydralazine PLAN: Plan Chronic conditions: CKD: HCTZ held WENDI: non-complaint w CPAP VTE prophylaxis: SQ heparin. DW family at bedside. Charges/Coding Visit Charges Inpatient E&M: 23593 Subs Hosp L2
[2025-03-08 08:48] LABS: Bacteria 0 SEEN /hpf (None Seen); Mucous, Urine 0 SEEN /hpf (<or=2+); Squamous Epithelial Cells - UA 0 SEEN /hpf (0-5); White Blood Cells 0 SEEN /hpf (0-5)
[2025-03-08 08:53] LABS: Color, Urine Yellow (Yellow); Glucose, Dipstick Normal (Normal); Ketone-Dipstick Negative (Negative); Leukocyte Esterase-Dipstick Negative /ul (Negative); Nitrite-Dipstick Negative (Negative); Occult Blood-Urine 50 /ul (Negative); Protein-Dipstick 100 mg/dl (Negative); Urine Bilirubin Dipstick Negative (Negative); Urine Clarity Clear (Clear); Urine Urobilinogen Normal (Normal)
[2025-03-08] MEDS: Iron Polysaccharide Complex 150 MG CAPSULE PO (09:00)
[2025-03-08] MEDS: Ascorbic Acid 500 MG Tablet 1000 MG PO ×2 (09:00→17:50)
[2025-03-08] MEDS: DULoxetine Hcl 30 MG Capsule PO (09:00)
[2025-03-08] MEDS: Lactobacillis Acidophilus 1 CAP PO ×4 (09:00→20:51)
[2025-03-08] MEDS: Clopidogrel Bisulfate 75 MG Tablet PO (09:00)
[2025-03-08] MEDS: amLODIPine 10 MG Tablet PO (09:02)
[2025-03-08] MEDS: Zinc Sulfate 50 mg zinc (220 mg) ORAL capsule PO (09:02)
[2025-03-08] MEDS: guaiFENesin 600 MG Tablet PO ×2 (09:24→20:51)
[2025-03-08] MEDS: Metoprolol Tartrate 25 MG Tablet 12.5 MG PO ×2 (09:25→20:52)
[2025-03-08 09:26] LABS: Red Blood Cells-Urine 0-5 SEEN /hpf (0-5)
[2025-03-08] MEDS: MethylPREDNISolone 125 MG/2 ML Vial 60 MG IV ×2 (09:27→20:55)
[2025-03-08] MEDS: Heparin Injection (Vial) 5,000 UNIT/ML VIAL 5000 UNIT SC ×2 (09:29→20:57)
[2025-03-08 09:54] LABS: Troponin T High Sens 4 HR 33 ng/L (<=22)
--- NOTE | 2025-03-08 11:06 | CASEMGMT ---
ARASELI PLASCENCIA Assessment: Face to Face with pt for initial transition planning/care coordination assessment. ARASELI PLASCENCIA introduced self and role at [facility], pt voices understanding and consents to assessment. Pt is A&O x4 and answers all questions appropriately at this time. Pt lying in bed in no distress, and son present in room. Pt agreeable to answering questions with famliy present. Care providers, pharmacy, and demographics verified/updated. Strata: 2 Admitting Dx: Multifocal pheumonia, AE COPD, And Acute Hypoxia PCP: James Specialists: Jose, Pulmonology [facility] Insurance: [employer] Prescription Benefit: yes LNOK: , Larissa Living Arrangements: Pt lives with in a condo with 0 stairs to enter in. ADLs: Pt states I with ADLs and IADLs. Transportation: Pt drives self and denies concerns with transportation. DME: Has a walker and cane but doesn't use them. Has O2 through [employer]. HHC/SNF: [facility] and used [facility]. Pt states no concerns with going home at time of dc. ARASELI PLASCENCIA discussed HHC with pt, pt denies wanting any HHC or OP therapy. Pt states no further concerns/needs. CM to follow. Advised pt to ask CM if any further question/concerns/needs arise, voices understanding. Pt Goal: Home Plan: Home with family support, follow therapy recommendations. Plan for safe DC. Jayro MARX CM
[2025-03-08] MEDS: hydrALAZINE 20 MG/ML Vial 5 MG IV (17:44)
[2025-03-08] MEDS: Pravastatin 80 MG Tablet PO (20:51)
[2025-03-08] MEDS: 0.9% Saline Lock 10 ML Syringe IV (20:54)
[2025-03-09] VITALS (12 sets, daily range): BP systolic 155–159; BP diastolic 81–87; PULSE 64–97; RESP 12–20; TEMP 36.3–36.7; O2SAT 88–97; BMI 23.6
[2025-03-09 07:14] LABS: Absolute Lymphocyte Count 0.82 X10^3/uL (0.83-4.51); Absolute Neutrophil Count 10.2 X10^3/uL (2.0-7.7); Basophil# 0.01 X10^3/uL; Basophil% 0.1 % (0-1); Hematocrit 33.4 % (40-54); Hemoglobin 10.9 g/dL (13.0-16.5); Lymphocyte # 0.82 X10^3/ul (0.83-4.51); Lymphocyte % 7.2 % (19-41); Mean Corp Hgb Conc 32.6 g/dL (32-36); Mean Corpuscular Hgb 32.9 pg (27.0-32.0); Mean Corpuscular Volume 100.9 fL (80-94); Mean Platelet Vol. 10.7 fl (6.2-12.0); Monocyte# 0.35 X10^3/uL; Monocyte% 3.1 % (0-10); NRBC Flagged by Analyzer 0 % (0-5); Neutrophil # 10.24 X10^3/uL (2.7-7.7); Neutrophil % 89.3 % (47-70); Platelet Count 187 K/mm3 (150-450); RBC Distribution Width CV 14.7 % (11.6-14.6); RBC Distribution Width SD 55.3 fl (35.1-43.9); Red Blood Count 3.31 M/mm3 (4.6-6.2); White Blood Count 11.5 K/mm3 (4.4-11.0)
[2025-03-09] MEDS: Ipratropium/Albuterol Sulfate 3 ML AMPUL.NEB INHALATION ×2 (07:59→13:46)
[2025-03-09 08:08] LABS: Anion Gap 13 (5-15); BUN 40 mg/dL (4-19); BUN/Creat Ratio 24.8 RATIO (10-20); Calcium,Total 9.1 mg/dL (7.6-11.0); Carbon Dioxide 21.4 mmol/L (21.0-32.0); Chloride 104 mmol/L (98-108); EST Glomerular Filtration Rate 42 (>60); Estimated Creatinine Clearance 33.84 ml/min (50-250); Glucose 130 mg/dL (70-99); Potassium 3.9 mmol/L (3.3-5.1); Sodium Level 138 mmol/L (133-145)
--- NOTE | 2025-03-09 08:32 | PN.HOSP_ITS ---
Reason for Visit Reason for Visit: Diagnoses Hypokalemia (03/08/25) Essential (primary) hypertension (03/08/25) Hypertensive urgency (03/08/25) Pneumonia, unspecified organism (03/08/25) Chronic obstructive pulmonary disease with (acute) exacerbation (03/08/25) Acute respiratory failure with hypoxia (03/08/25) Acute and chronic respiratory failure with hypoxia (03/08/25) Acute kidney failure, unspecified (03/08/25) Other specified abnormal findings of blood chemistry (03/08/25) Subjective Subjective Breathing better. No events overnight. Objective Data Objective Data Vital Signs: Vital Signs Temp Pulse Resp BP Pulse Ox O2 Del Method O2 Flow Rate 36.3 C L 73 20 H 155/81 H 92 High Flow 6 03/09/25 03:11 03/09/25 08:02 03/09/25 08:02 03/09/25 03:11 03/09/25 08:13 03/09/25 08:13 03/09/25 08:13 FiO2 35 03/09/25 08:02 Oxygen Flow Rate (L/min) 6 Oxygen Delivery Method High Flow Weight: 70.5 kg Body Mass Index (BMI) 23.6 Intake & Output: Intake and Output for Last 24 Hours 03/07/25 03/08/25 03/09/25 23:59 23:59 23:59 Intake Total 2775 / 2775 255 / 255 Output Total 300 / 300 0 / 0 Balance 2475 / 2475 255 / 255 Lab / Micro Data 03/09/25 06:29 03/09/25 06:29 Labs: Laboratory Results - last 24 hr 03/07/25 08:15: Urine Color Yellow, Urine Clarity Clear, Urine pH 5.0, Ur Specific [place] 1.010, Urine Protein 100 H, Urine Glucose (UA) Normal, Urine Ketones Negative, Urine Occult Blood 50 H, Urine Nitrite Negative, Urine Bilirubin Negative, Urine Urobilinogen Normal, Ur Leukocyte Esterase Negative, Urine RBC 0-5 SEEN, Urine WBC 0 SEEN, Ur Squamous Epith Cells 0 SEEN, Urine Bacteria 0 SEEN, Urine Mucus 0 SEEN 03/08/25 07:50: Troponin T Hi Sens 4Hr 33 H 03/09/25 06:29: WBC 11.5 H, RBC 3.31 L, Hgb 10.9 L, Hct 33.4 L, MCV 100.9 H, MCH 32.9 H, MCHC 32.6, RDW Std Deviation 55.3 H, RDW Coeff of Marya 14.7 H, Plt Count 187, MPV 10.7, Immature Gran % (Auto) 0.300, Neut % (Auto) 89.3 H, Lymph % (Auto) 7.2 L, [place] % (Auto) 3.1, Eos % (Auto) 0.0, Baso % (Auto) 0.1, Absolute Neuts (auto) 10.2 H, Absolute Lymphs (auto) 0.82 L, Nucleated RBC % 0, Sodium 138, Potassium 3.9, Chloride 104, Carbon Dioxide 21.4, Anion Gap 13, BUN 40 H, C reatinine 1.60 H, Estim Creat Clear Calc 33.84 L, Est GFR (MDRD) Non-Af 42 L, B UN/Creatinine Ratio 24.8 H, Glucose 130 H, Calcium 9.1 Micro: Microbiology 03/08/25 08:15 Urine, Clean Catch Legionella Antigen - Final 03/08/25 08:15 Urine, Clean Catch Streptococcus pneumoniae Antigen (M - Final Streptococcus pneumoniae 03/08/25 03:40 Mucosa - Nasopharyngeal Respiratory Panel (PCR) - Final 03/07/25 23:04 Mucosa - Nose SARS-CoV-2, Influenza & RSV (PCR) - Final Physical Exam Const alert and no apparent distress Resp normal respiratory effort, no retractions, no use of accessory muscles and clear to auscultation bilaterally Cardio regular rate, regular rhythm, S1 normal heart sound and S2 normal heart sound GI normal to inspection, nondistended, normoactive bowel sounds, soft to palpation, non-tender and non-distended Neuro Sensorium / Orientation: awake and alert Assessment & Plan Assessment/Plan (1) Pneumonia: PLAN: pneumococcal. Strep antigen + (legionella negative), sputum culture abx with CTX and azithromycin. DC with levofloxacin. PEP (2) Acute hypoxic respiratory failure: PLAN: acute on chronic respiratory failure. 2/2 Pneumonia, AECOPD wean oxygen as tolerated Normally on 3.5 l/m. Was on BiPAP, since weaned down to 6 l/m. Ambulatory pulse ox showed that he required 4 liters with activity. (3) COPD with acute exacerbation: PLAN: methylprednisolone and BDs. DC with prednisone burst. (4) Hypertensive urgency: PLAN: improved chronic HTN exacerbated by respiratory failure. on metoprolol and amlodipine PRN hydralazine PLAN: Plan Chronic conditions: * CKD: HCTZ held * WENDI: non-complaint w CPAP VTE prophylaxis: SQ heparin.
[2025-03-09] MEDS: Clopidogrel Bisulfate 75 MG Tablet PO (09:06)
[2025-03-09] MEDS: Metoprolol Tartrate 25 MG Tablet 12.5 MG PO (09:06)
[2025-03-09] MEDS: amLODIPine 10 MG Tablet PO (09:06)
[2025-03-09] MEDS: Zinc Sulfate 50 mg zinc (220 mg) ORAL capsule PO (09:06)
[2025-03-09] MEDS: Heparin Injection (Vial) 5,000 UNIT/ML VIAL 5000 UNIT SC (09:07)
[2025-03-09] MEDS: Iron Polysaccharide Complex 150 MG CAPSULE PO (09:07)
[2025-03-09] MEDS: Ascorbic Acid 500 MG Tablet 1000 MG PO (09:07)
[2025-03-09] MEDS: DULoxetine Hcl 30 MG Capsule PO (09:07)
[2025-03-09] MEDS: guaiFENesin 600 MG Tablet PO (09:07)
[2025-03-09] MEDS: Cholecalciferol (VIT D3) 25 MCG TABLET (1,000 UNITS) PO (09:07)
[2025-03-09] MEDS: Lactobacillis Acidophilus 1 CAP PO ×2 (09:07→14:09)
[2025-03-09] MEDS: MethylPREDNISolone 125 MG/2 ML Vial 60 MG IV (09:08)
--- NOTE | 2025-03-09 12:10 | PCM.DC.SUM ---
Providers Date of Admission: 03/08/25 Primary Care Physician: Jennyfer Ramirez MAINTENANCE AND REPAIR WORKER-C Reason For Visit: MULTIFOCAL PNEUMONIA, AE COPD, AND ACUTE HYPOXIC Diagnosis Discharge Diagnosis (1) Pneumonia: Status: Acute Code(s): J18.9 - Pneumonia, unspecified organism Plan: pneumococcal. Strep antigen + (legionella negative), sputum culture abx with CTX and azithromycin. DC with levofloxacin. PEP (2) Acute hypoxic respiratory failure: Status: Acute Code(s): J96.01 - Acute respiratory failure with hypoxia Plan: acute on chronic respiratory failure. 2/2 Pneumonia, AECOPD wean oxygen as tolerated Normally on 3.5 l/m. Was on BiPAP, since weaned down to 6 l/m. Ambulatory pulse ox showed that he required 4 liters with activity. (3) COPD with acute exacerbation: Status: Chronic Code(s): J44.1 - Chronic obstructive pulmonary disease with (acute) exacerbation Plan: methylprednisolone and BDs. DC with prednisone burst. (4) Hypertensive urgency: Status: Acute Code(s): I16.0 - Hypertensive urgency Plan: improved chronic HTN exacerbated by respiratory failure. on metoprolol and amlodipine PRN hydralazine Plan Chronic conditions: CKD: HCTZ held WENDI: non-complaint w CPAP VTE prophylaxis: SQ heparin. Medications at Discharge Home Medications acetaminophen 500 mg tablet 1,000 mg (2 x 500 mg) PO Q6H PRN PRN Pain Score 1-10 #0 tabs 02/03/22 amlodipine 10 mg tablet 10 mg PO DAILY bp 02/11/22 cholecalciferol (vitamin D3) 25 mcg (1,000 unit) tablet 25 mcg PO QODAY supplement 02/11/22 polysaccharide iron complex 150 mg iron capsule (Ferrex) 150 mg PO DAILYCM supplement 02/11/22 pravastatin 80 mg tablet 80 mg PO QHS cholesterol 02/11/22 umeclidinium 62.5 mcg-vilanterol 25 mcg/actuation powdr for inhalation (Anoro Ellipta) 1 ea inhalation DAILY copd 02/11/22 clopidogrel 75 mg tablet 75 mg PO DAILY 05/24/23 metoprolol tartrate 25 mg tablet 12.5 mg PO BID bp 05/24/23 duloxetine 30 mg capsule,delayed release 30 mg PO DAILY #30 caps 07/18/23 albuterol sulfate 90 mcg/actuation aerosol inhaler 2 puff inhalation Q6H PRN shortness of breath or wheezing #8.5 grams 03/09/25 guaifenesin 600 mg tablet, extended release 12 hr (Mucinex) 600 mg PO BID #10 tabs 03/09/25 levofloxacin 500 mg tablet 500 mg PO DAILY #5 tabs 03/09/25 prednisone 20 mg tablet 40 mg (2 x 20 mg) PO DAILY #10 tabs 03/09/25 Hospital Course Operations None Procedures None Summary of Care Provided Minutes Spent on Discharge: 32 Hospital Course: Patient presents with shortness of breath. Patient was found to have multifocal pneumonia and was positive for Streptococcus and urinary antigen. Patient will be discharged with levofloxacin to complete course of antibiotics. Additionally his COPD was exacerbated will be on a prednisone burst upon discharge. Weight / BMI Weight Weight: 70.5 kg Body Mass Index (BMI) 23.6 ABG / Lab / Microbiology Data 03/09/25 06:29 03/09/25 06:29 Laboratory: Laboratory Results - last 24 hr 03/09/25 06:29: WBC 11.5 H, RBC 3.31 L, Hgb 10.9 L, Hct 33.4 L, MCV 100.9 H, MCH 32.9 H, MCHC 32.6, RDW Std Deviation 55.3 H, RDW Coeff of Marya 14.7 H, Plt Count 187, MPV 10.7, Immature Gran % (Auto) 0.300, Neut % (Auto) 89.3 H, Lymph % (Auto) 7.2 L, [place] % (Auto) 3.1, Eos % (Auto) 0.0, Baso % (Auto) 0.1, Absolute Neuts (auto) 10.2 H, Absolute Lymphs (auto) 0.82 L, Nucleated RBC % 0, Sodium 138, Potassium 3.9, Chloride 104, Carbon Dioxide 21.4, Anion Gap 13, BUN 40 H, Creatinine 1.60 H, Estim Creat Clear Calc 33.84 L, Est GFR (MDRD) Non-Af 42 L, BUN/Creatinine Ratio 24.8 H, Glucose 130 H, Calcium 9.1 Microbiology: Microbiology 03/08/25 08:15 Urine, Clean Catch Legionella Antigen - Final 03/08/25 08:15 Urine, Clean Catch Streptococcus pneumoniae Antigen (M - Final Streptococcus pneumoniae 03/08/25 03:40 Mucosa - Nasopharyngeal Respiratory Panel (PCR) - Final 03/07/25 23:04 Mucosa - Nose SARS-CoV-2, Influenza & RSV (PCR) - Final D/C Instructions Discharge Diet: No restrictions DC O2, CPAP, BIPAP Needs Home O2 Discharge instructions: Yes Type of respiratory needs?: Oxygen Oxygen frequency: Continuous Continuous oxygen liters per minute: 4 DC home with Oxygen: Yes Home O2 MD Review: I have reviewed the oxygen testing, and the patient qualifies for home oxygen equipment and portability. The patient is mobile in the home and the community. Meaningful Use Info Meaningful Use Meaningful Use Diagnoses (Choose all that apply): None applicable Ischemic Stroke Statin Dosing Therapy Reference: STATIN DOSE THERAPY REFERENCE: * Patients > 75 years receive moderate or high dose statin therapy. * Patients 75 years or YOUNGER should receive HIGH intensity statin dose unless contraindicated. You will be required to document reason for non-treatment if statin daily dose does not meet guidelines. HIGH DOSE STATIN THERAPY DAILY Atorvastatin > than or = to 40 mg Rosuvastatin > than or = to 20 mg Amlodipine + Atorvastatin > than or = to 2.5/40 mg Ezetimibe + Simvastatin 10/80 mg Simvastatin 80mg Discharge Plan Admission Admit Date/Time: 03/08/25 02:50 Primary Reason for Your Visit: pneumonia Attending Provider: Malik Vega Primary Care Provider: Jennyfer Ramirez Consulting Providers: Seferino Claros Discharge Orders/Prescriptions Prescriptions: New guaifenesin [Mucinex] 600 mg Tablet Extended Release 12hr 600 mg PO BID Qty: 10 0RF levofloxacin 500 mg tablet 500 mg PO DAILY Qty: 5 0RF prednisone 20 mg tablet 40 mg PO DAILY Qty: 10 0RF albuterol sulfate 90 mcg/actuation HFA aerosol inhaler 2 puff inhalation Q6H PRN (Reason: shortness of breath or wheezing) Qty: 8.5 0RF Continued clopidogrel 75 mg tablet 75 mg PO DAILY acetaminophen 500 mg Tablet 1,000 mg PO Q6H PRN PRN (Reason: Pain Score 1-10) Qty: 0 0RF polysaccharide iron complex [Ferrex 150] 150 mg iron capsule 150 mg PO DAILYCM pravastatin 80 mg tablet 80 mg PO QHS amlodipine 10 mg tablet 10 mg PO DAILY cholecalciferol (vitamin D3) 25 mcg (1,000 unit) tablet 25 mcg PO QODAY Anoro Ellipta 62.5-25 mcg/actuation blister with device 1 ea inhalation DAILY metoprolol tartrate 25 mg tablet 12.5 mg PO BID duloxetine 30 mg Capsule,Delayed Release(Dr/Ec) 30 mg PO DAILY Qty: 30 0RF Discontinued hydrochlorothiazide 25 mg tablet 25 mg PO DAILY Patient Comments: TAKE 1 TABLET BY MOUTH DAILY Referrals / Follow Up: Jennyfer Ramirez MAINTENANCE AND REPAIR WORKER-C [Primary Care Provider] - Within 2 Weeks Disposition Disposition (needs filled in before D/C Order can be placed): Home, Self Care Charges/Coding Visit Charges Inpatient E&M: 42122 Disch Hosp >30min
== END 2025-03-09 15:41 | disposition home or self-care (01) | DRG 193 ==
LOC: ED 03-08 02:19 → PCU 03-08 03:11
PROVIDERS: Admitting Provider Internal Medicine; Emergency Provider Emergency Medicine; PCP Nurse Practitioner Family
DX: J18.9 Pneumonia, unspecified organism (principal); J96.21 Acute and chronic respiratory failure with hypoxia; I50.32 Chronic diastolic (congestive) heart failure; J44.0 Chronic obstructive pulmonary disease with (acute) lower respiratory infection; N17.9 Acute kidney failure, unspecified; J44.1 Chronic obstructive pulmonary disease with (acute) exacerbation; I11.0 Hypertensive heart disease with heart failure; D50.9 Iron deficiency anemia, unspecified; Z95.820 Peripheral vascular angioplasty status with implants and grafts; J43.2 Centrilobular emphysema; M17.11 Unilateral primary osteoarthritis, right knee; E78.00 Pure hypercholesterolemia, unspecified; E87.6 Hypokalemia; G47.33 Obstructive sleep apnea (adult) (pediatric); Z79.02 Long term (current) use of antithrombotics/antiplatelets; Z87.891 Personal history of nicotine dependence; Z96.651 Presence of right artificial knee joint; Z91.199 Patient's noncompliance with other medical treatment and regimen due to unspecified reason
CPT/HCPCS: 36415; 36600; 71045; 71275; 80048; 80053; 81001; 82607; 82746; 82803; 83605; 83735; 83880; 84100; 84443; 84484; 85025; 85610; 85730; 87040; 87449; 87631; 87633; 93005; 94002; 94003; 94640; 94668; 94760; 97161; 97166; 99252; 99284; Q9967; A4216; G0463

== ENCOUNTER → 2025-03-28 | Outpatient (CLI) | payer MEDICARE, SELFPAY ==
[2025-03-28 10:49] LABS: Pro- Brain NATRIURETIC PEPTIDE 1726 pg/mL (<=1800)
== END | disposition home or self-care (01) ==
PROVIDERS: PCP Nurse Practitioner Family; Referring Provider Nurse Practitioner Family; Visit Provider Nurse Practitioner Family
DX: E87.5 Hyperkalemia (principal)
CPT/HCPCS: 83880; 84132

== ENCOUNTER → 2025-06-25 | Outpatient (CLI) | payer MEDICARE, SELFPAY ==
[2025-06-27 15:08] LABS: Albumin 3.5 g/dL (2.9-4.4); Gamma Globulin 1.0 g/dL (0.4-1.8); Immunoglobulin A 325 mg/dL (61-437); Immunoglobulin G 991 mg/dL (603-1613); Immunoglobulin M 73 mg/dL (15-143); PROEL- TOTAL PROTEIN 6.7 g/dL (6.0-8.5); PROELU- Albumin, Urine 64.5 % (.); PROELU- Alpha-1-Globulin,Ur 3.9 % (.); PROELU- Alpha-2-Globulin,Ur 8.5 % (.); PROELU- Beta Globulin, Ur 14.3 % (.); PROELU- Gamma Globulin, Ur 8.9 % (.); Total Protein, Ur 35.5 mg/dL (Not Estab.)
== END | disposition home or self-care (01) ==
LOC: MTLAB 09:00
PROVIDERS: PCP Nurse Practitioner Family; Referring Provider Nurse Practitioner Family; Visit Provider Nurse Practitioner Family
DX: R77.8 Other specified abnormalities of plasma proteins (principal)
CPT/HCPCS: 36415; 82784; 83883; 84165; 84166; 86334; 86335

== ENCOUNTER → 2025-09-02 | Outpatient (CLI) | payer MEDICARE, SELFPAY ==
--- NOTE | 2025-09-02 12:49 | RAD_ITS ---
PROCEDURE: RAD/Chest PA and Lateral
== END | disposition home or self-care (01) ==
LOC: MTRAD 12:44
PROVIDERS: PCP Nurse Practitioner Family; Referring Provider Family Medicine; Visit Provider Family Medicine
DX: J44.1 Chronic obstructive pulmonary disease with (acute) exacerbation (principal)
CPT/HCPCS: 71046